=== PATIENT | female | born 1945 | race Caucasian/White ===

== ENCOUNTER → 2017-08-04 | Outpatient (CLI) | payer MEDICARE, OTHER ==
[2017-08-04 15:05] LABS: Basophils % (A) 0 %; Eosinophils % (A) 0 %; HCT 44.8 % (34.0-46.0); HGB 14.4 gm/dL (11.4-16.0); Lymphocytes # (A) 2.3 k/uL (1.0-4.8); Lymphocytes % (A) 21 %; MCHC 32.1 g/dL (31.0-37.0); MCV 93.5 fL (80.0-100.0); Mean Platelet Volume 6.9; Monocytes # (A) 0.5 k/uL (0-1.0); Monocytes % (A) 5 %; Neutrophils # (A) 7.5 k/uL (1.3-7.7); Neutrophils % (A) 71 %; Platelet Count 385 k/uL (150-450); RBC 4.79 m/uL (3.80-5.40); RDW 13.1 % (11.5-15.5); WBC 10.5 k/uL (3.8-10.6)
[2017-08-04 15:12] LABS: Potassium 5.6 mmol/L (3.5-5.1)
== END | disposition home or self-care (01) ==
LOC: LABPAT 13:54
PROVIDERS: ATTEND Surgery
DX: Z01.818 Encounter for other preprocedural examination (principal); R94.31 Abnormal electrocardiogram [ECG] [EKG]; D64.9 Anemia, unspecified; F17.200 Nicotine dependence, unspecified, uncomplicated; T81.89XA Other complications of procedures, not elsewhere classified, initial encounter; Z01.812 Encounter for preprocedural laboratory examination
CPT/HCPCS: 36415; 80051; 85025; 93005

== ENCOUNTER 2017-08-07 07:59 | Day surgery (SDC) | payer MEDICARE, OTHER ==
[2017-08-03 11:29] VITALS: BMI 45.0
[~2017-08-07 07:59] MED LIST: DEXAMETHASONE SOD PHOSPHATE 10 MG/ML 1 ML VIAL IV ONE; HEPARIN SODIUM,PORCINE 5,000 UNIT/ML 1 ML VIAL SQ ONE; LACTATED RINGERS 1,000 ML IV SCH; MIDAZOLAM 2 MG/2 ML VIAL IV PRN; MORPHINE SULFATE 4 MG/ML SYRINGE IV PRN; ONDANSETRON 4 MG/2 ML VIAL IVP ONE; Pre Op ABX Message 1 EACH MISC MISCELLANE ONE
[2017-08-07 08:32] VITALS: RESP 16
[2017-08-07 08:34] LABS: Glucose,Whole Blood 200 mg/dL (75-99)
--- NOTE | 2017-08-07 09:26 | P.GSHP ---
History of Present Illness H&P Date: 08/07/17 Chief Complaint: Chronic abdominal wound This a 72-year-old female who has a chronic abdominal wound. Patient had a ventral hernia repair approximately 10 years ago. She states she had mesh removed from the hernia. She has a chronic nonhealing abdominal wall sinus. She presents today for debridement of abdominal wall Past Medical History Past Medical History: Diabetes Mellitus, Eye Disorder, Hyperlipidemia, Hypertension, Osteoarthritis (OA), Thyroid Disorder Additional Past Medical History / Comment(s): arrthymia ; glaucoma History of Any Multi-Drug Resistant Organisms: None Reported Past Surgical History: Cholecystectomy, Hernia Repair, Tonsillectomy Additional Past Surgical History / Comment(s): hernia repair X 3 (mesh rejection ) Past Anesthesia/Blood Transfusion Reactions: No Reported Reaction Smoking Status: Never smoker - Past Family History Mother Family Medical History: Diabetes Mellitus Medications and Allergies Home Medications Medication Instructions Recorded Confirmed Type Acetaminophen Tab [Tylenol Tab] 650 mg PO Q6H PRN 05/09/15 08/07/17 History Aspirin 325 mg PO DAILY 05/09/15 08/07/17 History Exenatide [Byetta] 10 mcg SQ BID 05/09/15 08/07/17 History Fish Oil/Dha/Epa [Fish Oil 1,200 1 each PO DAILY 05/09/15 08/07/17 History mg Fish Oil] Ibuprofen [Motrin] 800 mg PO Q8HR PRN 05/09/15 08/07/17 History Lisinopril/Hydrochlorothiazide 1 each PO HS 05/09/15 08/07/17 History [Zestoretic 20-25 mg Tablet] Meclizine [Antivert] 25 mg PO DAILY PRN 05/09/15 08/07/17 History OLANZapine/FLUOXETINE HCL [Symbyax 1 each PO HS 05/09/15 08/07/17 History 12-25 mg Capsule] Simvastatin [Zocor] 40 mg PO HS 05/09/15 08/07/17 History lamoTRIgine 150 mg PO BID 05/09/15 08/07/17 History metFORMIN HCL [Glucophage] 1,000 mg PO BID 05/09/15 08/07/17 History Multivitamins, Thera [Multivitamin 1 tab PO DAILY 08/03/17 08/07/17 History (formulary)] Travoprost [Travatan Z 0.004%] 1 drop BOTH EYES DAILY 08/03/17 08/07/17 History Allergies Allergy/AdvReac Type Severity Reaction Status Date / Time No Known Allergies Allergy Verified 08/07/17 08:36 Surgical - Exam Vital Signs Temp Pulse Resp BP Pulse Ox 98.0 F 68 16 143/75 97 08/07/17 08:30 08/07/17 08:30 08/07/17 08:30 08/07/17 08:30 08/07/17 08:30 - General Review obesity with BMI 45 well developed, no distress - Eyes PERRL - ENT normal pinna - Neck no masses - Respiratory normal expansion - Cardiovascular Rhythm: regular - Abdomen Nonhealing abdominal wall sinus located 4 cm to the left of the umbilicus. There is evidence of laparotomy scars Abdomen: soft, non tender Results - Labs 08/07/17 08:25 Abnormal Lab Results - Last 24 Hours (Table) 08/07/17 Range/Units 08:23 POC Glucose (mg/dL) 200 H (75-99) mg/dL Diabetes panel 08/07/17 Range/Units 08:25 Potassium 4.2 (3.5-5.1) mmol/L Pituitary panel 08/07/17 Range/Units 08:25 Potassium 4.2 (3.5-5.1) mmol/L Adrenal panel 08/07/17 Range/Units 08:25 Potassium 4.2 (3.5-5.1) mmol/L Assessment and Plan Assessment: Chronic abdominal wound. We'll perform debridement.
[2017-08-07] MEDS ORDERED: ceFAZolin 1,000 MG/50 ML BAG (PMX) IVPB ONE (09:52)
[2017-08-07] MEDS ORDERED: BUPIVACAINE (PF) 0.25% 30 ML VIAL SQ ONE (09:54)
[2017-08-07 10:22] VITALS: TEMP 99.1
--- NOTE | 2017-08-07 10:26 | P.OP ---
Date of Procedure: 08/07/17 Preoperative Diagnosis: Chronic abdominal wound Postoperative Diagnosis: Chronic abdominal wound secondary to infected stitch Procedure(s) Performed: Debridement of abdominal wall and removal of infected stitch Anesthesia: BRAD Surgeon: Elian Matos Estimated Blood Loss (ml): 5 Pathology: other (Abdominal wall debridement, stitch foreign body) Condition: stable Disposition: PACU Description of Procedure: The patient was placed on the operative table in supine position. She received general anesthesia. Her abdomen was prepped and draped in usual sterile fashion. The patient had a chronic wound sinus to the left of the umbilicus. This was probed with a hemostat. Skin was then opened over top of the wound. The tract was followed down. There appeared to be a chronically infected stitch. This was removed. The area of the fistula's tract was then debrided. The wound was packed with wet-to-dry Kerlix dressing. Patient top procedure well and was sent to recovery in stable condition.
[2017-08-07 10:29] LABS: Glucose,Whole Blood 198 mg/dL (75-99)
[2017-08-07 12:02] VITALS: BP 153/75
[2017-08-07 12:20] VITALS: PULSE 71
--- NOTE | 2017-08-11 17:46 | CDI ---
Outpatient Documentation Clarification Form Date: 08/11/17 CDS/Adz Worker Name: SAMM De La Vega Phone: If you have question, contact Isabelle Coleman Rotor Assembler at M-F 8:30 am to 6pm. Patient Name: Zulema Felix Admit Date: 08/07/17 Discharge Date: 08/07/17 ATTENTION: The Clinical Documentation Specialists (CDI) and [facility] Coding Staff appreciate your assistance in clarifying documentation. Please respond to the clarification below the line at the bottom and electronically sign. The CDI & [facility] Coding staff will review the response and follow-up if needed. Please note: Queries are made part of the Legal Health Record. If you have any questions, please contact the author of this message via ITS or call the Rotor Assembler. Dr. Elian Matos Complete documentation for excisional debridement requires five elements: A description of the procedure as excisional A description of the instrument used to cut or excise the tissue (e.g., scissors , scalpel, curette) A description of the tissue removed (e.g., necrotic, devitalized or non-viable) The appearance and size of the wound (e.g., down to fresh bleeding tissue, 7 cm x 10 cm, etc.) The depth of the debridement (e.g., to skin, fascia, subcutaneous tissue, muscle , or bone) Excisional Debridement Template Type of debridement (ewiiaapaayp one)~~ excisional ~ nonexcisional Size and appearance of wound debrided Removal of devitalized tissue description (necrotic, nonviable, etc.) ____ Cutting instrument used (scalpel, forceps, scissors, etc.) Depth of debridement (How deep did it go to get to pink, healthy tissue? [place] to deepest depth.) skin~~~~~~~ subcutaneous~~~~~ muscle~~~~~ fascia~~~~ bone MTDD
--- NOTE | 2017-08-21 12:21 | CDI ---
Outpatient Documentation Clarification Form Date: 08/21/17 CDS/Superintendent [employer] Operations Name: Phone: If any questions, call Isabelle Coleman Automobile Bumper Straightener at [phone] Patient Name: Zulema Felix Admit Date: 08/07/17 Discharge Date: 08/07/17 ATTENTION: The [facility] Coding Staff appreciate your assistance in clarifying documentation. Please respond to the clarification below the line at the bottom and electronically sign. The [facility] Coding staff will review the response and follow-up if needed. Please note: Queries are made part of the Legal Health Record. If you have any questions, please contact the Automobile Bumper Straightener. Dear Dr. Matos, Was the debridement excisional? If so, what type of tool? The Op report does not state the type of debridement or how it was performed. What type of tissue was removed? (e.g., necrotic, devitalized or non-viable) What is the size of the debridement, in cm? What is the depth of debridement? (skin, fascia, subcutaneous tissue, muscle, bone) Thank you for your kind consideration. The debridement was excisional, a scalpel was used for debridement. Subcutaneous tissue, fat was debrided. The fat was infected.. The debridement was 3 x 4 cm. The depth the debridement was 3 cm. MTDD
== END 2017-08-07 12:39 | disposition home or self-care (01) ==
LOC: OR 07:59
PROVIDERS: ATTEND Surgery
DX: T81.89XA Other complications of procedures, not elsewhere classified, initial encounter (principal); T85.79XA Infection and inflammatory reaction due to other internal prosthetic devices, implants and grafts, initial encounter; E11.9 Type 2 diabetes mellitus without complications; E78.5 Hyperlipidemia, unspecified; I10 Essential (primary) hypertension; M19.90 Unspecified osteoarthritis, unspecified site; E07.9 Disorder of thyroid, unspecified; H40.9 Unspecified glaucoma; F31.9 Bipolar disorder, unspecified; E66.9 Obesity, unspecified; Z68.42 Body mass index [BMI] 45.0-49.9, adult; Z79.84 Long term (current) use of oral hypoglycemic drugs; Z79.82 Long term (current) use of aspirin; Z79.899 Other long term (current) drug therapy; Z91.048 Other nonmedicinal substance allergy status
CPT/HCPCS: 11042; 88304; 84132; J1644; J1100; J2405; J0690

== ENCOUNTER → 2017-12-08 | Outpatient (CLI) | payer MEDICARE, OTHER ==
[2017-12-08 13:41] LABS: Basophils % (A) 0 %; Eosinophils % (A) 0 %; HCT 41.5 % (34.0-46.0); HGB 13.3 gm/dL (11.4-16.0); Lymphocytes # (A) 1.8 k/uL (1.0-4.8); Lymphocytes % (A) 21 %; MCH 29.8 pg (25.0-35.0); MCHC 32.1 g/dL (31.0-37.0); MCV 92.6 fL (80.0-100.0); Mean Platelet Volume 6.5; Monocytes # (A) 0.3 k/uL (0-1.0); Monocytes % (A) 4 %; Neutrophils # (A) 6.4 k/uL (1.3-7.7); Neutrophils % (A) 73 %; Platelet Count 362 k/uL (150-450); RBC 4.48 m/uL (3.80-5.40); RDW 13.6 % (11.5-15.5); WBC 8.8 k/uL (3.8-10.6)
[2017-12-08 13:57] LABS: Albumin 4.1 g/dL (3.5-5.0); Calcium 9.6 mg/dL (8.4-10.2); Potassium 4.6 mmol/L (3.5-5.1); Total Bilirubin 0.5 mg/dL (0.2-1.3); Total Protein 6.3 g/dL (6.3-8.2)
== END | disposition home or self-care (01) ==
LOC: LABWHC1 12:50
PROVIDERS: ATTEND Nurse Practitioner Primary Care
DX: E11.40 Type 2 diabetes mellitus with diabetic neuropathy, unspecified (principal); E78.2 Mixed hyperlipidemia; F31.30 Bipolar disorder, current episode depressed, mild or moderate severity, unspecified
CPT/HCPCS: 36415; 80053; 80061; 80175; 85025

== ENCOUNTER → 2019-06-17 | Outpatient (CLI) | payer MEDICARE, OTHER ==
[2019-06-17 16:56] LABS: African American GFR (CKD) 57.3 (60.0-200.0); Albumin 4.4 g/dL (3.80-4.90); Albumin/Globulin Ratio 2.32 (1.60-3.17); Anion Gap 11.9 mmol/L (4.00-12.00); BUN/Creat Ratio 17.27 Ratio (12.00-20.00); Calcium 10.4 mg/dL (8.7-10.3); Carbon Dioxide 28.1 mmol/L (21.6-31.8); Chol/HDL Ratio 4.15; Globulin 1.9 g/dL (1.6-3.3); LDL Cholesterol,Calculated 72.2 mg/dL (0.0-131.0); Non-African American GFR(CKD) 49.4 (60.0-200.0); Potassium 4.5 mmol/L (3.5-5.5); Total Bilirubin 0.5 mg/dL (0.3-1.2); Total Protein 6.3 g/dL (6.2-8.2); VLDL Calculation 56.8 mg/dL (5.00-40.00)
[2019-06-17 20:10] LABS: Hemoglobin A1C 6.3 % (4.0-6.0)
== END | disposition home or self-care (01) ==
LOC: LABWHC1 08:57
DX: E78.2 Mixed hyperlipidemia (principal); E11.40 Type 2 diabetes mellitus with diabetic neuropathy, unspecified
CPT/HCPCS: 36415; 80053; 80061; 83036; 84443

== ENCOUNTER → 2019-11-25 | Outpatient (CLI) | payer MEDICARE, OTHER ==
[2019-11-25 09:37] LABS: Basophils % (A) 0 %; Eosinophils % (A) 0 %; HCT 44.4 % (34.0-46.0); HGB 13.9 gm/dL (11.4-16.0); Lymphocytes # (A) 1.6 k/uL (1.0-4.8); Lymphocytes % (A) 18 %; MCH 29.7 pg (25.0-35.0); MCHC 31.4 g/dL (31.0-37.0); MCV 94.7 fL (80.0-100.0); Mean Platelet Volume 7.1; Monocytes # (A) 0.3 k/uL (0-1.0); Monocytes % (A) 4 %; Neutrophils # (A) 6.5 k/uL (1.3-7.7); Neutrophils % (A) 76 %; Platelet Count 303 k/uL (150-450); RBC 4.68 m/uL (3.80-5.40); WBC 8.5 k/uL (3.8-10.6)
[2019-11-25 15:34] LABS: Albumin 4.1 g/dL (3.80-4.90); Albumin/Globulin Ratio 2.16 (1.60-3.17); Anion Gap 10.3 mmol/L (4.00-12.00); BUN/Creat Ratio 22.22 Ratio (12.00-20.00); Calcium 9.4 mg/dL (8.7-10.3); Carbon Dioxide 26.7 mmol/L (21.6-31.8); Chol/HDL Ratio 3.31; Globulin 1.9 g/dL (1.6-3.3); LDL Cholesterol,Calculated 54.6 mg/dL (0.0-131.0); Total Bilirubin 0.5 mg/dL (0.2-1.2); VLDL Calculation 42.4 mg/dL (5.00-40.00)
== END | disposition home or self-care (01) ==
LOC: LABWHC1 08:17
PROVIDERS: ATTEND Nurse Practitioner Women's Health
DX: Z00.00 Encounter for general adult medical examination without abnormal findings (principal); I10 Essential (primary) hypertension; E11.9 Type 2 diabetes mellitus without complications; Z79.899 Other long term (current) drug therapy
CPT/HCPCS: 36415; 80053; 80061; 84439; 84443; 85025

== ENCOUNTER → 2020-01-05 | Outpatient (CLI) | payer MEDICARE, OTHER ==
[2020-01-05 16:47] LABS: T4, Free (Free Thyroxine) 1.2 ng/dL (0.80-1.80)
== END | disposition home or self-care (01) ==
LOC: LABWHC1 10:47
PROVIDERS: ATTEND Family Medicine
DX: E03.9 Hypothyroidism, unspecified (principal); E55.9 Vitamin D deficiency, unspecified
CPT/HCPCS: 36415; 82306; 84439; 84443

== ENCOUNTER → 2020-04-16 | Outpatient (CLI) | payer MEDICARE, OTHER ==
[2020-04-16 21:13] LABS: African American GFR (CKD) 64.3 (60.0-200.0); Non-African American GFR(CKD) 55.5 (60.0-200.0)
== END | disposition home or self-care (01) ==
LOC: LABWHC1 09:21
PROVIDERS: ATTEND Nurse Practitioner Women's Health
DX: E11.9 Type 2 diabetes mellitus without complications (principal); E55.9 Vitamin D deficiency, unspecified; R77.0 Abnormality of albumin; Z79.899 Other long term (current) drug therapy
CPT/HCPCS: 36415; 82306; 82565; 84520

== ENCOUNTER → 2021-04-25 | Outpatient (CLI) | payer MEDICARE, OTHER ==
[2021-04-25 22:21] LABS: T4, Free (Free Thyroxine) 1.16 ng/dL (0.800-1.800)
== END | disposition home or self-care (01) ==
LOC: LABWHC1 13:40
PROVIDERS: ATTEND Nurse Practitioner Family
DX: H57.89 Other specified disorders of eye and adnexa (principal)
CPT/HCPCS: 36415; 84439; 84443

== ENCOUNTER → 2021-11-25 | Outpatient (CLI) | payer MEDICARE, OTHER ==
[2021-11-25 14:46] LABS: Basophils # (A) 0.01 X 10*3/uL (0.00-0.10); Basophils % (A) 0.1 %; Eosinophils # (A) 0 X 10*3/uL (0.04-0.35); Eosinophils % (A) 0 %; HCT 43.2 % (37.2-46.3); HGB 13.7 g/dL (12.0-15.0); Immature Grans, Automated 0.6 %; Lymphocytes # (A) 2.39 X 10*3/uL (0.90-5.00); Lymphocytes % (A) 20.9 %; MCH 31.1 pg (27.0-32.0); MCHC 31.7 g/dL (32.0-37.0); MCV 98.2 fL (80.0-97.0); Mean Platelet Volume 9.7 fL (9.5-12.2); Monocytes # (A) 0.68 X 10*3/uL (0.20-1.00); Monocytes % (A) 5.9 %; NRBC Per 100 WBC 0 /100 WBCS (0.0-0.0); Neutrophils # (A) 8.31 X 10*3/uL (1.80-7.70); Neutrophils % (A) 72.5 %; Platelet Count 347 X 10*3/uL (140-440); RDW 13.4 % (11.5-14.5); WBC 11.46 X 10*3/uL (4.50-10.00)
[2021-11-25 16:14] LABS: ALT 21 U/L (8-44); AST 17 U/L (13-35); African American GFR (CKD) 56.5 (60.0-200.0); Albumin 4.3 g/dL (3.8-4.9); Albumin/Globulin Ratio 1.79 (1.60-3.17); Alkaline Phosphatase 79 U/L (41-126); Blood Urea Nitrogen 17.6 mg/dL (9.0-27.0); Carbon Dioxide 23.6 mmol/L (20.0-27.5); Chloride 102 mmol/L (96-109); Globulin 2.4 g/dL (1.6-3.3); Glucose 206 mg/dL (70-110); Non-African American GFR(CKD) 48.7 (60.0-200.0); Potassium 4.9 mmol/L (3.5-5.5); Sodium 144 mmol/L (135-145); Total Protein 6.7 g/dL (6.2-8.2)
== END | disposition home or self-care (01) ==
LOC: LABWHC1 08:35
PROVIDERS: ATTEND Nurse Practitioner Family
DX: Z00.00 Encounter for general adult medical examination without abnormal findings (principal); E11.22 Type 2 diabetes mellitus with diabetic chronic kidney disease; Z68.42 Body mass index [BMI] 45.0-49.9, adult; E55.9 Vitamin D deficiency, unspecified; E66.01 Morbid (severe) obesity due to excess calories; N18.1 Chronic kidney disease, stage 1; I12.9 Hypertensive chronic kidney disease with stage 1 through stage 4 chronic kidney disease, or unspecified chronic kidney disease
CPT/HCPCS: 36415; 80053; 80061; 82306; 84439; 84443; 85025

== ENCOUNTER → 2021-12-30 | Outpatient (CLI) | payer MEDICARE, OTHER ==
--- NOTE | 2022-01-01 07:25 | MM ---
Reason for Exam: Screening (asymptomatic). Last mammogram was performed 18 year(s) and 8 month(s) ago. Patient History: Menarche at age 16. First Full-Term at age 26. Left ovary removed at age 47. Right ovary removed at age 47. Postmenopausal. Risk Values: [place] 5 year model risk: 1.8%. NCI Lifetime model risk: 3.6%. Prior Study Comparison: 02/28/1993 Screening Mammogram, Unknown. 01/16/1998 Bilateral Special View Mammogram, [facility]. 05/03/2003 Bilateral Screening Mammogram, [facility]. Tissue Density: The breast tissue is heterogeneously dense. This may lower the sensitivity of mammography. Findings: Analyzed By CAD. There is no suspicious group of microcalcifications or new suspicious mass in either breast. Stable benign calcifications noted. Overall Assessment: Benign, BI-RAD 2 Management: Screening Mammogram of both breasts in 1 year. A clinical breast exam by your physician is recommended on an annual basis and results should be correlated with mammographic findings. Electronically signed and approved by: Mt Ortiz M.D. Radiologis
== END | disposition home or self-care (01) ==
LOC: RADMAMWWP 07:02
PROVIDERS: ATTEND Family Medicine
DX: Z12.31 Encounter for screening mammogram for malignant neoplasm of breast (principal); R92.1 Mammographic calcification found on diagnostic imaging of breast; Z78.0 Asymptomatic menopausal state
CPT/HCPCS: 77063; 77067

== ENCOUNTER → 2022-01-02 | Outpatient (CLI) | payer MEDICARE, OTHER ==
--- NOTE | 2022-01-02 12:22 | US ---
EXAMINATION TYPE: US kidneys/renal and bladder DATE OF EXAM: 01/02/2022 COMPARISON: NONE CLINICAL HISTORY: N18.31 CHRONIC KIDNEY DISEASE, STAGE 3A. CKD STAGE 3A EXAM MEASUREMENTS: Right Kidney: 11.5 x 5.5 x 4.1 cm Left Kidney: 11.8 x 6.3 x 4.9 cm Right Kidney: No hydronephrosis or masses seen, CYST, not clearly simple, SEEN IN SUP POLE [place]. 2.3 x 2.4 x 2.2cm, CORTICAL THINNING NOTED Left Kidney: No hydronephrosis or masses seen , CORTICAL THINNINBG NOTED Bladder: NOT FULLY DISTENDED Bilateral Jets seen: No IMPRESSION: Right renal cyst. Follow-up can be performed.
== END | disposition home or self-care (01) ==
LOC: RADUSWWP 08:20
PROVIDERS: ATTEND Family Medicine
DX: N18.31 Chronic kidney disease, stage 3a (principal); N28.1 Cyst of kidney, acquired
CPT/HCPCS: 76770

== ENCOUNTER → 2022-02-25 | Outpatient (CLI) | payer MEDICARE, OTHER ==
[2022-02-26 01:12] LABS: Creatinine 24 Hour,Urine 997.2 mg/24hr (800.0-1800.0)
[2022-02-26 05:02] LABS: Total Protein 24 Hour,Urine 87.2 mg/24Hr (0.0-165.0); Total Volume 24 Hour,Urine 900 mL
== END | disposition home or self-care (01) ==
LOC: LABWHC1 11:03
PROVIDERS: ATTEND Family Medicine
DX: N18.31 Chronic kidney disease, stage 3a (principal)
CPT/HCPCS: 36415; 81050; 82575; 84156

== ENCOUNTER → 2022-03-25 | Outpatient (CLI) | payer MEDICARE, OTHER ==
[2022-03-25 11:23] LABS: Appearance,Urine Cloudy (Clear); Bacteria,Urine Rare /hpf; Bilirubin,Urine 1+ (Negative); Blood,Urine Negative (Negative); Color,Urine Dark Yellow; Glucose,Urine (UA) Negative (Negative); Hyaline Casts,Urine 21 /lpf (0-2); Ketones,Urine Trace (Negative); Leukocyte Esterase,Urine Large (Negative); Mucus,Urine Many /hpf; Nitrite,Urine Negative (Negative); PH, Urine 5.5 (5.0-8.0); Protein,Urine 1+ (Negative); RBC,Urine 6 /hpf (0-5); Squamous Epithelial Cell,Urine 17 /hpf (0-4); WBC,Urine 10 /hpf (0-5)
[2022-03-25 14:52] LABS: Basophils # (A) 0.01 X 10*3/uL (0.00-0.10); Basophils % (A) 0.1 %; Eosinophils # (A) 0 X 10*3/uL (0.04-0.35); Eosinophils % (A) 0 %; HGB 13.1 g/dL (12.0-15.0); Immature Grans, Automated 0.4 %; Lymphocytes % (A) 13.8 %; MCH 29.4 pg (27.0-32.0); MCHC 30.5 g/dL (32.0-37.0); MCV 96.6 fL (80.0-97.0); Mean Platelet Volume 9.4 fL (9.5-12.2); Monocytes # (A) 0.45 X 10*3/uL (0.20-1.00); Monocytes % (A) 4.4 %; NRBC Per 100 WBC 0 /100 WBCS (0.0-0.0); Neutrophils # (A) 8.22 X 10*3/uL (1.80-7.70); Neutrophils % (A) 81.3 %; Platelet Count 426 X 10*3/uL (140-440); RBC 4.45 X 10*6/uL (4.10-5.20); RDW 12.9 % (11.5-14.5); WBC 10.12 X 10*3/uL (4.50-10.00)
[2022-03-25 15:06] LABS: ALT 15 U/L (8-44); AST 22 U/L (13-35); African American GFR (CKD) 57.7 (60.0-200.0); Albumin 4.2 g/dL (3.8-4.9); Albumin/Globulin Ratio 1.48 (1.60-3.17); Alkaline Phosphatase 77 U/L (41-126); BUN/Creat Ratio 14.35 Ratio (12.00-20.00); Blood Urea Nitrogen 15.5 mg/dL (9.0-27.0); Calcium 10.4 mg/dL (8.7-10.3); Carbon Dioxide 25.6 mmol/L (20.0-27.5); Chloride 103 mmol/L (96-109); Globulin 2.8 g/dL (1.6-3.3); Glucose 205 mg/dL (70-110); Iron 63 ug/dL (50-170); Magnesium 1.6 mg/dL (1.5-2.4); Non-African American GFR(CKD) 49.8 (60.0-200.0); Phosphorus 3.6 mg/dL (2.4-5.1); Potassium 4.6 mmol/L (3.5-5.5); Sodium 146 mmol/L (135-145); Total Iron Binding Capacity 386 ug/dL (228-460); Uric Acid 5.1 mg/dL (2.9-7.7)
[2022-03-25 15:22] LABS: Ferritin 64.8 ng/mL (10.0-291.0)
[2022-03-25 17:05] LABS: Chol/HDL Ratio 3.27 Ratio; LDL Cholesterol,Calculated 66.2 mg/dL (0.0-131.0)
== END | disposition home or self-care (01) ==
LOC: LABWHC1 09:51
PROVIDERS: ATTEND Internal Medicine Nephrology
DX: E55.9 Vitamin D deficiency, unspecified (principal); E78.2 Mixed hyperlipidemia; N18.31 Chronic kidney disease, stage 3a; N25.81 Secondary hyperparathyroidism of renal origin; M10.9 Gout, unspecified; N39.0 Urinary tract infection, site not specified; D64.9 Anemia, unspecified; R80.9 Proteinuria, unspecified; R79.89 Other specified abnormal findings of blood chemistry
CPT/HCPCS: 36415; 80053; 80061; 81001; 82043; 82306; 82570; 82728; 83540; 83550; 83735; 83970; 84100; 84550; 85025

== ENCOUNTER → 2022-03-31 | Outpatient (CLI) | payer MEDICARE, OTHER ==
--- NOTE | 2022-04-01 07:43 | XR ---
EXAMINATION TYPE: XR shoulder complete LT DATE OF EXAM: 03/31/2022 5:27 PM INDICATION: Patient age:Female; 76 years old; Reason for study: [id number]; COMPARISON: None TECHNIQUE: The left shoulder was examined in AP, internally rotated and scapular Y projections. . FINDINGS: No evidence of acute osseous pathology, joint dislocation, or soft tissue swelling. The remaining por tions of the visualized chest are unremarkable. Mild degeneration of the acromioclavicular joint with osteophytes and hypertrophy.. IMPRESSION: 1. No acute osseous pathology. 2. Mild osteoarthrosis of the left shoulder.
== END | disposition home or self-care (01) ==
LOC: RADXRMAIN 12:27
PROVIDERS: ATTEND Family Medicine
DX: M19.012 Primary osteoarthritis, left shoulder (principal); M25.512 Pain in left shoulder

== ENCOUNTER → 2022-04-10 | Outpatient (CLI) | payer MEDICARE, OTHER ==
--- NOTE | 2022-04-11 09:19 | CA ---
Transthoracic Echo Report Name: Zulema Felix Age: 76 Gender: F : 1945 Exam Date: 04/10/2022 14:09 Exam Location: [facility] Ht (in): 67 Wt (lb): 288 Ordering Physician: Christine Fox MD Attending/Referring Phys: Christine Fox MD Trial Manager Lucina Valdovinos, GABRIEL Procedure CPT: Indications: R60.9 EDEMA Cardiac Hx: Body Habitus Technical Quality: Fair Contrast 1: Total Dose (mL): Contrast 2: Total Dose (mL): MEASUREMENTS (Male / Female) Normal Values 2D ECHO LV Diastolic Diameter PLAX 5.4 cm 4.2 - 5.9 / 3.9 - 5.3 cm LV Systolic Diameter PLAX 4.0 cm IVS Diastolic Thickness 1.0 cm 0.6 - 1.0 / 0.6 - 0.9 cm LVPW Diastolic Thickness 1.0 cm 0.6 - 1.0 / 0.6 - 0.9 cm LV Relative Wall Thickness 0.4 RV Internal Dim ED PLAX 3.4 cm M-MODE Aortic Root Diameter MM 3.2 cm LA Systolic Diameter MM 3.4 cm LA Ao Ratio MM 1.0 MV E Point Septal Separation 0.5 cm AV Cusp Separation MM 1.4 cm DOPPLER AV Peak Velocity 172.8 cm/s AV Peak Gradient 11.9 mmHg MV Area PHT 2.2 cm??? Mitral E Point Velocity 47.9 cm/s Mitral A Point Velocity 73.5 cm/s Mitral E to A Ratio 0.7 MV Deceleration Time 338.4 ms FINDINGS Left Ventricle Left ventricular ejection fraction is estimated at 50-55%. Mildly increased left ventricular wall thickness. Right Ventricle Normal right ventricular size and function. Right Atrium Normal right atrial size. Left Atrium Normal left atrial size. Mitral Valve Structurally normal mitral valve. Aortic Valve Aortic valve not well visualized. Tricuspid Valve Tricuspid valve not well visualized. Pulmonic Valve Pulmonic valve not well visualized. Pericardium Echo free space anterior to the right ventricle likely represents a fat pad. Aorta CONCLUSIONS Normal left ventricular dimension and systolic function Small pericardial effusion versus fat pad by the right ventricle Previewed by: Dr. Harley Khalil MD (Electronically Signed) Final Date: 11 April 2022 09:18
== END | disposition home or self-care (01) ==
LOC: RADECHMAIN 13:33
PROVIDERS: ATTEND Internal Medicine Nephrology
DX: R60.9 Edema, unspecified (principal)
CPT/HCPCS: 93306

== ENCOUNTER → 2022-07-14 | Outpatient (CLI) | payer MEDICARE, OTHER ==
--- NOTE | 2022-07-15 05:44 | MR ---
EXAMINATION TYPE: MR shoulder LT wo con DATE OF EXAM: 07/14/2022 COMPARISON: Left shoulder x-rays March 31, 2022 HISTORY: SYNOVITIS AND TENOSYNOVITIS, LEFT SHOULDER PAIN. Bursitis and osteoarthritis. Difficulty urena sing arm overhead. TECHNIQUE: Multiplanar, multisequence imaging of the left shoulder is performed without contrast. FINDINGS: Rotator Cuff: Increased signal in the distal supraspinatus tendon which remains intact. Infraspinatus tendon intact. Rotator cuff muscle bulk preserved. Subscapularis tendon is thickened with increased signal and surrounding fluid. Acromioclavicular Joint: Moderate narrowing and mild to moderate superior capsular hypertrophy. No si gnificant spurring. Loss some underlying fat plane and level of inferior distal clavicle sagittal kevin ge 15 for reference. Glenohumeral Joint: Narrowing with some spurring inferior medial humeral head. Small to moderate size joint effusion. Possible 4 mm intra-articular loose body coronal image 23 inferiorly. Corresponding round osseous lesion not clearly seen on plain film. Labrum: Increased signal superior labrum consistent with degenerative tearing. Biceps Tendon: The long head of biceps is in normal location within bicipital groove. Bone marrow signal: Subchondral cystic change involving the posterior osseous glenoid coronal image 2 1 for reference. Other: No additional significant abnormality is appreciated. IMPRESSION: Predominantly degenerative changes in the left shoulder as detailed above.
== END | disposition home or self-care (01) ==
LOC: RADMRIMAIN 06:59
PROVIDERS: ATTEND Nurse Practitioner
DX: M65.812 Other synovitis and tenosynovitis, left shoulder (principal); M19.012 Primary osteoarthritis, left shoulder

== ENCOUNTER → 2022-07-19 | Outpatient (CLI) | payer MEDICARE, OTHER ==
[2022-07-19 16:41] LABS: Appearance,Urine Cloudy (Clear); Basophils # (A) 0.02 X 10*3/uL (0.00-0.10); Basophils % (A) 0.2 %; Bilirubin,Urine Negative (Negative); Blood,Urine Negative (Negative); Color,Urine Yellow (Yellow); Eosinophils # (A) 0 X 10*3/uL (0.04-0.35); Eosinophils % (A) 0 %; HCT 45.2 % (37.2-46.3); HGB 14.1 g/dL (12.0-15.0); Immature Grans, Automated 0.5 %; Ketones,Urine 15 mg/dL (Negative); Lymphocytes # (A) 1.61 X 10*3/uL (0.90-5.00); Lymphocytes % (A) 16.6 %; MCHC 31.2 g/dL (32.0-37.0); MCV 96.2 fL (80.0-97.0); Mean Platelet Volume 9.3 fL (9.5-12.2); Monocytes % (A) 5.2 %; NRBC Per 100 WBC 0 /100 WBCS (0.0-0.0); Neutrophils # (A) 7.49 X 10*3/uL (1.80-7.70); Neutrophils % (A) 77.5 %; Nitrite,Urine Negative (Negative); Platelet Count 385 X 10*3/uL (140-440); RDW 13.8 % (11.5-14.5); Specific Gravity,Urine 1.029 (1.001-1.030); Urobilinogen,Urine 0.2 (0.2,1.0); WBC 9.67 X 10*3/uL (4.50-10.00)
[2022-07-19 16:43] LABS: Albumin 4.3 g/dL (3.8-4.9)
[2022-07-19 18:54] LABS: % Iron Saturation 16.09 (12.00-45.00); African American GFR (CKD) 68.4 (60.0-200.0); Anion Gap 18.4 mmol/L (10.00-18.00); BUN/Creat Ratio 13.28 Ratio (12.00-20.00); Blood Urea Nitrogen 12.4 mg/dL (9.0-27.0); Calcium 10.3 mg/dL (8.7-10.3); Carbon Dioxide 20.6 mmol/L (20.0-27.5); Magnesium 1.5 mg/dL (1.5-2.4); Potassium 4.6 mmol/L (3.5-5.5); Uric Acid 3.5 mg/dL (2.9-7.7)
[2022-07-19 20:00] LABS: Bacteria,Urine 2+ /HPF (None Seen)
== END | disposition home or self-care (01) ==
LOC: LABWHC1 09:11
PROVIDERS: ATTEND Nurse Practitioner Family
DX: N18.31 Chronic kidney disease, stage 3a (principal)
CPT/HCPCS: 36415; 80048; 81001; 82040; 82043; 82306; 82570; 83540; 83550; 83735; 83970; 84100; 84550; 85025

== ENCOUNTER → 2023-01-20 | Outpatient (CLI) | payer MEDICARE, OTHER ==
[2023-01-20 11:36] LABS: Basophils # (A) 0.02 X 10*3/uL (0.00-0.10); Basophils % (A) 0.2 %; Eosinophils # (A) 0 X 10*3/uL (0.04-0.35); Eosinophils % (A) 0 %; HCT 46.6 % (37.2-46.3); HGB 14.3 d/dL (12.0-15.0); Lymphocytes # (A) 1.54 X 10*3/uL (0.90-5.00); MCHC 30.7 d/dL (32.0-37.0); MCV 97.7 FL (80.0-97.0); Mean Platelet Volume 8.8 FL (9.5-12.2); Monocytes % (A) 5.5 %; NRBC Per 100 WBC 0 X 10*3/uL (0.00-0.01); Neutrophils # (A) 6.96 X 10*3/uL (1.80-7.70); Neutrophils % (A) 77.1 %; Platelet Count 417 X 10*3/uL (140-440); RBC 4.77 X 10*6/uL (4.10-5.20); RDW 15.3 % (11.5-14.5); WBC 9.04 X 10*3/uL (4.50-10.00)
[2023-01-20 11:54] LABS: Microalbumin Creatinine Ratio <9 mg/g Cr (0-30)
[2023-01-20 12:07] LABS: Appearance,Urine Clear (Clear); Bacteria,Urine 1+; Bilirubin,Urine Negative (Negative); Blood,Urine Negative (Negative); Color,Urine Yellow (Yellow); Ketones,Urine Trace (Negative); Nitrite,Urine Negative (Negative); PH, Urine 5.5; Specific Gravity,Urine 1.035 (1.001-1.030)
[2023-01-20 17:56] LABS: % Iron Saturation 17.21 (12.00-45.00); Albumin 4.1 d/dL (3.8-4.9); BUN/Creat Ratio 12.44 Ratio (12.00-20.00); Blood Urea Nitrogen 11.2 mg/dL (9.0-27.0); Calcium 10.1 mg/dL (8.7-10.3); Carbon Dioxide 24.8 mmol/L (21.6-31.8); Chloride 102 mmol/L (96-109); Ferritin 56.6 ng/mL (10.0-291.0); Glucose 174 mg/dL (70-110); Iron 58 UG/DL (50-170); Magnesium 1.7 mg/dL (1.5-2.4); Phosphorus 3.9 mg/dL (2.4-5.1); Potassium 5.3 mmol/L (3.5-5.5); Sodium 142 mmol/L (135-145); Total Iron Binding Capacity 337 UG/DL (228-460); Uric Acid 4.1 mg/dL (2.9-7.7)
== END | disposition home or self-care (01) ==
LOC: LABWHC1 07:48
PROVIDERS: ATTEND Internal Medicine Nephrology
DX: N18.31 Chronic kidney disease, stage 3a (principal); D63.1 Anemia in chronic kidney disease; E55.9 Vitamin D deficiency, unspecified; E21.3 Hyperparathyroidism, unspecified; M10.9 Gout, unspecified; N39.0 Urinary tract infection, site not specified; R80.9 Proteinuria, unspecified
CPT/HCPCS: 36415; 80048; 81001; 82040; 82043; 82306; 82570; 82728; 83540; 83550; 83735; 83970; 84100; 84550; 85025

== ENCOUNTER 2023-02-22 17:59 | Inpatient (IN) | payer MEDICARE, OTHER ==
[2023-02-22] MEDS ORDERED: FAMOTIDINE 20 MG/2 ML VIAL IV STA (18:24)
[2023-02-22] MEDS ORDERED: SODIUM CHLORIDE 0.9% 500 ML 500 ML IV STA ×2 (18:26→19:17)
[2023-02-22 19:11] LABS: Basophils % (A) 0 %; Eosinophils # (A) 0.1 k/uL (0-0.7); Eosinophils % (A) 0 %; HCT 36.6 % (34.0-46.0); HGB 11.5 gm/dL (11.4-16.0); Hypochromasia Marked; Lymphocytes # (A) 1.2 k/uL (1.0-4.8); Lymphocytes % (A) 7 %; MCH 31.8 pg (25.0-35.0); MCHC 31.4 g/dL (31.0-37.0); MCV 101.5 fL (80.0-100.0); Macrocytosis Slight; Mean Platelet Volume 8.5; Monocytes # (A) 0.3 k/uL (0-1.0); Monocytes % (A) 2 %; Neutrophils # (A) 16.2 k/uL (1.3-7.7); Neutrophils % (A) 91 %; Platelet Count 418 k/uL (150-450); RBC 3.61 m/uL (3.80-5.40); RDW 14.7 % (11.5-15.5); WBC 17.8 k/uL (3.8-10.6)
[2023-02-22 19:23] LABS: African American GFR (CKD) 70 (>60 ml/min/1.73 sqM); Anion Gap 20 mmol/L; Blood Urea Nitrogen 44 mg/dL (7-17); Calcium 8.9 mg/dL (8.4-10.2); Carbon Dioxide 12 mmol/L (22-30); Chloride 104 mmol/L (98-107); Glucose 337 mg/dL (74-99); Lipase 191 U/L (23-300); Non-African American GFR(CKD) 61 (>60 ml/min/1.73 sqM); Sodium 136 mmol/L (137-145); Total Bilirubin 0.8 mg/dL (0.2-1.3)
[2023-02-22 19:30] LABS: ALT 28 U/L (4-34)
[2023-02-22 19:36] LABS: Magnesium 1.6 mg/dL (1.6-2.3); Potassium 6.4 mmol/L (3.5-5.1); Total Protein 5.9 g/dL (6.3-8.2)
[2023-02-22 19:37] LABS: AST 33 U/L (14-36); Albumin 3.5 g/dL (3.5-5.0); Alkaline Phosphatase 44 U/L (38-126)
[2023-02-22 19:44] LABS: Prothrombin Time 10.7 sec (9.0-12.0)
[2023-02-22 19:55] LABS: Partial Thromboplastin Time 18.3 sec (22.0-30.0)
[2023-02-22] MEDS ORDERED: PANTOPRAZOLE 40 MG/10 ML VIAL IVP STA (20:04)
[2023-02-22] MEDS ORDERED: NALOXONE 0.4 MG/ML 1 ML VIAL IV PRN (20:44)
--- NOTE | 2023-02-22 20:44 | ED ---
GI Bleed HPI - General Chief complaint: GI Bleed Stated complaint: GI Bleed Time Seen by Provider: 02/22/23 18:00 Source: patient, EMS, RN notes reviewed Mode of arrival: EMS Limitations: no limitations - History of Present Illness Initial comments: 77-year-old female no prior history of GI bleed who at weak at home apparently fell she is found have some coffee-ground emesis and some blood clots. Also she was noted have some melena. Is brought in for further evaluation initially she was found have a blood pressure 84/73. She's had no prior history of GI bleeding no history of ulcers. She is not on any blood thinners at this time. She is on Ozempic which apparently she's been taking more than she was prescribed. She has no pain at this time denies any loss of function to her upper or lower extremities. She does appear somewhat pale on my exam however family member states this is her normal color. She denies any overt abdominal pain at this time is not nauseated this time. MD complaint: coffee ground emesis, melena - Related Data Home Medications Medication Instructions Recorded Confirmed lamoTRIgine 150 mg PO BID 05/09/15 02/22/23 metFORMIN HCL [Glucophage] 1,000 mg PO BID 05/09/15 02/22/23 Travoprost [Travatan Z 0.004%] 1 drop BOTH EYES HS 08/03/17 02/22/23 Aspirin EC [Ecotrin] 325 mg PO DAILY 02/22/23 02/22/23 Atorvastatin [Lipitor] 40 mg PO HS 02/22/23 02/22/23 Empagliflozin [Jardiance] 10 mg PO DAILY 02/22/23 02/22/23 FLUoxetine HCL [PROzac] 20 mg PO DAILY@1600 02/22/23 02/22/23 OLANZapine [ZyPREXA] 5 mg PO HS 02/22/23 02/22/23 Semaglutide [Ozempic] 1 mg SQ Q7D 02/22/23 02/22/23 amLODIPine [Norvasc] 5 mg PO DAILY 02/22/23 02/22/23 Allergies Allergy/AdvReac Type Severity Reaction Status Date / Time No Known Allergies Allergy Verified 02/22/23 18:33 Review of Systems ROS Statement: Those systems with pertinent positive or pertinent negative responses have been documented in the HPI. ROS Other: All systems not noted in ROS Statement are negative. Past Medical History Past Medical History: Diabetes Mellitus, Eye Disorder, Hyperlipidemia, Hypertension, Osteoarthritis (OA), Thyroid Disorder Additional Past Medical History / Comment(s): arrthymia ; glaucoma History of Any Multi-Drug Resistant Organisms: None Reported Past Surgical History: Cholecystectomy, Hernia Repair, Tonsillectomy Additional Past Surgical History / Comment(s): hernia repair X 3 (mesh rejection) Past Anesthesia/Blood Transfusion Reactions: No Reported Reaction Past Psychological History: Bipolar, Depression Past Alcohol Use History: None Reported Past Drug Use History: None Reported - Past Family History Mother Family Medical History: Diabetes Mellitus General Exam - General Exam Comments Initial Comments: This is a well-developed well-nourished awake alert oriented 4 female Limitations: no limitations General appearance: alert, anxious Head exam: Present: atraumatic, normocephalic, normal inspection Eye exam: Present: normal appearance, PERRL, EOMI. Absent: scleral icterus, c onjunctival injection, periorbital swelling ENT exam: Present: mucous membranes dry Neck exam: Present: normal inspection, full ROM, other (Urine or bruits). Absent: tenderness, meningismus, lymphadenopathy Respiratory exam: Present: normal lung sounds bilaterally. Absent: respiratory distress, wheezes, rales, rhonchi, stridor Cardiovascular Exam: Present: regular rate, normal rhythm, normal heart sounds. Absent: systolic murmur, diastolic murmur, rubs, gallop, clicks GI/Abdominal exam: Present: soft, normal bowel sounds. Absent: distended, tenderness, guarding, rebound, rigid, bruit, pulsatile mass Rectal exam: Present: heme (+) stool, black stool Extremities exam: Present: normal inspection, full ROM, normal capillary refill. Absent: tenderness, pedal edema, joint swelling, calf tenderness Back exam: Present: normal inspection Neurological exam: Present: alert, oriented X3, CN II-XII intact Psychiatric exam: Present: normal affect, normal mood Skin exam: Present: warm, dry, intact, pallor. Absent: rash Course Vital Signs 02/22/23 02/22/23 18:04 18:20 Pulse Rate 89 Respiratory 16 Rate Blood Pressure 84/73 70/48 O2 Sat by Pulse 93 L Oximetry Medical Decision Making - Medical Decision Making I did discuss the findings with the patient and multiple family members as well as with Dr. Mora and Dr. Schreiber patient will be admitted to the ICU tonight consultation by Dr. Horan in the morning. Patient's blood pressure is improved she'll be admitted the lactic acid is elevated this is secondary to initial poor perfusion no evidence of infectious process at this time. Patient potassium was hemolyzed and pending a redraw.Was pt. sent in by a medical profe ssional or institution (ROMAINE Barreto, [employer], urgent care, hospital, or group home...) When possible be specific @ -No Did you speak to anyone other than the patient for history (EMS, parent, family, police, friend...)? What history was obtained from this source @ -Medication upon arrival also family members Did you review nursing and triage notes (agree or disagree)? Why? @ -I reviewed and agree with nursing and triage notes Were old charts reviewed (outside hosp., previous admission, EMS record, old EKG, old radiological studies, urgent care reports/EKG's, group home records)? Report findings @ - old charts were reviewed Differential Diagnosis (chest pain, altered mental status, abdominal pain women, abdominal pain men, vaginal bleeding, weakness, fever, dyspnea, syncope, headache, dizziness, GI bleed, back pain, seizure, CVA, palpatations, mental health, musculoskeletal)? @ -EI bleed EKG interpreted by me (3pts min.). @ -As above EKG interpreted by me sinus rhythm a 65. Interval 1 7070 QRS duration 83 QT since QTC 445/457 X-rays interpreted by me (1pt min.). @ -Chest x-ray KUB interpreted by me no acute processes CT interpreted by me (1pt min.). @ -None done U/S interpreted by me (1pt. min.). @ -None done What testing was considered but not performed or refused? (CT, X-rays, U/S, labs)? Why? @ -None What meds were considered but not given or refused? Why? @ -None Did you discuss the management of the patient with other professionals (professionals i.e. ROMAINE Barreto, [employer], lab, RT, psych nurse, social services aide, criminal lawyer, teacher, driver's license reviewing officer, director of casework department)? Give summary @ -Abby and Dr. Schreiber Was smoking cessation discussed for >3mins.? @ -No] Was critical care preformed (if so, how long)? @ -[39 minutes] Were there social determinants of health that impacted care today? How? (Homelessness, low income, unemployed, alcoholism, drug addiction, transportation, low edu. Level, literacy, decrease access to med. care, fci, rehab)? @ -[No] Was there de-escalation of care discussed even if they declined (Discuss DNR or withdrawal of care, Hospice)? DNR status @ -[No] What co-morbidities impacted this encounter? (DM, HTN, Smoking, COPD, CAD, Cancer, CVA, ARF, Chemo, Hep., AIDS, mental health diagnosis, sleep apnea, morbid obesity)? @ -[Diabetes hypertension thyroid disease] Was patient admitted / discharged? Hospital course, mention meds given and route, prescriptions, significant lab abnormalities, going to OR and other pertinent info. @ -[hospital course he was admitted to intensive care unit for inpatient evaluation treatment and monitoring GI consultation pending.] Undiagnosed new problem with uncertain prognosis? @ -[GI bleed] Drug Therapy requiring intensive monitoring for toxicity (Heparin, Nitro, Insulin, Cardizem)? @ -[No] Were any procedures done? @ -[No] Diagnosis/symptom? @ -[Acute GI bleed, hypotensive episode, fall, weakness, lactic acidosis] Acute, or Chronic, or Acute on Chronic? @ -[Acute] Uncomplicated (without systemic symptoms) or Complicated (systemic symptoms)? @ -[Complicated] Side effects of treatment? @ -[No] Exacerbation, Progression, or Severe Exacerbation? @ -[No] Poses a threat to life or bodily function? How? (Chest pain, USA, PR, pneumonia, PE, COPD, DKA, ARF, appy, cholecystitis, CVA, Diverticulitis, Homicidal, Suicidal, threat to staff... and all critical care pts) @ -[GI bleed] - Lab Data Result diagrams: 02/22/23 18:48 02/22/23 18:48 Lab Results 02/22/23 02/22/23 02/22/23 Range/Units 18:48 18:48 18:48 WBC 17.8 H (3.8-10.6) k/uL RBC 3.61 L (3.80-5.40) m/uL Hgb 11.5 (11.4-16.0) gm/dL Hct 36.6 (34.0-46.0) % MCV 101.5 H (80.0-100.0) fL MCH 31.8 (25.0-35.0) pg MCHC 31.4 (31.0-37.0) g/dL RDW 14.7 (11.5-15.5) % Plt Count 418 (150-450) k/uL MPV 8.5 Neutrophils % 91 % Lymphocytes % 7 % Monocytes % 2 % Eosinophils % 0 % Basophils % 0 % Neutrophils # 16.2 H (1.3-7.7) k/uL Lymphocytes # 1.2 (1.0-4.8) k/uL Monocytes # 0.3 (0-1.0) k/uL Eosinophils # 0.1 (0-0.7) k/uL Basophils # 0.0 (0-0.2) k/uL Hypochromasia Marked Macrocytosis Slight PT 10.7 (9.0-12.0) sec INR 1.0 (<1.2) APTT 18.3 L (22.0-30.0) sec Sodium 136 L (137-145) mmol/L Potassium 6.4 H* (3.5-5.1) mmol/L Chloride 104 (98-107) mmol/L Carbon Dioxide 12 L (22-30) mmol/L Anion Gap 20 mmol/L BUN 44 H (7-17) mg/dL Creatinine 0.91 (0.52-1.04) mg/dL Est GFR (CKD-EPI)AfAm 70 (>60 ml/min/1.73 sqM) Est GFR (CKD-EPI)NonAf 61 (>60 ml/min/1.73 sqM) Glucose 337 H (74-99) mg/dL Plasma Lactic Acid Shaggy (0.7-2.0) mmol/L Calcium 8.9 (8.4-10.2) mg/dL Magnesium 1.6 (1.6-2.3) mg/dL Total Bilirubin 0.8 (0.2-1.3) mg/dL AST 33 (14-36) U/L ALT 28 (4-34) U/L Alkaline Phosphatase 44 (38-126) U/L Troponin I (0.000-0.034) ng/mL Total Protein 5.9 L (6.3-8.2) g/dL Albumin 3.5 (3.5-5.0) g/dL Lipase 191 (23-300) U/L Blood Type Confirm 02/22/23 02/22/23 02/22/23 Range/Units 18:48 18:48 18:50 WBC (3.8-10.6) k/uL RBC (3.80-5.40) m/uL Hgb (11.4-16.0) gm/dL Hct (34.0-46.0) % MCV (80.0-100.0) fL MCH (25.0-35.0) pg MCHC (31.0-37.0) g/dL RDW (11.5-15.5) % Plt Count (150-450) k/uL MPV Neutrophils % % Lymphocytes % % Monocytes % % Eosinophils % % Basophils % % Neutrophils # (1.3-7.7) k/uL Lymphocytes # (1.0-4.8) k/uL Monocytes # (0-1.0) k/uL Eosinophils # (0-0.7) k/uL Basophils # (0-0.2) k/uL Hypochromasia Macrocytosis PT (9.0-12.0) sec INR (<1.2) APTT (22.0-30.0) sec Sodium (137-145) mmol/L Potassium (3.5-5.1) mmol/L Chloride (98-107) mmol/L Carbon Dioxide (22-30) mmol/L Anion Gap mmol/L BUN (7-17) mg/dL Creatinine (0.52-1.04) mg/dL Est GFR (CKD-EPI)AfAm (>60 ml/min/1.73 sqM) Est GFR (CKD-EPI)NonAf (>60 ml/min/1.73 sqM) Glucose (74-99) mg/dL Plasma Lactic Acid Shaggy 9.7 H* (0.7-2.0) mmol/L Calcium (8.4-10.2) mg/dL Magnesium (1.6-2.3) mg/dL Total Bilirubin (0.2-1.3) mg/dL AST (14-36) U/L ALT (4-34) U/L Alkaline Phosphatase (38-126) U/L Troponin I <0.012 (0.000-0.034) ng/mL Total Protein (6.3-8.2) g/dL Albumin (3.5-5.0) g/dL Lipase (23-300) U/L Blood Type Confirm O Negative - EKG Data -: EKG Interpreted by Me EKG Comments: EKG interpreted by me sinus rhythm of 65 IA interval 177 QRS duration 83 QT since QTC 445/[address]-T wave changes effect present - Radiology Data Interpreted by me: Chest x-ray KUB interpreted by me no acute process. Critical Care Time Critical Care Time: Yes Total Critical Care Time: 39 Disposition Clinical Impression: Acute GI bleeding, Melena, Hypotensive episode, Lactic acidosis, Diabetes, Weakness Disposition: ADMITTED IP TO THIS [facility] Condition: Serious Referrals: Cheikh Mora MD [Primary Care Provider] - 1-2 days Decision Date: 02/22/23 Decision Time: 20:59
[2023-02-22] MEDS: PANTOPRAZOLE 40 MG/10 ML VIAL IV SCH (20:56)
--- NOTE | 2023-02-22 21:03 | XR ---
EXAMINATION TYPE: XR KUB portable DATE OF EXAM: 02/22/2023 8:46 PM INDICATION: Patient age:Female; 77 years old; Reason for study: GI bleed; PHH. COMPARISON: None. TECHNIQUE: One radiographic view of the abdomen was obtained. FINDINGS: The bowel gas pattern is nonspecific without dilated loops of small or large bowel. There i s no evidence for organomegaly or pneumoperitoneum. The osseous structures are intact. No abnormal calcifications are present. Fecal material and gas are demonstrated throughout the colon and rectum. Surgical clips project over the upper abdomen and right upper quadrant and over the pelvis. IMPRESSION: Nonspecific bowel gas pattern without radiographic evidence for acute process.
--- NOTE | 2023-02-22 21:04 | XR ---
EXAMINATION TYPE: XR chest 1V portable DATE OF EXAM: 02/22/2023 8:46 PM COMPARISON: None TECHNIQUE: XR chest 1V portable Frontal view of the chest. CLINICAL INDICATION:Female, 77 years old with history of pain; FINDINGS: Lungs/Pleura: There is no evidence of pleural effusion, focal consolidation, or pneumothorax. Pulmonary vascularity: Unremarkable. Heart/mediastinum: Cardiomediastinal silhouette is unremarkable. Musculoskeletal: No acute osseous pathology. IMPRESSION: No acute cardiopulmonary disease/process.
[2023-02-22 21:06] LABS: Glucose,Whole Blood 233 mg/dL (70-110)
[2023-02-22 21:37] LABS: HCT 32.1 % (34.0-46.0); HGB 10.2 gm/dL (11.4-16.0); Hypochromasia Slight; MCH 31.9 pg (25.0-35.0); MCHC 31.8 g/dL (31.0-37.0); MCV 100.4 fL (80.0-100.0); Macrocytosis Slight; Mean Platelet Volume 8.8; Platelet Count 323 k/uL (150-450); RDW 14.9 % (11.5-15.5); WBC 19.8 k/uL (3.8-10.6)
[2023-02-22] MEDS: LATANOPROST 0.005% OPHTH DROPS 2.5 ML BTL BOTH EYES SCH (21:48)
[2023-02-23 04:46] LABS: Glucose,Whole Blood 181 mg/dL (70-110)
[2023-02-23 06:39] LABS: Basophils % (A) 0 %; Eosinophils % (A) 0 %; HCT 29.7 % (34.0-46.0); Lymphocytes # (A) 1.3 k/uL (1.0-4.8); Lymphocytes % (A) 10 %; MCH 32.3 pg (25.0-35.0); MCHC 33.7 g/dL (31.0-37.0); MCV 96.1 fL (80.0-100.0); Mean Platelet Volume 7.7; Monocytes # (A) 0.6 k/uL (0-1.0); Monocytes % (A) 4 %; Neutrophils # (A) 11.3 k/uL (1.3-7.7); Neutrophils % (A) 83 %; Platelet Count 320 k/uL (150-450); RBC 3.09 m/uL (3.80-5.40); RDW 15.4 % (11.5-15.5); WBC 13.5 k/uL (3.8-10.6)
[2023-02-23 06:54] LABS: ALT 16 U/L (4-34); AST 19 U/L (14-36); African American GFR (CKD) 77 (>60 ml/min/1.73 sqM); Albumin 2.9 g/dL (3.5-5.0); Alkaline Phosphatase 44 U/L (38-126); Anion Gap 5 mmol/L; Blood Urea Nitrogen 74 mg/dL (7-17); Calcium 8.6 mg/dL (8.4-10.2); Carbon Dioxide 23 mmol/L (22-30); Chloride 110 mmol/L (98-107); Glucose 147 mg/dL (74-99); Non-African American GFR(CKD) 67 (>60 ml/min/1.73 sqM); Potassium 4.5 mmol/L (3.5-5.1); Sodium 138 mmol/L (137-145); Total Bilirubin 0.5 mg/dL (0.2-1.3); Total Protein 4.8 g/dL (6.3-8.2)
[2023-02-23] MEDS: PANTOPRAZOLE 40 MG/10 ML VIAL IV SCH ×2 (09:00→21:23)
--- NOTE | 2023-02-23 10:17 | P.CNPUL ---
History of Present Illness Consult date: 02/23/23 Requesting physician: Cheikh Mora Chief complaint: GI bleed, dizziness, hypotension. History of present illness: Pulmonary consult dated 02/23/2023. 77-year-old female who was seen in the emergency department, for possible gastrointestinal bleed. The patient apparently came in with coffee ground emesis, melena, and some blood clots, possible hematemesis, or hematochezia, and a low blood pressure of 84/73. The patient was seen in the emergency department. She was not a particularly good historian. Most of the history was obtained from the daughter. The patient initially was found to be hypotensive, but more recently has had normal blood pressures. She did receive 1 unit packed red blood cells. Currently, she is on room air. She's not receiving any IV fluids. Currently labs include a white count 13.5, hemoglobin 10, hematocrit 29.7, and normal platelet count. Sodium 138, potassium 4.5, chlorides 110, CO2 23, BUN 74, creatinine 0.85. Her initial lactic acid level was 3, and repeat was 2. A chest x-ray was normal and a flat plate of the abdomen, showed a nonspecific bowel gas pattern. Review of Systems REVIEW OF SYSTEMS: CONSTITUTIONAL: [Negative.] NEUROLOGIC: Dizziness. HEENT: [ Negative.] CARDIAC: Hypotension. PULMONARY: [Negative.] GI: Possible upper GI bleed. : [Negative.] RHEUMATOLOGIC: [ Negative.] IMMUNOLOGIC: [ Negative.] ENDOCRINE: [Negative. ] DERMATOLOGIC: [Negative.] Past Medical History Past Medical History: Diabetes Mellitus, Eye Disorder, Hyperlipidemia, Hypertension, Osteoarthritis (OA), Thyroid Disorder Additional Past Medical History / Comment(s): arrthymia ; glaucoma History of Any Multi-Drug Resistant Organisms: None Reported Past Surgical History: Cholecystectomy, Hernia Repair, Tonsillectomy Additional Past Surgical History / Comment(s): hernia repair X 3 (mesh rejection) Past Anesthesia/Blood Transfusion Reactions: No Reported Reaction Past Psychological History: Bipolar, Depression Past Alcohol Use History: None Reported Past Drug Use History: None Reported - Past Family History Mother Family Medical History: Diabetes Mellitus Medications and Allergies Home Medications Medication Instructions Recorded Confirmed Type lamoTRIgine 150 mg PO BID 05/09/15 02/22/23 History metFORMIN HCL [Glucophage] 1,000 mg PO BID 05/09/15 02/22/23 History Travoprost [Travatan Z 0.004%] 1 drop BOTH EYES HS 08/03/17 02/22/23 History Aspirin EC [Ecotrin] 325 mg PO DAILY 02/22/23 02/22/23 History Atorvastatin [Lipitor] 40 mg PO HS 02/22/23 02/22/23 History Empagliflozin [Jardiance] 10 mg PO DAILY 02/22/23 02/22/23 History FLUoxetine HCL [PROzac] 20 mg PO DAILY@1600 02/22/23 02/22/23 History OLANZapine [ZyPREXA] 5 mg PO HS 02/22/23 02/22/23 History Semaglutide [Ozempic] 1 mg SQ Q7D 02/22/23 02/22/23 History amLODIPine [Norvasc] 5 mg PO DAILY 02/22/23 02/22/23 History Allergies Allergy/AdvReac Type Severity Reaction Status Date / Time No Known Allergies Allergy Verified 02/22/23 18:33 Physical Exam Osteopathic Statement: *. No significant issues noted on an osteopathic s tructural exam other than those noted in the History and Physical/Consult. Vitals: Vital Signs Temp Pulse Resp BP Pulse Ox 02/23/23 08:00 98.3 F 84 18 127/75 96 02/23/23 06:00 78 18 115/61 94 L 02/23/23 05:00 76 24 110/96 96 02/23/23 04:00 81 12 133/68 97 02/23/23 03:07 98.7 F 78 16 133/68 95 02/23/23 03:00 81 16 111/68 97 02/23/23 02:19 98.7 F 80 16 124/71 98 02/23/23 01:59 98.6 F 80 18 94/65 98 02/23/23 01:00 74 23 117/61 95 02/23/23 00:12 98.1 F 75 18 117/99 96 02/23/23 00:00 73 18 118/101 96 02/22/23 23:52 98 F 75 16 118/98 95 02/22/23 23:40 97.3 F L 76 16 114/63 02/22/23 23:00 77 12 85/64 96 02/22/23 22:10 74 12 93/70 94 L 02/22/23 22:00 76 18 92/56 97 02/22/23 21:50 81 18 86/56 97 02/22/23 21:40 71 16 81/71 99 02/22/23 21:30 73 12 99/58 98 02/22/23 21:20 73 12 109/85 97 02/22/23 21:10 73 12 90/63 95 02/22/23 18:20 70/48 02/22/23 18:04 89 16 84/73 93 L Intake and Output 02/22/23 02/23/23 02/23/23 22:59 06:59 14:59 Intake Total 310 Balance 310 Intake: Blood Product 310 Rc As-1 Unit 310 [id number] Other: Weight 111.584 kg No acute distress, a bit confused, and a very poor historian. HEENT examination is grossly unremarkable. Mucous membranes are moist. No oral lesions. Neck supple. Full range of motion. No adenopathy thyromegaly or neck vein distention. Cardiovascular examination reveals regular rhythm rate. S1-S2 normal. No S3 or S4. No discernible murmur noted. Heart rate 84 bpm. Lungs reveal clear breath sounds. Breath sounds are equal bilaterally. No adventitious lung sounds including wheezes rhonchi or crackles. Room air saturation 96%. Abdomen soft bowel sounds are heard. No masses or tenderness. Extremities are intact. No cyanosis clubbing or edema. Skin is without rash or lesion. Neurologic examination is brief but nonfocal. Results - Laboratory Findings CBC and BMP: 02/23/23 06:13 02/23/23 06:13 PT/INR, D-dimer PT 10.7 sec (9.0-12.0) 02/22/23 18:48 INR 1.0 (<1.2) 02/22/23 18:48 Abnormal lab findings: Abnormal Labs 02/22/23 02/22/23 02/22/23 18:48 18:48 18:48 WBC 17.8 H RBC 3.61 L Hgb Hct MCV 101.5 H Neutrophils # 16.2 H APTT 18.3 L Sodium 136 L Potassium 6.4 H* Chloride Carbon Dioxide 12 L BUN 44 H Glucose 337 H POC Glucose (mg/dL) Plasma Lactic Acid Shaggy Total Protein 5.9 L Albumin Crossmatch 02/22/23 02/22/23 02/22/23 18:48 20:35 21:05 WBC RBC Hgb Hct MCV Neutrophils # APTT Sodium Potassium Chloride Carbon Dioxide BUN Glucose POC Glucose (mg/dL) 233 H Plasma Lactic Acid Shaggy 9.7 H* Total Protein Albumin Crossmatch See Detail 02/22/23 02/22/23 02/23/23 21:07 22:15 01:26 WBC 19.8 H RBC 3.20 L Hgb 10.2 L Hct 32.1 L MCV 100.4 H Neutrophils # APTT Sodium Potassium Chloride Carbon Dioxide BUN Glucose POC Glucose (mg/dL) Plasma Lactic Acid Shaggy 3.8 H* 3.0 H* Total Protein Albumin Crossmatch 02/23/23 02/23/23 02/23/23 03:14 04:43 06:13 WBC 13.5 H RBC 3.09 L Hgb 10.0 L Hct 29.7 L MCV Neutrophils # 11.3 H APTT Sodium Potassium 5.4 H Chloride Carbon Dioxide BUN Glucose POC Glucose (mg/dL) 181 H Plasma Lactic Acid Shaggy Total Protein Albumin Crossmatch 02/23/23 06:13 WBC RBC Hgb Hct MCV Neutrophils # APTT Sodium Potassium Chloride 110 H Carbon Dioxide BUN 74 H Glucose 147 H POC Glucose (mg/dL) Plasma Lactic Acid Shaggy Total Protein 4.8 L Albumin 2.9 L Crossmatch - Diagnostic Findings Chest x-ray: image reviewed Assessment and Plan Assessment: Possible upper GI bleed, with associated hypotension, S/P 1 unit of PRBCs. History of diabetes mellitus. History of hyperlipidemia. History of hypertension. History of osteoarthritis. History of glaucoma. History of bipolar disorder. Plan: Plan dated 02/23/2023. The patient is seen in the emergency department. She is in room #7. The patient was admitted with a diagnosis of possible upper GI bleed, with hematemesis, hematochezia, melena, and coffee-ground emesis. The patient was apparently found to be hypotensive initially. The patient received fluids and a unit of PRBCs. Currently, the patient is normotensive. She denies any abdominal pain. She is nontender on palpation. She's not having any additional GI bleeding at this time. The patient initially was going to go to the intensive care unit, but I believe she stable enough to go to the floor. Additional recommendations and suggestions are forthcoming. Time with Patient: Greater than 30
--- NOTE | 2023-02-23 11:29 | P.CONS ---
History of Present Illness - Reason for Consult Consult date: 02/23/23 GI bleed Requesting physician: He Cee - Chief Complaint Weakness, GI bleed - History of Present Illness This is a pleasant 77-year-old female who has a past medical history of diabetes mellitus, hyperlipidemia, hypertension, and hypothyroidism who presented to the emergency department by EMS for complaints of weakness, falling, and bloody diarrhea. Patient states yesterday she started feeling very weak and dizzy she fell and had then had a bowel movement which she states was dark in color with clots. Following that she started having coffee-ground emesis. She denies any history of a GI bleed. Denies any NSAID use or anticoagulation. Denies any history of peptic ulcer disease or acid reflux. No previous EGD, last colonoscopy likely greater than 10 years ago. However she did have a recent cold guard which she states was normal. On admission patient had a hemoglobin of 10.2 with an elevated P1 of 74. She was given 1 unit of blood. Repeat labs today hemoglobin stable at 10.0. She denied any abdominal pain or cramping at the time of the bowel movements. She currently does not have any abdominal pain, nausea or vomiting. She's had no further emesis or bloody bowel movement since yesterday. Today's labs WBC 13.5 hemoglobin 10.0 hematocrit 29 platelet count 320,000 sodium 138 potassium 4.5 B1 74 creatinine 0.8 total bilirubin 0.5 AST 19 ALTs 16 alkaline phosphatase 44 Past Medical History Past Medical History: Diabetes Mellitus, Eye Disorder, Hyperlipidemia, Hypertension, Osteoarthritis (OA), Thyroid Disorder Additional Past Medical History / Comment(s): arrthymia ; glaucoma History of Any Multi-Drug Resistant Organisms: None Reported Past Surgical History: Cholecystectomy, Hernia Repair, Tonsillectomy Additional Past Surgical History / Comment(s): hernia repair X 3 (mesh rejection) Past Anesthesia/Blood Transfusion Reactions: No Reported Reaction Past Psychological History: Bipolar, Depression Past Alcohol Use History: None Reported Past Drug Use History: None Reported - Past Family History Mother Family Medical History: Diabetes Mellitus Medications and Allergies Home Medications Medication Instructions Recorded Confirmed Type lamoTRIgine 150 mg PO BID 05/09/15 02/22/23 History metFORMIN HCL [Glucophage] 1,000 mg PO BID 05/09/15 02/22/23 History Travoprost [Travatan Z 0.004%] 1 drop BOTH EYES HS 08/03/17 02/22/23 History Aspirin EC [Ecotrin] 325 mg PO DAILY 02/22/23 02/22/23 History Atorvastatin [Lipitor] 40 mg PO HS 02/22/23 02/22/23 History Empagliflozin [Jardiance] 10 mg PO DAILY 02/22/23 02/22/23 History FLUoxetine HCL [PROzac] 20 mg PO DAILY@1600 02/22/23 02/22/23 History OLANZapine [ZyPREXA] 5 mg PO HS 02/22/23 02/22/23 History Semaglutide [Ozempic] 1 mg SQ Q7D 02/22/23 02/22/23 History amLODIPine [Norvasc] 5 mg PO DAILY 02/22/23 02/22/23 History Allergies Allergy/AdvReac Type Severity Reaction Status Date / Time No Known Allergies Allergy Verified 02/22/23 18:33 Physical Exam Vitals: Vital Signs Temp Pulse Resp BP Pulse Ox 02/23/23 08:00 98.3 F 84 18 127/75 96 02/23/23 06:00 78 18 115/61 94 L 02/23/23 05:00 76 24 110/96 96 02/23/23 04:00 81 12 133/68 97 02/23/23 03:07 98.7 F 78 16 133/68 95 02/23/23 03:00 81 16 111/68 97 02/23/23 02:19 98.7 F 80 16 124/71 98 02/23/23 01:59 98.6 F 80 18 94/65 98 02/23/23 01:00 74 23 117/61 95 02/23/23 00:12 98.1 F 75 18 117/99 96 02/23/23 00:00 73 18 118/101 96 02/22/23 23:52 98 F 75 16 118/98 95 02/22/23 23:40 97.3 F L 76 16 114/63 02/22/23 23:00 77 12 85/64 96 02/22/23 22:10 74 12 93/70 94 L 02/22/23 22:00 76 18 92/56 97 02/22/23 21:50 81 18 86/56 97 02/22/23 21:40 71 16 81/71 99 02/22/23 21:30 73 12 99/58 98 02/22/23 21:20 73 12 109/85 97 02/22/23 21:10 73 12 90/63 95 02/22/23 18:20 70/48 02/22/23 18:04 89 16 84/73 93 L Intake and Output 02/22/23 02/23/23 02/23/23 22:59 06:59 14:59 Intake Total 310 Balance 310 Intake: Blood Product 310 Rc As-1 Unit 310 [id number] Other: Weight 111.584 kg General appearance: The patient is alert, oriented, appears in no acute distress. HET: Head is normocephalic and atraumatic. Conjunctiva pink. Sclera anicteric. Neck: Supple without lymphadenopathy. Trachea midline. Heart: S1 S2. Regular rate and rhythm. Lungs: Clear to auscultation. Abdomen: Soft, nontender, nondistended with bowel sounds. No guarding or rigidity. Skin: No rashes. No jaundice. Extremities: Normal skin color and turgor. No pedal edema. Neurological: No focal deficits. Alert and oriented x3. Results CBC & Chem 7: 02/23/23 06:13 02/23/23 06:13 Labs: Abnormal Lab Results - Last 24 Hours (Table) 02/22/23 02/22/23 02/22/23 Range/Units 18:48 18:48 18:48 WBC 17.8 H (3.8-10.6) k/uL RBC 3.61 L (3.80-5.40) m/uL Hgb (11.4-16.0) gm/dL Hct (34.0-46.0) % MCV 101.5 H (80.0-100.0) fL Neutrophils # 16.2 H (1.3-7.7) k/uL APTT 18.3 L (22.0-30.0) sec Sodium 136 L (137-145) mmol/L Potassium 6.4 H* (3.5-5.1) mmol/L Chloride (98-107) mmol/L Carbon Dioxide 12 L (22-30) mmol/L BUN 44 H (7-17) mg/dL Glucose 337 H (74-99) mg/dL POC Glucose (mg/dL) (70-110) mg/dL Plasma Lactic Acid Shaggy (0.7-2.0) mmol/L Total Protein 5.9 L (6.3-8.2) g/dL Albumin (3.5-5.0) g/dL Crossmatch 02/22/23 02/22/23 02/22/23 Range/Units 18:48 20:35 21:05 WBC (3.8-10.6) k/uL RBC (3.80-5.40) m/uL Hgb (11.4-16.0) gm/dL Hct (34.0-46.0) % MCV (80.0-100.0) fL Neutrophils # (1.3-7.7) k/uL APTT (22.0-30.0) sec Sodium (137-145) mmol/L Potassium (3.5-5.1) mmol/L Chloride (98-107) mmol/L Carbon Dioxide (22-30) mmol/L BUN (7-17) mg/dL Glucose (74-99) mg/dL POC Glucose (mg/dL) 233 H (70-110) mg/dL Plasma Lactic Acid Shaggy 9.7 H* (0.7-2.0) mmol/L Total Protein (6.3-8.2) g/dL Albumin (3.5-5.0) g/dL Crossmatch See Detail 02/22/23 02/22/23 02/23/23 Range/Units 21:07 22:15 01:26 WBC 19.8 H (3.8-10.6) k/uL RBC 3.20 L (3.80-5.40) m/uL Hgb 10.2 L (11.4-16.0) gm/dL Hct 32.1 L (34.0-46.0) % MCV 100.4 H (80.0-100.0) fL Neutrophils # (1.3-7.7) k/uL APTT (22.0-30.0) sec Sodium (137-145) mmol/L Potassium (3.5-5.1) mmol/L Chloride (98-107) mmol/L Carbon Dioxide (22-30) mmol/L BUN (7-17) mg/dL Glucose (74-99) mg/dL POC Glucose (mg/dL) (70-110) mg/dL Plasma Lactic Acid Shaggy 3.8 H* 3.0 H* (0.7-2.0) mmol/L Total Protein (6.3-8.2) g/dL Albumin (3.5-5.0) g/dL Crossmatch 02/23/23 02/23/23 02/23/23 Range/Units 03:14 04:43 06:13 WBC 13.5 H (3.8-10.6) k/uL RBC 3.09 L (3.80-5.40) m/uL Hgb 10.0 L (11.4-16.0) gm/dL Hct 29.7 L (34.0-46.0) % MCV (80.0-100.0) fL Neutrophils # 11.3 H (1.3-7.7) k/uL APTT (22.0-30.0) sec Sodium (137-145) mmol/L Potassium 5.4 H (3.5-5.1) mmol/L Chloride (98-107) mmol/L Carbon Dioxide (22-30) mmol/L BUN (7-17) mg/dL Glucose (74-99) mg/dL POC Glucose (mg/dL) 181 H (70-110) mg/dL Plasma Lactic Acid Shaggy (0.7-2.0) mmol/L Total Protein (6.3-8.2) g/dL Albumin (3.5-5.0) g/dL Crossmatch 02/23/23 Range/Units 06:13 WBC (3.8-10.6) k/uL RBC (3.80-5.40) m/uL Hgb (11.4-16.0) gm/dL Hct (34.0-46.0) % MCV (80.0-100.0) fL Neutrophils # (1.3-7.7) k/uL APTT (22.0-30.0) sec Sodium (137-145) mmol/L Potassium (3.5-5.1) mmol/L Chloride 110 H (98-107) mmol/L Carbon Dioxide (22-30) mmol/L BUN 74 H (7-17) mg/dL Glucose 147 H (74-99) mg/dL POC Glucose (mg/dL) (70-110) mg/dL Plasma Lactic Acid Shaggy (0.7-2.0) mmol/L Total Protein 4.8 L (6.3-8.2) g/dL Albumin 2.9 L (3.5-5.0) g/dL Crossmatch Comments: KUB x-ray: Nonspecific bowel gas pattern without radiographic evidence for acute process Chest x-ray no acute cardiopulmonary disease/process Assessment and Plan (1) GI bleed Narrative/Plan: 77-year-old female who presented to the emergency department following dark maroon colored stool with clots and coffee ground emesis. She was found to be hypotensive. No previous history of GI bleed, no NSAID use her anticoagulation. No abdominal pain associated with bleed. Unclear etiology at this time however does appear to be upper GI bleed with elevated BUN, recommend proceeding with upper endoscopy tomorrow. Possible etiologies include peptic ulcer d isease, gastritis, esophagitis, AVM, or other possible etiologies. Patient currently stable with hemoglobin 10.0. Current Visit: Yes Status: Acute Code(s): K92.2 - GASTROINTESTINAL HEMORRHAGE, UNSPECIFIED SNOMED Code(s): 30702574 (2) Melena Current Visit: Yes Status: Acute Code(s): K92.1 - MELENA SNOMED Code(s): 8755046 (3) Diabetes Current Visit: Yes Status: Acute Code(s): E11.9 - TYPE 2 DIABETES MELLITUS WITHOUT COMPLICATIONS SNOMED Code(s): 72946510 (4) Hypotensive episode Current Visit: Yes Status: Acute Code(s): I95.9 - HYPOTENSION, UNSPECIFIED SNOMED Code(s): 18375940 (5) Weakness Current Visit: Yes Status: Acute Code(s): R53.1 - WEAKNESS SNOMED Code(s): 53640751 Plan: 1. Continue symptomatic and supportive care 2. Protonix 40 mg twice a day 3. Patient may have clear liquid diet 4. Daily CBC, transfuse for hemoglobin less than 7 5. Nothing by mouth after midnight 6. EGD will be scheduled for tomorrow Thank you for this consultation, we will continue to follow Dr. Ruel Horan I agree with the dictator's note, documented as a scribe by Charlotte Raygoza.
[2023-02-23 11:43] LABS: Glucose,Whole Blood 115 mg/dL (70-110)
--- NOTE | 2023-02-23 13:07 | P.HPIM ---
History of Present Illness H&P Date: 02/23/23 Chief Complaint: Status post fall, GI bleed This is a pleasant 77-year-old female past medical history significant for hypertension, diabetes mellitus, hypothyroidism, bipolar, depression and multiple other medical issues presented to the ER via EMS with complaints of generalized weakness, falling-denies head trauma, coffee-ground emesis, melena with some blood clots accompanied by a hypotension with systolic blood pressures in the 80s. Denies history of anticoagulation, NSAID use or prior GI bleed. ER reports patient was taking Ozempic more than prescribed. Afebrile, WBC 13.5, hemoglobin 10, platelets 320, electrolytes within normal limits, bicarb 23, BUN 74, creatinine 0.85, blood sugars controlled, lactic acid 9.7 on admission and currently down to 2 . Chest x-ray reported no acute cardiopulmonary disease/process. KUB reported nonspecific bowel gas pattern. Currently denies nausea, vomiting or bloody diarrhea/bowel movements. Denies abdominal pain .Matt es chest pain, palpitations or shortness of breath. Maintaining O2 sats in the high 90s on room air. Status post IV fluids and 1 unit of packed RBCs. Hypotension resolved. Review of Systems ROS Statement: Those systems with pertinent positive or pertinent negative responses have been documented in the HPI. ROS Other: All systems not noted in ROS Statement are negative. Past Medical History Past Medical History: Diabetes Mellitus, Eye Disorder, Hyperlipidemia, Hypertension, Osteoarthritis (OA), Thyroid Disorder Additional Past Medical History / Comment(s): arrthymia ; glaucoma History of Any Multi-Drug Resistant Organisms: None Reported Past Surgical History: Cholecystectomy, Hernia Repair, Tonsillectomy Additional Past Surgical History / Comment(s): hernia repair X 3 (mesh re jection) Past Anesthesia/Blood Transfusion Reactions: No Reported Reaction Past Psychological History: Bipolar, Depression Past Alcohol Use History: None Reported Past Drug Use History: None Reported - Past Family History Mother Family Medical History: Diabetes Mellitus Medications and Allergies Home Medications Medication Instructions Recorded Confirmed Type lamoTRIgine 150 mg PO BID 05/09/15 02/22/23 History metFORMIN HCL [Glucophage] 1,000 mg PO BID 05/09/15 02/22/23 History Travoprost [Travatan Z 0.004%] 1 drop BOTH EYES HS 08/03/17 02/22/23 History Aspirin EC [Ecotrin] 325 mg PO DAILY 02/22/23 02/22/23 History Atorvastatin [Lipitor] 40 mg PO HS 02/22/23 02/22/23 History Empagliflozin [Jardiance] 10 mg PO DAILY 02/22/23 02/22/23 History FLUoxetine HCL [PROzac] 20 mg PO DAILY@1600 02/22/23 02/22/23 History OLANZapine [ZyPREXA] 5 mg PO HS 02/22/23 02/22/23 History Semaglutide [Ozempic] 1 mg SQ Q7D 02/22/23 02/22/23 History amLODIPine [Norvasc] 5 mg PO DAILY 02/22/23 02/22/23 History Allergies Allergy/AdvReac Type Severity Reaction Status Date / Time No Known Allergies Allergy Verified 02/22/23 18:33 Physical Exam Vitals: Vital Signs Temp Pulse Pulse Resp BP BP Pulse Ox 02/23/23 10:15 97.8 F 76 18 132/63 98 02/23/23 08:00 98.3 F 84 18 127/75 96 02/23/23 06:00 78 18 115/61 94 L 02/23/23 05:00 76 24 110/96 96 02/23/23 04:00 81 12 133/68 97 02/23/23 03:07 98.7 F 78 16 133/68 95 02/23/23 03:00 81 16 111/68 97 02/23/23 02:19 98.7 F 80 16 124/71 98 02/23/23 01:59 98.6 F 80 18 94/65 98 02/23/23 01:00 74 23 117/61 95 02/23/23 00:12 98.1 F 75 18 117/99 96 02/23/23 00:00 73 18 118/101 96 02/22/23 23:52 98 F 75 16 118/98 95 02/22/23 23:40 97.3 F L 76 16 114/63 02/22/23 23:00 77 12 85/64 96 02/22/23 22:10 74 12 93/70 94 L 02/22/23 22:00 76 18 92/56 97 02/22/23 21:50 81 18 86/56 97 02/22/23 21:40 71 16 81/71 99 02/22/23 21:30 73 12 99/58 98 02/22/23 21:20 73 12 109/85 97 02/22/23 21:10 73 12 90/63 95 02/22/23 18:20 70/48 02/22/23 18:04 89 16 84/73 93 L Intake and Output 02/22/23 02/23/23 02/23/23 22:59 06:59 14:59 Intake Total 310 Balance 310 Intake: Blood Product 310 Rc As-1 Unit 310 [id number] Other: Weight 111.584 kg PHYSICAL EXAM: VITAL SIGNS: [As above] GENERAL: Alert and oriented 3, Sitting up in bed, no acute distress HEENT: Conjunctivae normal. eyes normal. NECK: Supple, No JVD. No thyroid enlargement. No LNs CARDIOVASCULAR: S1, S2 regular.. No murmur RESPIRATION: Breath sounds diminished in the bases. No rhonchi or crackles. No bronchial breathing. ABDOMEN: Soft, nontender, nondistended . No guarding. no masses palpable. No ascites, No hepatosplenomegaly.Bowel sounds heard. LEGS: No edema. no swelling ,no clubbing, no cyanosis positive DP pulses, NERVOUS SYSTEM: Cranial N 2-12 grossly normal. No focal deficits. Strength and sensation grossly intact. Skin: Warm and dry, no rash Results CBC & Chem 7: 02/23/23 06:13 02/23/23 06:13 Labs: Abnormal Lab Results - Last 24 Hours (Table) 02/22/23 02/22/23 02/22/23 Range/Units 18:48 18:48 18:48 WBC 17.8 H (3.8-10.6) k/uL RBC 3.61 L (3.80-5.40) m/uL Hgb (11.4-16.0) gm/dL Hct (34.0-46.0) % MCV 101.5 H (80.0-100.0) fL Neutrophils # 16.2 H (1.3-7.7) k/uL APTT 18.3 L (22.0-30.0) sec Sodium 136 L (137-145) mmol/L Potassium 6.4 H* (3.5-5.1) mmol/L Chloride (98-107) mmol/L Carbon Dioxide 12 L (22-30) mmol/L BUN 44 H (7-17) mg/dL Glucose 337 H (74-99) mg/dL POC Glucose (mg/dL) (70-110) mg/dL Plasma Lactic Acid Shaggy (0.7-2.0) mmol/L Total Protein 5.9 L (6.3-8.2) g/dL Albumin (3.5-5.0) g/dL Crossmatch 02/22/23 02/22/23 02/22/23 Range/Units 18:48 20:35 21:05 WBC (3.8-10.6) k/uL RBC (3.80-5.40) m/uL Hgb (11.4-16.0) gm/dL Hct (34.0-46.0) % MCV (80.0-100.0) fL Neutrophils # (1.3-7.7) k/uL APTT (22.0-30.0) sec Sodium (137-145) mmol/L Potassium (3.5-5.1) mmol/L Chloride (98-107) mmol/L Carbon Dioxide (22-30) mmol/L BUN (7-17) mg/dL Glucose (74-99) mg/dL POC Glucose (mg/dL) 233 H (70-110) mg/dL Plasma Lactic Acid Shaggy 9.7 H* (0.7-2.0) mmol/L Total Protein (6.3-8.2) g/dL Albumin (3.5-5.0) g/dL Crossmatch See Detail 02/22/23 02/22/23 02/23/23 Range/Units 21:07 22:15 01:26 WBC 19.8 H (3.8-10.6) k/uL RBC 3.20 L (3.80-5.40) m/uL Hgb 10.2 L (11.4-16.0) gm/dL Hct 32.1 L (34.0-46.0) % MCV 100.4 H (80.0-100.0) fL Neutrophils # (1.3-7.7) k/uL APTT (22.0-30.0) sec Sodium (137-145) mmol/L Potassium (3.5-5.1) mmol/L Chloride (98-107) mmol/L Carbon Dioxide (22-30) mmol/L BUN (7-17) mg/dL Glucose (74-99) mg/dL POC Glucose (mg/dL) (70-110) mg/dL Plasma Lactic Acid Shaggy 3.8 H* 3.0 H* (0.7-2.0) mmol/L Total Protein (6.3-8.2) g/dL Albumin (3.5-5.0) g/dL Crossmatch 02/23/23 02/23/23 02/23/23 Range/Units 03:14 04:43 06:13 WBC 13.5 H (3.8-10.6) k/uL RBC 3.09 L (3.80-5.40) m/uL Hgb 10.0 L (11.4-16.0) gm/dL Hct 29.7 L (34.0-46.0) % MCV (80.0-100.0) fL Neutrophils # 11.3 H (1.3-7.7) k/uL APTT (22.0-30.0) sec Sodium (137-145) mmol/L Potassium 5.4 H (3.5-5.1) mmol/L Chloride (98-107) mmol/L Carbon Dioxide (22-30) mmol/L BUN (7-17) mg/dL Glucose (74-99) mg/dL POC Glucose (mg/dL) 181 H (70-110) mg/dL Plasma Lactic Acid Shaggy (0.7-2.0) mmol/L Total Protein (6.3-8.2) g/dL Albumin (3.5-5.0) g/dL Crossmatch 02/23/23 02/23/23 Range/Units 06:13 11:39 WBC (3.8-10.6) k/uL RBC (3.80-5.40) m/uL Hgb (11.4-16.0) gm/dL Hct (34.0-46.0) % MCV (80.0-100.0) fL Neutrophils # (1.3-7.7) k/uL APTT (22.0-30.0) sec Sodium (137-145) mmol/L Potassium (3.5-5.1) mmol/L Chloride 110 H (98-107) mmol/L Carbon Dioxide (22-30) mmol/L BUN 74 H (7-17) mg/dL Glucose 147 H (74-99) mg/dL POC Glucose (mg/dL) 115 H (70-110) mg/dL Plasma Lactic Acid Shaggy (0.7-2.0) mmol/L Total Protein 4.8 L (6.3-8.2) g/dL Albumin 2.9 L (3.5-5.0) g/dL Crossmatch Assessment and Plan Assessment: Acute GI bleed accompanied by hypotension initially, status post 1 unit of packed RBCs, EGD pending. ER reports patient taking Ozempic more than she was prescribed. Recent falling Lactic acidosis, 9.7, currently down to 2 Diabetes mellitus Acute renal insufficiency, secondary to the above, possibly induced from over useage of her Ozempic. Hypothyroidism Glaucoma Hypertension Hyperlipidemia Bipolar, depression Osteoarthritis Plan: Continue on current medication regime ,monitoring and symptomatic treatment. PPI. Close monitoring of CBC. Evaluated by GI, scheduled for EGD tomorrow. Nothing by mouth. PT/OT. The impression and plan of care has been dictated as directed. : I performed a history and examination of this patient, discussed the same with the dictator. I agree with the dictator's note ,documented as a scribe. Any additional findings or plans will be noted.
[2023-02-23] MEDS ORDERED: DEXTROSE 50% SYRINGE 50 ML IVP PRN ×2 (13:08)
[2023-02-23] MEDS: INSULIN ASPART (NovoLOG) 100 UNIT/ML VIAL SQ SCH ×2 (13:45→16:59)
[2023-02-23 16:50] LABS: Glucose,Whole Blood 102 mg/dL (70-110)
[2023-02-23 20:48] LABS: Glucose,Whole Blood 119 mg/dL (70-110)
[2023-02-23] MEDS: LATANOPROST 0.005% OPHTH DROPS 2.5 ML BTL BOTH EYES SCH (21:23)
[2023-02-23 23:39] LABS: Glucose,Whole Blood 105 mg/dL (70-110)
[2023-02-24 02:00] LABS: Glucose,Whole Blood 94 mg/dL (70-110)
[2023-02-24] MEDS: INSULIN ASPART (NovoLOG) 100 UNIT/ML VIAL SQ SCH ×5 (03:03→20:43)
[2023-02-24 06:18] LABS: Glucose,Whole Blood 100 mg/dL (70-110)
[2023-02-24] MEDS ORDERED: PROPOFOL 10 MG/ML 20 ML VIAL IV ONE (08:17)
[2023-02-24] MEDS ORDERED: LIDOCAINE 2% INJ 20 MG/ML (2 ML VIAL) ONE (08:17)
[2023-02-24] MEDS ORDERED: ONDANSETRON 4 MG/2 ML VIAL ONE (08:17)
[2023-02-24] MEDS ORDERED: IV FLUID CONTINUATION 1,000 ML IV ONE (08:34)
[2023-02-24] MEDS: PANTOPRAZOLE 40 MG/10 ML VIAL IV SCH ×2 (09:00→20:40)
--- NOTE | 2023-02-24 09:04 | P.PCN ---
Date of Procedure: 02/24/23 Procedure(s) Performed: BRIEF HISTORY: Patient is a 77-year-old, pleasant, white female admitted hospital with black tarry stools and hemoglobin of 10 g/dL. She is scheduled for an upper endoscopy to evaluate for upper GI source of bleeding. PROCEDURE PERFORMED: Esophagogastroduodenoscopy With biopsy PREOPERATIVE DIAGNOSIS: Melena and anemia. 2 days' duration. IV sedation per anesthesia. PROCEDURE: After informed consent was obtained, the patient was brought into the endoscopy unit. IV sedation was administered by Anesthesia under continuous monitoring. Initially the Olympus GIF-140 video endoscope was inserted into the mouth. Esophagus intubated without any difficulty. It was gradually advanced into the stomach and duodenum and carefully examined. The bulb and the second part of the duodenum appeared normal. The scope at this time was withdrawn to the stomach, adequately insufflated with air, and upon careful examination, mucosa of the antrum, erosions in the prepyloric area with no active bleeding. Biopsies were done from this area. Mucosa of the body, cardia and the fundus appeared normal. As a moderate-sized I'll hernia noted. The scope was then withdrawn into the esophagus. The GE junction was located at 35 cm from the incisors. There were 2 tongues of Thrasher's appearing mucosa extending 3-4 mm proximal to the GE junction which were biopsied. The rest of the esophagus appeared normal. There were no erosions or ulcerations seen and the patient tolerated the procedure well. IMPRESSION: 1. Antral erosive gastritis. 2. Moderate size hiatal hernia 3. Short segment Thrasher's esophagus. RECOMMENDATIONS: The findings of this examination were discussed with the patient as well as a family. Continue with Protonix 40 mg daily and follow antireflux measures. Await biopsy results. Monitor CBC. If she is stable she can be discharged home tomorrow with an outpatient follow-up in 2 weeks.
[2023-02-24] MEDS: lamoTRIgine 100 MG TAB PO SCH ×2 (11:18→20:40)
[2023-02-24] MEDS: amLODIPine 5 MG TAB PO SCH (11:18)
[2023-02-24] MEDS: FLUoxetine HCL 20 MG CAP PO SCH (11:18)
[2023-02-24] MEDS: metFORMIN 500 MG TAB PO SCH ×2 (11:19→20:40)
[2023-02-24 11:59] LABS: Glucose,Whole Blood 171 mg/dL (70-110)
--- NOTE | 2023-02-24 12:12 | P.PN ---
Subjective Progress Note Date: 02/24/23 Principal diagnosis: GI bleed. Pulmonary consult dated 02/23/2023. 77-year-old female who was seen in the emergency department, for possible gastrointestinal bleed. The patient apparently came in with coffee ground emesis, melena, and some blood clots, possible hematemesis, or hematochezia, and a low blood pressure of 84/73. The patient was seen in the emergency department. She was not a particularly good historian. Most of the history was obtained from the daughter. The patient initially was found to be hypotensive, but more recently has had normal blood pressures. She did receive 1 unit packed red blood cells. Currently, she is on room air. She's not receiving any IV fluids. Currently labs include a white count 13.5, hemoglobin 10, hematocrit 29.7, and normal platelet count. Sodium 138, potassium 4.5, chlorides 110, CO2 23, BUN 74, creatinine 0.85. Her initial lactic acid level was 3, and repeat was 2. A chest x-ray was normal and a flat plate of the abdomen, showed a nonspecific bowel gas pattern. Progress note dated 02/24/2023. The patient was initially seen in the emergency department for a possible GI bleed. She underwent an EGD, and was found to have gastritis, and Thrasher's esophagus. The patient is seen today in room 361. She's on room air. She's not receiving any IV fluids. No new laboratory data today other than a glucose of 171. Objective - Vital Signs Vital signs: Vital Signs Temp 98.0 F 02/24/23 08:00 Pulse 68 02/24/23 08:00 Resp 16 02/24/23 08:00 BP 138/74 02/24/23 08:00 Pulse Ox 97 02/24/23 11:02 FiO2 Intake & Output 02/23/23 02/24/23 02/24/23 18:59 06:59 18:59 Intake Total 1260 10 100 Balance 1260 10 100 Weight 111.584 kg Intake: IV 10 100 0.9 10 Oral 1260 Other: Voiding Method Toilet Toilet # Voids 0 - Exam No acute distress, awake and alert. HEENT examination is grossly unremarkable. Mucous membranes are moist. No oral lesions. Neck supple. Full range of motion. No adenopathy thyromegaly or neck vein distention. Cardiovascular examination reveals regular rhythm rate. S1-S2 normal. No S3 or S4. No discernible murmur noted. Heart rate 68 bpm. Lungs reveal clear breath sounds. Breath sounds are equal bilaterally. No adventitious lung sounds including wheezes rhonchi or crackles. Room air saturation 97 %. Abdomen soft bowel sounds are heard. No masses or tenderness. Extremities are intact. No cyanosis clubbing or edema. Skin is without rash or lesion. Neurologic examination is brief but nonfocal. - Labs CBC & Chem 7: 02/23/23 06:13 02/23/23 06:13 Labs: Abnormal Lab Results - Last 24 Hours (Table) 02/23/23 02/24/23 Range/Units 20:47 11:57 POC Glucose (mg/dL) 119 H 171 H (70-110) mg/dL Assessment and Plan Assessment: Possible upper GI bleed, with associated hypotension, S/P 1 unit of PRBCs. S/P EGD, 02/24/2023, with evidence of erosive gastritis, and Thrasher's esophagus. History of diabetes mellitus. History of hyperlipidemia. History of hypertension. History of osteoarthritis. History of glaucoma. History of bipolar disorder. Plan: Plan dated 02/23/2023. The patient is seen in the emergency department. She is in room #7. The patient was admitted with a diagnosis of possible upper GI bleed, with hematemesis, hematochezia, melena, and coffee-ground emesis. The patient was apparently found to be hypotensive initially. The patient received fluids and a unit of PRBCs. Currently, the patient is normotensive. She denies any abdominal pain. She is nontender on palpation. She's not having any additional GI bleeding at this time. The patient initially was going to go to the intensive care unit, but I believe she stable enough to go to the floor. Additional recommendations and suggestions are forthcoming. Plan dated 02/24/2023. The patient was seen yesterday in consultation, and the emergency department. She was in room #7. She was admitted with a diagnosis of possible upper GI bleed, with hematemesis, possible hematochezia, melena, and coffee-ground emesis. She underwent an EGD today, by Dr. Horan, and was found to have erosive gastritis, and a short segment of Thrasher's esophagus. The patient's resting comfortably in room 361. From the pulmonary standpoint, she stable, and is currently on room air. Labs, x-rays, and medications are reviewed. Prognosis is guarded. Time with Patient: Less than 30
[2023-02-24 12:26] LABS: Basophils % (A) 0 %; Eosinophils % (A) 0 %; HCT 28.6 % (34.0-46.0); HGB 9.4 gm/dL (11.4-16.0); Hypochromasia Slight; Lymphocytes # (A) 1.4 k/uL (1.0-4.8); Lymphocytes % (A) 13 %; MCV 97.1 fL (80.0-100.0); Mean Platelet Volume 7.9; Monocytes # (A) 0.3 k/uL (0-1.0); Monocytes % (A) 3 %; Neutrophils # (A) 9.5 k/uL (1.3-7.7); Neutrophils % (A) 84 %; Platelet Count 314 k/uL (150-450); RBC 2.95 m/uL (3.80-5.40); RDW 15.3 % (11.5-15.5); WBC 11.4 k/uL (3.8-10.6)
[2023-02-24 12:48] LABS: African American GFR (CKD) >90 (>60 ml/min/1.73 sqM); Anion Gap 8 mmol/L; Blood Urea Nitrogen 52 mg/dL (7-17); Calcium 8.8 mg/dL (8.4-10.2); Carbon Dioxide 21 mmol/L (22-30); Chloride 109 mmol/L (98-107); Glucose 151 mg/dL (74-99); Non-African American GFR(CKD) 85 (>60 ml/min/1.73 sqM); Potassium 4.2 mmol/L (3.5-5.1); Sodium 138 mmol/L (137-145)
[2023-02-24 18:05] LABS: Glucose,Whole Blood 166 mg/dL (70-110)
[2023-02-24 20:33] LABS: Glucose,Whole Blood 141 mg/dL (70-110)
[2023-02-24] MEDS: OLANZapine 5 MG TAB PO SCH (20:40)
[2023-02-24] MEDS: LATANOPROST 0.005% OPHTH DROPS 2.5 ML BTL BOTH EYES SCH (20:40)
[2023-02-24] MEDS: ATORVASTATIN 40 MG TAB PO SCH (20:40)
[2023-02-25 05:59] LABS: Glucose,Whole Blood 118 mg/dL (70-110)
[2023-02-25] MEDS: INSULIN ASPART (NovoLOG) 100 UNIT/ML VIAL SQ SCH ×4 (06:33→20:45)
[2023-02-25 08:40] LABS: Basophils % (A) 0 %; Eosinophils % (A) 0 %; HCT 27.2 % (34.0-46.0); HGB 8.9 gm/dL (11.4-16.0); Hypochromasia Slight; Lymphocytes # (A) 1.7 k/uL (1.0-4.8); Lymphocytes % (A) 18 %; MCH 32.2 pg (25.0-35.0); MCHC 32.7 g/dL (31.0-37.0); MCV 98.4 fL (80.0-100.0); Macrocytosis Slight; Mean Platelet Volume 7.5; Monocytes # (A) 0.4 k/uL (0-1.0); Monocytes % (A) 4 %; Neutrophils # (A) 7.4 k/uL (1.3-7.7); Neutrophils % (A) 77 %; Platelet Count 288 k/uL (150-450); RBC 2.77 m/uL (3.80-5.40); RDW 15.3 % (11.5-15.5); WBC 9.6 k/uL (3.8-10.6)
[2023-02-25] MEDS: DAPAGLIFLOZIN PROPANEDIOL 5 MG TABLET PO SCH (08:43)
[2023-02-25] MEDS: amLODIPine 5 MG TAB PO SCH (08:43)
[2023-02-25] MEDS: lamoTRIgine 100 MG TAB PO SCH ×2 (08:43→20:45)
[2023-02-25] MEDS: metFORMIN 500 MG TAB PO SCH ×2 (08:44→20:45)
[2023-02-25] MEDS: PANTOPRAZOLE 40 MG/10 ML VIAL IV SCH ×2 (08:44→20:45)
--- NOTE | 2023-02-25 11:20 | P.PN ---
Subjective Progress Note Date: 02/25/23 Principal diagnosis: GI bleed. Pulmonary consult dated 02/23/2023. 77-year-old female who was seen in the emergency department, for possible gastrointestinal bleed. The patient apparently came in with coffee ground emesis, melena, and some blood clots, possible hematemesis, or hematochezia, and a low blood pressure of 84/73. The patient was seen in the emergency department. She was not a particularly good historian. Most of the history was obtained from the daughter. The patient initially was found to be hypotensive, but more recently has had normal blood pressures. She did receive 1 unit packed red blood cells. Currently, she is on room air. She's not receiving any IV fluids. Currently labs include a white count 13.5, hemoglobin 10, hematocrit 29.7, and normal platelet count. Sodium 138, potassium 4.5, chlorides 110, CO2 23, BUN 74, creatinine 0.85. Her initial lactic acid level was 3, and repeat was 2. A chest x-ray was normal and a flat plate of the abdomen, showed a nonspecific bowel gas pattern. Progress note dated 02/24/2023. The patient was initially seen in the emergency department for a possible GI bleed. She underwent an EGD, and was found to have gastritis, and Thrasher's esophagus. The patient is seen today in room 361. She's on room air. She's not receiving any IV fluids. No new laboratory data today other than a glucose of 171. Progress note dated 02/25/2023. The patient is seen today in room 361. She is on room air. She's not receiving any IV fluids. The results of her EGD, were discussed with her. Apparently, because of a trending downward hemoglobin, the patient is scheduled to have a colonoscopy. Not sure when that will be done. White count is 9.6, hemoglobin 8.9, down from 9.4, hematocrit 27.2, within normal platelet count. Objective - Vital Signs Vital signs: Vital Signs Temp 98.2 F 02/25/23 08:40 Pulse 75 02/25/23 08:40 Resp 18 02/25/23 08:40 BP 113/61 02/25/23 08:40 Pulse Ox 96 02/25/23 08:40 FiO2 Intake & Output 0802/25/23 02/25/23 18:59 06:59 18:59 Intake Total 578 10 Output Total 400 Balance 578 -390 Intake: IV 100 10 0.9 10 Oral 478 Output: Urine 400 Other: Voiding Method Toilet Toilet Toilet # Voids 1 1 - Exam No acute distress, awake and alert. HEENT examination is grossly unremarkable. Mucous membranes are moist. No oral lesions. Neck supple. Full range of motion. No adenopathy thyromegaly or neck vein distention. Cardiovascular examination reveals regular rhythm rate. S1-S2 normal. No S3 or S4. No discernible murmur noted. Heart rate 75 bpm. Lungs reveal clear breath sounds. Breath sounds are equal bilaterally. No adventitious lung sounds including wheezes rhonchi or crackles. Room air saturation 96 %. Abdomen soft bowel sounds are heard. No masses or tenderness. Extremities are intact. No cyanosis clubbing or edema. Skin is without rash or lesion. Neurologic examination is brief but nonfocal. - Labs CBC & Chem 7: 02/25/23 08:12 02/24/23 11:43 Labs: Abnormal Lab Results - Last 24 Hours (Table) 02/24/23 02/24/23 02/24/23 Range/Units 11:43 11:49 11:57 WBC 11.4 H (3.8-10.6) k/uL RBC 2.95 L (3.80-5.40) m/uL Hgb 9.4 L (11.4-16.0) gm/dL Hct 28.6 L (34.0-46.0) % Neutrophils # 9.5 H (1.3-7.7) k/uL Chloride 109 H (98-107) mmol/L Carbon Dioxide 21 L (22-30) mmol/L BUN 52 H (7-17) mg/dL Glucose 151 H (74-99) mg/dL POC Glucose (mg/dL) 171 H (70-110) mg/dL 02/24/23 02/24/23 02/25/23 Range/Units 18:02 20:31 05:58 WBC (3.8-10.6) k/uL RBC (3.80-5.40) m/uL Hgb (11.4-16.0) gm/dL Hct (34.0-46.0) % Neutrophils # (1.3-7.7) k/uL Chloride (98-107) mmol/L Carbon Dioxide (22-30) mmol/L BUN (7-17) mg/dL Glucose (74-99) mg/dL POC Glucose (mg/dL) 166 H 141 H 118 H (70-110) mg/dL 02/25/23 Range/Units 08:12 WBC (3.8-10.6) k/uL RBC 2.77 L (3.80-5.40) m/uL Hgb 8.9 L (11.4-16.0) gm/dL Hct 27.2 L (34.0-46.0) % Neutrophils # (1.3-7.7) k/uL Chloride (98-107) mmol/L Carbon Dioxide (22-30) mmol/L BUN (7-17) mg/dL Glucose (74-99) mg/dL POC Glucose (mg/dL) (70-110) mg/dL Assessment and Plan Assessment: Possible upper GI bleed, with associated hypotension, S/P 1 unit of PRBCs. S/P EGD, 02/24/2023, with evidence of erosive gastritis, and Thrasher's esophagus. History of diabetes mellitus. History of hyperlipidemia. History of hypertension. History of osteoarthritis. History of glaucoma. History of bipolar disorder. Plan: Plan dated 02/23/2023. The patient is seen in the emergency department. She is in room #7. The patient was admitted with a diagnosis of possible upper GI bleed, with hematemesis, hematochezia, melena, and coffee-ground emesis. The patient was apparently found to be hypotensive initially. The patient received fluids and a unit of PRBCs. Currently, the patient is normotensive. She denies any abdominal pain. She is nontender on palpation. She's not having any additional GI bleeding at this time. The patient initially was going to go to the intensive care unit, but I believe she stable enough to go to the floor. Additional recommendations and suggestions are forthcoming. Plan dated 02/24/2023. The patient was seen yesterday in consultation, and the emergency department. She was in room #7. She was admitted with a diagnosis of possible upper GI bleed, with hematemesis, possible hematochezia, melena, and coffee-ground emesis. She underwent an EGD today, by Dr. Horan, and was found to have erosive gastritis, and a short segment of Thrasher's esophagus. The patient's resting comfortably in room 361. From the pulmonary standpoint, she stable, and is currently on room air. Labs, x-rays, and medications are reviewed. Prognosis is guarded. Plan dated 02/25/2023. The patient is stable from the hemodynamic and respiratory standpoint. Because of a slight drop in her hemoglobin, the patient is to have a colonoscopy before discharge. She denies any further bleeding. Labs, x-rays, medications are reviewed. Her blood pressure is 113/61. She was sitting up at the bedside with family members. No additional recommendations are made. Time with Patient: Less than 30
[2023-02-25 11:36] LABS: Glucose,Whole Blood 120 mg/dL (70-110)
--- NOTE | 2023-02-25 12:07 | P.PN ---
Subjective Progress Note Date: 02/25/23 Principal diagnosis: GI bleed This is a pleasant 77-year-old female who has a past medical history of diabetes mellitus, hyperlipidemia, hypertension, and hypothyroidism who presented to the emergency department by EMS for complaints of weakness, falling, and bloody diarrhea. Patient states yesterday she started feeling very weak and dizzy she fell and had then had a bowel movement which she states was dark in color with clots. Following that she started having coffee-ground emesis. She denies any history of a GI bleed. Denies any NSAID use or anticoagulation. Denies any history of peptic ulcer disease or acid reflux. No previous EGD, last colonoscopy likely greater than 10 years ago. However she did have a recent cold guard which she states was normal. On admission patient had a hemoglobin of 10.2 with an elevated P1 of 74. She was given 1 unit of blood. Repeat labs today hemoglobin stable at 10.0. She denied any abdominal pain or cramping at the time of the bowel movements. She currently does not have any abdominal pain, nausea or vomiting. She's had no further emesis or bloody bowel movement since yesterday. 02/25/2023 Patient seen and examined today as a follow-up. She's had no further bowel movements. No abdominal pain nausea or vomiting. Yesterday she underwent upper endoscopy which revealed antral erosive gastritis, moderate size hiatal hernia and short segment of Thrasher's esophagus. Recommend continue with Protonix 40 mg daily and following antireflux measures. Objective - Vital Signs Vital signs: Vital Signs Temp 98.2 F 02/25/23 08:40 Pulse 75 02/25/23 08:40 Resp 18 02/25/23 08:40 BP 113/61 02/25/23 08:40 Pulse Ox 96 02/25/23 08:40 FiO2 Intake & Output 02/24/23 02/25/23 02/25/23 18:59 06:59 18:59 Intake Total 578 10 Output Total 400 Balance 578 -390 Intake: IV 100 10 0.9 10 Oral 478 Output: Urine 400 Other: Voiding Method Toilet Toilet Toilet # Voids 1 1 - Exam General appearance: The patient is alert, oriented, appears in no acute distress. HET: Head is normocephalic and atraumatic. Conjunctiva pink. Sclera anicteric. Neck: Supple without lymphadenopathy. Abdomen: Soft, nontender, nondistended with bowel sounds. No guarding or rigidity. Extremities: Normal skin color and turgor. No pedal edema Skin: No rashes, no jaundice Neurological: No focal deficits. Alert and oriented. - Labs CBC & Chem 7: 02/25/23 08:12 02/24/23 11:43 Labs: Abnormal Lab Results - Last 24 Hours (Table) 02/24/23 02/24/23 02/24/23 Range/Units 11:43 11:49 18:02 WBC 11.4 H (3.8-10.6) k/uL RBC 2.95 L (3.80-5.40) m/uL Hgb 9.4 L (11.4-16.0) gm/dL Hct 28.6 L (34.0-46.0) % Neutrophils # 9.5 H (1.3-7.7) k/uL Chloride 109 H (98-107) mmol/L Carbon Dioxide 21 L (22-30) mmol/L BUN 52 H (7-17) mg/dL Glucose 151 H (74-99) mg/dL POC Glucose (mg/dL) 166 H (70-110) mg/dL 02/24/23 02/25/23 02/25/23 Range/Units 20:31 05:58 08:12 WBC (3.8-10.6) k/uL RBC 2.77 L (3.80-5.40) m/uL Hgb 8.9 L (11.4-16.0) gm/dL Hct 27.2 L (34.0-46.0) % Neutrophils # (1.3-7.7) k/uL Chloride (98-107) mmol/L Carbon Dioxide (22-30) mmol/L BUN (7-17) mg/dL Glucose (74-99) mg/dL POC Glucose (mg/dL) 141 H 118 H (70-110) mg/dL 02/25/23 Range/Units 11:35 WBC (3.8-10.6) k/uL RBC (3.80-5.40) m/uL Hgb (11.4-16.0) gm/dL Hct (34.0-46.0) % Neutrophils # (1.3-7.7) k/uL Chloride (98-107) mmol/L Carbon Dioxide (22-30) mmol/L BUN (7-17) mg/dL Glucose (74-99) mg/dL POC Glucose (mg/dL) 120 H (70-110) mg/dL Assessment and Plan (1) GI bleed Narrative/Plan: 77-year-old female who presented to the emergency department following dark maroon colored stool with clots and coffee ground emesis. She was found to be hypotensive. No previous history of GI bleed, no NSAID use her anticoagulation. No abdominal pain associated with bleed. Unclear etiology at this time however does appear to be upper GI bleed with elevated BUN, recommend proceeding with upper endoscopy tomorrow. Possible etiologies include peptic ulcer disease, gastritis, esophagitis, AVM, or other possible etiologies. Patient currently stable with hemoglobin 10.0. This 02/25/2023: Patient underwent upper endoscopy with findings of antral erosive gastritis, moderate size hiatal hernia and short segment Thrasher's esophagus with recommendations to continue Protonix 40 mg daily and follow anti- reflex measures. Biopsy taken, recommend follow-up in office in 2-3 weeks. Hemoglobin stable at 8.9. No further bleeding. Current Visit: Yes Status: Acute Code(s): K92.2 - GASTROINTESTINAL HEMORRHAGE, UNSPECIFIED SNOMED Code(s): 12905056 (2) Melena Current Visit: Yes Status: Acute Code(s): K92.1 - MELENA SNOMED Code(s): 1770893 (3) Diabetes Current Visit: Yes Status: Acute Code(s): E11.9 - TYPE 2 DIABETES MELLITUS WITHOUT COMPLICATIONS SNOMED Code(s): 98294395 (4) Hypotensive episode Current Visit: Yes Status: Acute Code(s): I95.9 - HYPOTENSION, UNSPECIFIED SNOMED Code(s): 31822483 (5) Weakness Current Visit: Yes Status: Acute Code(s): R53.1 - WEAKNESS SNOMED Code(s): 13042796 Plan: 1. Continue symptomatic and supportive care 2. Continue with Protonix 40 mg daily 3. Patient may have regular diet 4. Follow antireflux measures 5. Patient is status post upper endoscopy no active bleeding noted however patient did have erosive gastritis likely cause of GI bleed/anemia. No plans for further endoscopic evaluation. 6. Follow-up in 2-3 weeks for biopsy results Thank you for this consultation, patient is cleared from gastroenterology for discharge. Dr. Ruel Horan I agree with the dictator's note, documented as a scribe by Charlotte Raygoza.
[2023-02-25] MEDS: FLUoxetine HCL 20 MG CAP PO SCH (15:45)
[2023-02-25 16:28] LABS: Glucose,Whole Blood 131 mg/dL (70-110)
--- NOTE | 2023-02-25 17:05 | P.PN ---
Subjective Progress Note Date: 02/25/23 Principal diagnosis: fall, GI bleed patient is awake alert oriented 3 , vital signs are stable patient is afebrile currently sitting up in chair Objective - Vital Signs Vital signs: Vital Signs Temp 98.2 F 02/25/23 08:40 Pulse 66 02/25/23 11:30 Resp 17 02/25/23 11:30 BP 123/72 02/25/23 11:30 Pulse Ox 98 02/25/23 11:30 FiO2 Intake & Output 02/24/23 02/25/23 02/25/23 18:59 06:59 18:59 Intake Total 578 10 118 Output Total 400 Balance 578 -390 118 Intake: IV 100 10 0.9 10 Oral 478 118 Output: Urine 400 Other: Voiding Method Toilet Toilet Toilet # Voids 1 1 - Exam General: [Patient awake, alert and oriented times 3. Patient in no acute distress. morbidly obese HEENT: [PERRL. EOMI. No pharyngeal erythema or exudate.] Neck: [No adenopathy.] Cardiac: [Heart regular in rate and rhythm. No S3. No S4. No clicks, rubs. No murmur.] Lungs: [Clear to auscultation bilaterally.] Abdomen: [No mass. No organomegaly. Bowel sounds presnt and normoactive in all 4 quadrants.] Extremes: [No edema no cyanosis no claudication normal pulses] : normal female genitalia Musculoskeletal: [No joint erythema, edema or tenderness.] Skin: [No rash.] Neurologic: [No lateralizing deficits. CN II - XII grossly intact.] Lymphatic: [No adenopathy.] - Labs CBC & Chem 7: 02/25/23 08:12 02/24/23 11:43 Labs: Abnormal Lab Results - Last 24 Hours (Table) 02/24/23 02/24/23 02/25/23 Range/Units 18:02 20:31 05:58 RBC (3.80-5.40) m/uL Hgb (11.4-16.0) gm/dL Hct (34.0-46.0) % POC Glucose (mg/dL) 166 H 141 H 118 H (70-110) mg/dL 08/16/23 08/16/23 08/16/23 Range/Units 08:12 11:35 16:26 RBC 2.77 L (3.80-5.40) m/uL Hgb 8.9 L (11.4-16.0) gm/dL Hct 27.2 L (34.0-46.0) % POC Glucose (mg/dL) 120 H 131 H (70-110) mg/dL Assessment and Plan (1) Acute GI bleeding Current Visit: Yes Status: Acute Code(s): K92.2 - GASTROINTESTINAL HEMORRHAGE, UNSPECIFIED SNOMED Code(s): 72004026 (2) Diabetes Current Visit: Yes Status: Acute Code(s): E11.9 - TYPE 2 DIABETES MELLITUS WITHOUT COMPLICATIONS SNOMED Code(s): 05405943 (3) GI bleed Current Visit: Yes Status: Acute Code(s): K92.2 - GASTROINTESTINAL HEMORRHAGE, UNSPECIFIED SNOMED Code(s): 69197207 (4) Hyperkalemia Current Visit: Yes Status: Acute Code(s): E87.5 - HYPERKALEMIA SNOMED Code(s): 26237411 (5) Hypotensive episode Current Visit: Yes Status: Acute Code(s): I95.9 - HYPOTENSION, UNSPECIFIED SNOMED Code(s): 74123961 (6) Lactic acidosis Current Visit: Yes Status: Acute Code(s): E87.20 - ACIDOSIS, UNSPECIFIED SNOMED Code(s): 65842969 (7) Melena Current Visit: Yes Status: Acute Code(s): K92.1 - MELENA SNOMED Code(s): 7190532 (8) Weakness Current Visit: Yes Status: Acute Code(s): R53.1 - WEAKNESS SNOMED Code(s): 33043122 Plan: is currently hemodynamically stable We'll continue to follow closely anticipate discharge home tomorrow Time with Patient: Greater than 30
[2023-02-25 20:15] LABS: Glucose,Whole Blood 152 mg/dL (70-110)
[2023-02-25] MEDS: ATORVASTATIN 40 MG TAB PO SCH (20:45)
[2023-02-25] MEDS: OLANZapine 5 MG TAB PO SCH (20:45)
[2023-02-25] MEDS: LATANOPROST 0.005% OPHTH DROPS 2.5 ML BTL BOTH EYES SCH (20:45)
[2023-02-26 05:53] LABS: Glucose,Whole Blood 115 mg/dL (70-110)
[2023-02-26] MEDS: INSULIN ASPART (NovoLOG) 100 UNIT/ML VIAL SQ SCH ×4 (06:31→20:38)
[2023-02-26 08:27] LABS: Basophils % (A) 0 %; Eosinophils % (A) 0 %; HCT 25.5 % (34.0-46.0); HGB 8.3 gm/dL (11.4-16.0); Hypochromasia Slight; Lymphocytes # (A) 1.6 k/uL (1.0-4.8); Lymphocytes % (A) 22 %; MCHC 32.6 g/dL (31.0-37.0); MCV 98.3 fL (80.0-100.0); Macrocytosis Slight; Mean Platelet Volume 7.4; Monocytes # (A) 0.3 k/uL (0-1.0); Monocytes % (A) 5 %; Neutrophils % (A) 71 %; Platelet Count 282 k/uL (150-450); RBC 2.59 m/uL (3.80-5.40); RDW 15.4 % (11.5-15.5); WBC 7.1 k/uL (3.8-10.6)
[2023-02-26] MEDS: PANTOPRAZOLE 40 MG/10 ML VIAL IV SCH ×2 (08:34→20:14)
[2023-02-26] MEDS: amLODIPine 5 MG TAB PO SCH (08:34)
[2023-02-26] MEDS: lamoTRIgine 100 MG TAB PO SCH ×2 (08:34→20:14)
[2023-02-26] MEDS: metFORMIN 500 MG TAB PO SCH ×2 (08:34→20:14)
[2023-02-26] MEDS: DAPAGLIFLOZIN PROPANEDIOL 5 MG TABLET PO SCH (08:35)
[2023-02-26 11:45] LABS: Glucose,Whole Blood 149 mg/dL (70-110)
--- NOTE | 2023-02-26 12:48 | P.PN ---
Subjective Progress Note Date: 02/26/23 Principal diagnosis: GI bleed. Pulmonary consult dated 02/23/2023. 77-year-old female who was seen in the emergency department, for possible gastrointestinal bleed. The patient apparently came in with coffee ground emesis, melena, and some blood clots, possible hematemesis, or hematochezia, and a low blood pressure of 84/73. The patient was seen in the emergency department. She was not a particularly good historian. Most of the history was obtained from the daughter. The patient initially was found to be hypotensive, but more recently has had normal blood pressures. She did receive 1 unit packed red blood cells. Currently, she is on room air. She's not receiving any IV fluids. Currently labs include a white count 13.5, hemoglobin 10, hematocrit 29.7, and normal platelet count. Sodium 138, potassium 4.5, chlorides 110, CO2 23, BUN 74, creatinine 0.85. Her initial lactic acid level was 3, and repeat was 2. A chest x-ray was normal and a flat plate of the abdomen, showed a nonspecific bowel gas pattern. Progress note dated 02/24/2023. The patient was initially seen in the emergency department for a possible GI bleed. She underwent an EGD, and was found to have gastritis, and Thrasher's esophagus. The patient is seen today in room 361. She's on room air. She's not receiving any IV fluids. No new laboratory data today other than a glucose of 171. Progress note dated 02/25/2023. The patient is seen today in room 361. She is on room air. She's not receiving any IV fluids. The results of her EGD, were discussed with her. Apparently, because of a trending downward hemoglobin, the patient is scheduled to have a colonoscopy. Not sure when that will be done. White count is 9.6, hemoglobin 8.9, down from 9.4, hematocrit 27.2, within normal platelet count. Progress note dated 02/26/2023. The patient is seen today in room 361. She's on room air. No IV fluids. The patient was to have a colonoscopy today, but apparently, the procedure has been canceled. The patient's hemoglobin today is 8.3. There has been a steady decline in her hemoglobin since her admission her EGD revealed evidence of erosive gastritis, and a segment of Thrasher's esophagus. White count 7.1, hemoglobin 8.3, hematocrit 25.5, within normal platelet count. Glucose is 149. Objective - Vital Signs Vital signs: Vital Signs Temp 98 F 02/26/23 08:30 Pulse 95 02/26/23 11:30 Resp 18 02/26/23 11:30 BP 121/88 02/26/23 11:30 Pulse Ox 95 02/26/23 11:30 FiO2 Intake & Output 02/25/23 02/26/23 02/26/23 18:59 06:59 18:59 Intake Total 118 10 120 Balance 118 10 120 Intake: IV 10 0.9 10 Oral 118 120 Other: Voiding Method Toilet Toilet Toilet # Voids 1 - Exam No acute distress, awake and alert. Room air saturation is 95%. HEENT examination is grossly unremarkable. Mucous membranes are moist. No oral lesions. Neck supple. Full range of motion. No adenopathy thyromegaly or neck vein distention. Cardiovascular examination reveals regular rhythm rate. S1-S2 normal. No S3 or S4. No discernible murmur noted. Heart rate 95 bpm. Lungs reveal clear breath sounds. Breath sounds are equal bilaterally. No adventitious lung sounds including wheezes rhonchi or crackles. Room air saturation 95 %. Abdomen soft bowel sounds are heard. No masses or tenderness. Extremities are intact. No cyanosis clubbing or edema. Skin is without rash or lesion. Neurologic examination is brief but nonfocal. - Labs CBC & Chem 7: 02/26/23 08:05 02/24/23 11:43 Labs: Abnormal Lab Results - Last 24 Hours (Table) 02/25/23 02/25/23 02/26/23 Range/Units 16:26 20:13 05:52 RBC (3.80-5.40) m/uL Hgb (11.4-16.0) gm/dL Hct (34.0-46.0) % POC Glucose (mg/dL) 131 H 152 H 115 H (70-110) mg/dL 02/26/23 02/26/23 Range/Units 08:05 11:43 RBC 2.59 L (3.80-5.40) m/uL Hgb 8.3 L (11.4-16.0) gm/dL Hct 25.5 L (34.0-46.0) % POC Glucose (mg/dL) 149 H (70-110) mg/dL Assessment and Plan Assessment: Possible upper GI bleed, with associated hypotension, S/P 1 unit of PRBCs. S/P EGD, 02/24/2023, with evidence of erosive gastritis, and Thrasher's esophagus. History of diabetes mellitus. History of hyperlipidemia. History of hypertension. History of osteoarthritis. History of glaucoma. History of bipolar disorder. Plan: Plan dated 02/23/2023. The patient is seen in the emergency department. She is in room #7. The patient was admitted with a diagnosis of possible upper GI bleed, with hematemesis, hematochezia, melena, and coffee-ground emesis. The patient was apparently found to be hypotensive initially. The patient received fluids and a unit of PRBCs. Currently, the patient is normotensive. She denies any abdominal pain. She is nontender on palpation. She's not having any additional GI bleeding at this time. The patient initially was going to go to the intensive care unit, but I believe she stable enough to go to the floor. A dditional recommendations and suggestions are forthcoming. Plan dated 02/24/2023. The patient was seen yesterday in consultation, and the emergency department. She was in room #7. She was admitted with a diagnosis of possible upper GI bleed, with hematemesis, possible hematochezia, melena, and coffee-ground emesis. She underwent an EGD today, by Dr. Horan, and was found to have erosive gastritis, and a short segment of Thrasher's esophagus. The patient's resting comfortably in room 361. From the pulmonary standpoint, she stable, and is currently on room air. Labs, x-rays, and medications are reviewed. Prognosis is guarded. Plan dated 02/25/2023. The patient is stable from the hemodynamic and respiratory standpoint. Because of a slight drop in her hemoglobin, the patient is to have a colonoscopy before discharge. She denies any further bleeding. Labs, x-rays, medications are reviewed. Her blood pressure is 113/61. She was sitting up at the bedside with family members. No additional recommendations are made. Plan dated 02/26/2023. The patient has stable hemodynamic status, and respiratory status. The patient's on room air. The patient's not receiving any IV fluids. The hemoglobin today is 8.3. Initially, there was some thought that she might have a colonoscopy prior to discharge. According to the daughter, that is not the case. The patient is being evaluated for possible discharge today. Her vital signs are stable. Labs, x-rays, and medications are all reviewed. Time with Patient: Less than 30
--- NOTE | 2023-02-26 12:59 | P.PN ---
Subjective Progress Note Date: 02/26/23 Principal diagnosis: GI bleed This is a pleasant 77-year-old female who has a past medical history of diabetes mellitus, hyperlipidemia, hypertension, and hypothyroidism who presented to the emergency department by EMS for complaints of weakness, falling, and bloody diarrhea. Patient states yesterday she started feeling very weak and dizzy she fell and had then had a bowel movement which she states was dark in color with clots. Following that she started having coffee-ground emesis. She denies any history of a GI bleed. Denies any NSAID use or anticoagulation. Denies any history of peptic ulcer disease or acid reflux. No previous EGD, last colonoscopy likely greater than 10 years ago. However she did have a recent cold guard which she states was normal. On admission patient had a hemoglobin of 10.2 with an elevated P1 of 74. She was given 1 unit of blood. Repeat labs today hemoglobin stable at 10.0. She denied any abdominal pain or cramping at the time of the bowel movements. She currently does not have any abdominal pain, nausea or vomiting. She's had no further emesis or bloody bowel movement since yesterday. 02/25/2023 Patient seen and examined today as a follow-up. She's had no further bowel movements. No abdominal pain nausea or vomiting. Yesterday she underwent upper endoscopy which revealed antral erosive gastritis, moderate size hiatal hernia and short segment of Thrasher's esophagus. Recommend continue with Protonix 40 mg daily and following antireflux measures. 02/26/2023 Patient seen and examined today as a follow-up. She's had no further bowel movements or blood per rectum. Denies any abdominal pain, nausea or vomiting. She's been tolerating a regular diet. Repeat hemoglobin today 8.3. Patient's daughter at bedside and they would like to move forward with colonoscopy. Objective - Vital Signs Vital signs: Vital Signs Temp 97.9 F 02/26/23 04:00 Pulse 64 02/26/23 04:00 Resp 18 02/26/23 04:00 BP 110/59 02/26/23 04:00 Pulse Ox 95 02/26/23 04:00 FiO2 Intake & Output 02/25/23 02/26/23 02/26/23 18:59 06:59 18:59 Intake Total 118 10 120 Balance 118 10 120 Intake: IV 10 0.9 10 Oral 118 120 Other: Voiding Method Toilet Toilet # Voids 1 - Exam General appearance: The patient is alert, oriented, appears in no acute distress. HET: Head is normocephalic and atraumatic. Conjunctiva pink. Sclera anicteric. Neck: Supple without lymphadenopathy. Abdomen: Soft, nontender, nondistended with bowel sounds. No guarding or rigidity. Extremities: Normal skin color and turgor. No pedal edema Skin: No rashes, no jaundice Neurological: No focal deficits. Alert and oriented. - Labs CBC & Chem 7: 02/26/23 08:05 02/24/23 11:43 Labs: Abnormal Lab Results - Last 24 Hours (Table) 02/25/23 02/25/23 02/25/23 Range/Units 11:35 16:26 20:13 RBC (3.80-5.40) m/uL Hgb (11.4-16.0) gm/dL Hct (34.0-46.0) % POC Glucose (mg/dL) 120 H 131 H 152 H (70-110) mg/dL 02/26/23 02/26/23 Range/Units 05:52 08:05 RBC 2.59 L (3.80-5.40) m/uL Hgb 8.3 L (11.4-16.0) gm/dL Hct 25.5 L (34.0-46.0) % POC Glucose (mg/dL) 115 H (70-110) mg/dL Assessment and Plan (1) GI bleed Narrative/Plan: 77-year-old female who presented to the emergency department following dark maroon colored stool with clots and coffee ground emesis. She was found to be hypotensive. No previous history of GI bleed, no NSAID use her anticoagulation. No abdominal pain associated with bleed. Unclear etiology at this time however does appear to be upper GI bleed with elevated BUN, recommend proceeding with upper endoscopy tomorrow. Possible etiologies include peptic ulcer disease, g astritis, esophagitis, AVM, or other possible etiologies. Patient currently stable with hemoglobin 10.0. This 02/25/2023: Patient underwent upper endoscopy with findings of antral erosive gastritis, moderate size hiatal hernia and short segment Thrasher's esophagus with recommendations to continue Protonix 40 mg daily and follow anti- reflex measures. Biopsy taken, recommend follow-up in office in 2-3 weeks. Hemoglobin stable at 8.9. No further bleeding. 02/26/2023. Slight drop in hemoglobin 8.3 but no signs of GI bleed. Patient and daughter would like to proceed with colonoscopy which is reasonable. Will start prep this afternoon. Iron studies also ordered. Current Visit: Yes Status: Acute Code(s): K92.2 - GASTROINTESTINAL HEMORRHAGE, UNSPECIFIED SNOMED Code(s): 59733953 (2) Melena Current Visit: Yes Status: Acute Code(s): K92.1 - MELENA SNOMED Code(s): 4651336 (3) Diabetes Current Visit: Yes Status: Acute Code(s): E11.9 - TYPE 2 DIABETES MELLITUS WITHOUT COMPLICATIONS SNOMED Code(s): 82168060 (4) Hypotensive episode Current Visit: Yes Status: Acute Code(s): I95.9 - HYPOTENSION, UNSPECIFIED SNOMED Code(s): 53587745 (5) Weakness Current Visit: Yes Status: Acute Code(s): R53.1 - WEAKNESS SNOMED Code(s): 51288735 (6) Anemia Current Visit: Yes Status: Acute Code(s): D64.9 - ANEMIA, UNSPECIFIED SNOMED Code(s): 154386262 Plan: 1. Continue symptomatic and supportive care 2. Continue with Protonix 40 mg daily 3. Clear liquid diet, nothing by mouth after midnight 4. Follow antireflux measures 5. Patient is status post upper endoscopy no active bleeding noted however patient did have erosive gastritis likely cause of GI bleed/anemia. 6. The daily CBC, transfuse for hemoglobin less than 7 7. Plan for colonoscopy tomorrow morning 8. Iron studies ordered 9. Follow-up in 2-3 weeks for biopsy results Thank you for this consultation, further recommendations status post colonoscopy. Dr. Ruel Horan I agree with the dictator's note, documented as a scribe by Charlotte Raygoza.
[2023-02-26] MEDS ORDERED: PEG 3350 (236 GM/BTL) + LYTES 4,000 ML BOTTLE PO ONE (15:00)
[2023-02-26] MEDS: FLUoxetine HCL 20 MG CAP PO SCH (15:01)
[2023-02-26 16:23] LABS: % Iron Saturation 17.3 (12.00-45.00)
[2023-02-26 16:32] LABS: Glucose,Whole Blood 110 mg/dL (70-110)
--- NOTE | 2023-02-26 17:41 | P.PN ---
Subjective Progress Note Date: 02/26/23 Principal diagnosis: fall, GI bleed patient is awake alert oriented 3 , vital signs are stable patient is afebrile currently sitting up in chair 02/26/2023 Patient is up in the chair awake alert oriented 3 vital signs are stable patient is afebrile, decision was made by a GI to possibly take patient to colonoscopy tomorrow. Patient is being prepped and will be nothing by mouth after midnight and go to colonoscopy tomorrow Objective - Vital Signs Vital signs: Vital Signs Temp 98 F 02/26/23 08:30 Pulse 68 02/26/23 15:00 Resp 18 02/26/23 15:00 BP 130/63 02/26/23 15:00 Pulse Ox 98 02/26/23 15:00 FiO2 Intake & Output 02/25/23 02/26/23 02/26/23 18:59 06:59 18:59 Intake Total 118 10 240 Balance 118 10 240 Intake: IV 10 0.9 10 Oral 118 240 Other: Voiding Method Toilet Toilet Toilet # Voids 1 1 - Exam General: [Patient awake, alert and oriented times 3. Patient in no acute distress. morbidly obese HEENT: [PERRL. EOMI. No pharyngeal erythema or exudate.] Neck: [No adenopathy.] Cardiac: [Heart regular in rate and rhythm. No S3. No S4. No clicks, rubs. No murmur.] Lungs: [Clear to auscultation bilaterally.] Abdomen: [No mass. No organomegaly. Bowel sounds presnt and normoactive in all 4 quadrants.] Extremes: [No edema no cyanosis no claudication normal pulses] : normal female genitalia Musculoskeletal: [No joint erythema, edema or tenderness.] Skin: [No rash.] Neurologic: [No lateralizing deficits. CN II - XII grossly intact.] Lymphatic: [No adenopathy.] - Labs CBC & Chem 7: 02/26/23 08:05 02/24/23 11:43 Labs: Abnormal Lab Results - Last 24 Hours (Table) 02/25/23 02/26/23 02/26/23 Range/Units 20:13 05:52 08:05 RBC 2.59 L (3.80-5.40) m/uL Hgb 8.3 L (11.4-16.0) gm/dL Hct 25.5 L (34.0-46.0) % POC Glucose (mg/dL) 152 H 115 H (70-110) mg/dL 02/26/23 Range/Units 11:43 RBC (3.80-5.40) m/uL Hgb (11.4-16.0) gm/dL Hct (34.0-46.0) % POC Glucose (mg/dL) 149 H (70-110) mg/dL Assessment and Plan (1) Acute GI bleeding Current Visit: Yes Status: Acute Code(s): K92.2 - GASTROINTESTINAL HEMORRHAGE, UNSPECIFIED SNOMED Code(s): 75069942 (2) Diabetes Current Visit: Yes Status: Acute Code(s): E11.9 - TYPE 2 DIABETES MELLITUS WITHOUT COMPLICATIONS SNOMED Code(s): 61043143 (3) GI bleed Current Visit: Yes Status: Acute Code(s): K92.2 - GASTROINTESTINAL HEMORRHAGE, UNSPECIFIED SNOMED Code(s): 65229114 (4) Hyperkalemia Current Visit: Yes Status: Acute Code(s): E87.5 - HYPERKALEMIA SNOMED Code(s): 55253544 (5) Hypotensive episode Current Visit: Yes Status: Acute Code(s): I95.9 - HYPOTENSION, UNSPECIFIED SNOMED Code(s): 45254966 (6) Lactic acidosis Current Visit: Yes Status: Acute Code(s): E87.20 - ACIDOSIS, UNSPECIFIED SNOMED Code(s): 66724688 (7) Melena Current Visit: Yes Status: Acute Code(s): K92.1 - MELENA SNOMED Code(s): 6384455 (8) Weakness Current Visit: Yes Status: Acute Code(s): R53.1 - WEAKNESS SNOMED Code(s): 53186981 Plan: is currently hemodynamically stable Decision was made to proceed forward with colonoscopy tomorrow Time with Patient: Greater than 30
[2023-02-26] MEDS: LATANOPROST 0.005% OPHTH DROPS 2.5 ML BTL BOTH EYES SCH (20:14)
[2023-02-26] MEDS: OLANZapine 5 MG TAB PO SCH (20:14)
[2023-02-26] MEDS: ATORVASTATIN 40 MG TAB PO SCH (20:14)
[2023-02-26 20:33] LABS: Glucose,Whole Blood 123 mg/dL (70-110)
[2023-02-27 06:15] LABS: Glucose,Whole Blood 117 mg/dL (70-110)
[2023-02-27] MEDS: INSULIN ASPART (NovoLOG) 100 UNIT/ML VIAL SQ SCH ×2 (06:22→11:55)
[2023-02-27] MEDS ORDERED: SODIUM CHLORIDE 0.9% 250 ML IV ONE (07:31)
--- NOTE | 2023-02-27 07:46 | P.PCN ---
Date of Procedure: 02/27/23 Procedure(s) Performed: BRIEF HISTORY: Patient is a 77-year-old pleasant white female admitted hospital with acute GI bleed. Hemoglobin was 11 g/dL and gradually dropped to 12.3 g/dL. She underwent an upper endoscopy 3 days ago and was noted to have some antral erosive gastritis. Scheduled for colonoscopy today. PROCEDURE PERFORMED: Colonoscopy with snare polypectomy. PREOPERATIVE DIAGNOSIS: Anemia/acute GI bleed. IV sedation per Anesthesia. PROCEDURE: After informed consent was obtained, the patient, was brought into the endoscopy unit. IV sedation was administered by Anesthesia under continuous monitoring. Digital rectal examination was normal. Initially the Olympus CF-160 flexible video colonoscope was then inserted in the rectum, gradually advanced into the cecum with moderate to severe difficulty. Careful examination was performed as the scope was gradually being withdrawn. Ileocecal valve and the appendiceal orifice were visualized and appeared normal. Prep was poor and several areas of the colon.. Mucosa of the cecum, appeared normal. In the ascending colon there was a 3 cm broad-based polyp status post piecemeal snare polypectomy and 75% the polyp was removed. Because of technical difficulties I was not able to remove the rest of the polyp. Rest of the ascending colon, transverse colon, descending colon, sigmoid colon, and rectum appeared normal. Scattered similar diverticulosis seen. In the rectum and colon there was a 5 limited polyp removed by snare polypectomy. Retroflexion was performed in the rectum and no lesions were seen. The patient tolerated the procedure well. IMPRESSION: 3 cm broad-based polyp just proximal to the ileocecal valve status post piecemeal snare polypectomy and approximately 75% the polyp removed 5 mm sigmoid: Polyp status post polypectomy Scattered sigmoid diverticula RECOMMENDATIONS: Findings of this examination were discussed with the patient . At this time will await the biopsy results. Diet will be advanced as tolerated. Follow up in office in 2 weeks to discuss the biopsy results and will plan a repeat colonoscopy in 3 months..
[2023-02-27] MEDS: DAPAGLIFLOZIN PROPANEDIOL 5 MG TABLET PO SCH (09:21)
[2023-02-27] MEDS: metFORMIN 500 MG TAB PO SCH (09:21)
[2023-02-27] MEDS: lamoTRIgine 100 MG TAB PO SCH (09:21)
[2023-02-27] MEDS: amLODIPine 5 MG TAB PO SCH (09:21)
[2023-02-27] MEDS: PANTOPRAZOLE 40 MG/10 ML VIAL IV SCH (09:22)
[2023-02-27 10:55] VITALS: TEMP 97.8
--- NOTE | 2023-02-27 11:30 | P.PN ---
Subjective Progress Note Date: 02/27/23 Principal diagnosis: GI bleed. Pulmonary consult dated 02/23/2023. 77-year-old female who was seen in the emergency department, for possible gastrointestinal bleed. The patient apparently came in with coffee ground emesis, melena, and some blood clots, possible hematemesis, or hematochezia, and a low blood pressure of 84/73. The patient was seen in the emergency department. She was not a particularly good historian. Most of the history was obtained from the daughter. The patient initially was found to be hypotensive, but more recently has had normal blood pressures. She did receive 1 unit packed red blood cells. Currently, she is on room air. She's not receiving any IV fluids. Currently labs include a white count 13.5, hemoglobin 10, hematocrit 29.7, and normal platelet count. Sodium 138, potassium 4.5, chlorides 110, CO2 23, BUN 74, creatinine 0.85. Her initial lactic acid level was 3, and repeat was 2. A chest x-ray was normal and a flat plate of the abdomen, showed a nonspecific bowel gas pattern. Progress note dated 02/24/2023. The patient was initially seen in the emergency department for a possible GI bleed. She underwent an EGD, and was found to have gastritis, and Thrasher's esophagus. The patient is seen today in room 361. She's on room air. She's not receiving any IV fluids. No new laboratory data today other than a glucose of 171. Progress note dated 02/25/2023. The patient is seen today in room 361. She is on room air. She's not receiving any IV fluids. The results of her EGD, were discussed with her. Apparently, because of a trending downward hemoglobin, the patient is scheduled to have a colonoscopy. Not sure when that will be done. White count is 9.6, hemoglobin 8.9, down from 9.4, hematocrit 27.2, within normal platelet count. Progress note dated 02/26/2023. The patient is seen today in room 361. She's on room air. No IV fluids. The patient was to have a colonoscopy today, but apparently, the procedure has been canceled. The patient's hemoglobin today is 8.3. There has been a steady decline in her hemoglobin since her admission her EGD revealed evidence of erosive gastritis, and a segment of Thrasher's esophagus. White count 7.1, hemoglobin 8.3, hematocrit 25.5, within normal platelet count. Glucose is 149. Progress note dated 02/27/2023. The patient is seen in room 361. She's on room air. No IV fluids. She did have a colonoscopy today which revealed some polyps, that were sampled. She had some diverticuli, but no active bleeding. From our perspective, the patient is stable for discharge. Clinically, she has been doing well, and both respiratory status, and hemodynamics, have been stable. No new labs today other than a glucose of 117. Objective - Vital Signs Vital signs: Vital Signs Temp 97.8 F 02/27/23 08:00 Pulse 64 02/27/23 08:00 Resp 14 02/27/23 08:00 BP 115/69 02/27/23 08:00 Pulse Ox 97 02/27/23 08:00 FiO2 Intake & Output 02/26/23 02/27/23 02/27/23 18:59 06:59 18:59 Intake Total 240 2160 0 Balance 240 2160 0 Intake: IV 0 Oral 240 2160 Other: Voiding Method Toilet Toilet Toilet # Voids 1 1 # Bowel Movements 3 - Exam No acute distress, awake and alert. Room air saturation is 97 %. HEENT examination is grossly unremarkable. Mucous membranes are moist. No oral lesions. Neck supple. Full range of motion. No adenopathy thyromegaly or neck vein distention. Cardiovascular examination reveals regular rhythm rate. S1-S2 normal. No S3 or S4. No discernible murmur noted. Heart rate 64 bpm. Lungs reveal clear breath sounds. Breath sounds are equal bilaterally. No adventitious lung sounds including wheezes rhonchi or crackles. Room air saturation 97 %. Abdomen soft bowel sounds are heard. No masses or tenderness. Extremities are intact. No cyanosis clubbing or edema. Skin is without rash or lesion. Neurologic examination is brief but nonfocal. - Labs CBC & Chem 7: 02/26/23 08:05 02/24/23 11:43 Labs: Abnormal Lab Results - Last 24 Hours (Table) 02/26/23 02/26/23 02/27/23 Range/Units 11:43 20:30 06:12 POC Glucose (mg/dL) 149 H 123 H 117 H (70-110) mg/dL Assessment and Plan Assessment: Possible upper GI bleed, with associated hypotension, S/P 1 unit of PRBCs. S/P EGD, 02/24/2023, with evidence of erosive gastritis, and Thrasher's esophagus. History of diabetes mellitus. History of hyperlipidemia. History of hypertension. History of osteoarthritis. History of glaucoma. History of bipolar disorder. Plan: Plan dated 02/23/2023. The patient is seen in the emergency department. She is in room #7. The patient was admitted with a diagnosis of possible upper GI bleed, with hematemesis, hematochezia, melena, and coffee-ground emesis. The patient was a pparently found to be hypotensive initially. The patient received fluids and a unit of PRBCs. Currently, the patient is normotensive. She denies any abdominal pain. She is nontender on palpation. She's not having any additional GI bleeding at this time. The patient initially was going to go to the intensive care unit, but I believe she stable enough to go to the floor. Additional recommendations and suggestions are forthcoming. Plan dated 02/24/2023. The patient was seen yesterday in consultation, and the emergency department. She was in room #7. She was admitted with a diagnosis of possible upper GI bleed, with hematemesis, possible hematochezia, melena, and coffee-ground emesis. She underwent an EGD today, by Dr. Horan, and was found to have erosive gastritis, and a short segment of Thrasher's esophagus. The patient's resting comfortably in room 361. From the pulmonary standpoint, she stable, and is currently on room air. Labs, x-rays, and medications are reviewed. Prognosis is guarded. Plan dated 02/25/2023. The patient is stable from the hemodynamic and respiratory standpoint. Because of a slight drop in her hemoglobin, the patient is to have a colonoscopy before discharge. She denies any further bleeding. Labs, x-rays, medications are reviewed. Her blood pressure is 113/61. She was sitting up at the bedside with family members. No additional recommendations are made. Plan dated 02/26/2023. The patient has stable hemodynamic status, and respiratory status. The patient's on room air. The patient's not receiving any IV fluids. The hemoglobin today is 8.3. Initially, there was some thought that she might have a colonoscopy prior to discharge. According to the daughter, that is not the case. The patient is being evaluated for possible discharge today. Her vital signs are stable. Labs, x-rays, and medications are all reviewed. Plan dated 02/27/2023. The patient underwent colonoscopy this morning. Apparently reveals some diverticuli, and some polyps, which were sampled. There was no active bleeding. The patient's respiratory status stable. She is on room air. From our perspective, she could be discharged. Moving forward, we'll see the patient only as needed. Time with Patient: Less than 30
[2023-02-27 11:52] LABS: Glucose,Whole Blood 143 mg/dL (70-110)
[2023-02-27 12:26] LABS: Anisocytosis Slight; Basophils % (A) 0 %; Eosinophils % (A) 0 %; HCT 25.3 % (34.0-46.0); HGB 8.3 gm/dL (11.4-16.0); Lymphocytes # (A) 1.4 k/uL (1.0-4.8); Lymphocytes % (A) 18 %; MCH 32.1 pg (25.0-35.0); MCHC 32.8 g/dL (31.0-37.0); MCV 97.8 fL (80.0-100.0); Macrocytosis Slight; Mean Platelet Volume 7.9; Monocytes # (A) 0.3 k/uL (0-1.0); Monocytes % (A) 4 %; Neutrophils # (A) 5.9 k/uL (1.3-7.7); Neutrophils % (A) 77 %; Platelet Count 316 k/uL (150-450); RBC 2.58 m/uL (3.80-5.40); RDW 16.2 % (11.5-15.5); WBC 7.8 k/uL (3.8-10.6)
[2023-02-27 12:56] VITALS: BP 129/72; PULSE 70; RESP 16
--- NOTE | 2023-02-27 13:36 | P.DS ---
Providers Date of admission: 02/22/23 20:44 Expected date of discharge: 02/27/23 Attending physician: Cheikh Mora Consults: 02/22/23 20:44 Consult Physician Routine Consulting Provider: Basilia Horan Consult Reason/Comments: GI bleed Do you want consulting provider notified?: Yes, Notify in am Consult Physician Stat Consulting Provider: Kristina Schreiber Consult Reason/Comments: ICU care Do you want consulting provider notified?: Already Contacted Primary care physician: Cheikh Mora - Discharge Diagnosis(es) (1) Acute GI bleeding Current Visit: Yes Status: Acute (2) Diabetes Current Visit: Yes Status: Acute (3) GI bleed Current Visit: Yes Status: Acute (4) Hyperkalemia Current Visit: Yes Status: Acute (5) Hypotensive episode Current Visit: Yes Status: Acute (6) Lactic acidosis Current Visit: Yes Status: Acute (7) Melena Current Visit: Yes Status: Acute (8) Weakness Current Visit: Yes Status: Acute (9) Anemia Current Visit: Yes Status: Acute Assessment: patient was admitted secondary to fall Was recognized to be a GI bleed Consultation with gastroenterology Patient underwent EGD and colonoscopy Is hemodynamically stable We'll discharge home Patient Condition at Discharge: Serious Plan - Discharge Summary Discharge Rx Participant: Yes New Discharge Prescriptions: No Action metFORMIN HCL [Glucophage] 1,000 mg PO BID lamoTRIgine 150 mg PO BID Travoprost [Travatan Z 0.004%] 1 drop BOTH EYES HS FLUoxetine HCL [PROzac] 20 mg PO DAILY@1600 Atorvastatin [Lipitor] 40 mg PO HS Aspirin EC [Ecotrin] 325 mg PO DAILY Semaglutide [Ozempic] 1 mg SQ Q7D amLODIPine [Norvasc] 5 mg PO DAILY OLANZapine [ZyPREXA] 5 mg PO HS Empagliflozin [Jardiance] 10 mg PO DAILY Discharge Medication List lamoTRIgine 150 mg PO BID 05/09/15 [History] metFORMIN HCL [Glucophage] 1,000 mg PO BID 05/09/15 [History] Travoprost [Travatan Z 0.004%] 1 drop BOTH EYES HS 08/03/17 [History] Aspirin EC [Ecotrin] 325 mg PO DAILY 02/22/23 [History] Atorvastatin [Lipitor] 40 mg PO HS 02/22/23 [History] Empagliflozin [Jardiance] 10 mg PO DAILY 02/22/23 [History] FLUoxetine HCL [PROzac] 20 mg PO DAILY@1600 02/22/23 [History] OLANZapine [ZyPREXA] 5 mg PO HS 02/22/23 [History] Semaglutide [Ozempic] 1 mg SQ Q7D 02/22/23 [History] amLODIPine [Norvasc] 5 mg PO DAILY 02/22/23 [History] Follow up Appointment(s)/Referral(s): Basilia Horan MD [STAFF PHYSICIAN] - 2 Weeks Cheikh Mora MD [Primary Care Provider] - 1-2 days [facility] Visiting Nurse, [NON-STAFF] -
--- NOTE | 2023-03-03 08:43 | CDI ---
Documentation Clarification Form Date: 03/03/2023 08:16:08 AM From: Britt Cerda RN, CCDS Email: [email or web address] Admit Date: 02/22/2023 08:44:00 PM Patient Name: Zulema Felix Visit Number: [id number] Discharge Date: 02/27/2023 04:25:00 PM ATTENTION: The Clinical Documentation Specialists (CDI) and [facility] Coding Staff appreciate your assistance in clarifying documentation. Please respond to the clarification below the line at the bottom and electronically sign. The CDI & [facility] Coding staff will review the response and follow-up if needed. Please note: Queries are made part of the Legal Health Record. If you have any questions, please contact the author of this message via ITS. Dr. Gavin Watkins The patient had a GI bleed and lactic acidosis. Additional clarification is requested. Patient history/risk factors: HTN, DM, hypothyroidism, bipolar and depression. Came in with generalized weakness, fall at home, coffee ground emesis and melena. Admitted with GI bleed, hypotension and lactic acidosis. Clinical Indicators: 02/22-02/27 Labs: WBC 19.8-7.1, lactic acid 9.7-3.8-3.0-2.0, Hgb 11.5-10.-8.9-8.3 02/22-02/27 Vital signs: Temp 97.3, HR 62-101, RR 12-16 02/22 BP's: 84/73-70/48-90/63-109/85-81/71-85/64-118/98 ED: "Acute GI bleeding, melena, hypotensive episode, lactic acidosis, diabetes, weakness." H&P: "Acute GI bleed accompanied by hypotension initially. Lactic acidosis, 9.7, currently down to 2." 02/23 Pulmonary: "Possible upper GI bleed, with associated hypotension, S/P 1 unit of PRBCs." EGD: antral erosive gastritis, moderate hiatal hernia and short segment Thrasher's esophagus Treatment: 1L total 0.9 NS IV bolus; one-unit PRBC's; EGD as above; Protonix 40mg IV BID 02/22-02/27 Please clarify if there is an additional diagnosis: [ ] Hemorrhagic Shock [ ] No additional diagnosis [ ] Other, please specify [ ] Unable to determine MTDD
== END 2023-02-27 16:25 | disposition home health service (06) | DRG 378 ==
LOC: EC 17:59 → 2SICU 20:44 → 3SCARD 02-23 08:16
PROVIDERS: ADMIT Family Medicine; ATTEND Family Medicine
PROC: 30233N1 Transfusion of Nonautologous Red Blood Cells into Peripheral Vein, Percutaneous Approach (ICD-10-PCS; 2023-02-22)
PROC: 0DB48ZX Excision of Esophagogastric Junction, Via Natural or Artificial Opening Endoscopic, Diagnostic (ICD-10-PCS; 2023-02-24)
PROC: 0DB78ZX Excision of Stomach, Pylorus, Via Natural or Artificial Opening Endoscopic, Diagnostic (ICD-10-PCS; 2023-02-24)
PROC: 0DBP8ZX Excision of Rectum, Via Natural or Artificial Opening Endoscopic, Diagnostic (ICD-10-PCS; 2023-02-27)
PROC: 0DBK8ZX Excision of Ascending Colon, Via Natural or Artificial Opening Endoscopic, Diagnostic (ICD-10-PCS; principal; 2023-02-27 07:00)
DX: K29.61 Other gastritis with bleeding (principal); E87.20 Acidosis, unspecified; K57.32 Diverticulitis of large intestine without perforation or abscess without bleeding; Z68.41 Body mass index [BMI] 40.0-44.9, adult; K22.70 Barrett's esophagus without dysplasia; K44.9 Diaphragmatic hernia without obstruction or gangrene; M19.90 Unspecified osteoarthritis, unspecified site; W19.XXXA Unspecified fall, initial encounter; I10 Essential (primary) hypertension; E66.01 Morbid (severe) obesity due to excess calories; I95.9 Hypotension, unspecified; H40.9 Unspecified glaucoma; N28.9 Disorder of kidney and ureter, unspecified; F31.9 Bipolar disorder, unspecified; E87.5 Hyperkalemia; E78.5 Hyperlipidemia, unspecified; E03.9 Hypothyroidism, unspecified; Z79.899 Other long term (current) drug therapy; Z79.82 Long term (current) use of aspirin; Z79.84 Long term (current) use of oral hypoglycemic drugs; Z83.3 Family history of diabetes mellitus; Z87.19 Personal history of other diseases of the digestive system
CPT/HCPCS: 36415; 36430; 43239; 45385; 71045; 74018; 80048; 80053; 82728; 83036; 83540; 83550; 83605; 83690; 83735; 84132; 84484; 85025; 85027; 85610; 85730; 86850; 86900; 86901; 86920; 88305; 93005; 94760; 96374; 96375; 99291

== ENCOUNTER 2023-03-01 14:21 | Inpatient (IN) | payer MEDICARE, OTHER ==
[2023-03-01] MEDS ORDERED: PANTOPRAZOLE 40 MG/10 ML VIAL IVP STA (14:50)
[2023-03-01] MEDS ORDERED: SODIUM CHLORIDE 0.9% 1,000 ML IV STA (14:50)
--- NOTE | 2023-03-01 14:53 | ED ---
General Adult HPI - General Chief complaint: Fall Stated complaint: General Weakness Time Seen by Provider: 03/01/23 14:30 Source: patient, family, EMS, RN notes reviewed Mode of arrival: EMS Limitations: no limitations - History of Present Illness Initial comments: Patient is a pleasant 77-year-old female presenting to the emergency department with concern for weakness. Patient was in the hospital last week with suspected GI bleed. Patient did have scope and diagnosed with Thrasher's esophagitis. Patient had an upper and lower scope. Patient has had some increased general weakness. Decreased appetite. Blood pressure has been running somewhat low. Blood sugars have been high. - Related Data Home Medications Medication Instructions Recorded Confirmed lamoTRIgine 150 mg PO BID 05/09/15 02/22/23 metFORMIN HCL [Glucophage] 1,000 mg PO BID 05/09/15 02/22/23 Travoprost [Travatan Z 0.004%] 1 drop BOTH EYES HS 08/03/17 02/22/23 Aspirin EC [Ecotrin] 325 mg PO DAILY 02/22/23 02/22/23 Atorvastatin [Lipitor] 40 mg PO HS 02/22/23 02/22/23 Empagliflozin [Jardiance] 10 mg PO DAILY 02/22/23 02/22/23 FLUoxetine HCL [PROzac] 20 mg PO DAILY@1600 02/22/23 02/22/23 OLANZapine [ZyPREXA] 5 mg PO HS 02/22/23 02/22/23 Semaglutide [Ozempic] 1 mg SQ Q7D 02/22/23 02/22/23 amLODIPine [Norvasc] 5 mg PO DAILY 02/22/23 02/22/23 Allergies Allergy/AdvReac Type Severity Reaction Status Date / Time No Known Allergies Allergy Verified 03/01/23 14:28 Review of Systems ROS Statement: Those systems with pertinent positive or pertinent negative responses have been documented in the HPI. ROS Other: All systems not noted in ROS Statement are negative. Constitutional: Denies: fever Eyes: Denies: eye pain ENT: Denies: ear pain Respiratory: Denies: cough, dyspnea Cardiovascular: Denies: chest pain Endocrine: Reports: fatigue Gastrointestinal: Reports: melena. Denies: abdominal pain Genitourinary: Denies: dysuria Musculoskeletal: Denies: back pain Neurological: Reports: weakness Past Medical History Past Medical History: Diabetes Mellitus, Eye Disorder, Hyperlipidemia, Hypertension, Osteoarthritis (OA), Thyroid Disorder Additional Past Medical History / Comment(s): arrthymia ; glaucoma History of Any Multi-Drug Resistant Organisms: None Reported Past Surgical History: Cholecystectomy, Hernia Repair, Tonsillectomy Additional Past Surgical History / Comment(s): hernia repair X 3 (mesh rejection) Past Anesthesia/Blood Transfusion Reactions: No Reported Reaction Past Psychological History: Bipolar, Depression Smoking Status: Never smoker Past Alcohol Use History: None Reported Past Drug Use History: None Reported - Past Family History Mother Family Medical History: Diabetes Mellitus General Exam Limitations: no limitations General appearance: alert, in no apparent distress Head exam: Present: normocephalic Eye exam: Present: other (Pale conjunctiva) Neck exam: Present: normal inspection Respiratory exam: Present: normal lung sounds bilaterally Cardiovascular Exam: Present: regular rate, normal rhythm GI/Abdominal exam: Present: soft. Absent: tenderness Extremities exam: Present: normal inspection Neurological exam: Present: alert. Absent: motor sensory deficit Psychiatric exam: Present: normal affect, normal mood Skin exam: Present: pallor Course Vital Signs 03/01/23 03/01/23 03/01/23 14:24 14:28 15:13 Temperature 97.0 F L Pulse Rate 87 89 Respiratory 18 18 18 Rate Blood Pressure 95/54 82/28 O2 Sat by Pulse 99 98 Oximetry 03/01/23 03/01/23 15:38 16:16 Temperature Pulse Rate 83 80 Respiratory 18 18 Rate Blood Pressure 103/44 89/32 O2 Sat by Pulse 100 Oximetry EKG Findings - EKG Results: EKG: interpreted by ERMD (Lateral T wave inversion), sinus rhythm, normal axis, normal QRS Medical Decision Making - Medical Decision Making Was pt. sent in by a medical professional or institution (, PA, PLASTICS SCIENTIST, urgent care, hospital, or halfway...) When possible be specific @ -Patient was sent in by Dr. Lamas Did you speak to anyone other than the patient for history (EMS, parent, family, police, friend...)? What history was obtained from this source @ -Family is present and helps provide history including history of previous admission Did you review nursing and triage notes (agree or disagree)? Why? @ -I reviewed and agree with nursing and triage notes Were old charts reviewed (outside hosp., previous admission, EMS record, old EKG, old radiological studies, urgent care reports/EKG's, halfway records)? Report findings @ -Previous admission reviewed Differential Diagnosis (chest pain, altered mental status, abdominal pain women, abdominal pain men, vaginal bleeding, weakness, fever, dyspnea, syncope, headache, dizziness, GI bleed, back pain, seizure, CVA, palpatations, mental health, musculoskeletal)? @ -Differential Weakness: Hypoglycemia, shock, sepsis, hyponatremia, anemia, infection, NJ, ETOH, adverse medicine reaction, overdose, stroke, this is not meant to be an all-inclusive list. EKG interpreted by me (3pts min.). @ -As above X-rays interpreted by me (1pt min.). @ -None done CT interpreted by me (1pt min.). @ -None done U/S interpreted by me (1pt. min.). @ -None done What testing was considered but not performed or refused? (CT, X-rays, U/S, labs)? Why? @ -None What meds were considered but not given or refused? Why? @ -None Did you discuss the management of the patient with other professionals (professionals i.e. , PA, PLASTICS SCIENTIST, lab, RT, psych nurse, social service technician, ornamental brick installer, teacher, district resource officer, case aide)? Give summary @ -Case was discussed with Dr. Lamas who is familiar with this patient and did send her in. He would like patient to be admitted. He is aware that gastroenterology is not available. He does request surgical consult. Patient did have scope done just a few days ago diagnosed with Thrasher's esophagitis. Was smoking cessation discussed for >3mins.? @ -No Was critical care preformed (if so, how long)? @ -32 minutes critical Care time Were there social determinants of health that impacted care today? How? (Homelessness, low income, unemployed, alcoholism, drug addiction, transportation, low edu. Level, literacy, decrease access to med. care, senior care, rehab)? @ -No Was there de-escalation of care discussed even if they declined (Discuss DNR or withdrawal of care, Hospice)? DNR status @ -No What co-morbidities impacted this encounter? (DM, HTN, Smoking, COPD, CAD, Cancer, CVA, ARF, Chemo, Hep., AIDS, mental health diagnosis, sleep apnea, morbid obesity)? @ -None Was patient admitted / discharged? Hospital course, mention meds given and route, prescriptions, significant lab abnormalities, going to OR and other pertinent info. @ -Patient reevaluated. Patient does have anemia with hemoglobin of 6.8 and will be admitted with blood transfusion. Admission orders written. Undiagnosed new problem with uncertain prognosis? @ -No Drug Therapy requiring intensive monitoring for toxicity (Heparin, Nitro, Insulin, Cardizem)? @ -No Were any procedures done? @ -No Diagnosis/symptom? @ Anemia Acute, or Chronic, or Acute on Chronic? @ -Acute Uncomplicated (without systemic symptoms) or Complicated (systemic symptoms)? @ -default Side effects of treatment? @ -No Exacerbation, Progression, or Severe Exacerbation? @ -No Poses a threat to life or bodily function? How? (Chest pain, USA, NJ, pneumonia, PE, COPD, DKA, ARF, appy, cholecystitis, CVA, Diverticulitis, Homicidal, Suicidal, threat to staff... and all critical care pts) @ -No - Lab Data Result diagrams: 03/01/23 15:06 03/01/23 15:06 Lab Results 03/01/23 03/01/23 03/01/23 Range/Units 15:00 15:06 15:06 WBC 16.5 H (3.8-10.6) k/uL RBC 2.15 L (3.80-5.40) m/uL Hgb 6.8 L* D (11.4-16.0) gm/dL Hct 21.4 L (34.0-46.0) % MCV 99.6 (80.0-100.0) fL MCH 31.5 (25.0-35.0) pg MCHC 31.7 (31.0-37.0) g/dL RDW 16.5 H (11.5-15.5) % Plt Count 353 (150-450) k/uL MPV 7.8 Neutrophils % 88 % Lymphocytes % 8 % Monocytes % 3 % Eosinophils % 0 % Basophils % 0 % Neutrophils # 14.5 H (1.3-7.7) k/uL Lymphocytes # 1.4 (1.0-4.8) k/uL Monocytes # 0.5 (0-1.0) k/uL Eosinophils # 0.0 (0-0.7) k/uL Basophils # 0.0 (0-0.2) k/uL Hypochromasia Slight Anisocytosis Slight Macrocytosis Slight PT 10.5 (9.0-12.0) sec INR 1.0 (<1.2) APTT 19.2 L (22.0-30.0) sec Sodium (137-145) mmol/L Potassium (3.5-5.1) mmol/L Chloride (98-107) mmol/L Carbon Dioxide (22-30) mmol/L Anion Gap mmol/L BUN (7-17) mg/dL Creatinine (0.52-1.04) mg/dL Est GFR (CKD-EPI)AfAm (>60 ml/min/1.73 sqM) Est GFR (CKD-EPI)NonAf (>60 ml/min/1.73 sqM) Glucose (74-99) mg/dL Calcium (8.4-10.2) mg/dL Magnesium (1.6-2.3) mg/dL Total Bilirubin (0.2-1.3) mg/dL AST (14-36) U/L ALT (4-34) U/L Alkaline Phosphatase (38-126) U/L Total Protein (6.3-8.2) g/dL Albumin (3.5-5.0) g/dL Blood Type O Positive Blood Type Recheck O Pos Bld Type Recheck Status No Antibody Screen NEGATIVE Crossmatch See Detail Spec Expiration Date 03/04/2023 - 229903/01/23 Range/Units 15:06 WBC (3.8-10.6) k/uL RBC (3.80-5.40) m/uL Hgb (11.4-16.0) gm/dL Hct (34.0-46.0) % MCV (80.0-100.0) fL MCH (25.0-35.0) pg MCHC (31.0-37.0) g/dL RDW (11.5-15.5) % Plt Count (150-450) k/uL MPV Neutrophils % % Lymphocytes % % Monocytes % % Eosinophils % % Basophils % % Neutrophils # (1.3-7.7) k/uL Lymphocytes # (1.0-4.8) k/uL Monocytes # (0-1.0) k/uL Eosinophils # (0-0.7) k/uL Basophils # (0-0.2) k/uL Hypochromasia Anisocytosis Macrocytosis PT (9.0-12.0) sec INR (<1.2) APTT (22.0-30.0) sec Sodium 137 (137-145) mmol/L Potassium 4.4 (3.5-5.1) mmol/L Chloride 103 (98-107) mmol/L Carbon Dioxide 15 L (22-30) mmol/L Anion Gap 19 mmol/L BUN 43 H (7-17) mg/dL Creatinine 0.85 (0.52-1.04) mg/dL Est GFR (CKD-EPI)AfAm 77 (>60 ml/min/1.73 sqM) Est GFR (CKD-EPI)NonAf 67 (>60 ml/min/1.73 sqM) Glucose 130 H (74-99) mg/dL Calcium 8.6 (8.4-10.2) mg/dL Magnesium 1.5 L (1.6-2.3) mg/dL Total Bilirubin 0.4 (0.2-1.3) mg/dL AST 24 (14-36) U/L ALT 31 (4-34) U/L Alkaline Phosphatase 55 (38-126) U/L Total Protein 5.0 L (6.3-8.2) g/dL Albumin 2.9 L (3.5-5.0) g/dL Blood Type Blood Type Recheck Bld Type Recheck Status Antibody Screen Crossmatch Spec Expiration Date Critical Care Time Critical Care Time: Yes Total Critical Care Time: 32 Disposition Clinical Impression: Anemia Disposition: ADMITTED IP TO THIS HOSP Is patient prescribed a controlled substance at d/c from ED?: No Referrals: Cheikh Mora MD [Primary Care Provider] - 1-2 days Time of Disposition: 16:49
[2023-03-01 16:03] LABS: AST 24 U/L (14-36); African American GFR (CKD) 77 (>60 ml/min/1.73 sqM); Albumin 2.9 g/dL (3.5-5.0); Alkaline Phosphatase 55 U/L (38-126); Anion Gap 19 mmol/L; Blood Urea Nitrogen 43 mg/dL (7-17); Calcium 8.6 mg/dL (8.4-10.2); Carbon Dioxide 15 mmol/L (22-30); Chloride 103 mmol/L (98-107); Glucose 130 mg/dL (74-99); Magnesium 1.5 mg/dL (1.6-2.3); Non-African American GFR(CKD) 67 (>60 ml/min/1.73 sqM); Potassium 4.4 mmol/L (3.5-5.1); Sodium 137 mmol/L (137-145); Total Bilirubin 0.4 mg/dL (0.2-1.3)
[2023-03-01 16:08] LABS: Anisocytosis Slight; Basophils % (A) 0 %; Eosinophils % (A) 0 %; HCT 21.4 % (34.0-46.0); Hypochromasia Slight; Lymphocytes # (A) 1.4 k/uL (1.0-4.8); Lymphocytes % (A) 8 %; MCH 31.5 pg (25.0-35.0); MCHC 31.7 g/dL (31.0-37.0); MCV 99.6 fL (80.0-100.0); Macrocytosis Slight; Mean Platelet Volume 7.8; Monocytes # (A) 0.5 k/uL (0-1.0); Monocytes % (A) 3 %; Neutrophils # (A) 14.5 k/uL (1.3-7.7); Neutrophils % (A) 88 %; Platelet Count 353 k/uL (150-450); RBC 2.15 m/uL (3.80-5.40); RDW 16.5 % (11.5-15.5); WBC 16.5 k/uL (3.8-10.6)
[2023-03-01 16:12] LABS: HGB 6.8 gm/dL (11.4-16.0)
[2023-03-01 16:18] LABS: ALT 31 U/L (4-34)
[2023-03-01 16:22] LABS: Prothrombin Time 10.5 sec (9.0-12.0)
[2023-03-01 16:31] LABS: Partial Thromboplastin Time 19.2 sec (22.0-30.0)
[2023-03-01] MEDS ORDERED: NALOXONE 0.4 MG/ML 1 ML VIAL IV PRN (16:50)
[2023-03-01] MEDS: SODIUM CHLORIDE 0.9% 1,000 ML IV SCH (18:20)
[2023-03-01] MEDS: PANTOPRAZOLE 40 MG/10 ML VIAL IV SCH (20:12)
[2023-03-01] MEDS ORDERED: FAMOTIDINE 20 MG TAB PO SCH (21:00)
[2023-03-01 22:53] LABS: Glucose,Whole Blood 244 mg/dL (70-110)
[2023-03-01 22:57] LABS: Anisocytosis Slight; Hypochromasia Moderate; MCH 31.5 pg (25.0-35.0); MCHC 31.8 g/dL (31.0-37.0); MCV 98.8 fL (80.0-100.0); Macrocytosis Slight; Mean Platelet Volume 7.9; Platelet Count 287 k/uL (150-450); RBC 1.81 m/uL (3.80-5.40); RDW 16.6 % (11.5-15.5); WBC 18.8 k/uL (3.8-10.6)
[2023-03-01 23:05] LABS: HCT 17.9 % (34.0-46.0); HGB 5.7 gm/dL (11.4-16.0)
[2023-03-01 23:57] LABS: African American GFR (CKD) 72 (>60 ml/min/1.73 sqM); Blood Urea Nitrogen 54 mg/dL (7-17); Calcium 8.1 mg/dL (8.4-10.2); Carbon Dioxide 11 mmol/L (22-30); Glucose 208 mg/dL (74-99); Non-African American GFR(CKD) 63 (>60 ml/min/1.73 sqM)
[2023-03-02] MEDS: NOREPINEPHRINE 4 MG in SODIUM CHLORIDE 0.9% 250 ML IV SCH (00:25)
[2023-03-02 01:32] LABS: Sodium 133 mmol/L (137-145)
[2023-03-02 01:33] LABS: Anion Gap 18 mmol/L; Chloride 104 mmol/L (98-107); Potassium 4.1 mmol/L (3.5-5.1)
[2023-03-02 02:57] LABS: Glucose,Whole Blood 165 mg/dL (70-110)
[2023-03-02 04:23] LABS: HCT 20.8 % (34.0-46.0); Hypochromasia Slight; MCH 35.2 pg (25.0-35.0); MCHC 36.8 g/dL (31.0-37.0); MCV 95.8 fL (80.0-100.0); Mean Platelet Volume 12.9; RBC 2.18 m/uL (3.80-5.40); RDW 15.8 % (11.5-15.5)
[2023-03-02 04:32] LABS: HGB 7.7 gm/dL (11.4-16.0)
[2023-03-02 04:43] LABS: African American GFR (CKD) 77 (>60 ml/min/1.73 sqM); Blood Urea Nitrogen 60 mg/dL (7-17); Calcium 7.8 mg/dL (8.4-10.2); Carbon Dioxide 18 mmol/L (22-30); Glucose 139 mg/dL (74-99); Non-African American GFR(CKD) 67 (>60 ml/min/1.73 sqM)
[2023-03-02] MEDS ORDERED: DEXTROSE 50% SYRINGE 50 ML IVP PRN ×2 (05:09)
--- NOTE | 2023-03-02 05:17 | P.CNPUL ---
History of Present Illness Consult date: 03/02/23 Requesting physician: Gavin Watkins Jr Reason for consult: other (ICU management; GI bleed) Chief complaint: Syncopal History of present illness: I am seeing this patient in new consultation today 03/02/2023 in the emergency room for acute GI bleed. Patient is a 77-year-old white female with past medical history significant for diabetes mellitus, hyperlipidemia, hypertension, hypothyroidism, and obesity. Patient had a recent hospital admission for GI bleed; during her stay she did undergo a colonoscopy with snare polypectomy 2 and esophagogastroduodenoscopy which revealed antral gastritis, moderate size hiatal hernia, and short segment Thrasher's esophagus. Patient was ultimately discharged home on January 27. Patient returned to the emergency room yesterday afternoon expressing severe weakness and a syncopal event while at home. She believes her daughter called 911. Patient states that she's had dark tarry stools since her discharge 3 days ago. Denies any hematemesis or abdominal pain. Denies NSAIDs or anticoagulant use. Hemoglobin on arrival was 6.8 g/dL, and she was transfused 1 unit of PRBCs, however, her hemoglobin dropped down to 5.7 g/dL. She was symptomatic, severely hypotensive, lightheaded, and having frequent melenic stools. Denies any shortness breath, chest pain. Patient was given an additional 2 units PRBCs and a total of 2 L normal saline bolus. She did transiently require norepinephrine infusion for hypotension, which is currently paused. After the subsequent transfusions, the patient's hemoglobin did increase to 7 g/dL. She is more alert. General surgery was consulted for the patient's GI bleed, and was made aware of her condition. Most recent CBC shows a WBC count of 11, and 11 7.7, hematocrit 20.8, platelets are pending. BMP from admission shows a sodium 133, potassium 4.1, chloride 104, serum bicarb 11, BUN 54, creatinine 0.89, and blood glucose of 208. Troponin less than 0.012. Stool occult blood was of course positive. Patient has been started on normal saline at 130 ML's per hour. Protonix was also started 40 mg twice a day. Currently, the patient is more hemodynamically stable, and will be monitored in the intensive care unit. Review of Systems REVIEW OF SYSTEMS: CONSTITUTIONAL: Denies any recent significant weight loss or weight gain. EYES: Denies change in vision. EARS, NOSE, MOUTH, THROAT: Denies headaches, denies sore throat. CARDIOVASCULAR: Denies chest pain, palpitations. Admits syncopal event at home. RESPIRATORY: Denies shortness of breath, cough, congestion or hemoptysis. GASTROINTESTINAL: Denies change in appetite, abdominal pain, nausea and vomi ting. Admits frequent black and tarry diarrhea GENITOURINARY: Denies hematuria, denies infections. MUSKULOSKELETAL: Denies pain, denies swelling. INTEGUMENTARY: Denies rash, denies eczema. NEUROLOGICAL: Denies recent memory loss, no recent seizure activity. PSYCHIATRIC: Denies anxiety, denies depression. HEMATOLOGIC/LYMPHATIC: Denies anemia, denies enlarged lymph node Past Medical History Past Medical History: Diabetes Mellitus, Eye Disorder, Hyperlipidemia, Hypertension, Osteoarthritis (OA), Thyroid Disorder Additional Past Medical History / Comment(s): arrthymia ; glaucoma History of Any Multi-Drug Resistant Organisms: None Reported Past Surgical History: Cholecystectomy, Hernia Repair, Tonsillectomy Additional Past Surgical History / Comment(s): hernia repair X 3 (mesh rejection) Past Anesthesia/Blood Transfusion Reactions: No Reported Reaction Past Psychological History: Bipolar, Depression Smoking Status: Never smoker Past Alcohol Use History: None Reported Past Drug Use History: None Reported - Past Family History Mother Family Medical History: Diabetes Mellitus Medications and Allergies Home Medications Medication Instructions Recorded Confirmed Type lamoTRIgine 150 mg PO BID@0800,1600 05/09/15 03/01/23 History metFORMIN HCL [Glucophage] 1,000 mg PO BID@0800,1600 05/09/15 03/01/23 History Atorvastatin [Lipitor] 40 mg PO HS 02/22/23 03/01/23 History Empagliflozin [Jardiance] 10 mg PO DAILY 02/22/23 03/01/23 History FLUoxetine HCL [PROzac] 20 mg PO DAILY@1600 02/22/23 03/01/23 History OLANZapine [ZyPREXA] 5 mg PO DAILY 02/22/23 03/01/23 History Semaglutide [Ozempic] 1 mg SQ KRISHNA 02/22/23 03/01/23 History amLODIPine [Norvasc] 5 mg PO DAILY 02/22/23 03/01/23 History Latanoprost [Latanoprost 0.005%] 1 drop BOTH EYES HS 03/01/23 03/01/23 History Pantoprazole [Protonix] 40 mg PO DIRECTED 03/01/23 03/01/23 History Allergies Allergy/AdvReac Type Severity Reaction Status Date / Time No Known Allergies Allergy Verified 03/01/23 17:13 Physical Exam Vitals: Vital Signs Temp Pulse Resp BP Pulse Ox 03/02/23 02:10 97.7 F 85 121/73 100 03/02/23 02:00 89 19 116/62 100 03/02/23 01:45 83 17 96/45 100 03/02/23 01:30 85 19 99/55 100 03/02/23 01:15 85 18 91/40 100 03/02/23 01:00 87 18 86/35 100 03/02/23 00:45 87 13 95/37 100 03/02/23 00:42 97.6 F 85 95/37 100 03/02/23 00:30 86 18 86/27 100 03/02/23 00:22 97.7 F 88 18 86/27 100 03/02/23 00:15 89 18 90/27 100 03/02/23 00:07 97.6 F 87 75/34 03/02/23 00:00 91 18 92/39 100 03/01/23 23:55 97.6 F 95 19 90/27 100 03/01/23 23:45 90 25 H 88/41 100 03/01/23 23:39 93 16 85/47 99 03/01/23 23:30 98 20 85/47 99 03/01/23 23:15 100 27 H 65/37 97 03/01/23 23:00 101 H 20 85/43 97 03/01/23 22:45 90 18 99/51 03/01/23 22:30 96 18 92/55 03/01/23 22:15 107 H 29 H 78/57 03/01/23 22:00 107 H 18 107/58 99 03/01/23 21:45 88 18 107/58 99 03/01/23 21:30 93 18 115/59 98 03/01/23 21:15 88 15 115/59 98 03/01/23 21:00 90 24 102/46 97 03/01/23 20:45 86 23 102/46 98 03/01/23 20:30 96 20 113/47 98 03/01/23 20:15 99.0 F 89 22 105/48 97 03/01/23 20:00 86 24 91/63 97 03/01/23 19:45 89 17 91/63 96 03/01/23 19:30 86 23 132/58 99 03/01/23 19:15 87 13 132/58 96 03/01/23 19:00 83 16 120/60 98 03/01/23 18:30 86 19 99/45 98 03/01/23 18:00 84 18 102/50 97 03/01/23 17:50 98.0 F 86 18 102/50 99 03/01/23 17:30 98.8 F 85 18 133/83 98 03/01/23 17:14 98.1 F 91 18 133/83 98 03/01/23 17:00 90 18 113/65 98 03/01/23 16:30 80 18 89/32 97 03/01/23 16:16 80 18 89/32 03/01/23 16:00 86 18 97/33 98 03/01/23 15:38 83 18 103/44 100 03/01/23 15:36 87 10 L 82/28 100 03/01/23 15:13 89 18 82/28 98 03/01/23 14:28 18 95/54 03/01/23 14:24 97.0 F L 87 18 99 Intake and Output 03/01/23 03/01/23 03/02/23 14:59 22:59 06:59 Intake Total 280 691.877 Balance 280 691.877 Intake: Intake, IV Titration 97.877 Amount Norepinephrine 4 mg In 97.877 Sodium Chloride 0.9% 250 ml @ 0.03 MCG/KG/MIN 12. 702 mls/hr IV .Q20H [facility] Rx#:[id number] Blood Product 280 594 Rc As-1 Unit 310 [id number] Rc Pheresis As-3 Unit 280 [id number] Rc Pheresis As-3 Unit 284 [id number] Other: Weight 111.13 kg GENERAL EXAM: Alert, 77-year-old obese white female, pale complexion, fairly comfortable in no apparent distress. HEAD: Normocephalic and atraumatic EYES: Normal reaction of pupils, equal size. NOSE: Clear with pink turbinates. THROAT: No erythema or exudates. NECK: No masses, no JVD. CHEST: No chest wall deformity. LUNGS: Equal air entry with no crackles, wheeze, rhonchi or dullness. On room air. No conversational dyspnea or accessory muscle use.. CVS: S1 and S2 normal with no audible murmur, regular rhythm. No extra heart sounds ABDOMEN: Obese abdomen, no hepatosplenomegaly, active bowel sounds, no guarding or rigidity. SPINE: No scoliosis or deformity SKIN: No rashes. Generalized ecchymosis CENTRAL NERVOUS SYSTEM: No focal deficits, tone is normal in all 4 extremities. EXTREMITIES: There is no peripheral edema, clubbing, or cyanosis. Peripheral pulses are intact. Results - Laboratory Findings CBC and BMP: 03/02/23 04:04 03/02/23 04:04 PT/INR, D-dimer PT 10.5 sec (9.0-12.0) 03/01/23 15:06 INR 1.0 (<1.2) 03/01/23 15:06 Abnormal lab findings: Abnormal Labs 03/01/23 03/01/23 03/01/23 15:00 15:06 15:06 WBC 16.5 H RBC 2.15 L Hgb 6.8 L* D Hct 21.4 L MCH RDW 16.5 H Neutrophils # 14.5 H APTT 19.2 L Sodium Carbon Dioxide BUN Glucose POC Glucose (mg/dL) Calcium Magnesium Total Protein Albumin Stool Occult Blood Crossmatch See Detail 03/01/23 03/01/23 03/01/23 15:06 22:20 22:41 WBC 18.8 H RBC 1.81 L Hgb 5.7 L* Hct 17.9 L* MCH RDW 16.6 H Neutrophils # APTT Sodium Carbon Dioxide 15 L BUN 43 H Glucose 130 H POC Glucose (mg/dL) Calcium Magnesium 1.5 L Total Protein 5.0 L Albumin 2.9 L Stool Occult Blood Positive H Crossmatch 03/01/23 03/01/23 03/02/23 22:41 22:50 02:55 WBC RBC Hgb Hct MCH RDW Neutrophils # APTT Sodium 133 L Carbon Dioxide 11 L BUN 54 H Glucose 208 H POC Glucose (mg/dL) 244 H 165 H Calcium 8.1 L Magnesium Total Protein Albumin Stool Occult Blood Crossmatch 03/02/23 04:04 WBC 11.0 H RBC 2.18 L Hgb 7.7 L D Hct 20.8 L MCH 35.2 H RDW 15.8 H Neutrophils # APTT Sodium Carbon Dioxide BUN Glucose POC Glucose (mg/dL) Calcium Magnesium Total Protein Albumin Stool Occult Blood Crossmatch Assessment and Plan Assessment: Suspected recurrent upper GI bleeding, status post transfusion of 3 units PRBCs. Patient recently underwent colonoscopy with snare polypectomy 2 and an esophagogastroduodenoscopy which revealed antral gastritis, moderate size hiatal hernia, and short segment Thrasher's esophagus. Biopsies were taken. Hypotension, related to hypovolemia and acute blood loss, status post 3 unit PRBC transfusion and fluid resuscitation, improved, still requiring low-dose of norepinephrine at this point in time in addition to IV fluids. Most recent hemoglobin is at 7.7. Anion gap metabolic acidosis, secondary to above , improving Diabetes mellitus type 2 Hyperlipidemia Osteoarthritis Morbid obesity, with a BMI of 41 kg/m Plan: Patient's medications, labs were reviewed Transfer patient to the intensive care unit Patient is status post transfusion 3 units PRBCs Continue to trend hemoglobin Protonix twice a day General surgery was updated, no plans for surgical intervention at this time Obtain abdominal and pelvis CT Continue IV maintenance fluids Nothing by mouth May use norepinephrine infusion to maintain map greater than 65 mmHg NovoLog insulin ACHS to scale Patient's prognosis is guarded. We will continue to follow make recommendations I have personally seen and examined the patient, performed the documentation and the assessment and plan as written. Number of minutes spent on the visit:20 This is a joint evaluation that was done along with a nurse practitioner. The patient presented to us today GI bleed and melanotic stool. Most likely an upper GI bleed. Nevertheless, the patient has undergone a recent EGD and colonoscopy. She was found to have antral gastritis, short segment of Thrasher's esophagus along with moderate hiatal hernia. She also underwent a polypectomy 2. No abdominal pain. No nausea or vomiting. The CAT scan of the abdomen and pelvis was done and it showed focal peristalsis versus narrowing of the fungal body junction in addition to moderate degree of extrahepatic periductal dilatation postcholecystectomy and there was no acute intra-abdominal process. The patient was transfused a total of 83 units of packed RBC. Her current hemoglobin is up to 7.7. Cognition profile is within normal limits. She had encountered a component of melena negative metabolic acidosis and the serum bicarb was as low as 11 and currently is up to 18. Normal creatinine. LFTs are normal. She is hemodynamically requiring still low dose of norepinephrine which is running at 0.03 mcg/kg/m. IV fluids are in the form of normal saline at the rate of 130 mL an hour. Plan Suspect an upper GI bleed based on the presence of melanotic stools . It is likely the patient may need another EGD. In RBC tech scan will be done if there is recurrent bleeds. Monitor hemoglobin. Continue IV fluids. Wean off norepinephrine discontinued. No anticoagulants for now. If the patient nothing by mouth. Keep the patient on IV Protonix. General surgical consultation has been obtained. We'll continue to follow. Time with Patient: Greater than 30
--- NOTE | 2023-03-02 05:19 | CT ---
ADDENDUM - Added by Kendall Martinez M.D. on 03/02/2023 5:34 AM (-07:00) Addendum to impression: Indeterminate 30 mm right renal or adrenal nodule, further evaluation recommended. EXAM: CT Abdomen and Pelvis With Intravenous Contrast CLINICAL HISTORY: ITS.REASON CT Reason: GIB TECHNIQUE: Axial computed tomography images of the abdomen and pelvis with intravenous contrast. CTDI is 36.6 mGy and DLP is 4383.4 mGy-cm. This CT exam was performed using one or more of the following dose reduction techniques: automated exposure control, adjustment of the mA and/or kV according to patient size, and/or use of iterative reconstruction technique. COMPARISON: No relevant prior studies available. FINDINGS: Lung bases: Unremarkable. No mass. No consolidation. ABDOMEN: Liver: Unremarkable. No mass. Gallbladder and bile ducts: Prior cholecystectomy, with 19 mm dilated CBD. Pancreas: Minimally prominent pancreatic duct at the head. Pancreatic tail obscured by beam hardening artifacts. Spleen: Unremarkable. No splenomegaly. Adrenals: See below. Kidneys and ureters: 30 mm indeterminate exophytic lesion arising from the upper pole of the right kidney or adrenal gland. Focal 2 mm calcification in the left kidney, probably nonobstructing calculus, possibly vascular calcification. Stomach and bowel: Prior anterior abdominal wall surgery changes, with probable anterior adhesion of large and small bowel loops. Debris-filled slightly prominent body of the stomach, without actual distention, with possible narrowing at the body/fundus, evaluation obscured by beam hardening artifacts. No mucosal thickening. PELVIS: Appendix: Appendix not seen, however no changes of acute appendicitis seen. Bladder: Unremarkable. No mass. Reproductive: Unremarkable as visualized. ABDOMEN and PELVIS: Intraperitoneal space: Unremarkable. No free air. No significant fluid collection. Bones/joints: No acute fracture. No dislocation. Soft tissues: Left upper quadrant subdiaphragmatic multiple metallic surgical foreign bodies/clips, secondary beam hardening artifact. 20 mm antropyloric submucosal lipoma. Vasculature: Vascular calcifications, no aneurysm seen. Lymph nodes: Unremarkable. No enlarged lymph nodes. IMPRESSION: 1. Upper abdomen partially obscured by beam hardening artifacts. 2. Focal peristalsis versus focal narrowing at the fundal-body junction of the stomach. 3. Moderate extrahepatic periductal dilation post cholecystectomy, possibly constitutional. 4. Overall, no acute intra-abdominal or intrapelvic posttraumatic lesion seen. <MYCVCSECTION> Communications: 03/02/23 05:49 Verify Receipt Verified receipt with Nurse Coley to be read by VINICIO Cardozo on 03/02 05:49 (-04:00)
[2023-03-02 05:23] LABS: Anion Gap 10 mmol/L; Chloride 104 mmol/L (98-107); Sodium 132 mmol/L (137-145)
[2023-03-02 05:32] LABS: Potassium 4.7 mmol/L (3.5-5.1)
[2023-03-02 08:37] LABS: Glucose,Whole Blood 161 mg/dL (70-110)
[2023-03-02] MEDS: PANTOPRAZOLE 40 MG/10 ML VIAL IV SCH ×2 (08:39→20:30)
[2023-03-02] MEDS: INSULIN ASPART (NovoLOG) 100 UNIT/ML VIAL SQ SCH ×4 (08:40→20:30)
--- NOTE | 2023-03-02 11:31 | P.GSCN ---
History of Present Illness Consult date: 03/02/23 History of present illness: CHIEF COMPLAINT: GI bleed HISTORY OF PRESENT ILLNESS: This is a 77-year-old female who presented to the hospital with complaint of weakness. And found to have a hemoglobin of 6.8 on admission down to 5.7 required 3 units of blood and currently hemoglobin is 7.7. She is in the ICU. She had a large black bowel movement in the ER. She still requires small dose of Levophed she has been hypotensive. Patient had recent hospitalization last week for GI bleed and had EGD on 02/24/2023 and colonoscopy on 02/27/[address] Horan. Results had shown gastritis, mild hiatal hernia and Thrasher's esophagitis, colon polyps with polypectomy and diverticular disease. Patient denies any abdominal pain. Denies any nausea or vomiting. She denies being on any blood thinners. PAST MEDICAL HISTORY: See below PAST SURGICAL HISTORY: See below MEDICATIONS: See below ALLERGIES: See below SOCIAL HISTORY: No illicit drug use. REVIEW OF SYSTEMS: CONSTITUTIONAL: Denies fever or chills. HEENT: Denies blurred vision, vision changes, or eye pain. Denies hemoptysis CARDIOVASCULAR: Denies chest pain or pressure. RESPIRATORY: No shortness of breath. GASTROINTESTINAL: See HPI for pertinent findings HEMATOLOGIC: Denies bleeding disorders. GENITOURINARY: Denies any blood in urine or increased urinary frequency. SKIN: Denies pruitis. Denies rash. PHYSICAL EXAM: VITAL SIGNS: Reviewed GENERAL: Well-developed in no acute distress. ABDOMEN: Soft. Nondistended. Nontender NEUROLOGIC: Alert and oriented. Cranial nerves II through XII grossly intact. LABORATORY DATA: WBC 11.0 Hgb 7.7 platelets 287 Sodium 132 potassium 4.7 creatinine 0.85 Fecal occult blood positive IMAGING: Computed tomography scan abdomen and pelvis showing focal peristalsis vocal narrowing at the fundal body junction of the stomach. Moderate extrahepatic. Ductal dilation post cholecystectomy overall no acute intra-abdominal or intrapelvic posttraumatic lesions. Indeterminate 30 mm right renal or adrenal nodule further evaluation recommended. ASSESSMENT: 1. Acute GI bleed with melanotic stools 2. Acute blood loss anemia 3. Recent EGD and colonoscopy with results showing gastritis, moderate hiatal hernia, Thrasher's esophagitis, colon polyps and diverticular disease 4. Hypotension PLAN: -Tagged RBC scan ordered today -Continue to monitor for any signs or symptoms of bleeding -Continue to monitor hemoglobin -Continue ICU management and supportive care -Continue IV fluids -Continue IV Protonix -Keep patient nothing by mouth Physician Shuttleless Loom Weaver note has been reviewed by physician. Signing provider agrees with the documented findings, assessment, and plan of care. Past Medical History Past Medical History: Diabetes Mellitus, Eye Disorder, Hyperlipidemia, Hypertension, Osteoarthritis (OA), Thyroid Disorder Additional Past Medical History / Comment(s): arrthymia ; glaucoma History of Any Multi-Drug Resistant Organisms: None Reported Past Surgical History: Cholecystectomy, Hernia Repair, Tonsillectomy Additional Past Surgical History / Comment(s): hernia repair X 3 (mesh rejection) Past Anesthesia/Blood Transfusion Reactions: No Reported Reaction Past Psychological History: Bipolar, Depression Smoking Status: Never smoker Past Alcohol Use History: None Reported Past Drug Use History: None Reported - Past Family History Mother Family Medical History: Diabetes Mellitus Medications and Allergies Home Medications Medication Instructions Recorded Confirmed Type lamoTRIgine 150 mg PO BID@0800,1600 05/09/15 03/01/23 History metFORMIN HCL [Glucophage] 1,000 mg PO BID@0800,1600 05/09/15 03/01/23 History Atorvastatin [Lipitor] 40 mg PO HS 02/22/23 03/01/23 History Empagliflozin [Jardiance] 10 mg PO DAILY 02/22/23 03/01/23 History FLUoxetine HCL [PROzac] 20 mg PO DAILY@1600 02/22/23 03/01/23 History OLANZapine [ZyPREXA] 5 mg PO DAILY 02/22/23 03/01/23 History Semaglutide [Ozempic] 1 mg SQ KRISHNA 02/22/23 03/01/23 History amLODIPine [Norvasc] 5 mg PO DAILY 02/22/23 03/01/23 History Latanoprost [Latanoprost 0.005%] 1 drop BOTH EYES HS 03/01/23 03/01/23 History Pantoprazole [Protonix] 40 mg PO DIRECTED 03/01/23 03/01/23 History Allergies Allergy/AdvReac Type Severity Reaction Status Date / Time No Known Allergies Allergy Verified 03/01/23 17:13 Surgical - Exam Vital Signs Temp Pulse Resp Pulse Ox 97.0 F L 87 18 99 03/01/23 14:24 03/01/23 14:24 03/01/23 14:24 03/01/23 14:24 Results - Labs 03/02/23 04:04 03/02/23 04:04 Abnormal Lab Results - Last 24 Hours (Table) 03/01/23 03/01/23 03/01/23 Range/Units 15:00 15:06 15:06 WBC 16.5 H (3.8-10.6) k/uL RBC 2.15 L (3.80-5.40) m/uL Hgb 6.8 L* D (11.4-16.0) gm/dL Hct 21.4 L (34.0-46.0) % MCH (25.0-35.0) pg RDW 16.5 H (11.5-15.5) % Neutrophils # 14.5 H (1.3-7.7) k/uL APTT 19.2 L (22.0-30.0) sec Sodium (137-145) mmol/L Carbon Dioxide (22-30) mmol/L BUN (7-17) mg/dL Glucose (74-99) mg/dL POC Glucose (mg/dL) (70-110) mg/dL Calcium (8.4-10.2) mg/dL Magnesium (1.6-2.3) mg/dL Total Protein (6.3-8.2) g/dL Albumin (3.5-5.0) g/dL Stool Occult Blood (Negative) Crossmatch See Detail 03/01/23 03/01/23 03/01/23 Range/Units 15:06 22:20 22:41 WBC 18.8 H (3.8-10.6) k/uL RBC 1.81 L (3.80-5.40) m/uL Hgb 5.7 L* (11.4-16.0) gm/dL Hct 17.9 L* (34.0-46.0) % MCH (25.0-35.0) pg RDW 16.6 H (11.5-15.5) % Neutrophils # (1.3-7.7) k/uL APTT (22.0-30.0) sec Sodium (137-145) mmol/L Carbon Dioxide 15 L (22-30) mmol/L BUN 43 H (7-17) mg/dL Glucose 130 H (74-99) mg/dL POC Glucose (mg/dL) (70-110) mg/dL Calcium (8.4-10.2) mg/dL Magnesium 1.5 L (1.6-2.3) mg/dL Total Protein 5.0 L (6.3-8.2) g/dL Albumin 2.9 L (3.5-5.0) g/dL Stool Occult Blood Positive H (Negative) Crossmatch 03/01/23 03/01/23 03/02/23 Range/Units 22:41 22:50 02:55 WBC (3.8-10.6) k/uL RBC (3.80-5.40) m/uL Hgb (11.4-16.0) gm/dL Hct (34.0-46.0) % MCH (25.0-35.0) pg RDW (11.5-15.5) % Neutrophils # (1.3-7.7) k/uL APTT (22.0-30.0) sec Sodium 133 L (137-145) mmol/L Carbon Dioxide 11 L (22-30) mmol/L BUN 54 H (7-17) mg/dL Glucose 208 H (74-99) mg/dL POC Glucose (mg/dL) 244 H 165 H (70-110) mg/dL Calcium 8.1 L (8.4-10.2) mg/dL Magnesium (1.6-2.3) mg/dL Total Protein (6.3-8.2) g/dL Albumin (3.5-5.0) g/dL Stool Occult Blood (Negative) Crossmatch 03/02/23 03/02/23 03/02/23 Range/Units 04:04 04:04 08:36 WBC 11.0 H (3.8-10.6) k/uL RBC 2.18 L (3.80-5.40) m/uL Hgb 7.7 L D (11.4-16.0) gm/dL Hct 20.8 L (34.0-46.0) % MCH 35.2 H (25.0-35.0) pg RDW 15.8 H (11.5-15.5) % Neutrophils # (1.3-7.7) k/uL APTT (22.0-30.0) sec Sodium 132 L (137-145) mmol/L Carbon Dioxide 18 L (22-30) mmol/L BUN 60 H (7-17) mg/dL Glucose 139 H (74-99) mg/dL POC Glucose (mg/dL) 161 H (70-110) mg/dL Calcium 7.8 L (8.4-10.2) mg/dL Magnesium (1.6-2.3) mg/dL Total Protein (6.3-8.2) g/dL Albumin (3.5-5.0) g/dL Stool Occult Blood (Negative) Crossmatch Diabetes panel 03/01/23 03/01/23 03/02/23 Range/Units 15:06 22:41 04:04 Sodium 137 133 L 132 L (137-145) mmol/L Potassium 4.4 4.1 4.7 (3.5-5.1) mmol/L Chloride 103 104 104 (98-107) mmol/L Carbon Dioxide 15 L 11 L 18 L (22-30) mmol/L BUN 43 H 54 H 60 H (7-17) mg/dL Creatinine 0.85 0.89 0.85 (0.52-1.04) mg/dL Glucose 130 H 208 H 139 H (74-99) mg/dL Calcium 8.6 8.1 L 7.8 L (8.4-10.2) mg/dL AST 24 (14-36) U/L ALT 31 (4-34) U/L Alkaline Phosphatase 55 (38-126) U/L Total Protein 5.0 L (6.3-8.2) g/dL Albumin 2.9 L (3.5-5.0) g/dL Calcium panel 03/01/23 03/01/23 03/02/23 Range/Units 15:06 22:41 04:04 Calcium 8.6 8.1 L 7.8 L (8.4-10.2) mg/dL Albumin 2.9 L (3.5-5.0) g/dL Pituitary panel 03/01/23 03/01/23 03/02/23 Range/Units 15:06 22:41 04:04 Sodium 137 133 L 132 L (137-145) mmol/L Potassium 4.4 4.1 4.7 (3.5-5.1) mmol/L Chloride 103 104 104 (98-107) mmol/L Carbon Dioxide 15 L 11 L 18 L (22-30) mmol/L BUN 43 H 54 H 60 H (7-17) mg/dL Creatinine 0.85 0.89 0.85 (0.52-1.04) mg/dL Glucose 130 H 208 H 139 H (74-99) mg/dL Calcium 8.6 8.1 L 7.8 L (8.4-10.2) mg/dL Adrenal panel 03/01/23 03/01/23 03/02/23 Range/Units 15:06 22:41 04:04 Sodium 137 133 L 132 L (137-145) mmol/L Potassium 4.4 4.1 4.7 (3.5-5.1) mmol/L Chloride 103 104 104 (98-107) mmol/L Carbon Dioxide 15 L 11 L 18 L (22-30) mmol/L BUN 43 H 54 H 60 H (7-17) mg/dL Creatinine 0.85 0.89 0.85 (0.52-1.04) mg/dL Glucose 130 H 208 H 139 H (74-99) mg/dL Calcium 8.6 8.1 L 7.8 L (8.4-10.2) mg/dL Total Bilirubin 0.4 (0.2-1.3) mg/dL AST 24 (14-36) U/L ALT 31 (4-34) U/L Alkaline Phosphatase 55 (38-126) U/L Total Protein 5.0 L (6.3-8.2) g/dL Albumin 2.9 L (3.5-5.0) g/dL
[2023-03-02 11:53] LABS: Anisocytosis Slight; HCT 21.6 % (34.0-46.0); HGB 7.1 gm/dL (11.4-16.0); Hypochromasia Slight; MCH 31.2 pg (25.0-35.0); MCHC 33.1 g/dL (31.0-37.0); MCV 94.4 fL (80.0-100.0); Platelet Count 256 k/uL (150-450); Poikilocytosis Slight; RBC 2.29 m/uL (3.80-5.40); RDW 16.8 % (11.5-15.5); WBC 12.5 k/uL (3.8-10.6)
[2023-03-02 12:10] LABS: Glucose,Whole Blood 153 mg/dL (70-110)
[2023-03-02 16:36] LABS: Glucose,Whole Blood 138 mg/dL (70-110)
--- NOTE | 2023-03-02 16:42 | NM ---
EXAMINATION TYPE: NM GI bleeding DATE OF EXAM: 03/02/2023 CLINICAL INDICATION: Female, 77 years old with history of GIB, low hgb; COMPARISON: None Technique: Following administration of 3 ml PYP 26.9 mCi Tc 99m Sodium Pertechnete. Immediate images post injection. Imaging carried out to 60 minutes. Patient declined second hour of imaging. FINDINGS: Normal tracer activity is seen in the blood pool of the abdominal aorta, common iliac arteries, femor al arteries, liver, and spleen on all of the interval images. Later images show accumulation of trace r in the urinary bladder, which is consistent with excreted tracer. No abnormal tracer uptake is pres ent outside the blood pool that would be consistent with an active GI bleed. IMPRESSION: The patient declined the second hour of imaging. No evidence of active gastrointestinal bleeding duri ng the initial 1 hr observation period.
[2023-03-02 18:18] LABS: Anisocytosis Slight; HCT 20.4 % (34.0-46.0); Hypochromasia Slight; MCH 31.4 pg (25.0-35.0); MCHC 33.2 g/dL (31.0-37.0); MCV 94.6 fL (80.0-100.0); Mean Platelet Volume 7.8; Platelet Count 244 k/uL (150-450); Poikilocytosis Slight; RBC 2.16 m/uL (3.80-5.40); RDW 16.7 % (11.5-15.5); WBC 10.5 k/uL (3.8-10.6)
[2023-03-02 18:20] LABS: HGB 6.8 gm/dL (11.4-16.0)
--- NOTE | 2023-03-02 19:11 | P.PCN ---
Date of Procedure: 03/02/23 Preoperative Diagnosis: Acute GI bleed Postoperative Diagnosis: Acute GI bleed Procedure(s) Performed: Central line Anesthesia: regional Surgeon: Aman Mckeon Estimated Blood Loss (ml): 0 Pathology: other Condition: critical Disposition: ICU Operative Findings: Indication: Hemodynamic monitoring/Intravenous access. A time-out was completed verifying correct patient, procedure, site, positioning, and implant(s) or special equipment if applicable. The patient was placed in a dependent position appropriate for central line placement based on the vein to be cannulated. The patients [neck was prepped and draped in sterile fashion. 1% Lidocaine was used to anesthetize the surrounding skin area. A triple lumen 9F Cordis catheter was introduced into the left internal jugular vein using Seldinger technique. The catheter was threaded smoothly over the guide wire and appropriate blood return was obtained. Each lumen of the catheter was evacuated of air and flushed with sterile saline. The catheter was then sutured in place to the skin and a sterile dressing applied. Perfusion to the extremity distal to the point of catheter insertion was checked and found to be adequate. The patient tolerated the procedure well and there were no complications.
--- NOTE | 2023-03-02 19:25 | XR ---
EXAMINATION TYPE: XR chest 1V portable DATE OF EXAM: 03/02/2023 7:17 PM COMPARISON: Chest radiographs from 02/22/2023 TECHNIQUE: XR chest 1V portable Frontal view of the chest. CLINICAL INDICATION:Female, 77 years old with history of Line placement; FINDINGS: Lungs/Pleura: There is no evidence of pleural effusion, focal consolidation, or pneumothorax. Pulmonary vascularity: Unremarkable. Heart/mediastinum: Cardiomediastinal silhouette is unremarkable. Musculoskeletal: No acute osseous pathology. Other findings: None Lines/Tubes: Left internal jugular central venous catheter with distal tip at the cavoatrial junction. IMPRESSION: Chronic changes without acute pulmonary process. No significant change from prior.
[2023-03-02] MEDS: SODIUM CHLORIDE 0.9% 1,000 ML IV SCH (20:03)
[2023-03-02 20:25] LABS: Glucose,Whole Blood 137 mg/dL (70-110)
[2023-03-03 01:06] LABS: Anisocytosis Slight; HCT 21.1 % (34.0-46.0); Hypochromasia Slight; MCH 31.1 pg (25.0-35.0); MCV 94.3 fL (80.0-100.0); Mean Platelet Volume 7.6; Platelet Count 216 k/uL (150-450); Poikilocytosis Slight; RBC 2.24 m/uL (3.80-5.40); RDW 16.8 % (11.5-15.5); WBC 8.9 k/uL (3.8-10.6)
[2023-03-03] MEDS: NOREPINEPHRINE 4 MG in SODIUM CHLORIDE 0.9% 250 ML IV SCH (02:36)
[2023-03-03] MEDS: SODIUM CHLORIDE 0.9% 1,000 ML IV SCH ×5 (03:39→13:03)
[2023-03-03 06:04] LABS: Glucose,Whole Blood 100 mg/dL (70-110)
[2023-03-03 06:28] LABS: Ionized Calcium 4.8 mg/dL (4.5-5.3)
[2023-03-03 06:34] LABS: African American GFR (CKD) >90 (>60 ml/min/1.73 sqM); Anion Gap 4 mmol/L; Blood Urea Nitrogen 47 mg/dL (7-17); Calcium 7.4 mg/dL (8.4-10.2); Carbon Dioxide 22 mmol/L (22-30); Chloride 112 mmol/L (98-107); Glucose 91 mg/dL (74-99); Non-African American GFR(CKD) 86 (>60 ml/min/1.73 sqM); Potassium 3.4 mmol/L (3.5-5.1); Sodium 138 mmol/L (137-145)
[2023-03-03 06:40] LABS: Anisocytosis Slight; HCT 21.3 % (34.0-46.0); Hypochromasia Slight; MCH 30.3 pg (25.0-35.0); MCHC 32.2 g/dL (31.0-37.0); MCV 94.1 fL (80.0-100.0); Mean Platelet Volume 7.5; Platelet Count 214 k/uL (150-450); Poikilocytosis Slight; RBC 2.26 m/uL (3.80-5.40); RDW 17.2 % (11.5-15.5); WBC 7.5 k/uL (3.8-10.6)
[2023-03-03] MEDS ORDERED: Potassium Replacement Protocol 1 EACH MISC MISCELLANE PRN (06:41)
[2023-03-03 06:45] LABS: HGB 6.9 gm/dL (11.4-16.0)
[2023-03-03] MEDS: INSULIN ASPART (NovoLOG) 100 UNIT/ML VIAL SQ SCH ×4 (07:04→20:49)
[2023-03-03] MEDS ORDERED: Magnesium Replacement Protocol 1 EACH MISC MISCELLANE PRN (07:51)
[2023-03-03] MEDS: POTASSIUM CHLORIDE 20 MEQ in WATER FOR INJECTION 1 100ML.BAG IVPB SCH ×2 (08:21→10:34)
[2023-03-03] MEDS: PANTOPRAZOLE 40 MG/10 ML VIAL IV SCH ×2 (08:21→20:48)
[2023-03-03] MEDS: MAGNESIUM SULFATE-D5W PMX 1 GM in DEXTROSE/WATER 1 100ML.BAG IVPB SCH ×2 (08:21→09:21)
--- NOTE | 2023-03-03 09:16 | P.PN ---
Subjective Progress Note Date: 03/03/23 I am seeing this patient in new consultation today 03/02/2023 in the emergency room for acute GI bleed. Patient is a 77-year-old white female with past medical history significant for diabetes mellitus, hyperlipidemia, hypertension, hypothyroidism, and obesity. Patient had a recent hospital admission for GI bleed; during her stay she did undergo a colonoscopy with snare polypectomy 2 and esophagogastroduodenoscopy which revealed antral gastritis, moderate size hiatal hernia, and short segment Thrasher's esophagus. Patient was ultimately discharged home on January 27. Patient returned to the emergency room yesterday afternoon expressing severe weakness and a syncopal event while at home. She b lynneeves her daughter called 911. Patient states that she's had dark tarry stools since her discharge 3 days ago. Denies any hematemesis or abdominal pain. Denies NSAIDs or anticoagulant use. Hemoglobin on arrival was 6.8 g/dL, and she was transfused 1 unit of PRBCs, however, her hemoglobin dropped down to 5.7 g/dL. She was symptomatic, severely hypotensive, lightheaded, and having frequent melenic stools. Denies any shortness breath, chest pain. Patient was given an additional 2 units PRBCs and a total of 2 L normal saline bolus. She did transiently require norepinephrine infusion for hypotension, which is currently paused. After the subsequent transfusions, the patient's hemoglobin d id increase to 7 g/dL. She is more alert. General surgery was consulted for the patient's GI bleed, and was made aware of her condition. Most recent CBC shows a WBC count of 11, and 11 7.7, hematocrit 20.8, platelets are pending. BMP from admission shows a sodium 133, potassium 4.1, chloride 104, serum bicarb 11, BUN 54, creatinine 0.89, and blood glucose of 208. Troponin less than 0.012. Stool occult blood was of course positive. Patient has been started on normal saline at 130 ML's per hour. Protonix was also started 40 mg twice a day. Currently, the patient is more hemodynamically stable, and will be monitored in the intensive care unit. On 03/03/2023, the patient remains in the intensive care unit and she is hemodynamically stable on no pressors. Hemoglobin dropped onto 6.9 and she had 2 smears of melanotic stools. No hematemesis. RBC tech scan was done and the patient was unable to finish the study, the patient was unable to lay down due to pain. Nevertheless, there was no identification of the source of bleeding as there was no extravasation. The patient is going to receive another unit of packed RBC. She is currently on IV fluids at 130 mL an hour. She is on normal saline.Rest of the blood work shows an obese, 7.5, hemoglobin is at 6.9 and a platelet count is at 214. BUN is at 47 with a creatinine of 0.6 and sodium levels of 138. She remains nothing by mouth. She remains on IV Protonix. Objective - Vital Signs Vital signs: Vital Signs Temp 97.4 F L 03/03/23 08:00 Pulse 69 03/03/23 08:00 Resp 16 03/03/23 08:00 BP 118/64 03/03/23 08:00 Pulse Ox 96 03/03/23 08:00 FiO2 Intake & Output 03/02/23 03/03/23 03/03/23 18:59 06:59 18:59 Intake Total 9412.577 1954.055 500 Output Total 1425 700 550 Balance -633.482 9018.055 -50 Weight 115.6 kg Intake: IV 1300 1560 500 Invasive Line 3 40 Magnesium Sulfate-D5w Pmx 100 1 gm In Dextrose/Water 1 100ml.bag @ 100 mls/hr IVPB Q1H EMMIE Rx#: [id number] Potassium Chloride 20 meq 100 In Water For Injection 1 100ml.bag @ 50 mls/hr IVPB Q2H EMMIE Rx#: [id number] Sodium Chloride 0.9% 1, 1300 1560 260 000 ml @ 130 mls/hr IV . Q7H42M EMMIE Rx#:[id number] Intake, IV Titration 20.535 150.055 Amount Norepinephrine 4 mg In 20.535 150.055 Sodium Chloride 0.9% 250 ml @ 0.03 MCG/KG/MIN 12. 702 mls/hr IV .Q20H EMMIE Rx#:[id number] Blood Product 310 Rc As-1 Unit 310 [id number] Output: Urine 1425 700 550 Stool 0 Other: Voiding Method Bedpan # Voids 1 1 1 # Bowel Movements 0 - Exam GENERAL EXAM: Drowsy, 36-year-old white male , comfortable in no apparent distress. HEAD: Normocephalic and atraumatic EYES: Normal reaction of pupils, equal size. NOSE: Clear with pink turbinates. THROAT: No erythema or exudates. NECK: No masses, no JVD. CHEST: No chest wall deformity. LUNGS: Equal air entry with no crackles, wheeze, rhonchi or dullness. On room a ir. No conversational dyspnea or accessory muscle use.. CVS: S1 and S2 normal with no audible murmur, regular rhythm. No extra heart sounds ABDOMEN: No hepatosplenomegaly, active bowel sounds, no guarding or rigidity. SPINE: No scoliosis or deformity SKIN: No rashes CENTRAL NERVOUS SYSTEM: No focal deficits, tone is normal in all 4 extremities. EXTREMITIES: There is no peripheral edema, clubbing, or cyanosis. Peripheral pulses are intact. - Labs CBC & Chem 7: 03/03/23 05:55 03/03/23 05:55 Labs: Abnormal Lab Results - Last 24 Hours (Table) 03/01/23 03/02/23 03/02/23 Range/Units 15:00 11:27 12:09 WBC 12.5 H (3.8-10.6) k/uL RBC 2.29 L (3.80-5.40) m/uL Hgb 7.1 L (11.4-16.0) gm/dL Hct 21.6 L (34.0-46.0) % RDW 16.8 H (11.5-15.5) % Potassium (3.5-5.1) mmol/L Chloride (98-107) mmol/L BUN (7-17) mg/dL POC Glucose (mg/dL) 153 H (70-110) mg/dL Calcium (8.4-10.2) mg/dL Crossmatch See Detail 03/02/23 03/02/23 03/02/23 Range/Units 16:35 17:27 20:23 WBC (3.8-10.6) k/uL RBC 2.16 L (3.80-5.40) m/uL Hgb 6.8 L* (11.4-16.0) gm/dL Hct 20.4 L (34.0-46.0) % RDW 16.7 H (11.5-15.5) % Potassium (3.5-5.1) mmol/L Chloride (98-107) mmol/L BUN (7-17) mg/dL POC Glucose (mg/dL) 138 H 137 H (70-110) mg/dL Calcium (8.4-10.2) mg/dL Crossmatch 03/03/23 03/03/23 03/03/23 Range/Units 00:25 05:55 05:55 WBC (3.8-10.6) k/uL RBC 2.24 L 2.26 L (3.80-5.40) m/uL Hgb 7.0 L 6.9 L* (11.4-16.0) gm/dL Hct 21.1 L 21.3 L (34.0-46.0) % RDW 16.8 H 17.2 H (11.5-15.5) % Potassium 3.4 L (3.5-5.1) mmol/L Chloride 112 H (98-107) mmol/L BUN 47 H (7-17) mg/dL POC Glucose (mg/dL) (70-110) mg/dL Calcium 7.4 L (8.4-10.2) mg/dL Crossmatch Assessment and Plan Assessment: Suspected recurrent upper GI bleeding, status post transfusion of 4 units PRBCs. Patient recently underwent colonoscopy with snare polypectomy 2 and an esophagogastroduodenoscopy which revealed antral gastritis, moderate size hiatal hernia, and short segment Thrasher's esophagus. Biopsies were taken. The hemoglobin is at 6.9 and the patient is going to receive her fifth units of p acked RBC today. Hypotension, related to hypovolemia and acute blood loss, status post 4 unit PRBC transfusion and fluid resuscitation, improved, and the patient is currently off pressors. Most recent hemoglobin is at 6.9. No active hypotension this point in time and the patient is hemodynamically stable. Anion gap metabolic acidosis, secondary to above , improving Diabetes mellitus type 2 Hyperlipidemia Osteoarthritis Morbid obesity, with a BMI of 41 kg/m Plan: Suspect an upper GI source of bleeding Given another unit of packed RBC Keep the patient nothing by mouth for now Continue IV Protonix the patient has undergone a recent EGD and colonoscopy. She was found to have antral gastritis, short segment of Thrasher's esophagus along with moderate hiatal hernia. She also underwent a polypectomy 2. No abdominal pain. No nausea or vomiting. The CAT scan of the abdomen and pelvis was done and it showed focal peristalsis versus narrowing of the fungal body junction in add ition to moderate degree of extrahepatic periductal dilatation postcholecystectomy and there was no acute intra-abdominal process. General surgery is on the case RBC tech scan was nondiagnostic Keep the patient intensive care unit. Monitor hemoglobin. Overall, she has been transfused 4 units and she is about to receive her fifth units of packed RBC.
[2023-03-03 12:06] LABS: Glucose,Whole Blood 96 mg/dL (70-110)
[2023-03-03] MEDS ORDERED: FUROSEMIDE 10 MG/ML 4 ML VIAL IV STA (12:53)
--- NOTE | 2023-03-03 14:10 | P.PN ---
Subjective Progress Note Date: 03/03/23 CHIEF COMPLAINT: GI bleed HISTORY OF PRESENT ILLNESS: Patient remains in the ICU. She's had a total of 5 units of blood. Hemoglobin 6.9 this morning and had received blood transfusion. Tight RBC scan was negative for the first hour and patient declined the second testing. Patient had a black tarry stool last night and this morning. BP stable. She is off pressors. Patient denies any abdominal pain. PHYSICAL EXAM: VITAL SIGNS: Reviewed. GENERAL: Well-developed in no acute distress. ABDOMEN: Soft. Nondistended. Nontender. NEUROLOGIC: Alert and oriented. Cranial nerves II through XII grossly intact. ASSESSMENT: 1. Acute GI bleed with melanotic stools 2. Acute blood loss anemia 3. Recent EGD and colonoscopy with results showing gastritis, moderate hiatal hernia, Thrasher's esophagitis, colon polyps and diverticular disease 4. Hypotension PLAN: -Small bowel video capsule endoscopy has been ordered for tomorrow to further evaluate patient's GI bleed. Results to be read by GI service. -Patient may need to have a repeat EGD -If patient has any bright red blood per rectum will repeat tagged RBC scan -Continue to monitor hemoglobin and transfuse as needed -Start clear liquid diet -Continue ICU management and supportive care Physician Astronomy Professor note has been reviewed by physician. Signing provider agrees with the documented findings, assessment, and plan of care. Objective - Vital Signs Vital signs: Vital Signs Temp 98.1 F 03/03/23 12:00 Pulse 64 03/03/23 13:00 Resp 12 03/03/23 13:00 BP 110/61 03/03/23 13:00 Pulse Ox 96 03/03/23 13:00 FiO2 Intake & Output 03/02/23 03/03/23 03/03/23 18:59 06:59 18:59 Intake Total 1840.867 5587.055 1820 Output Total 1425 700 750 Balance -740.178 1996.055 1070 Weight 115.6 kg Intake: IV 1300 1560 1250 Invasive Line 3 50 Magnesium Sulfate-D5w Pmx 200 1 gm In Dextrose/Water 1 100ml.bag @ 100 mls/hr IVPB Q1H [facility] Rx#: [id number] Potassium Chloride 20 meq 200 In Water For Injection 1 100ml.bag @ 50 mls/hr IVPB Q2H [facility] Rx#: [id number] Sodium Chloride 0.9% 1, 1300 1560 780 000 ml @ 130 mls/hr IV . Q7H42M [facility] Rx#:[id number] Sodium Chloride 0.9% 1, 20 000 ml @ 20 mls/hr IV . Q24H [facility] Rx#:[id number] Intake, IV Titration 20.535 150.055 Amount Norepinephrine 4 mg In 20.535 150.055 Sodium Chloride 0.9% 250 ml @ 0.03 MCG/KG/MIN 12. 702 mls/hr IV .Q20H [facility] Rx#:[id number] Oral 260 Blood Product 310 310 Rc As-1 Unit 310 [id number] Rc As-1 Unit 310 [id number] Output: Urine 1425 700 750 Stool 0 Other: Voiding Method Bedpan # Voids 1 1 0 # Bowel Movements 0 - Labs CBC & Chem 7: 03/03/23 05:55 03/03/23 05:55 Labs: Abnormal Lab Results - Last 24 Hours (Table) 03/01/23 03/02/23 03/02/23 Range/Units 15:00 16:35 17:27 RBC 2.16 L (3.80-5.40) m/uL Hgb 6.8 L* (11.4-16.0) gm/dL Hct 20.4 L (34.0-46.0) % RDW 16.7 H (11.5-15.5) % Potassium (3.5-5.1) mmol/L Chloride (98-107) mmol/L BUN (7-17) mg/dL POC Glucose (mg/dL) 138 H (70-110) mg/dL Calcium (8.4-10.2) mg/dL Crossmatch See Detail 03/02/23 03/03/23 03/03/23 Range/Units 20:23 00:25 05:55 RBC 2.24 L 2.26 L (3.80-5.40) m/uL Hgb 7.0 L 6.9 L* (11.4-16.0) gm/dL Hct 21.1 L 21.3 L (34.0-46.0) % RDW 16.8 H 17.2 H (11.5-15.5) % Potassium (3.5-5.1) mmol/L Chloride (98-107) mmol/L BUN (7-17) mg/dL POC Glucose (mg/dL) 137 H (70-110) mg/dL Calcium (8.4-10.2) mg/dL Crossmatch 03/03/23 Range/Units 05:55 RBC (3.80-5.40) m/uL Hgb (11.4-16.0) gm/dL Hct (34.0-46.0) % RDW (11.5-15.5) % Potassium 3.4 L (3.5-5.1) mmol/L Chloride 112 H (98-107) mmol/L BUN 47 H (7-17) mg/dL POC Glucose (mg/dL) (70-110) mg/dL Calcium 7.4 L (8.4-10.2) mg/dL Crossmatch
[2023-03-03 14:47] LABS: Anisocytosis Slight; HCT 26.4 % (34.0-46.0); Hypochromasia Slight; MCH 31.6 pg (25.0-35.0); MCHC 34.2 g/dL (31.0-37.0); MCV 92.4 fL (80.0-100.0); Mean Platelet Volume 7.4; Platelet Count 217 k/uL (150-450); Poikilocytosis Slight; RBC 2.86 m/uL (3.80-5.40); RDW 16.5 % (11.5-15.5); WBC 8.4 k/uL (3.8-10.6)
--- NOTE | 2023-03-03 15:41 | P.PN ---
Subjective Progress Note Date: 03/03/23 This is a 77-year-old female admitted with recurrent GI bleed. Ascending colon biopsy of 02/27/2023 reporting progress of adenoma with foci of high-grade dysplasia. Sigmoid colon biopsy reported tubular adenoma and intraluminal contents. 2 small melanotic smears today. Denies abdominal pain. Hemoglobin dropped to 6.9, received another unit of packed RBCs today. Continues on IV fluid hydration with renal function stable. Tagged RBC scan nondiagnostic; unfortunately patient unable to complete tests secondary to chronic back pain. Vital signs stable, off pressors. Objective - Vital Signs Vital signs: Vital Signs Temp 98.1 F 03/03/23 12:00 Pulse 70 03/03/23 15:00 Resp 17 03/03/23 15:00 BP 116/62 03/03/23 15:00 Pulse Ox 98 03/03/23 15:00 FiO2 Intake & Output 03/02/23 03/03/23 03/03/23 18:59 06:59 18:59 Intake Total 9686.091 1419.055 1910 Output Total 2466 041 4920 Balance -535.948 0623.055 360 Weight 115.6 kg Intake: IV 1300 1560 1340 Invasive Line 3 100 Magnesium Sulfate-D5w Pmx 200 1 gm In Dextrose/Water 1 100ml.bag @ 100 mls/hr IVPB Q1H [facility] Rx#: [id number] Potassium Chloride 20 meq 200 In Water For Injection 1 100ml.bag @ 50 mls/hr IVPB Q2H [facility] Rx#: [id number] Sodium Chloride 0.9% 1, 1300 1560 780 000 ml @ 130 mls/hr IV . Q7H42M [facility] Rx#:[id number] Sodium Chloride 0.9% 1, 60 000 ml @ 20 mls/hr IV . Q24H [facility] Rx#:[id number] Intake, IV Titration 20.535 150.055 Amount Norepinephrine 4 mg In 20.535 150.055 Sodium Chloride 0.9% 250 ml @ 0.03 MCG/KG/MIN 12. 702 mls/hr IV .Q20H [facility] Rx#:[id number] Oral 260 Blood Product 310 310 Rc As-1 Unit 310 [id number] Rc As-1 Unit 310 [id number] Output: Urine 1039 587 6963 Stool 0 Other: Voiding Method Bedpan # Voids 1 1 0 # Bowel Movements 0 - Exam PHYSICAL EXAM: VITAL SIGNS: [As above] GENERAL: Alert and oriented 3, Sitting up in bed, weak appearing, no acute distress HEENT: Conjunctivae normal. eyes normal. NECK: Supple, No JVD. No thyroid enlargement. No LNs CARDIOVASCULAR: S1, S2 regular. No murmur RESPIRATION: Equal air entry. Breath sounds diminished in the bases. No rhonchi or crackles. No bronchial breathing. ABDOMEN: Soft, nontender, nondistended . No guarding. no masses palpable. No ascites, No hepatosplenomegaly.Bowel sounds heard. LEGS: No edema. no swelling ,no clubbing, no cyanosis positive DP pulses, NERVOUS SYSTEM: Cranial N 2-12 grossly normal. No focal deficits. Strength and sensation grossly intact. Skin: Warm and dry, no rash - Labs CBC & Chem 7: 03/04/23 06:00 03/04/23 06:00 Labs: Abnormal Lab Results - Last 24 Hours (Table) 03/01/23 03/02/23 03/02/23 Range/Units 15:00 16:35 17:27 RBC 2.16 L (3.80-5.40) m/uL Hgb 6.8 L* (11.4-16.0) gm/dL Hct 20.4 L (34.0-46.0) % RDW 16.7 H (11.5-15.5) % Potassium (3.5-5.1) mmol/L Chloride (98-107) mmol/L BUN (7-17) mg/dL POC Glucose (mg/dL) 138 H (70-110) mg/dL Calcium (8.4-10.2) mg/dL Crossmatch See Detail 03/02/23 03/03/23 03/03/23 Range/Units 20:23 00:25 05:55 RBC 2.24 L 2.26 L (3.80-5.40) m/uL Hgb 7.0 L 6.9 L* (11.4-16.0) gm/dL Hct 21.1 L 21.3 L (34.0-46.0) % RDW 16.8 H 17.2 H (11.5-15.5) % Potassium (3.5-5.1) mmol/L Chloride (98-107) mmol/L BUN (7-17) mg/dL POC Glucose (mg/dL) 137 H (70-110) mg/dL Calcium (8.4-10.2) mg/dL Crossmatch 03/03/23 03/03/23 Range/Units 05:55 14:28 RBC 2.86 L (3.80-5.40) m/uL Hgb 9.0 L D (11.4-16.0) gm/dL Hct 26.4 L (34.0-46.0) % RDW 16.5 H (11.5-15.5) % Potassium 3.4 L (3.5-5.1) mmol/L Chloride 112 H (98-107) mmol/L BUN 47 H (7-17) mg/dL POC Glucose (mg/dL) (70-110) mg/dL Calcium 7.4 L (8.4-10.2) mg/dL Crossmatch Assessment and Plan Assessment: Recurrent Acute GI bleed, suspect upper GI source, status post 5 units of packed RBCs transfused. Recent colonoscopy reported 3 cm broad-based polyp just proximal to the ileocecal valve status post piecemeal snare polypectomy and approximately 75% the polyp removed,5 mm sigmoid: Polyp status post polypectomy,Scattered sigmoid diverticula. Ascending colon biopsy of 02/27/2023 reporting progress of adenoma with foci of high-grade dysplasia. Sigmoid colon biopsy reported tubular adenoma and intraluminal contents. Recent EGD 02/24/2023 reported antral erosive gastritis, moderate size hiatal hernia, short segment appeared to esophagus. Hypotension, hypovolemia secondary to the above, status post pressors Metabolic acidosis secondary to the above Diabetes mellitus 2 Acute renal insufficiency, secondary to the above, possibly induced from over useage of her Ozempic. Hypothyroidism Glaucoma Hypertension Hyperlipidemia Bipolar, depression Osteoarthritis Morbid obesity, BMI 42.4 Plan: Continue on current medication regime, monitoring and symptomatic treatment. Currently NPO, maintain PPI.close monitoring of s/sx of bleeding, hemoglobin with repeat labs ordered for am. Capsule study ordered for tomorrow. Further F/U rec. regarding results of previous BXs. Prognosis guarded given multiple medical issues. The impression and plan of care has been dictated as directed. : I performed a history and examination of this patient, discussed the same with the dictator. I agree with the dictator's note ,documented as a scribe. Any additional findings or plans will be noted.
[2023-03-03] MEDS: POTASSIUM CHLORIDE 10 MEQ in WATER FOR INJECTION 1 100ML.BAG IVPB SCH ×2 (16:29→17:29)
[2023-03-03 16:35] LABS: Glucose,Whole Blood 169 mg/dL (70-110)
[2023-03-03 20:07] LABS: Glucose,Whole Blood 139 mg/dL (70-110)
[2023-03-03] MEDS ORDERED: ACETAMINOPHEN TAB 325 MG TAB PO PRN (20:32)
[2023-03-03] MEDS: LATANOPROST 0.005% OPHTH DROPS 2.5 ML BTL BOTH EYES SCH (20:49)
[2023-03-03] MEDS ORDERED: POTASSIUM CHLORIDE 20 MEQ in WATER FOR INJECTION 1 100ML.BAG IVPB STA (21:25)
[2023-03-04 06:33] LABS: Anisocytosis Slight; Basophils % (A) 0 %; Eosinophils % (A) 0 %; HCT 23.7 % (34.0-46.0); Hypochromasia Slight; Lymphocytes # (A) 1.2 k/uL (1.0-4.8); Lymphocytes % (A) 18 %; MCH 31.5 pg (25.0-35.0); MCHC 33.8 g/dL (31.0-37.0); MCV 93.3 fL (80.0-100.0); Mean Platelet Volume 7.7; Monocytes # (A) 0.3 k/uL (0-1.0); Monocytes % (A) 5 %; Neutrophils # (A) 5.3 k/uL (1.3-7.7); Neutrophils % (A) 76 %; Platelet Count 206 k/uL (150-450); Poikilocytosis Slight; RBC 2.54 m/uL (3.80-5.40); RDW 16.8 % (11.5-15.5); WBC 6.9 k/uL (3.8-10.6)
[2023-03-04 06:45] LABS: Glucose,Whole Blood 111 mg/dL (70-110)
[2023-03-04] MEDS: INSULIN ASPART (NovoLOG) 100 UNIT/ML VIAL SQ SCH ×4 (06:48→20:43)
[2023-03-04 06:50] LABS: African American GFR (CKD) >90 (>60 ml/min/1.73 sqM); Anion Gap 1 mmol/L; Blood Urea Nitrogen 21 mg/dL (7-17); Calcium 7.9 mg/dL (8.4-10.2); Carbon Dioxide 26 mmol/L (22-30); Chloride 108 mmol/L (98-107); Glucose 99 mg/dL (74-99); Magnesium 1.7 mg/dL (1.6-2.3); Non-African American GFR(CKD) 86 (>60 ml/min/1.73 sqM); Potassium 3.6 mmol/L (3.5-5.1); Sodium 135 mmol/L (137-145)
[2023-03-04] MEDS ORDERED: MAGNESIUM CITRATE 296 ML BOTTLE PO ONE (07:00)
[2023-03-04] MEDS ORDERED: POTASSIUM CHLORIDE 20 MEQ in WATER FOR INJECTION 1 100ML.BAG IVPB STA (07:00)
[2023-03-04] MEDS: MAGNESIUM SULFATE-D5W PMX 1 GM in DEXTROSE/WATER 1 100ML.BAG IVPB SCH ×2 (07:07→09:38)
[2023-03-04] MEDS ORDERED: SIMETHICONE 40 MG/0.6 ML DROPS 2,000 MG/30 ML BOTTLE PO ONE (08:00)
--- NOTE | 2023-03-04 09:07 | P.PN ---
Subjective Progress Note Date: 03/04/23 I am seeing this patient in new consultation today 03/02/2023 in the emergency room for acute GI bleed. Patient is a 77-year-old white female with past medical history significant for diabetes mellitus, hyperlipidemia, hypertension, hypothyroidism, and obesity. Patient had a recent hospital admission for GI bleed; during her stay she did undergo a colonoscopy with snare polypectomy 2 and esophagogastroduodenoscopy which revealed antral gastritis, moderate size hiatal hernia, and short segment Thrasher's esophagus. Patient was ultimately discharged home on January 27. Patient returned to the emergency room yesterday afternoon expressing severe weakness and a syncopal event while at home. She b lynneeves her daughter called 911. Patient states that she's had dark tarry stools since her discharge 3 days ago. Denies any hematemesis or abdominal pain. Denies NSAIDs or anticoagulant use. Hemoglobin on arrival was 6.8 g/dL, and she was transfused 1 unit of PRBCs, however, her hemoglobin dropped down to 5.7 g/dL. She was symptomatic, severely hypotensive, lightheaded, and having frequent melenic stools. Denies any shortness breath, chest pain. Patient was given an additional 2 units PRBCs and a total of 2 L normal saline bolus. She did transiently require norepinephrine infusion for hypotension, which is currently paused. After the subsequent transfusions, the patient's hemoglobin d id increase to 7 g/dL. She is more alert. General surgery was consulted for the patient's GI bleed, and was made aware of her condition. Most recent CBC shows a WBC count of 11, and 11 7.7, hematocrit 20.8, platelets are pending. BMP from admission shows a sodium 133, potassium 4.1, chloride 104, serum bicarb 11, BUN 54, creatinine 0.89, and blood glucose of 208. Troponin less than 0.012. Stool occult blood was of course positive. Patient has been started on normal saline at 130 ML's per hour. Protonix was also started 40 mg twice a day. Currently, the patient is more hemodynamically stable, and will be monitored in the intensive care unit. On 03/03/2023, the patient remains in the intensive care unit and she is hemodynamically stable on no pressors. Hemoglobin dropped onto 6.9 and she had 2 smears of melanotic stools. No hematemesis. RBC tech scan was done and the patient was unable to finish the study, the patient was unable to lay down due to pain. Nevertheless, there was no identification of the source of bleeding as there was no extravasation. The patient is going to receive another unit of packed RBC. She is currently on IV fluids at 130 mL an hour. She is on normal saline.Rest of the blood work shows an obese, 7.5, hemoglobin is at 6.9 and a platelet count is at 214. BUN is at 47 with a creatinine of 0.6 and sodium levels of 138. She remains nothing by mouth. She remains on IV Protonix. On 03/04/2023, the patient is clinically and hemodynamically stable. Hemoglobin is currently at 8. After receiving her fifth units of packed RBC, hemoglobin came up to 9 and a drop down to 8 this morning. Morning stool was dark this morning , large amounts, ongoing GI bleeding cannot be completely ruled out accordingly.. No bright red blood per rectum. The patient is currently undergoing a capsule endoscopy. No nausea. No emesis. She remains nothing by mouth. She is on room and oxygen with a pulse ox of 98%. She is on IV fluids which is currently running at KVO. She did receive a dose of Lasix yesterday as the patient was getting more congested and she diuresed a total of 3 L. Noted during this current hospitalization, the patient is has received a total of 5 units of packed RBC. No abdominal pain. No hematemesis. BUN is 20 oh with a creatinine of 0.6. Sodium is at 135. Platelet count this 206. Objective - Vital Signs Vital signs: Vital Signs Temp 98.2 F 03/04/23 08:00 Pulse 64 03/04/23 08:00 Resp 18 03/04/23 08:00 BP 134/71 03/04/23 08:00 Pulse Ox 95 03/04/23 08:10 FiO2 Intake & Output 03/03/23 03/04/23 03/04/23 18:59 06:59 18:59 Intake Total 3170 280 220 Output Total 3500 1700 Balance -330 -1420 220 Weight 114.7 kg Intake: IV 1400 280 220 Invasive Line 3 100 Magnesium Sulfate-D5w Pmx 200 100 1 gm In Dextrose/Water 1 100ml.bag @ 100 mls/hr IVPB Q1H [facility] Rx#: [id number] Potassium Chloride 20 meq 100 100 In Water For Injection 1 100ml.bag @ 50 mls/hr IVPB ONCE [facility] Rx#: [id number] Potassium Chloride 20 meq 200 In Water For Injection 1 100ml.bag @ 50 mls/hr IVPB Q2H [facility] Rx#: [id number] Sodium Chloride 0.9% 1, 780 000 ml @ 130 mls/hr IV . Q7H42M [facility] Rx#:[id number] Sodium Chloride 0.9% 1, 120 180 20 000 ml @ 20 mls/hr IV . Q24H [facility] Rx#:[id number] Oral 1460 Blood Product 310 Rc As-1 Unit 310 [id number] Output: Urine 3500 1700 Stool 0 Other: Voiding Method External Catheter External Catheter # Voids 0 # Bowel Movements 0 1 - Exam GENERAL EXAM: Drowsy, 36-year-old white male , comfortable in no apparent distress. HEAD: Normocephalic and atraumatic EYES: Normal reaction of pupils, equal size. NOSE: Clear with pink turbinates. THROAT: No erythema or exudates. NECK: No masses, no JVD. CHEST: No chest wall deformity. LUNGS: Equal air entry with no crackles, wheeze, rhonchi or dullness. On room air. No conversational dyspnea or accessory muscle use.. CVS: S1 and S2 normal with no audible murmur, regular rhythm. No extra heart sounds ABDOMEN: No hepatosplenomegaly, active bowel sounds, no guarding or rigidity. SPINE: No scoliosis or deformity SKIN: No rashes CENTRAL NERVOUS SYSTEM: No focal deficits, tone is normal in all 4 extremities. EXTREMITIES: There is no peripheral edema, clubbing, or cyanosis. Peripheral pulses are intact. - Labs CBC & Chem 7: 03/04/23 06:00 03/04/23 06:00 Labs: Abnormal Lab Results - Last 24 Hours (Table) 03/01/23 03/03/23 03/03/23 Range/Units 15:00 14:28 16:33 RBC 2.86 L (3.80-5.40) m/uL Hgb 9.0 L D (11.4-16.0) gm/dL Hct 26.4 L (34.0-46.0) % RDW 16.5 H (11.5-15.5) % Sodium (137-145) mmol/L Chloride (98-107) mmol/L BUN (7-17) mg/dL POC Glucose (mg/dL) 169 H (70-110) mg/dL Calcium (8.4-10.2) mg/dL Crossmatch See Detail 03/03/23 03/04/23 03/04/23 Range/Units 20:06 06:00 06:00 RBC 2.54 L (3.80-5.40) m/uL Hgb 8.0 L (11.4-16.0) gm/dL Hct 23.7 L (34.0-46.0) % RDW 16.8 H (11.5-15.5) % Sodium 135 L (137-145) mmol/L Chloride 108 H (98-107) mmol/L BUN 21 H (7-17) mg/dL POC Glucose (mg/dL) 139 H (70-110) mg/dL Calcium 7.9 L (8.4-10.2) mg/dL Crossmatch 03/04/23 Range/Units 06:44 RBC (3.80-5.40) m/uL Hgb (11.4-16.0) gm/dL Hct (34.0-46.0) % RDW (11.5-15.5) % Sodium (137-145) mmol/L Chloride (98-107) mmol/L BUN (7-17) mg/dL POC Glucose (mg/dL) 111 H (70-110) mg/dL Calcium (8.4-10.2) mg/dL Crossmatch Assessment and Plan Assessment: recurrent upper GI bleeding, status post transfusion of 4 units PRBCs. Patient recently underwent colonoscopy with snare polypectomy 2 and an esophagogastroduodenoscopy which revealed antral gastritis, moderate size hiatal hernia, and short segment Thrasher's esophagus. Biopsies were taken. The hemoglobin is at 8 and the patient has received a total of 5 units of packed RBC folic by dose of Lasix . The patient is currently being worked up and the patient is undergoing a capsule endoscopy. Hypotension, related to hypovolemia and acute blood loss, status post 5 units of packed cells transfusion Anion gap metabolic acidosis, secondary to above , improving, recovered Diabetes mellitus type 2 Hyperlipidemia Osteoarthritis Morbid obesity, with a BMI of 41 kg/m Plan: Suspect an upper GI source of bleeding, undergoing capsule endoscopy Given a total of 5 units of packed RBC Keep the patient nothing by mouth for now, and the patient will be started on clear liquid diet and following her Endoscopy Continue IV Protonix the patient has undergone a recent EGD and colonoscopy. She was found to have antral gastritis, short segment of Thrasher's esophagus along with moderate hiatal hernia. She also underwent a polypectomy 2. No abdominal pain. No nausea or vomiting. The CAT scan of the abdomen and pelvis was done and it showed focal peristalsis versus narrowing of the fungal body junction in addition to moderate degree of extrahepatic periductal dilatation postcholecystectomy and there was no acute intra-abdominal process. General surgery is on the case RBC tech scan was nondiagnostic Keep the patient intensive care unit. Monitor hemoglobin. Watch for any signs of GI bleeding.
[2023-03-04] MEDS: PANTOPRAZOLE 40 MG/10 ML VIAL IV SCH ×2 (09:38→20:47)
[2023-03-04] MEDS: LACTATED RINGERS 1,000 ML IV SCH (09:39)
[2023-03-04 11:17] LABS: Glucose,Whole Blood 133 mg/dL (70-110)
[2023-03-04 11:41] LABS: Anisocytosis Slight; HCT 24.9 % (34.0-46.0); HGB 8.4 gm/dL (11.4-16.0); Hypochromasia Slight; MCH 31.3 pg (25.0-35.0); MCHC 33.6 g/dL (31.0-37.0); MCV 93.2 fL (80.0-100.0); Mean Platelet Volume 7.9; Platelet Count 242 k/uL (150-450); Poikilocytosis Slight; RBC 2.68 m/uL (3.80-5.40); RDW 17.4 % (11.5-15.5); WBC 7.6 k/uL (3.8-10.6)
[2023-03-04] MEDS: POTASSIUM CHLORIDE 10 MEQ in WATER FOR INJECTION 1 100ML.BAG IVPB SCH ×2 (12:17→13:16)
[2023-03-04] MEDS: SODIUM CHLORIDE 0.9% 1,000 ML IV SCH (12:18)
--- NOTE | 2023-03-04 12:43 | P.PN ---
Subjective Progress Note Date: 03/04/23 CHIEF COMPLAINT: GI bleed HISTORY OF PRESENT ILLNESS: Patient remains in the ICU. She's had a total of 5 units of blood. Patient had a large black tarry bowel movement this morning. She is undergoing capsule endoscopy. Her hemoglobin has stayed stable and went up from 8to 8.4. Blood pressures remained stable. PHYSICAL EXAM: VITAL SIGNS: Reviewed. GENERAL: Well-developed in no acute distress. ABDOMEN: Soft. Nondistended. Nontender. NEUROLOGIC: Alert and oriented. Cranial nerves II through XII grossly intact. ASSESSMENT: 1. Acute GI bleed with melanotic stools 2. Acute blood loss anemia 3. Recent EGD and colonoscopy with results showing gastritis, moderate hiatal hernia, Thrasher's esophagitis, colon polyps and diverticular disease 4. Hypotension PLAN: -Patient completing small bowel capsule endoscopy today -Patient scheduled for EGD tomorrow, 03/05/[address] moran -Continue a clear liquid diet today -Nothing by mouth after midnight -Continue to monitor hemoglobin -Continue IV Protonix Physician Cage Maker note has been reviewed by physician. Signing provider agrees with the documented findings, assessment, and plan of care. Objective - Vital Signs Vital signs: Vital Signs Temp 98.2 F 03/04/23 08:00 Pulse 65 03/04/23 10:00 Resp 15 03/04/23 10:00 BP 125/63 03/04/23 10:00 Pulse Ox 92 L 03/04/23 10:00 FiO2 Intake & Output 03/03/23 03/04/23 03/04/23 18:59 06:59 18:59 Intake Total 3170 280 360 Output Total 3500 1700 100 Balance -330 -1420 260 Weight 114.7 kg Intake: IV 1400 280 360 Invasive Line 3 100 Magnesium Sulfate-D5w Pmx 200 200 1 gm In Dextrose/Water 1 100ml.bag @ 100 mls/hr IVPB Q1H [facility] Rx#: [id number] Potassium Chloride 20 meq 100 100 In Water For Injection 1 100ml.bag @ 50 mls/hr IVPB ONCE [facility] Rx#: [id number] Potassium Chloride 20 meq 200 In Water For Injection 1 100ml.bag @ 50 mls/hr IVPB Q2H [facility] Rx#: [id number] Sodium Chloride 0.9% 1, 780 000 ml @ 130 mls/hr IV . Q7H42M [facility] Rx#:[id number] Sodium Chloride 0.9% 1, 120 180 60 000 ml @ 20 mls/hr IV . Q24H [facility] Rx#:[id number] Oral 1460 Blood Product 310 Rc As-1 Unit 310 [id number] Output: Urine 3500 1700 100 Stool 0 Other: Voiding Method External Catheter External Catheter External Catheter # Voids 0 # Bowel Movements 0 1 - Labs CBC & Chem 7: 03/04/23 11:30 03/04/23 11:30 Labs: Abnormal Lab Results - Last 24 Hours (Table) 03/03/23 03/03/23 03/03/23 Range/Units 14:28 16:33 20:06 RBC 2.86 L (3.80-5.40) m/uL Hgb 9.0 L D (11.4-16.0) gm/dL Hct 26.4 L (34.0-46.0) % RDW 16.5 H (11.5-15.5) % Sodium (137-145) mmol/L Chloride (98-107) mmol/L BUN (7-17) mg/dL POC Glucose (mg/dL) 169 H 139 H (70-110) mg/dL Calcium (8.4-10.2) mg/dL 03/04/23 03/04/23 03/04/23 Range/Units 06:00 06:00 06:44 RBC 2.54 L (3.80-5.40) m/uL Hgb 8.0 L (11.4-16.0) gm/dL Hct 23.7 L (34.0-46.0) % RDW 16.8 H (11.5-15.5) % Sodium 135 L (137-145) mmol/L Chloride 108 H (98-107) mmol/L BUN 21 H (7-17) mg/dL POC Glucose (mg/dL) 111 H (70-110) mg/dL Calcium 7.9 L (8.4-10.2) mg/dL 03/04/23 03/04/23 Range/Units 11:16 11:30 RBC 2.68 L (3.80-5.40) m/uL Hgb 8.4 L (11.4-16.0) gm/dL Hct 24.9 L (34.0-46.0) % RDW 17.4 H (11.5-15.5) % Sodium (137-145) mmol/L Chloride (98-107) mmol/L BUN (7-17) mg/dL POC Glucose (mg/dL) 133 H (70-110) mg/dL Calcium (8.4-10.2) mg/dL
[2023-03-04 16:06] LABS: Glucose,Whole Blood 224 mg/dL (70-110)
--- NOTE | 2023-03-04 18:32 | P.PN ---
Subjective Progress Note Date: 03/04/23 This is a 77-year-old female admitted with recurrent GI bleed. Ascending colon biopsy of 02/27/2023 reporting progress of adenoma with foci of high-grade dysplasia. Sigmoid colon biopsy reported tubular adenoma and intraluminal contents. 2 small melanotic smears today. Denies abdominal pain. Hemoglobin dropped to 6.9, received another unit of packed RBCs today. Continues on IV fluid hydration with renal function stable. Tagged RBC scan nondiagnostic; unfortunately patient unable to complete tests secondary to chronic back pain. Vital signs stable, off pressors. 03/04/2023 received 1 unit of packed RBCs yesterday, hemoglobin increase this morning up to 8. Platelets 206 Patient had a large tarry bowel movement this morning. Repeat CBC pending. BUN 21, creatinine 0.66. Lopressor stable. Small bowel capsule endoscopy in progress today. Scheduled for EGD tomorrow. Objective - Vital Signs Vital signs: Vital Signs Temp 98.2 F 03/04/23 08:00 Pulse 65 03/04/23 10:00 Resp 15 03/04/23 10:00 BP 125/63 03/04/23 10:00 Pulse Ox 92 L 03/04/23 10:00 FiO2 Intake & Output 03/03/23 03/04/23 03/04/23 18:59 06:59 18:59 Intake Total 3170 280 360 Output Total 3500 1700 100 Balance -330 -1420 260 Weight 114.7 kg Intake: IV 1400 280 360 Invasive Line 3 100 Magnesium Sulfate-D5w Pmx 200 200 1 gm In Dextrose/Water 1 100ml.bag @ 100 mls/hr IVPB Q1H [facility] Rx#: [id number] Potassium Chloride 20 meq 100 100 In Water For Injection 1 100ml.bag @ 50 mls/hr IVPB ONCE [facility] Rx#: [id number] Potassium Chloride 20 meq 200 In Water For Injection 1 100ml.bag @ 50 mls/hr IVPB Q2H [facility] Rx#: [id number] Sodium Chloride 0.9% 1, 780 000 ml @ 130 mls/hr IV . Q7H42M [facility] Rx#:[id number] Sodium Chloride 0.9% 1, 120 180 60 000 ml @ 20 mls/hr IV . Q24H [facility] Rx#:[id number] Oral 1460 Blood Product 310 Rc As-1 Unit 310 [id number] Output: Urine 3500 1700 100 Stool 0 Other: Voiding Method External Catheter External Catheter External Catheter # Voids 0 # Bowel Movements 0 1 - Exam PHYSICAL EXAM: VITAL SIGNS: [As above] GENERAL: Alert and oriented 3, Sitting up in bed, no acute distress HEENT: Conjunctivae normal. eyes normal. NECK: Supple, No JVD. CARDIOVASCULAR: S1, S2 regular. No murmur RESPIRATION: Equal air entry. Breath sounds diminished in the bases. ABDOMEN: Soft, nontender, nondistended . No guarding. no masses palpable. Bowel sounds heard. LEGS: No edema. no swelling ,no clubbing, no cyanosis positive DP pulses, NERVOUS SYSTEM: Cranial N 2-12 grossly normal. No focal deficits. Strength and sensation grossly intact. Skin: Warm and dry, no rash - Labs CBC & Chem 7: 03/04/23 11:30 03/04/23 11:30 Labs: Abnormal Lab Results - Last 24 Hours (Table) 03/03/23 03/03/23 03/03/23 Range/Units 14:28 16:33 20:06 RBC 2.86 L (3.80-5.40) m/uL Hgb 9.0 L D (11.4-16.0) gm/dL Hct 26.4 L (34.0-46.0) % RDW 16.5 H (11.5-15.5) % Sodium (137-145) mmol/L Chloride (98-107) mmol/L BUN (7-17) mg/dL POC Glucose (mg/dL) 169 H 139 H (70-110) mg/dL Calcium (8.4-10.2) mg/dL 03/04/23 03/04/23 03/04/23 Range/Units 06:00 06:00 06:44 RBC 2.54 L (3.80-5.40) m/uL Hgb 8.0 L (11.4-16.0) gm/dL Hct 23.7 L (34.0-46.0) % RDW 16.8 H (11.5-15.5) % Sodium 135 L (137-145) mmol/L Chloride 108 H (98-107) mmol/L BUN 21 H (7-17) mg/dL POC Glucose (mg/dL) 111 H (70-110) mg/dL Calcium 7.9 L (8.4-10.2) mg/dL 03/04/23 Range/Units 11:16 RBC (3.80-5.40) m/uL Hgb (11.4-16.0) gm/dL Hct (34.0-46.0) % RDW (11.5-15.5) % Sodium (137-145) mmol/L Chloride (98-107) mmol/L BUN (7-17) mg/dL POC Glucose (mg/dL) 133 H (70-110) mg/dL Calcium (8.4-10.2) mg/dL Assessment and Plan Assessment: Recurrent Acute GI bleed, suspect upper GI source, status post 5 units of packed RBCs transfused. Recent colonoscopy reported 3 cm broad-based polyp just proximal to the ileocecal valve status post piecemeal snare polypectomy and approximately 75% the polyp removed,5 mm sigmoid: Polyp status post polypectomy,Scattered sigmoid diverticula. Ascending colon biopsy of 02/27/2023 reporting progress of adenoma with foci of high-grade dysplasia. Sigmoid colon biopsy reported tubular adenoma and intraluminal contents. Recent EGD 02/24/2023 reported antral erosive gastritis, moderate size hiatal hernia, short segment appeared to esophagus. Hypotension, hypovolemia secondary to the above, status post pressors Metabolic acidosis secondary to the above Diabetes mellitus 2 Acute renal insufficiency, secondary to the above, possibly induced from over useage of her Ozempic. Hypothyroidism Glaucoma Hypertension Hyperlipidemia Bipolar, depression Osteoarthritis Morbid obesity, BMI 42.4 Plan: Continue on current medication regime, monitoring and symptomatic treatment. PPI.close monitoring of s/sx of bleeding, hemoglobin with repeat labs ordered for am. Capsule study in progress. EGD tomorrow for general surgery. Prognosis guarded given multiple medical issues. The impression and plan of care has been dictated as directed. : I performed a history and examination of this patient, discussed the same with the dictator. I agree with the dictator's note ,documented as a scribe. Any additional findings or plans will be noted.
[2023-03-04 20:30] LABS: Glucose,Whole Blood 90 mg/dL (70-110)
[2023-03-04] MEDS: LATANOPROST 0.005% OPHTH DROPS 2.5 ML BTL BOTH EYES SCH (20:48)
[2023-03-05 05:08] LABS: Anisocytosis Slight; HCT 25.6 % (34.0-46.0); HGB 8.4 gm/dL (11.4-16.0); Hypochromasia Slight; MCH 31.4 pg (25.0-35.0); MCV 94.9 fL (80.0-100.0); Macrocytosis Slight; Mean Platelet Volume 7.9; Platelet Count 259 k/uL (150-450); RBC 2.69 m/uL (3.80-5.40); RDW 17.3 % (11.5-15.5); WBC 6.6 k/uL (3.8-10.6)
[2023-03-05 05:39] LABS: African American GFR (CKD) >90 (>60 ml/min/1.73 sqM); Anion Gap 3 mmol/L; Blood Urea Nitrogen 11 mg/dL (7-17); Carbon Dioxide 25 mmol/L (22-30); Chloride 107 mmol/L (98-107); Glucose 100 mg/dL (74-99); Magnesium 1.9 mg/dL (1.6-2.3); Non-African American GFR(CKD) 88 (>60 ml/min/1.73 sqM); Potassium 3.8 mmol/L (3.5-5.1); Sodium 135 mmol/L (137-145)
[2023-03-05] MEDS ORDERED: MAGNESIUM SULFATE-D5W PMX 1 GM in DEXTROSE/WATER 1 100ML.BAG IVPB ONE (05:47)
[2023-03-05] MEDS ORDERED: POTASSIUM CHLORIDE ER 20 MEQ TAB.ER PO SCH (06:00)
[2023-03-05 06:22] LABS: Glucose,Whole Blood 120 mg/dL (70-110)
[2023-03-05] MEDS: INSULIN ASPART (NovoLOG) 100 UNIT/ML VIAL SQ SCH ×4 (06:33→21:52)
[2023-03-05] MEDS: PANTOPRAZOLE 40 MG/10 ML VIAL IV SCH (08:01)
[2023-03-05] MEDS: LACTATED RINGERS 1,000 ML IV SCH (08:10)
--- NOTE | 2023-03-05 09:10 | P.PN ---
Subjective Progress Note Date: 03/05/23 I am seeing this patient in new consultation today 03/02/2023 in the emergency room for acute GI bleed. Patient is a 77-year-old white female with past medical history significant for diabetes mellitus, hyperlipidemia, hypertension, hypothyroidism, and obesity. Patient had a recent hospital admission for GI bleed; during her stay she did undergo a colonoscopy with snare polypectomy 2 and esophagogastroduodenoscopy which revealed antral gastritis, moderate size hiatal hernia, and short segment Thrasher's esophagus. Patient was ultimately discharged home on January 27. Patient returned to the emergency room yesterday afternoon expressing severe weakness and a syncopal event while at home. She b lynneeves her daughter called 911. Patient states that she's had dark tarry stools since her discharge 3 days ago. Denies any hematemesis or abdominal pain. Denies NSAIDs or anticoagulant use. Hemoglobin on arrival was 6.8 g/dL, and she was transfused 1 unit of PRBCs, however, her hemoglobin dropped down to 5.7 g/dL. She was symptomatic, severely hypotensive, lightheaded, and having frequent melenic stools. Denies any shortness breath, chest pain. Patient was given an additional 2 units PRBCs and a total of 2 L normal saline bolus. She did transiently require norepinephrine infusion for hypotension, which is currently paused. After the subsequent transfusions, the patient's hemoglobin d id increase to 7 g/dL. She is more alert. General surgery was consulted for the patient's GI bleed, and was made aware of her condition. Most recent CBC shows a WBC count of 11, and 11 7.7, hematocrit 20.8, platelets are pending. BMP from admission shows a sodium 133, potassium 4.1, chloride 104, serum bicarb 11, BUN 54, creatinine 0.89, and blood glucose of 208. Troponin less than 0.012. Stool occult blood was of course positive. Patient has been started on normal saline at 130 ML's per hour. Protonix was also started 40 mg twice a day. Currently, the patient is more hemodynamically stable, and will be monitored in the intensive care unit. On 03/03/2023, the patient remains in the intensive care unit and she is hemodynamically stable on no pressors. Hemoglobin dropped onto 6.9 and she had 2 smears of melanotic stools. No hematemesis. RBC tech scan was done and the patient was unable to finish the study, the patient was unable to lay down due to pain. Nevertheless, there was no identification of the source of bleeding as there was no extravasation. The patient is going to receive another unit of packed RBC. She is currently on IV fluids at 130 mL an hour. She is on normal saline.Rest of the blood work shows an obese, 7.5, hemoglobin is at 6.9 and a platelet count is at 214. BUN is at 47 with a creatinine of 0.6 and sodium levels of 138. She remains nothing by mouth. She remains on IV Protonix. On 03/04/2023, the patient is clinically and hemodynamically stable. Hemoglobin is currently at 8. After receiving her fifth units of packed RBC, hemoglobin came up to 9 and a drop down to 8 this morning. Morning stool was dark this morning , large amounts, ongoing GI bleeding cannot be completely ruled out accordingly.. No bright red blood per rectum. The patient is currently undergoing a capsule endoscopy. No nausea. No emesis. She remains nothing by mouth. She is on room and oxygen with a pulse ox of 98%. She is on IV fluids which is currently running at KVO. She did receive a dose of Lasix yesterday as the patient was getting more congested and she diuresed a total of 3 L. Noted during this current hospitalization, the patient is has received a total of 5 units of packed RBC. No abdominal pain. No hematemesis. BUN is 20 oh with a creatinine of 0.6. Sodium is at 135. Platelet count this 206. On today's evaluation of a 2022, I'm seeing the patient for a follow-up. She is on room air oxygen. No further episodes of bleeding since yesterday. The Endoscopy Failed Due To a Signal Issues with Find a Capsule. The patient otherwise is stable hemoglobin of 8.4. She is going to undergo an EGD. This will be done this morning. She is currently nothing by mouth. Rest of the blood work is all stable. Hemodynamically she is stable. She remains on IV Protonix. She has no respiratory difficulties. Normal saline is running at the rate of 20 mL an hour. She is on a sliding scale insulin coverage for blood sugar control. She has not taken any of her other medications. Objective - Vital Signs Vital signs: Vital Signs Temp 98.2 F 03/05/23 04:00 Pulse 64 03/05/23 07:00 Resp 15 03/05/23 07:00 BP 125/63 03/05/23 07:00 Pulse Ox 96 03/05/23 07:00 FiO2 Intake & Output 03/04/23 03/05/23 03/05/23 18:59 06:59 18:59 Intake Total 720 500 Output Total 1000 850 Balance -280 -350 Weight 116.5 kg Intake: IV 720 200 Magnesium Sulfate-D5w Pmx 200 1 gm In Dextrose/Water 1 100ml.bag @ 100 mls/hr IVPB Q1H [facility] Rx#: [id number] Potassium Chloride 20 meq 100 In Water For Injection 1 100ml.bag @ 50 mls/hr IVPB ONCE [facility] Rx#: [id number] Potassium Chloride 20 meq 200 In Water For Injection 1 100ml.bag @ 50 mls/hr IVPB Q2H [facility] Rx#: [id number] Sodium Chloride 0.9% 1, 220 200 000 ml @ 20 mls/hr IV . Q24H [facility] Rx#:[id number] Oral 300 Output: Urine 1000 850 Other: Voiding Method External Catheter External Catheter # Voids 1 1 # Bowel Movements 1 1 - Exam GENERAL EXAM: Drowsy, 36-year-old white male , comfortable in no apparent distress. HEAD: Normocephalic and atraumatic EYES: Normal reaction of pupils, equal size. NOSE: Clear with pink turbinates. THROAT: No erythema or exudates. NECK: No masses, no JVD. CHEST: No chest wall deformity. LUNGS: Equal air entry with no crackles, wheeze, rhonchi or dullness. On room air. No conversational dyspnea or accessory muscle use.. CVS: S1 and S2 normal with no audible murmur, regular rhythm. No extra heart sounds ABDOMEN: No hepatosplenomegaly, active bowel sounds, no guarding or rigidity. SPINE: No scoliosis or deformity SKIN: No rashes CENTRAL NERVOUS SYSTEM: No focal deficits, tone is normal in all 4 extremities. EXTREMITIES: There is no peripheral edema, clubbing, or cyanosis. Peripheral pulses are intact. - Labs CBC & Chem 7: 03/05/23 04:20 03/05/23 04:20 Labs: Abnormal Lab Results - Last 24 Hours (Table) 0803/04/23 03/04/23 Range/Units 11:16 11:30 16:04 RBC 2.68 L (3.80-5.40) m/uL Hgb 8.4 L (11.4-16.0) gm/dL Hct 24.9 L (34.0-46.0) % RDW 17.4 H (11.5-15.5) % Sodium (137-145) mmol/L Glucose (74-99) mg/dL POC Glucose (mg/dL) 133 H 224 H (70-110) mg/dL Calcium (8.4-10.2) mg/dL 03/05/23 03/05/23 03/05/23 Range/Units 04:20 04:20 06:20 RBC 2.69 L (3.80-5.40) m/uL Hgb 8.4 L (11.4-16.0) gm/dL Hct 25.6 L (34.0-46.0) % RDW 17.3 H (11.5-15.5) % Sodium 135 L (137-145) mmol/L Glucose 100 H (74-99) mg/dL POC Glucose (mg/dL) 120 H (70-110) mg/dL Calcium 8.0 L (8.4-10.2) mg/dL Assessment and Plan Assessment: recurrent upper GI bleeding, status post transfusion of 4 units PRBCs. Patient recently underwent colonoscopy with snare polypectomy 2 and an esophagogastroduodenoscopy which revealed antral gastritis, moderate size hiatal hernia, and short segment Thrasher's esophagus. Biopsies were taken. There is also suboptimal because of a failed signal from the capsule. Hemoglobin is stable at 8.4. The patient is going to have another EGD done today. The patient received a total of 5 units of packed RBC during this current admission. Hypotension, related to hypovolemia and acute blood loss, status post 5 units of packed cells transfusion Anion gap metabolic acidosis, secondary to above , improving, recovered Diabetes mellitus type 2 Hyperlipidemia Osteoarthritis Morbid obesity, with a BMI of 41 kg/m Plan: Suspect an upper GI source of bleeding, undergoing capsule endoscopy, no results are available due to failed signal from the capsule Given a total of 5 units of packed RBC Keep the patient nothing by mouth for now, EGD to be done today Continue IV Protonix the patient has undergone a recent EGD and colonoscopy. She was found to have antral gastritis, short segment of Thrasher's esophagus along with moderate hiatal hernia. She also underwent a polypectomy 2. No abdominal pain. No nausea or vomiting. The CAT scan of the abdomen and pelvis was done and it showed focal peristalsis versus narrowing of the fungal body junction in addition to moderate degree of extrahepatic periductal dilatation postcholecystectomy and there was no acute intra-abdominal process. General surgery is on the case RBC tech scan was nondiagnostic Keep the patient intensive care unit. Monitor hemoglobin. Hemoglobin stable at 8.4 Watch for any signs of GI bleeding. transfer out of the medical floor following the EGD Will restart her Prozac, Zyprexa, Lipitor and subsequently was restarted her diabetic medications once the patient is able to have a regular diet. Meanwhile, keep her on sliding scale insulin coverage.
--- NOTE | 2023-03-05 10:37 | P.PN ---
Subjective Progress Note Date: 03/05/23 This is a 77-year-old female admitted with recurrent GI bleed. Ascending colon biopsy of 02/27/2023 reporting progress of adenoma with foci of high-grade dysplasia. Sigmoid colon biopsy reported tubular adenoma and intraluminal contents. 2 small melanotic smears today. Denies abdominal pain. Hemoglobin dropped to 6.9, received another unit of packed RBCs today. Continues on IV fluid hydration with renal function stable. Tagged RBC scan nondiagnostic; unfortunately patient unable to complete tests secondary to chronic back pain. Vital signs stable, off pressors. 03/04/2023 received 1 unit of packed RBCs yesterday, hemoglobin increase this morning up to 8. Platelets 206 Patient had a large tarry bowel movement this morning. Repeat CBC pending. BUN 21, creatinine 0.66. Lopressor stable. Small bowel capsule endoscopy in progress today. Scheduled for EGD tomorrow. 03/05/2023 capsule study reported as failure, possibly repeat. NPO, scheduled for EGD. Hemoglobin remained stable at 8.4 with no further bleeding reported today. Patient did have a large dark green bowel movement last night. Denies abdominal pain.Maintaining O2 sats in the 90s on room air. Objective - Vital Signs Vital signs: Vital Signs Temp 98.2 F 03/05/23 04:00 Pulse 64 03/05/23 07:00 Resp 15 03/05/23 07:00 BP 125/63 03/05/23 07:00 Pulse Ox 96 03/05/23 07:00 FiO2 Intake & Output 03/04/23 03/05/23 03/05/23 18:59 06:59 18:59 Intake Total 720 500 Output Total 1000 850 Balance -280 -350 Weight 116.5 kg Intake: IV 720 200 Magnesium Sulfate-D5w Pmx 200 1 gm In Dextrose/Water 1 100ml.bag @ 100 mls/hr IVPB Q1H [facility] Rx#: [id number] Potassium Chloride 20 meq 100 In Water For Injection 1 100ml.bag @ 50 mls/hr IVPB ONCE [facility] Rx#: [id number] Potassium Chloride 20 meq 200 In Water For Injection 1 100ml.bag @ 50 mls/hr IVPB Q2H [facility] Rx#: [id number] Sodium Chloride 0.9% 1, 220 200 000 ml @ 20 mls/hr IV . Q24H [facility] Rx#:[id number] Oral 300 Output: Urine 1000 850 Other: Voiding Method External Catheter External Catheter # Voids 1 1 # Bowel Movements 1 1 - Exam PHYSICAL EXAM: VITAL SIGNS: [As above] GENERAL: Alert and oriented 3, Laying in bed, no acute distress HEENT: Conjunctivae normal. eyes normal. NECK: Supple, No JVD. CARDIOVASCULAR: S1, S2 regular. No murmur RESPIRATION: Equal air entry. Essentially clear bilateral bases diminished. ABDOMEN: Soft, nontender, nondistended . No guarding. no masses palpable. Bowel sounds heard. LEGS: No edema. no swelling ,no clubbing, no cyanosis positive DP pulses, NERVOUS SYSTEM: Cranial N 2-12 grossly normal. No focal deficits. Strength and sensation grossly intact. Skin: Warm and dry, no rash - Labs CBC & Chem 7: 03/05/23 04:20 03/05/23 04:20 Labs: Abnormal Lab Results - Last 24 Hours (Table) 03/04/23 03/04/23 03/04/23 Range/Units 11:16 11:30 16:04 RBC 2.68 L (3.80-5.40) m/uL Hgb 8.4 L (11.4-16.0) gm/dL Hct 24.9 L (34.0-46.0) % RDW 17.4 H (11.5-15.5) % Sodium (137-145) mmol/L Glucose (74-99) mg/dL POC Glucose (mg/dL) 133 H 224 H (70-110) mg/dL Calcium (8.4-10.2) mg/dL 03/05/23 03/05/23 03/05/23 Range/Units 04:20 04:20 06:20 RBC 2.69 L (3.80-5.40) m/uL Hgb 8.4 L (11.4-16.0) gm/dL Hct 25.6 L (34.0-46.0) % RDW 17.3 H (11.5-15.5) % Sodium 135 L (137-145) mmol/L Glucose 100 H (74-99) mg/dL POC Glucose (mg/dL) 120 H (70-110) mg/dL Calcium 8.0 L (8.4-10.2) mg/dL Assessment and Plan Assessment: Recurrent Acute GI bleed, suspect upper GI source, status post 5 units of packed RBCs transfused. Recent colonoscopy reported 3 cm broad-based polyp just proximal to the ileocecal valve status post piecemeal snare polypectomy and approximately 75% the polyp removed,5 mm sigmoid: Polyp status post polypectomy,Scattered sigmoid diverticula. Ascending colon biopsy of 02/27/2023 reporting progress of adenoma with foci of high-grade dysplasia. Sigmoid colon biopsy reported tubular adenoma and intraluminal contents. Recent EGD 02/24/2023 reported antral erosive gastritis, moderate size hiatal hernia, short segment appeared to esophagus. Hypotension, hypovolemia secondary to the above, status post pressors, improved Metabolic acidosis secondary to the above, recovered Diabetes mellitus type 2 Hypothyroidism Glaucoma Hypertension Hyperlipidemia Bipolar, depression Osteoarthritis Morbid obesity, BMI 42.4 Plan: Continue on current medication regime, monitoring and symptomatic treatment. Maintain PPI.Continue close monitoring of s/sx of bleeding, hemoglobin with repeat labs ordered for am. EGDpending, possible repeat of Capsule study. Pending EGD results, potential transfer to [facility] and resume home medications.Prognosis guarded given multiple medical issues. The impression and plan of care has been dictated as directed. : I performed a history and examination of this patient, discussed the same with the dictator. I agree with the dictator's note ,documented as a scribe. Any additional findings or plans will be noted.
[2023-03-05] MEDS ORDERED: LIDOCAINE 2% INJ 20 MG/ML (2 ML VIAL) ONE (11:22)
[2023-03-05] MEDS ORDERED: IV FLUID CONTINUATION 200 ML IV ONE (11:22)
[2023-03-05] MEDS ORDERED: PROPOFOL 10 MG/ML 20 ML VIAL IV ONE (11:22)
--- NOTE | 2023-03-05 11:35 | P.OP ---
Date of Procedure: 03/05/23 Preoperative Diagnosis: GI bleed Postoperative Diagnosis: Small hiatal hernia No evidence of upper GI bleed Procedure(s) Performed: EGD Anesthesia: MAC Surgeon: Elian Matos Pathology: none sent Condition: stable Disposition: PACU Description of Procedure: The patient's placed on the endoscopy table in the lateral position. She received IV sedation. The gastro-/oropharynx passed in the esophagus and stomach. Scope was placed through the pylorus. The first and second portion of the duodenum appeared normal. There was no blood seen in the duodenum. Scope summer back the antrum this was appeared normal. There is no blood seen the antrum. Scope was retroflexed the patient had a small hiatal hernia. There is no blood seen stomach. The GE junction was at 38 cm. There is no blood seen in the esophagus. There is no significant lesions seen the entire upper GI tract. The scope was withdrawn for patient.
[2023-03-05 12:04] LABS: Glucose,Whole Blood 122 mg/dL (70-110)
[2023-03-05] MEDS: OLANZapine 5 MG TAB PO SCH (13:12)
[2023-03-05] MEDS: amLODIPine 5 MG TAB PO SCH (13:12)
[2023-03-05] MEDS: SODIUM CHLORIDE 0.9% 1,000 ML IV SCH (13:13)
[2023-03-05] MEDS: FLUoxetine HCL 20 MG CAP PO SCH (15:54)
[2023-03-05] MEDS: lamoTRIgine 100 MG TAB PO SCH (15:54)
--- NOTE | 2023-03-05 16:28 | P.PN ---
Subjective Progress Note Date: 03/05/23 CHIEF COMPLAINT: GI bleed HISTORY OF PRESENT ILLNESS: Patient remains in the ICU. She's had a total of 5 units of blood. Patient has had no further black stools. Bowel movement was dark green. She had EGD completed today that showed a small hiatal hernia and no evidence of upper GI bleed. Hemoglobin remained stable at 8.4. She denies any abdominal pain. Vitals stable. Her capsule endoscopy malfunctioned. And will need to be repeated. PHYSICAL EXAM: VITAL SIGNS: Reviewed. GENERAL: Well-developed in no acute distress. ABDOMEN: Soft. Nondistended. Nontender. NEUROLOGIC: Alert and oriented. Cranial nerves II through XII grossly intact. ASSESSMENT: 1. Acute GI bleed with melanotic stools 2. Acute blood loss anemia 3. Recent EGD and colonoscopy with results showing gastritis, moderate hiatal hernia, Thrasher's esophagitis, colon polyps and diverticular disease 4. Hypotension 5. Large Right colon polyp PLAN: -Repeat small bowel capsule endoscopy tomorrow morning -Continue a clear liquid diet today -Nothing by mouth after midnight -Continue to monitor hemoglobin -Continue IV Protonix Physician Print Cutter note has been reviewed by physician. Signing provider agrees with the documented findings, assessment, and plan of care. Objective - Vital Signs Vital signs: Vital Signs Temp 98.2 F 03/05/23 08:00 Pulse 68 03/05/23 10:00 Resp 15 03/05/23 10:00 BP 153/72 03/05/23 10:00 Pulse Ox 96 03/05/23 07:00 FiO2 Intake & Output 03/04/23 03/05/23 03/05/23 18:59 06:59 18:59 Intake Total 720 500 60 Output Total 1000 850 700 Balance -280 -350 -640 Weight 116.5 kg Intake: IV 720 200 60 Magnesium Sulfate-D5w Pmx 200 1 gm In Dextrose/Water 1 100ml.bag @ 100 mls/hr IVPB Q1H [facility] Rx#: [id number] Potassium Chloride 20 meq 100 In Water For Injection 1 100ml.bag @ 50 mls/hr IVPB ONCE [facility] Rx#: [id number] Potassium Chloride 20 meq 200 In Water For Injection 1 100ml.bag @ 50 mls/hr IVPB Q2H [facility] Rx#: [id number] Sodium Chloride 0.9% 1, 220 200 60 000 ml @ 20 mls/hr IV . Q24H [facility] Rx#:[id number] Oral 300 Output: Urine 1000 850 700 Other: Voiding Method External Catheter External Catheter # Voids 1 1 # Bowel Movements 1 1 - Labs CBC & Chem 7: 03/05/23 04:20 03/05/23 04:20 Labs: Abnormal Lab Results - Last 24 Hours (Table) 03/04/23 03/04/23 03/04/23 Range/Units 11:16 11:30 16:04 RBC 2.68 L (3.80-5.40) m/uL Hgb 8.4 L (11.4-16.0) gm/dL Hct 24.9 L (34.0-46.0) % RDW 17.4 H (11.5-15.5) % Sodium (137-145) mmol/L Glucose (74-99) mg/dL POC Glucose (mg/dL) 133 H 224 H (70-110) mg/dL Calcium (8.4-10.2) mg/dL 03/05/23 03/05/23 03/05/23 Range/Units 04:20 04:20 06:20 RBC 2.69 L (3.80-5.40) m/uL Hgb 8.4 L (11.4-16.0) gm/dL Hct 25.6 L (34.0-46.0) % RDW 17.3 H (11.5-15.5) % Sodium 135 L (137-145) mmol/L Glucose 100 H (74-99) mg/dL POC Glucose (mg/dL) 120 H (70-110) mg/dL Calcium 8.0 L (8.4-10.2) mg/dL
[2023-03-05] MEDS ORDERED: LACTULOSE 20 GM/30 ML CUP PO ONE (16:30)
[2023-03-05 17:04] LABS: Glucose,Whole Blood 148 mg/dL (70-110)
[2023-03-05 21:30] LABS: Glucose,Whole Blood 138 mg/dL (70-110)
[2023-03-05] MEDS: LATANOPROST 0.005% OPHTH DROPS 2.5 ML BTL BOTH EYES SCH (22:31)
[2023-03-05] MEDS: ATORVASTATIN 40 MG TAB PO SCH (22:31)
[2023-03-06 06:09] LABS: Glucose,Whole Blood 127 mg/dL (70-110)
[2023-03-06] MEDS: INSULIN ASPART (NovoLOG) 100 UNIT/ML VIAL SQ SCH ×4 (06:42→21:22)
[2023-03-06] MEDS: PANTOPRAZOLE 40 MG TABLET PO SCH (06:42)
[2023-03-06] MEDS ORDERED: MAGNESIUM CITRATE 296 ML BOTTLE PO ONE (07:00)
[2023-03-06] MEDS ORDERED: SIMETHICONE 40 MG/0.6 ML DROPS 2,000 MG/30 ML BOTTLE PO ONE (08:00)
[2023-03-06 09:01] LABS: Anisocytosis Slight; HCT 28.3 % (34.0-46.0); HGB 9.1 gm/dL (11.4-16.0); Hypochromasia Slight; MCH 31.1 pg (25.0-35.0); MCHC 32.4 g/dL (31.0-37.0); MCV 95.9 fL (80.0-100.0); Macrocytosis Slight; Mean Platelet Volume 7.7; Platelet Count 317 k/uL (150-450); RBC 2.95 m/uL (3.80-5.40); RDW 16.7 % (11.5-15.5); WBC 7.5 k/uL (3.8-10.6)
[2023-03-06 09:23] LABS: African American GFR (CKD) >90 (>60 ml/min/1.73 sqM); Anion Gap 7 mmol/L; Blood Urea Nitrogen 6 mg/dL (7-17); Carbon Dioxide 23 mmol/L (22-30); Chloride 107 mmol/L (98-107); Glucose 130 mg/dL (74-99); Magnesium 1.6 mg/dL (1.6-2.3); Non-African American GFR(CKD) 86 (>60 ml/min/1.73 sqM); Potassium 3.7 mmol/L (3.5-5.1); Sodium 137 mmol/L (137-145)
[2023-03-06 11:30] LABS: Glucose,Whole Blood 125 mg/dL (70-110)
[2023-03-06] MEDS: lamoTRIgine 100 MG TAB PO SCH ×2 (12:17→17:54)
[2023-03-06] MEDS: OLANZapine 5 MG TAB PO SCH (12:18)
[2023-03-06] MEDS: amLODIPine 5 MG TAB PO SCH (12:18)
[2023-03-06] MEDS: DAPAGLIFLOZIN PROPANEDIOL 5 MG TABLET PO SCH (12:18)
[2023-03-06] MEDS: LACTATED RINGERS 1,000 ML IV SCH (12:18)
[2023-03-06] MEDS: SODIUM CHLORIDE 0.9% 1,000 ML IV SCH (12:50)
--- NOTE | 2023-03-06 13:43 | P.PN ---
Subjective Progress Note Date: 03/06/23 03/03/2023: This is a 77-year-old female admitted with recurrent GI bleed. Ascending colon biopsy of 02/27/2023 reporting progress of adenoma with foci of high-grade dysplasia. Sigmoid colon biopsy reported tubular adenoma and intraluminal contents. 2 small melanotic smears today. Denies abdominal pain. Hemoglobin dropped to 6.9, received another unit of packed RBCs today. Continues on IV fluid hydration with renal function stable. Tagged RBC scan nondiagnostic; unfortunately patient unable to complete tests secondary to chronic back pain. Vital signs stable, off pressors. 03/04/2023 received 1 unit of packed RBCs yesterday, hemoglobin increase this morning up to 8. Platelets 206 Patient had a large tarry bowel movement this morning. Repeat CBC pending. BUN 21, creatinine 0.66. Lopressor stable. Small bowel capsule endoscopy in progress today. Scheduled for EGD tomorrow. 03/05/2023 capsule study reported as failure, possibly repeat. NPO, scheduled for EGD. Hemoglobin remained stable at 8.4 with no further bleeding reported today. Patient did have a large dark green bowel movement last night. Denies abdominal pain.Maintaining O2 sats in the 90s on room air. 03/06/2023: patient undergoing pill endoscopy today as last one had failed to work. She is s/p EGD with no significant findings.Hb stable now at 9.1. no more black tarry stools. patient feeling more herself No chest pain, sob, nausea or vomiting. SHe is getting up unassisited Objective - Vital Signs Vital signs: Vital Signs Temp 98.8 F 03/06/23 08:00 Pulse 66 03/06/23 08:00 Resp 18 03/06/23 08:00 BP 129/76 03/06/23 08:00 Pulse Ox 97 03/06/23 08:00 FiO2 Intake & Output 03/05/23 03/06/23 03/06/23 18:59 06:59 18:59 Intake Total 1400 Output Total 701 Balance 699 Intake: IV 200 Sodium Chloride 0.9% 1, 150 000 ml @ 20 mls/hr IV . Q24H [facility] Rx#:[id number] Oral 1200 Output: Urine 700 Urine/Stool Mix 1 Other: Voiding Method Toilet # Voids 2 - Exam GENERAL: Alert and oriented 3,sitting in chair, no acute distress HEENT: Conjunctivae normal. eyes normal. NECK: Supple, No JVD. CARDIOVASCULAR: S1, S2 regular. No murmur RESPIRATION: Equal air entry. Essentially clear bilateral bases diminished. ABDOMEN: Soft, nontender, nondistended . No guarding. no masses palpable. Frederick wel sounds heard. LEGS: No edema. no swelling ,no clubbing, no cyanosis positive DP pulses, NERVOUS SYSTEM: Cranial N 2-12 grossly normal. No focal deficits. Strength and sensation grossly intact. Skin: Warm and dry, no rash - Labs CBC & Chem 7: 03/06/23 08:32 03/06/23 08:32 Labs: Abnormal Lab Results - Last 24 Hours (Table) 03/05/23 03/05/23 03/06/23 Range/Units 17:03 21:29 06:07 RBC (3.80-5.40) m/uL Hgb (11.4-16.0) gm/dL Hct (34.0-46.0) % RDW (11.5-15.5) % BUN (7-17) mg/dL Glucose (74-99) mg/dL POC Glucose (mg/dL) 148 H 138 H 127 H (70-110) mg/dL 03/06/23 03/06/23 03/06/23 Range/Units 08:32 08:32 11:28 RBC 2.95 L (3.80-5.40) m/uL Hgb 9.1 L (11.4-16.0) gm/dL Hct 28.3 L (34.0-46.0) % RDW 16.7 H (11.5-15.5) % BUN 6 L (7-17) mg/dL Glucose 130 H (74-99) mg/dL POC Glucose (mg/dL) 125 H (70-110) mg/dL Assessment and Plan (1) Acute GI bleeding Current Visit: No Status: Acute Code(s): K92.2 - GASTROINTESTINAL HEMORRHAGE, UNSPECIFIED SNOMED Code(s): 19649831 (2) Melena Current Visit: No Status: Acute Code(s): K92.1 - MELENA SNOMED Code(s): 6138872 (3) Anemia Current Visit: Yes Status: Acute Code(s): D64.9 - ANEMIA, UNSPECIFIED SNOMED Code(s): 060392501 (4) Hypothyroidism, unspecified Current Visit: Yes Status: Acute Code(s): E03.9 - HYPOTHYROIDISM, UNSPECIFIED SNOMED Code(s): 39080653 (5) Bipolar 1 disorder Current Visit: Yes Status: Acute Code(s): F31.9 - BIPOLAR DISORDER, UNSPECIFIED SNOMED Code(s): 167139728 (6) Type 2 diabetes mellitus with other specified complication Current Visit: Yes Status: Acute Code(s): E11.69 - TYPE 2 DIABETES MELLITUS WITH OTHER SPECIFIED COMPLICATION SNOMED Code(s): 30819672 (7) Diabetes Current Visit: No Status: Acute Code(s): E11.9 - TYPE 2 DIABETES MELLITUS WITHOUT COMPLICATIONS SNOMED Code(s): 20473711 Plan: wait on recommendations from surgery, continue current meds, treatments possibly home/ecf soon she will be reevaluated by FM in the next 24 hours
--- NOTE | 2023-03-06 14:34 | P.PN ---
Subjective Progress Note Date: 03/06/23 I am seeing this patient in new consultation today 03/02/2023 in the emergency room for acute GI bleed. Patient is a 77-year-old white female with past medical history significant for diabetes mellitus, hyperlipidemia, hypertension, hypothyroidism, and obesity. Patient had a recent hospital admission for GI bleed; during her stay she did undergo a colonoscopy with snare polypectomy 2 and esophagogastroduodenoscopy which revealed antral gastritis, moderate size hiatal hernia, and short segment Thrasher's esophagus. Patient was ultimately discharged home on January 27. Patient returned to the emergency room yesterday afternoon expressing severe weakness and a syncopal event while at home. She b lynneeves her daughter called 911. Patient states that she's had dark tarry stools since her discharge 3 days ago. Denies any hematemesis or abdominal pain. Denies NSAIDs or anticoagulant use. Hemoglobin on arrival was 6.8 g/dL, and she was transfused 1 unit of PRBCs, however, her hemoglobin dropped down to 5.7 g/dL. She was symptomatic, severely hypotensive, lightheaded, and having frequent melenic stools. Denies any shortness breath, chest pain. Patient was given an additional 2 units PRBCs and a total of 2 L normal saline bolus. She did transiently require norepinephrine infusion for hypotension, which is currently paused. After the subsequent transfusions, the patient's hemoglobin d id increase to 7 g/dL. She is more alert. General surgery was consulted for the patient's GI bleed, and was made aware of her condition. Most recent CBC shows a WBC count of 11, and 11 7.7, hematocrit 20.8, platelets are pending. BMP from admission shows a sodium 133, potassium 4.1, chloride 104, serum bicarb 11, BUN 54, creatinine 0.89, and blood glucose of 208. Troponin less than 0.012. Stool occult blood was of course positive. Patient has been started on normal saline at 130 ML's per hour. Protonix was also started 40 mg twice a day. Currently, the patient is more hemodynamically stable, and will be monitored in the intensive care unit. On 03/03/2023, the patient remains in the intensive care unit and she is hemodynamically stable on no pressors. Hemoglobin dropped onto 6.9 and she had 2 smears of melanotic stools. No hematemesis. RBC tech scan was done and the patient was unable to finish the study, the patient was unable to lay down due to pain. Nevertheless, there was no identification of the source of bleeding as there was no extravasation. The patient is going to receive another unit of packed RBC. She is currently on IV fluids at 130 mL an hour. She is on normal saline.Rest of the blood work shows an obese, 7.5, hemoglobin is at 6.9 and a platelet count is at 214. BUN is at 47 with a creatinine of 0.6 and sodium levels of 138. She remains nothing by mouth. She remains on IV Protonix. On 03/04/2023, the patient is clinically and hemodynamically stable. Hemoglobin is currently at 8. After receiving her fifth units of packed RBC, hemoglobin came up to 9 and a drop down to 8 this morning. Morning stool was dark this morning , large amounts, ongoing GI bleeding cannot be completely ruled out accordingly.. No bright red blood per rectum. The patient is currently undergoing a capsule endoscopy. No nausea. No emesis. She remains nothing by mouth. She is on room and oxygen with a pulse ox of 98%. She is on IV fluids which is currently running at KVO. She did receive a dose of Lasix yesterday as the patient was getting more congested and she diuresed a total of 3 L. Noted during this current hospitalization, the patient is has received a total of 5 units of packed RBC. No abdominal pain. No hematemesis. BUN is 20 oh with a creatinine of 0.6. Sodium is at 135. Platelet count this 206. On today's evaluation of 2022, I'm seeing the patient for a follow-up. She is on room air oxygen. No further episodes of bleeding since yesterday. The Endoscopy Failed Due To a Signal Issues with Find a Capsule. The patient otherwise is stable hemoglobin of 8.4. She is going to undergo an EGD. This will be done this morning. She is currently nothing by mouth. Rest of the blood work is all stable. Hemodynamically she is stable. She remains on IV Protonix. She has no respiratory difficulties. Normal saline is running at the rate of 20 mL an hour. She is on a sliding scale insulin coverage for blood sugar control. She has not taken any of her other medications. On today's evaluation of 03/06/2023, the patient is stable and the patient is on the medical floor. No signs of any GI bleeding and hemoglobin remained stable. Another capsule endoscopies in progress for now. She is on room air oxygen. She is on no anti-coagulation for now. On her blood work, hemoglobin is stable at 9.1 and a white cell count at 7.5. She was transferred out of the intensive care unit yesterday. EGD was done yesterday and showed no evidence of any active GI bleeding, no signs of any abnormalities other than a small hiatal hernia. Objective - Vital Signs Vital signs: Vital Signs Temp 98.8 F 03/06/23 08:00 Pulse 66 03/06/23 08:00 Resp 18 03/06/23 08:00 BP 129/76 03/06/23 08:00 Pulse Ox 97 03/06/23 08:00 FiO2 Intake & Output 03/05/23 03/06/23 03/06/23 18:59 06:59 18:59 Intake Total 1400 Output Total 701 Balance 699 Intake: IV 200 Sodium Chloride 0.9% 1, 150 000 ml @ 20 mls/hr IV . Q24H [facility] Rx#:[id number] Oral 1200 Output: Urine 700 Urine/Stool Mix 1 Other: Voiding Method Toilet # Voids 2 - Exam GENERAL EXAM: Drowsy, 36-year-old white male , comfortable in no apparent distress. HEAD: Normocephalic and atraumatic EYES: Normal reaction of pupils, equal size. NOSE: Clear with pink turbinates. THROAT: No erythema or exudates. NECK: No masses, no JVD. CHEST: No chest wall deformity. LUNGS: Equal air entry with no crackles, wheeze, rhonchi or dullness. On room air. No conversational dyspnea or accessory muscle use.. CVS: S1 and S2 normal with no audible murmur, regular rhythm. No extra heart sounds ABDOMEN: No hepatosplenomegaly, active bowel sounds, no guarding or rigidity. SPINE: No scoliosis or deformity SKIN: No rashes CENTRAL NERVOUS SYSTEM: No focal deficits, tone is normal in all 4 extremities. EXTREMITIES: There is no peripheral edema, clubbing, or cyanosis. Peripheral pulses are intact. - Labs CBC & Chem 7: 03/06/23 08:32 03/06/23 08:32 Labs: Abnormal Lab Results - Last 24 Hours (Table) 03/05/23 03/05/23 03/05/23 Range/Units 12:03 17:03 21:29 RBC (3.80-5.40) m/uL Hgb (11.4-16.0) gm/dL Hct (34.0-46.0) % RDW (11.5-15.5) % BUN (7-17) mg/dL Glucose (74-99) mg/dL POC Glucose (mg/dL) 122 H 148 H 138 H (70-110) mg/dL 03/06/23 03/06/23 03/06/23 Range/Units 06:07 08:32 08:32 RBC 2.95 L (3.80-5.40) m/uL Hgb 9.1 L (11.4-16.0) gm/dL Hct 28.3 L (34.0-46.0) % RDW 16.7 H (11.5-15.5) % BUN 6 L (7-17) mg/dL Glucose 130 H (74-99) mg/dL POC Glucose (mg/dL) 127 H (70-110) mg/dL 03/06/23 Range/Units 11:28 RBC (3.80-5.40) m/uL Hgb (11.4-16.0) gm/dL Hct (34.0-46.0) % RDW (11.5-15.5) % BUN (7-17) mg/dL Glucose (74-99) mg/dL POC Glucose (mg/dL) 125 H (70-110) mg/dL Assessment and Plan Assessment: recurrent upper GI bleeding, status post transfusion of 4 units PRBCs. Patient recently underwent colonoscopy with snare polypectomy 2 and an esophagogastroduodenoscopy which revealed antral gastritis, moderate size hiatal hernia, and short segment Thrasher's esophagus. Biopsies were taken. There is also suboptimal because of a failed signal from the capsule. Hemoglobin is stable at 8.4. The patient is going to have another EGD done today. The patient received a total of 5 units of packed RBC during this current admission. Hypotension, related to hypovolemia and acute blood loss, status post 5 units of packed cells transfusion Anion gap metabolic acidosis, secondary to above , improving, recovered Diabetes mellitus type 2 Hyperlipidemia Osteoarthritis Morbid obesity, with a BMI of 41 kg/m Plan: No evidence of any active bleeding for now and the hemoglobin is stable EGD was noted Repeat Endoscopy Keep the patient off anti-coagulation Given a total of 5 units of packed RBC during this current admission Continue IV Protonix The CAT scan of the abdomen and pelvis was done and it showed focal peristalsis versus narrowing of the fungal body junction in addition to moderate degree of extrahepatic periductal dilatation postcholecystectomy and there was no acute intra-abdominal process. General surgery is on the case RBC tech scan was nondiagnostic Keep the patient intensive care unit. Monitor hemoglobin. Hemoglobin stable at 8.4 We'll continue to follow
--- NOTE | 2023-03-06 14:51 | P.PN ---
Subjective Progress Note Date: 03/06/23 CHIEF COMPLAINT: GI bleed HISTORY OF PRESENT ILLNESS: Patient is coming out of the ICU and on a regular m edical floor. She is undergoing a capsule endoscopy today. Her bowel movements from yesterday were reported as brown. She denies any abdominal pain. EGD showed a small hiatal hernia and no evidence for upper GI bleed. Afebrile. Vital stable. Hgb is up from 8.4-9.1 PHYSICAL EXAM: VITAL SIGNS: Reviewed. GENERAL: Well-developed in no acute distress. ABDOMEN: Soft. Nondistended. Nontender. NEUROLOGIC: Alert and oriented. Cranial nerves II through XII grossly intact. ASSESSMENT: 1. Acute GI bleed with melanotic stools 2. Acute blood loss anemia 3. Recent EGD and colonoscopy with results showing gastritis, moderate hiatal hernia, Thrasher's esophagitis, colon polyps and diverticular disease 4. Hypotension improved PLAN: -Patient undergoing capsule Endoscopy. Dr. Horan to read results on Thursday -ok to advance diet to regular after Endoscopy Completed -Continue to monitor hemoglobin -Continue IV Protonix Physician Profiling Machine Operator note has been reviewed by physician. Signing provider agrees with the documented findings, assessment, and plan of care. Objective - Vital Signs Vital signs: Vital Signs Temp 98.8 F 03/06/23 08:00 Pulse 66 03/06/23 08:00 Resp 18 03/06/23 08:00 BP 129/76 03/06/23 08:00 Pulse Ox 97 03/06/23 08:00 FiO2 Intake & Output 03/05/23 03/06/23 03/06/23 18:59 06:59 18:59 Intake Total 1400 Output Total 701 Balance 699 Intake: IV 200 Sodium Chloride 0.9% 1, 150 000 ml @ 20 mls/hr IV . Q24H [facility] Rx#:[id number] Oral 1200 Output: Urine 700 Urine/Stool Mix 1 Other: Voiding Method Toilet # Voids 2 - Labs CBC & Chem 7: 03/06/23 08:32 03/06/23 08:32 Labs: Abnormal Lab Results - Last 24 Hours (Table) 03/05/23 03/05/23 03/06/23 Range/Units 17:03 21:29 06:07 RBC (3.80-5.40) m/uL Hgb (11.4-16.0) gm/dL Hct (34.0-46.0) % RDW (11.5-15.5) % BUN (7-17) mg/dL Glucose (74-99) mg/dL POC Glucose (mg/dL) 148 H 138 H 127 H (70-110) mg/dL 03/06/23 03/06/23 03/06/23 Range/Units 08:32 08:32 11:28 RBC 2.95 L (3.80-5.40) m/uL Hgb 9.1 L (11.4-16.0) gm/dL Hct 28.3 L (34.0-46.0) % RDW 16.7 H (11.5-15.5) % BUN 6 L (7-17) mg/dL Glucose 130 H (74-99) mg/dL POC Glucose (mg/dL) 125 H (70-110) mg/dL
[2023-03-06 14:55] VITALS: BMI 42.7
[2023-03-06 16:32] LABS: Glucose,Whole Blood 97 mg/dL (70-110)
[2023-03-06] MEDS: FLUoxetine HCL 20 MG CAP PO SCH (17:54)
[2023-03-06 20:47] LABS: Glucose,Whole Blood 133 mg/dL (70-110)
[2023-03-06] MEDS: LATANOPROST 0.005% OPHTH DROPS 2.5 ML BTL BOTH EYES SCH (21:26)
[2023-03-06] MEDS: ATORVASTATIN 40 MG TAB PO SCH (21:26)
[2023-03-06 23:39] VITALS: RESP 18
[2023-03-07 05:58] LABS: Glucose,Whole Blood 120 mg/dL (70-110)
[2023-03-07] MEDS: INSULIN ASPART (NovoLOG) 100 UNIT/ML VIAL SQ SCH (06:11)
[2023-03-07] MEDS: PANTOPRAZOLE 40 MG TABLET PO SCH (06:14)
[2023-03-07 07:43] VITALS: BP 120/77; PULSE 69; TEMP 98.2
[2023-03-07 08:04] LABS: Anisocytosis Slight; Basophils % (A) 0 %; Eosinophils % (A) 0 %; HCT 29.8 % (34.0-46.0); HGB 9.5 gm/dL (11.4-16.0); Hypochromasia Slight; Lymphocytes # (A) 1.3 k/uL (1.0-4.8); Lymphocytes % (A) 17 %; MCH 30.6 pg (25.0-35.0); MCV 95.5 fL (80.0-100.0); Macrocytosis Slight; Mean Platelet Volume 7.5; Monocytes # (A) 0.4 k/uL (0-1.0); Monocytes % (A) 6 %; Neutrophils # (A) 5.7 k/uL (1.3-7.7); Neutrophils % (A) 75 %; Platelet Count 371 k/uL (150-450); RBC 3.12 m/uL (3.80-5.40); RDW 16.3 % (11.5-15.5); WBC 7.6 k/uL (3.8-10.6)
[2023-03-07 08:13] LABS: African American GFR (CKD) >90 (>60 ml/min/1.73 sqM); Anion Gap 5 mmol/L; Blood Urea Nitrogen 7 mg/dL (7-17); Calcium 8.5 mg/dL (8.4-10.2); Carbon Dioxide 27 mmol/L (22-30); Chloride 105 mmol/L (98-107); Glucose 140 mg/dL (74-99); Non-African American GFR(CKD) 83 (>60 ml/min/1.73 sqM); Potassium 3.8 mmol/L (3.5-5.1); Sodium 137 mmol/L (137-145)
--- NOTE | 2023-03-07 10:10 | P.PN ---
Subjective Progress Note Date: 03/07/23 Principal diagnosis: Anemia Patient doing well today. No pain. Tolerating diet. No nausea or vomiting. No rectal bleeding. Have her capsule endoscopy yesterday. Those results are pending. She would like to go home. Objective - Vital Signs Vital signs: Vital Signs Temp 98.2 F 03/07/23 06:50 Pulse 69 03/07/23 06:50 Resp 18 03/07/23 06:50 BP 120/77 03/07/23 06:50 Pulse Ox 98 03/07/23 08:19 FiO2 Intake & Output 03/06/23 03/07/23 03/07/23 18:59 06:59 18:59 Intake Total 1080 Balance 1080 Weight 116.5 kg Intake: Oral 1080 Other: Voiding Method Toilet # Voids 3 1 - Exam Abdomen: Soft, nontender, nondistended - Labs CBC & Chem 7: 03/07/23 07:49 03/07/23 07:49 Labs: Abnormal Lab Results - Last 24 Hours (Table) 03/06/23 03/06/23 03/07/23 Range/Units 11:28 20:45 05:56 RBC (3.80-5.40) m/uL Hgb (11.4-16.0) gm/dL Hct (34.0-46.0) % RDW (11.5-15.5) % Glucose (74-99) mg/dL POC Glucose (mg/dL) 125 H 133 H 120 H (70-110) mg/dL 03/07/23 03/07/23 Range/Units 07:49 07:49 RBC 3.12 L (3.80-5.40) m/uL Hgb 9.5 L (11.4-16.0) gm/dL Hct 29.8 L (34.0-46.0) % RDW 16.3 H (11.5-15.5) % Glucose 140 H (74-99) mg/dL POC Glucose (mg/dL) (70-110) mg/dL Assessment and Plan (1) Anemia Narrative/Plan: Patient doing well at this time. Await capsule endoscopy results. Diet as tolerated. Stable for discharge from our standpoint. Current Visit: Yes Status: Acute Code(s): D64.9 - ANEMIA, UNSPECIFIED SNOMED Code(s): 432430596
[2023-03-07] MEDS: OLANZapine 5 MG TAB PO SCH (10:16)
[2023-03-07] MEDS: lamoTRIgine 100 MG TAB PO SCH (10:16)
[2023-03-07] MEDS: LACTATED RINGERS 1,000 ML IV SCH (10:16)
[2023-03-07] MEDS: amLODIPine 5 MG TAB PO SCH (10:16)
[2023-03-07] MEDS: FLUoxetine HCL 20 MG CAP PO SCH (10:16)
[2023-03-07] MEDS: DAPAGLIFLOZIN PROPANEDIOL 5 MG TABLET PO SCH (10:16)
[2023-03-07 11:09] LABS: Glucose,Whole Blood 125 mg/dL (70-110)
--- NOTE | 2023-03-07 11:36 | P.DS ---
Providers Date of admission: 03/01/23 16:50 Expected date of discharge: 03/07/23 Attending physician: Gavin Watkins Consults: 03/01/23 16:50 Consult Physician Urgent Consulting Provider: Elian Matos Consult Reason/Comments: anemia Do you want consulting provider notified?: Yes 03/01/23 23:08 Consult Physician Routine Consulting Provider: He Gresham Consult Reason/Comments: GI Bleed - ICU management Do you want consulting provider notified?: Already Contacted Primary care physician: Cheikh Mora - Discharge Diagnosis(es) (1) Acute GI bleeding Current Visit: No Status: Acute (2) Melena Current Visit: No Status: Acute (3) Anemia Current Visit: Yes Status: Acute (4) Hypothyroidism, unspecified Current Visit: Yes Status: Acute (5) Bipolar 1 disorder Current Visit: Yes Status: Acute (6) Type 2 diabetes mellitus with other specified complication Current Visit: Yes Status: Acute (7) Diabetes Current Visit: No Status: Acute Hospital Course: 03/03/2023: This is a 77-year-old female admitted with recurrent GI bleed. Ascending colon biopsy of 02/27/2023 reporting progress of adenoma with foci of high-grade dysplasia. Sigmoid colon biopsy reported tubular adenoma and intraluminal contents. 2 small melanotic smears today. Denies abdominal pain. Hemoglobin dropped to 6.9, received another unit of packed RBCs today. Continues on IV fluid hydration with renal function stable. Tagged RBC scan nondiagnostic; unfortunately patient unable to complete tests secondary to chronic back pain. Vital signs stable, off pressors. 03/04/2023 received 1 unit of packed RBCs yesterday, hemoglobin increase this morning up to 8. Platelets 206 Patient had a large tarry bowel movement this morning. Repeat CBC pending. BUN 21, creatinine 0.66. Lopressor stable. Small bowel capsule endoscopy in progress today. Scheduled for EGD tomorrow. 03/05/2023 capsule study reported as failure, possibly repeat. NPO, scheduled for EGD. Hemoglobin remained stable at 8.4 with no further bleeding reported today. Patient did have a large dark green bowel movement last night. Denies abdominal pain.Maintaining O2 sats in the 90s on room air. 03/06/2023: patient undergoing pill endoscopy today as last one had failed to work. She is s/p EGD with no significant findings.Hb stable now at 9.1. no more black tarry stools. patient feeling more herself No chest pain, sob, nausea or vomiting. SHe is getting up unassisited 03/07/2023: Patient's hemoglobin is now 9.5. She feels her normal self. She is able to ambulate with a walker and a cane without much assistance. She's been cleared by general surgery. GI indicated her colonoscopy results will not be back until Thursday, but they indicate cleared her for discharge as well. Patient Condition at Discharge: Fair Plan - Discharge Summary Discharge Rx Participant: Yes New Discharge Prescriptions: New Multivit/Iron Sulf/Folic Acid [Multivitamin with Iron] 1 each PO DAILY #30 tab Continue metFORMIN HCL [Glucophage] 1,000 mg PO BID@0800,1600 lamoTRIgine 150 mg PO BID@0800,1600 FLUoxetine HCL [PROzac] 20 mg PO DAILY@1600 Atorvastatin [Lipitor] 40 mg PO HS Pantoprazole [Protonix] 40 mg PO DIRECTED Semaglutide [Ozempic] 1 mg SQ KRISHNA amLODIPine [Norvasc] 5 mg PO DAILY OLANZapine [ZyPREXA] 5 mg PO DAILY Empagliflozin [Jardiance] 10 mg PO DAILY Latanoprost [Latanoprost 0.005%] 1 drop BOTH EYES HS Discharge Medication List lamoTRIgine 150 mg PO BID@0800,1600 05/09/15 [History] metFORMIN HCL [Glucophage] 1,000 mg PO BID@0800,1600 05/09/15 [History] Atorvastatin [Lipitor] 40 mg PO HS 02/22/23 [History] Empagliflozin [Jardiance] 10 mg PO DAILY 02/22/23 [History] FLUoxetine HCL [PROzac] 20 mg PO DAILY@1600 02/22/23 [History] OLANZapine [ZyPREXA] 5 mg PO DAILY 02/22/23 [History] Semaglutide [Ozempic] 1 mg SQ KRISHNA 02/22/23 [History] amLODIPine [Norvasc] 5 mg PO DAILY 02/22/23 [History] Latanoprost [Latanoprost 0.005%] 1 drop BOTH EYES HS 03/01/23 [History] Pantoprazole [Protonix] 40 mg PO DIRECTED 03/01/23 [History] Multivit/Iron Sulf/Folic Acid [Multivitamin with Iron] 1 each PO DAILY #30 tab 03/07/23 [Rx] Follow up Appointment(s)/Referral(s): Cheikh Mora MD [Primary Care Provider] - 1-2 days Basilia Horan MD [STAFF PHYSICIAN] - 1 Week Patient Instructions/Handouts: Gastrointestinal Bleeding (DC) Discharge Disposition: HOME SELF-CARE
[2023-03-08] MEDS ORDERED: NON FORMULARY DRUG (Semaglutide [Ozempic] 1 MG/0.75 ML Each) SQ SCH (09:00)
--- NOTE | 2023-03-11 17:17 | CDI ---
Documentation Clarification Form Date: 03/11/2023 04:54:02 PM From: Felicity Peraza Admit Date: 03/01/2023 04:50:00 PM Patient Name: Zulema Felix Visit Number: [id number] Discharge Date: 03/07/2023 01:06:00 PM ATTENTION: The Clinical Documentation Specialists (CDI) and [facility] Coding Staff appreciate your assistance in clarifying documentation. Please respond to the clarification below the line at the bottom and electronically sign. The CDI & [facility] Coding staff will review the response and follow-up if needed. Please note: Queries are made part of the Legal Health Record. If you have any questions, please contact the author of this message via ITS. Dr. Aman Mckeon Hypotension related to hypovolemia and acute blood loss is documented in the Consult Note 03/02, and Progress Notes 03/03 - 03/06. Please clarify if there is an additional diagnosis and/or clinical significance related to the findings. Patient history/risk factors: Patient is a 77 year old female with a past medical history of DM, HLD, HTN, Hypothyroidism, and obesity. She was recently hospitalized for GI bleed, and was found to have antral gastritis, moderate size hiatal hernia, and a short segment Barretts esophagus. Patient was discharged 02/27 and returned 03/01 expressing severe weakness and syncope. Clinical Indicators: Patient presented with severe weakness and dark tarry stools. HGB on admit was 6.8L she received 1 unit PRBC but HGB dropped down to 5.7L. Patient experienced hypotension which required central line placement and norepinephrine infusion. Diagnosed with hypotension related to hypovolemia and acute blood loss requiring 5 units of PRBC and fluid resuscitation and low dose of norepinephrine. Vitals: 03/01/23: T 97.0, P 87, RR 10, BP 82/28 Treatment: 5 units PRBC, IV fluid resuscitation, norepinephrine infusion, small bowel endocapsule, and EGD Please clarify if there is an additional diagnosis and/or clinical significance related to the above: [ x] Hypovolemic Shock [ ] Hemorrhagic Shock [ ] Other, please specify [ ] Unable to determine MTDD
--- NOTE | 2023-03-13 10:22 | CDI ---
Documentation Clarification Form Date: 03/13/2023 From: Katelynn Vickers Phone: [phone] Admit Date: 03/01/2023 04:50:00 PM Patient Name: Zulema Felix Visit Number: [id number] Discharge Date: 03/07/2023 01:06:00 PM ATTENTION: The Clinical Documentation Specialists (CDI) and [facility] Coding Staff appreciate your assistance in clarifying documentation. Please respond to the clarification below the line at the bottom and electronically sign. The CDI & [facility] Coding staff will review the response and follow-up if needed. Please note: Queries are made part of the Legal Health Record. If you have any questions, please contact the author of this message via ITS. Dr. Aman Mckeon Your patient had elevated WBC, elevated heart rate and respiratory rate on admission. Based on this information and the findings below, is there an additional diagnosis that is clinically appropriate for this patient? History/Risk Factors: 77yo was recently admitted for a GI bleed and returned to the ER this admission for anemia and recurrent GI bleed Clinical Indicators: Per medical registrar assessment in the ICU, the pt complained of nausea, weakness, dizziness Labs 03/01: WBC 16.5-18.8, Hgb 6.8-5.7, pos stool occult blood Labs 03/02: WBC 11.0-12.5, Hgb 11.0-12.5-6.8 VS 03/01: 2215 - HR 107, RR 29, BP 78/57, 2315 HR 100, RR 27, BP 57/37 VS 03/02: 0440 HR 78, RR 22, BP 118/68 Treatment: IV fluid bolus, 5u PRBC (03/01-03/03), norepinephrine gtt, Protonix IV Is there an additional diagnosis that is clinically appropriate for this patient? [ ] SIRS, due to anemia and recurrent GI bleed without acute organ dysfunction [ x ] SIRS, due to anemia and recurrent GI bleed, with hypovolemic shock and anion gap metabolic acidosis [ ] Other, please specify [ ] Unable to determine SIRS Criteria: 2 or more of the following may indicate SIRS -Temperature < 96.8F(36C) or > 101.0F (38.3C) -Heart Rate > 90 bpm -Respiratory Rate > 20 breaths/min or PaCO2 < 32 mmHg -White Blood Cell Count > 12,000 or < 4,000 cells/mm3 or > 10% bands (Template Last Revised: September 2020) MTD
== END 2023-03-07 13:06 | disposition home health service (06) | DRG 811 ==
LOC: EC 14:21 → 3SCARD 16:50 → 2SICU 03-02 00:40 → 4SSUR 03-05 21:39
PROVIDERS: ADMIT Family Medicine; ATTEND Family Medicine
PROC: 30233N1 Transfusion of Nonautologous Red Blood Cells into Peripheral Vein, Percutaneous Approach (ICD-10-PCS; 2023-03-01)
PROC: 02HV33Z Insertion of Infusion Device into Superior Vena Cava, Percutaneous Approach (ICD-10-PCS; 2023-03-02)
PROC: 3E043XZ Introduction of Vasopressor into Central Vein, Percutaneous Approach (ICD-10-PCS; 2023-03-02)
PROC: 0DJ08ZZ Inspection of Upper Intestinal Tract, Via Natural or Artificial Opening Endoscopic (ICD-10-PCS; principal; 2023-03-05 10:55)
PROC: 0DJ07ZZ Inspection of Upper Intestinal Tract, Via Natural or Artificial Opening (ICD-10-PCS; 2023-03-06)
PROC: 05HD33Z Insertion of Infusion Device into Right Cephalic Vein, Percutaneous Approach (ICD-10-PCS; 2023-03-06)
DX: D62 Acute posthemorrhagic anemia (principal); K29.61 Other gastritis with bleeding; R65.11 Systemic inflammatory response syndrome (SIRS) of non-infectious origin with acute organ dysfunction; R57.1 Hypovolemic shock; Z68.41 Body mass index [BMI] 40.0-44.9, adult; E87.20 Acidosis, unspecified; T38.3X5A Adverse effect of insulin and oral hypoglycemic [antidiabetic] drugs, initial encounter; K22.70 Barrett's esophagus without dysplasia; K57.30 Diverticulosis of large intestine without perforation or abscess without bleeding; E11.9 Type 2 diabetes mellitus without complications; E86.1 Hypovolemia; I95.9 Hypotension, unspecified; E78.5 Hyperlipidemia, unspecified; I10 Essential (primary) hypertension; E03.9 Hypothyroidism, unspecified; M19.90 Unspecified osteoarthritis, unspecified site; K44.9 Diaphragmatic hernia without obstruction or gangrene; D12.2 Benign neoplasm of ascending colon; N28.9 Disorder of kidney and ureter, unspecified; H40.9 Unspecified glaucoma; G89.29 Other chronic pain; M54.9 Dorsalgia, unspecified; F31.9 Bipolar disorder, unspecified; Z53.8 Procedure and treatment not carried out for other reasons; E66.01 Morbid (severe) obesity due to excess calories; Z71.3 Dietary counseling and surveillance; Z79.899 Other long term (current) drug therapy; Z79.84 Long term (current) use of oral hypoglycemic drugs; Z79.82 Long term (current) use of aspirin
CPT/HCPCS: 36410; 36415; 36430; 43235; 71045; 74177; 76937; 78278; 80048; 80053; 82272; 82330; 83735; 84132; 84484; 85025; 85027; 85610; 85730; 86850; 86900; 86901; 86920; 91110; 93005; 94760; 96361; 96374; 96376; 99291

== ENCOUNTER 2023-05-08 05:53 | Day surgery (SDC) | payer MEDICARE, OTHER ==
[2023-05-06 13:09] VITALS: BMI 38.2
[~2023-05-08 05:53] MED LIST changes: -DEXAMETHASONE SOD PHOSPHATE 10 MG/ML 1 ML VIAL IV ONE; -HEPARIN SODIUM,PORCINE 5,000 UNIT/ML 1 ML VIAL SQ ONE; -MIDAZOLAM 2 MG/2 ML VIAL IV PRN; -MORPHINE SULFATE 4 MG/ML SYRINGE IV PRN; -ONDANSETRON 4 MG/2 ML VIAL IVP ONE; -Pre Op ABX Message 1 EACH MISC MISCELLANE ONE
[2023-05-08 06:56] VITALS: TEMP 98.3
[2023-05-08] MEDS ORDERED: PROPOFOL 10 MG/ML 20 ML VIAL IV ONE (07:03)
[2023-05-08 07:05] LABS: Glucose,Whole Blood 110 mg/dL (70-110)
[2023-05-08 08:24] VITALS: RESP 16
--- NOTE | 2023-05-08 08:31 | P.PCN ---
Date of Procedure: 05/08/23 Procedure(s) Performed: BRIEF HISTORY: Patient is a 77-year-old pleasant white female scheduled for an elective colonoscopy as a part of follow-up of large ascending colon polyp that was noted on a colonoscopy in February 2023. She was noted to have a 3 cm large ascending colon polyp that was partially removed and complete polypectomy could not be performed because of technical difficulties. She is scheduled for repeat surveillance colonoscopy today. PROCEDURE PERFORMED: Colonoscopy with snare polypectomy, however plasma coagulation tattooing with Radha ink. PREOPERATIVE DIAGNOSIS: . Follow-up Large ascending colon polyp. IV sedation per Anesthesia. PROCEDURE: After informed consent was obtained, the patient, was brought into the endoscopy unit. IV sedation was administered by Anesthesia under continuous monitoring. Digital rectal examination was normal. Initially the Olympus CF-160 flexible video colonoscope was then inserted in the rectum, gradually advanced into the cecum with extreme difficulty. difficulty. Careful examination was performed as the scope was gradually being withdrawn. Ileocecal valve and the appendiceal orifice were visualized and appeared normal. Prep was excellent. Mucosa of the cecum, appeared normal. In the ascending colon just proximal to the ileocecal valve there was a 2 cm residual polyp identified and initially there was partially removed with the snare polypectomy. Despite multiple attempts and because of technical difficulty and was very difficult to remove this polyp that was performed with Radha ink. After the attempted again to remove the polyp using a snare and finally I was able to completely remove the polyp and following this I will plasma coagulation was performed in the base of the polyp. In the hepatic flexure there was a 1 cm polyp removed by snare polypectomy. In the transverse colon there was another 1 cm polyp by snare polypectomy. In the sigmoid: 5 mm polyp removed by snare polypectomy. There was another 1 cm polyp in the sigmoid colon and despite multiple attempts I was not able to locate this polyp and hence this could not be removed. Rest of the sigmoid colon and rectum appeared normal ascendin. Retroflexion was performed in the rectum and no lesions were seen. The patient tolerated the procedure well. IMPRESSION: 2 cm residual broad-based ascending colon polyp status post piecemeal snare polyp rectum he followed by argon plasma coagulation and tattooing with Radha ink almost complete polypectomy accomplished 1 cm hepatic flexure polyp status post polypectomy 5 mm and 1 cm transverse colon polyp status post polypectomy RECOMMENDATIONS: Findings of this examination were discussed with the patient as well as a family. She was advised to follow with the biopsy results and will plan a repeat colonoscopy in one year..
[2023-05-08 08:44] VITALS: BP 167/74; PULSE 74
== END 2023-05-08 09:06 | disposition home or self-care (01) ==
LOC: ORWHC2ENDO 05:53
PROVIDERS: ATTEND Internal Medicine Gastroenterology
DX: D12.3 Benign neoplasm of transverse colon (principal); D12.2 Benign neoplasm of ascending colon; D12.5 Benign neoplasm of sigmoid colon; E78.5 Hyperlipidemia, unspecified; I12.9 Hypertensive chronic kidney disease with stage 1 through stage 4 chronic kidney disease, or unspecified chronic kidney disease; E11.22 Type 2 diabetes mellitus with diabetic chronic kidney disease; N18.9 Chronic kidney disease, unspecified; E66.9 Obesity, unspecified; F31.9 Bipolar disorder, unspecified; Z79.899 Other long term (current) drug therapy; Z86.73 Personal history of transient ischemic attack (TIA), and cerebral infarction without residual deficits; Z99.2 Dependence on renal dialysis; Z79.84 Long term (current) use of oral hypoglycemic drugs; Z68.38 Body mass index [BMI] 38.0-38.9, adult
CPT/HCPCS: 88305; 45385; 45388; J2704

== ENCOUNTER 2023-08-15 13:48 | Emergency (ER) | payer MEDICARE, OTHER ==
--- NOTE | 2023-08-15 14:01 | ED ---
General Adult HPI - General Source: patient, RN notes reviewed Mode of arrival: ambulatory Limitations: no limitations <Rose Sheppard - Last Filed: 08/15/23 14:01> - General Source: patient, RN notes reviewed, old records reviewed <Donald Barboza - Last Filed: 08/15/23 20:09> - General Stated complaint: back pain Time Seen by Provider: 08/15/23 14:00 - History of Present Illness Initial comments: 78-year-old female present emergency department for evaluation of continuous nausea since this morning. She reports that she had some low back pain but took some Tylenol and this improved. She also admits to increased fatigue. There is also concern for elevated blood pressure and elevated blood sugar. (Rose Sheppard) Patient is a 78-year-old female who presents emergency department complaining of nausea and vomiting. Patient has been having symptoms of left-sided abdominal discomfort for couple of days but began having nausea since this morning. Had 1 episode of nonbilious nonbloody emesis. States the pain is primarily in the left flank. No dysuria or hematuria. No diarrhea or constipation. No chest pain or shortness of breath. Has no other acute complaints at this time. Presents for further evaluation at this time. (Donald Barboza) - Related Data Home Medications Medication Instructions Recorded Confirmed lamoTRIgine 150 mg PO BID@0800,1600 05/09/15 05/06/23 metFORMIN HCL [Glucophage] 1,000 mg PO BID@0800,1600 05/09/15 05/06/23 Atorvastatin [Lipitor] 40 mg PO HS 02/22/23 05/06/23 FLUoxetine HCL [PROzac] 20 mg PO DAILY@1600 02/22/23 05/06/23 OLANZapine [ZyPREXA] 5 mg PO DAILY 02/22/23 05/06/23 Semaglutide [Ozempic] 1 mg SQ KRISHNA 02/22/23 05/06/23 Latanoprost [Latanoprost 0.005%] 1 drop BOTH EYES HS 03/01/23 05/08/23 Pantoprazole [Protonix] 40 mg PO DAILY 03/01/23 05/06/23 Aspirin [Adult Low Dose Aspirin EC] 81 mg PO DAILY 05/06/23 05/06/23 Ferrous Sulfate [Feosol] 325 mg PO DAILY 05/06/23 05/06/23 Previous Rx's Medication Instructions Recorded Multivit/Iron Sulf/Folic Acid 1 each PO DAILY #30 tab 03/07/23 [Multivitamin with Iron] Tamsulosin [Flomax] 0.4 mg PO DAILY 14 Days #14 cap 08/15/23 Allergies Allergy/AdvReac Type Severity Reaction Status Date / Time No Known Allergies Allergy Verified 08/15/23 13:55 Review of Systems ROS Other: All systems not noted in ROS Statement are negative. <Rose Sheppard - Last Filed: 08/15/23 14:01> ROS Other: All systems not noted in ROS Statement are negative. <Donald Barboza - Last Filed: 08/15/23 20:09> ROS Statement: Those systems with pertinent positive or pertinent negative responses have been documented in the HPI. Review of Systems: CONST: Denies fever EYES: Denies blurry vision ENT: Denies nasal congestion C/V: Denies Chest pain RESP: Denies shortness of breath GI: Endorses left-sided abdominal pain. : Denies dysuria SKIN: Denies rash. MSK: Denies joint pain. 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 . History of Any Multi-Drug Resistant Organisms: None Reported Past Surgical History: Cholecystectomy, Hernia Repair, Tonsillectomy Additional Past Surgical History / Comment(s): hernia repair X 3 (mesh rejection) left shoulder cortisone injection Past Anesthesia/Blood Transfusion Reactions: No Reported Reaction Past Psychological History: Bipolar, Depression Smoking Status: Never smoker Past Alcohol Use History: None Reported Past Drug Use History: None Reported - Past Family History Mother Family Medical History: Diabetes Mellitus <Rose Sheppard - Last Filed: 08/15/23 14:01> General Exam Limitations: no limitations <Rose Sheppard - Last Filed: 08/15/23 14:01> <Donald Barboza - Last Filed: 08/15/23 20:09> - General Exam Comments Initial Comments: Visual Physical Exam Vital signs reviewed General: Well-appearing, nontoxic, no acute distress. Head: Normocephalic, atraumatic Eyes: PERRLA, EOMI ENT: Airway patent Chest: Nonlabored breathing Skin: No visual rash, normal skin tone Neuro: Alert and oriented 3 Musculoskeletal: No gross abnormalities (Rose Sheppard) General: Appears in mild discomfort secondary to abdominal discomfort. HEAD: Normal with no signs of head trauma. EYES: PERRLA, EOMI, conjunctiva normal, no discharge. ENT: Hearing grossly intact, normal oropharynx. Mildly dry mucous membranes. RESPIRATORY: Clear breath sounds bilaterally. No wheezes, rales, or rhonchi. C/V: Regular rate and rhythm. S1 and S2 auscultated, no edema, peripheral pulses 2+ and intact throughout ABD: Abd is soft, nondistended. Tender to palpation over the left flank and left lower quadrant. No guarding. No rebound tenderness. No peritoneal signs. EXT: Normal range of motion, no obvious deformity SKIN: No rashes or lesions observed on exposed skin. NEURO: Alert and oriented x 4. (Donald Barboza) Course Vital Signs 08/15/23 08/15/23 13:51 19:30 Temperature 98.2 F 98.3 F Pulse Rate 72 68 Respiratory 20 17 Rate Blood Pressure 186/90 110/50 O2 Sat by Pulse 97 98 Oximetry Medical Decision Making <Rose Sheppard - Last Filed: 08/15/23 14:01> - Lab Data Result diagrams: 08/15/23 14:34 08/15/23 14:34 - EKG Data -: EKG Interpreted by Ma <Donald Barboza - Last Filed: 08/15/23 20:09> - Medical Decision Making Quick note preformed by Rose Sheppard PA-C (Rose Sheppard) Was pt. sent in by a medical professional or institution ([facility], [facility], urgent ca re, hospital, or usp...) When possible be specific @ -No Did you speak to anyone other than the patient for history (EMS, parent, family, police, friend...)? What history was obtained from this source @ -No Did you review nursing and triage notes (agree or disagree)? Why? @ -I reviewed and agree with nursing and triage notes Were old charts reviewed (outside hosp., previous admission, EMS record, old EKG, old radiological studies, urgent care reports/EKG's, usp records)? Report findings @ -Old charts reviewed Differential Diagnosis (chest pain, altered mental status, abdominal pain women, abdominal pain men, vaginal bleeding, weakness, fever, dyspnea, syncope, heada ирина, dizziness, GI bleed, back pain, seizure, CVA, palpatations, mental health, musculoskeletal)? @ -Differential Abdominal Pain Women: Appendicitis, Cholecystitis, diverticulosis, ischemic bowel, pancreatitis, hepatitis, UTI, gastroenteritis, AAA, incarcerated hernia, bowel obstruction, constipation, inflammatory bowel, hepatitis, peptic ulcer disease, splenic infarction, perforated viscus, vulvitis, ovarian torsion, PID, kidney stone, placenta abruption, this is not meant to be an all-inclusive list EKG interpreted by me (3pts min.). @ -As above X-rays interpreted by me (1pt min.). @ -None done CT interpreted by me (1pt min.). @ -CT abdomen pelvis reveals a left-sided ureteral lithiasis with mild left hydronephrosis. Kidney stone is 7 mm in size. U/S interpreted by me (1pt. min.). @ -None done What testing was considered but not performed or refused? (CT, X-rays, U/S, labs)? Why? @ -None What meds were considered but not given or refused? Why? @ -None Did you discuss the management of the patient with other professionals (professionals i.e. , PA, STEWARD[employer]STEW[employer]ESS [employer]K, lab, RT, psych nurse, geriatric social worker, dry cans back tender, teacher, chief security and safety officer, case liner)? Give summary @ -No Was smoking cessation discussed for >3mins.? @ -No Was critical care preformed (if so, how long)? @ -No Were there social determinants of health that impacted care today? How? (Homelessness, low income, unemployed, alcoholism, drug addiction, transportation, low edu. Level, literacy, decrease access to med. care, mcc, rehab)? @ -No Was there de-escalation of care discussed even if they declined (Discuss DNR or withdrawal of care, Hospice)? DNR status @ -No What co-morbidities impacted this encounter? (DM, HTN, Smoking, COPD, CAD, Cancer, CVA, ARF, Chemo, Hep., AIDS, mental health diagnosis, sleep apnea, morbid obesity)? @ -None Was patient admitted / discharged? Hospital course, mention meds given and route, prescriptions, significant lab abnormalities, going to OR and other pertinent info. @ -Based on the patient's presentation and physical exam, presents to the emergency department complaining of abdominal pain. Originally presented as a quick note. Labs have been completed and are remarkable for a mild leukocytosis of 13. Remainder of the labs unremarkable. Patient will be symptomatically treated with IV fluids, analgesia meds, nausea medications. We obtained CT imaging of the abdomen pelvis. She was in agreement this plan. Patient CT imaging reveals a 7 mm ureteral lithiasis on the left side. Mild hydronephrosis. On reevaluation, patient is still having mild pain and nausea. She will be we administered medications. We did discuss her workup. Does not appear to be a septic stone. The stone should pass on its own. She expressed understanding. On reevaluation, nausea and pain has resolved. Patient will be discharged home with a prescription for Flomax as well as ODT Zofran and Tylenol 3. States she does not like to take Motrin. Recommended follow-up with urology if symptoms persist but to start with PCP. She will be given a strainer for home. She was in agreement this plan. Strict return precautions discussed. I will provide the patient with a prescription for Flomax, ODT Zofran, Tylenol 3. I instructed the patient to follow up with their PCP in the next 1-3 days. I provided contact information for follow up with urology. I explained that the patient should return to the emergency department if they experience any worsening symptoms. Strict return precautions were discussed with the patient. The patient expressed understanding of these instructions. I answered all questions that the patient had. The patient was discharged home in good co ndition with their prescriptions and follow up information. Undiagnosed new problem with uncertain prognosis? @ -No Drug Therapy requiring intensive monitoring for toxicity (Heparin, Nitro, Insulin, Cardizem)? @ -No Were any procedures done? @ -No Diagnosis/symptom? @ -Left-sided ureterolithiasis Acute, or Chronic, or Acute on Chronic? @ -Acute Uncomplicated (without systemic symptoms) or Complicated (systemic symptoms)? @ -Complicated Side effects of treatment? @ -No Exacerbation, Progression, or Severe Exacerbation? @ -No Poses a threat to life or bodily function? How? (Chest pain, [place], CA, pneumonia, PE, COPD, DKA, ARF, appy, cholecystitis, CVA, Diverticulitis, Homicidal, Suicidal, threat to staff... and all critical care pts) @ -Unlikely (Donald Barboza) - Lab Data Lab Results 08/15/23 08/15/23 08/15/23 Range/Units 14:34 14:34 14:34 WBC 13.0 H (3.8-10.6) k/uL RBC 4.70 (3.80-5.40) m/uL Hgb 13.0 (11.4-16.0) gm/dL Hct 40.4 (34.0-46.0) % MCV 86.0 (80.0-100.0) fL MCH 27.6 (25.0-35.0) pg MCHC 32.1 (31.0-37.0) g/dL RDW 18.1 H (11.5-15.5) % Plt Count 425 (150-450) k/uL MPV 7.7 Neutrophils % 94 % Lymphocytes % 4 % Monocytes % 2 % Eosinophils % 0 % Basophils % 0 % Neutrophils # 12.1 H (1.3-7.7) k/uL Lymphocytes # 0.6 L (1.0-4.8) k/uL Monocytes # 0.2 (0-1.0) k/uL Eosinophils # 0.0 (0-0.7) k/uL Basophils # 0.0 (0-0.2) k/uL Anisocytosis Slight PT 10.7 (10.0-12.5) sec INR 1.0 (<1.2) APTT 23.8 (22.0-30.0) sec Sodium (137-145) mmol/L Potassium (3.5-5.1) mmol/L Chloride (98-107) mmol/L Carbon Dioxide (22-30) mmol/L Anion Gap mmol/L BUN (7-17) mg/dL Creatinine (0.52-1.04) mg/dL Est GFR (CKD-EPI)AfAm (>60 ml/min/1.73 sqM) Est GFR (CKD-EPI)NonAf (>60 ml/min/1.73 sqM) Glucose (74-99) mg/dL Calcium (8.4-10.2) mg/dL Total Bilirubin (0.2-1.3) mg/dL AST (14-36) U/L ALT (4-34) U/L Alkaline Phosphatase (38-126) U/L Total Protein (6.3-8.2) g/dL Albumin (3.5-5.0) g/dL Amylase (30-110) U/L Lipase (23-300) U/L Urine Color Light Yellow Urine Appearance Slightly Cloudy H (Clear) Urine pH 5.0 (5.0-8.0) Ur Specific [place] 1.001 (1.001-1.035) Urine Protein Negative (Negative) Urine Glucose (UA) Negative (Negative) Urine Ketones 2+ H (Negative) Urine Blood Negative (Negative) Urine Nitrite Negative (Negative) Urine Bilirubin Negative (Negative) Urine Urobilinogen <2.0 (<2.0) mg/dL Ur Leukocyte Esterase Negative (Negative) Urine RBC 1 (0-5) /hpf Urine WBC 3 (0-5) /hpf Ur Squamous Epith Cells 4 (0-4) /hpf Urine Mucus Rare H (None) /hpf Influenza Type A (PCR) (Not Detectd) Influenza Type B (PCR) (Not Detectd) RSV (PCR) (Not Detectd) SARS-CoV-2 (PCR) (Not Detectd) 08/15/23 08/15/23 Range/Units 14:34 14:34 WBC (3.8-10.6) k/uL RBC (3.80-5.40) m/uL Hgb (11.4-16.0) gm/dL Hct (34.0-46.0) % MCV (80.0-100.0) fL MCH (25.0-35.0) pg MCHC (31.0-37.0) g/dL RDW (11.5-15.5) % Plt Count (150-450) k/uL MPV Neutrophils % % Lymphocytes % % Monocytes % % Eosinophils % % Basophils % % Neutrophils # (1.3-7.7) k/uL Lymphocytes # (1.0-4.8) k/uL Monocytes # (0-1.0) k/uL Eosinophils # (0-0.7) k/uL Basophils # (0-0.2) k/uL Anisocytosis PT (10.0-12.5) sec INR (<1.2) APTT (22.0-30.0) sec Sodium 137 (137-145) mmol/L Potassium 4.0 (3.5-5.1) mmol/L Chloride 104 (98-107) mmol/L Carbon Dioxide 21 L (22-30) mmol/L Anion Gap 12 mmol/L BUN 20 H (7-17) mg/dL Creatinine 0.82 (0.52-1.04) mg/dL Est GFR (CKD-EPI)AfAm 79 (>60 ml/min/1.73 sqM) Est GFR (CKD-EPI)NonAf 69 (>60 ml/min/1.73 sqM) Glucose 186 H (74-99) mg/dL Calcium 9.5 (8.4-10.2) mg/dL Total Bilirubin 0.6 (0.2-1.3) mg/dL AST 20 (14-36) U/L ALT 13 (4-34) U/L Alkaline Phosphatase 91 (38-126) U/L Total Protein 6.6 (6.3-8.2) g/dL Albumin 3.9 (3.5-5.0) g/dL Amylase 56 (30-110) U/L Lipase 123 (23-300) U/L Urine Color Urine Appearance (Clear) Urine pH (5.0-8.0) Ur Specific [place] (1.001-1.035) Urine Protein (Negative) Urine Glucose (UA) (Negative) Urine Ketones (Negative) Urine Blood (Negative) Urine Nitrite (Negative) Urine Bilirubin (Negative) Urine Urobilinogen (<2.0) mg/dL Ur Leukocyte Esterase (Negative) Urine RBC (0-5) /hpf Urine WBC (0-5) /hpf Ur Squamous Epith Cells (0-4) /hpf Urine Mucus (None) /hpf Influenza Type A (PCR) Not Detected (Not Detectd) Influenza Type B (PCR) Not Detected (Not Detectd) RSV (PCR) Not Detected (Not Detectd) SARS-CoV-2 (PCR) Not Detected (Not Detectd) - EKG Data EKG Comments: 12-lead Electrocardiogram Interpretation Note EKG was reviewed and interpreted by myself. 12-lead ECG performed at 1631 is interpreted by me as revealing normal sinus rhythm at a rate of 75 beats per minute. [place] is normal. CA interval is 196 ms, QRS duration is 105 ms, QTc is 434 ms.. There were no ST or T wave abnormalities to suggest myocardial ischemia or injury. R wave progression across the precordium was satisfactory. By my interpretation this EKG is non-diagnostic for acute ischemia. (Donald Barboza) Disposition <Rose Sheppard - Last Filed: 08/15/23 14:01> Is patient prescribed a controlled substance at d/c from ED?: No Time of Disposition: 19:02 <Donald Barboza - Last Filed: 08/15/23 20:09> Clinical Impression: Ureterolithiasis Disposition: HOME SELF-CARE Condition: Good Instructions (If sedation given, give patient instructions): Kidney Stones (ED), Acute Nausea and Vomiting (ED) Prescriptions: Tamsulosin [Flomax] 0.4 mg PO DAILY 14 Days #14 cap Referrals: Gavin Watkins Jr, DO [Primary Care Provider] - 1-2 days Farrukh Maria MD [STAFF PHYSICIAN] - 1-2 days
[2023-08-15 15:01] LABS: Anisocytosis Slight; Basophils % (A) 0 %; Eosinophils % (A) 0 %; HCT 40.4 % (34.0-46.0); Lymphocytes # (A) 0.6 k/uL (1.0-4.8); Lymphocytes % (A) 4 %; MCH 27.6 pg (25.0-35.0); MCHC 32.1 g/dL (31.0-37.0); Mean Platelet Volume 7.7; Monocytes # (A) 0.2 k/uL (0-1.0); Monocytes % (A) 2 %; Mucus,Urine Rare /hpf; Neutrophils # (A) 12.1 k/uL (1.3-7.7); Neutrophils % (A) 94 %; Platelet Count 425 k/uL (150-450); RBC,Urine 1 /hpf (0-5); RDW 18.1 % (11.5-15.5); Squamous Epithelial Cell,Urine 4 /hpf (0-4); WBC,Urine 3 /hpf (0-5)
[2023-08-15 15:15] LABS: Appearance,Urine Slightly Cloudy (Clear); Color,Urine Light Yellow; Specific Gravity,Urine 1.001 (1.001-1.035)
[2023-08-15 15:16] LABS: Bilirubin,Urine Negative (Negative); Blood,Urine Negative (Negative); Glucose,Urine (UA) Negative (Negative); Ketones,Urine 2+ (Negative); Protein,Urine Negative (Negative); Urobilinogen,Urine <2.0 mg/dL (<2.0)
[2023-08-15 15:17] LABS: Leukocyte Esterase,Urine Negative (Negative); Nitrite,Urine Negative (Negative)
[2023-08-15 15:22] LABS: Partial Thromboplastin Time 23.8 sec (22.0-30.0); Prothrombin Time 10.7 sec (10.0-12.5)
[2023-08-15] MEDS ORDERED: ONDANSETRON 4 MG/2 ML VIAL IVP STA (15:27)
[2023-08-15] MEDS ORDERED: SODIUM CHLORIDE 0.9% 1,000 ML IV STA ×2 (15:27→18:05)
[2023-08-15] MEDS ORDERED: PANTOPRAZOLE 40 MG/10 ML VIAL IVP STA (15:27)
[2023-08-15] MEDS ORDERED: MORPHINE SULFATE 4 MG/ML SYRINGE IVP STA (15:27)
[2023-08-15 15:46] LABS: ALT 13 U/L (4-34); AST 20 U/L (14-36); African American GFR (CKD) 79 (>60 ml/min/1.73 sqM); Albumin 3.9 g/dL (3.5-5.0); Alkaline Phosphatase 91 U/L (38-126); Amylase 56 U/L (30-110); Anion Gap 12 mmol/L; Blood Urea Nitrogen 20 mg/dL (7-17); Calcium 9.5 mg/dL (8.4-10.2); Carbon Dioxide 21 mmol/L (22-30); Chloride 104 mmol/L (98-107); Glucose 186 mg/dL (74-99); Lipase 123 U/L (23-300); Non-African American GFR(CKD) 69 (>60 ml/min/1.73 sqM); Sodium 137 mmol/L (137-145); Total Bilirubin 0.6 mg/dL (0.2-1.3); Total Protein 6.6 g/dL (6.3-8.2)
--- NOTE | 2023-08-15 17:19 | CT ---
EXAMINATION TYPE: CT abdomen pelvis w con DATE OF EXAM: 08/15/2023 COMPARISON: 03/02/2023 HISTORY: Abdominal pain with nausea and vomiting CT DLP: 1864.5 mGycm Automated exposure control for dose reduction was used. TECHNIQUE: Helical acquisition of images was performed from the lung bases through the pelvis. CONTRAST: Performed without Oral Contrast and with IV Contrast, patient injected with 100 ml mL of Isovue 300. FINDINGS: Lung bases are clear. There is surgical absence of the gallbladder. There is no focal mass or organomegaly involving the liver, pancreas, spleen and adrenal glands. Ther e are postsurgical changes with metallic artifact in the region of the left adrenal gland /pancreatic tail. These surgical changes are seen previously and are stable. There are postsurgical changes in the anterior abdominal wall presumably from hernia repair. There is no recurrent hernia. The bowel loops are normal in caliber and there is no dilatation or obs truction. No inflammatory changes identified in the bowel wall and mesentery and there is no free int raperitoneal air or fluid. There is been interval development of mild to moderate left hydronephrosis and proximal hydroureter. In the mid left ureter at the L4-5 level there is a 7 mm calculus. There is mild prostatic hypertrophy. Visualized osseous structures are intact. IMPRESSION: 1. Mild to moderate left hydronephrosis secondary to a 7 mm calculus in the mid to distal left ureter at approximately the L4-5 level. 2. Postsurgical changes as described above.
[2023-08-15] MEDS ORDERED: KETOROLAC 15 MG/ML 1 ML VIAL IVP STA (18:05)
[2023-08-15] MEDS ORDERED: METOCLOPRAMIDE 5 MG/ML 2 ML VIAL IVP STA (18:05)
[2023-08-15] MEDS ORDERED: ONDANSETRON 4 MG ODT STARTER PACK 2 TAB BTL PO STA (19:07)
[2023-08-15] MEDS ORDERED: ACET/COD 300 MG/30 MG STARTER PACK 6 TAB BTL PO STA (19:07)
[2023-08-15] MEDS ORDERED: TAMSULOSIN 0.4 MG CAP.ER.24H PO STA (19:07)
[2023-08-15 20:21] VITALS: BP 110/50; PULSE 68; RESP 17; TEMP 98.3
== END 2023-08-15 19:30 | disposition home or self-care (01) ==
LOC: EC 13:48
DX: N13.2 Hydronephrosis with renal and ureteral calculous obstruction (principal); E11.22 Type 2 diabetes mellitus with diabetic chronic kidney disease; I12.9 Hypertensive chronic kidney disease with stage 1 through stage 4 chronic kidney disease, or unspecified chronic kidney disease; N18.9 Chronic kidney disease, unspecified; I25.2 Old myocardial infarction; E78.5 Hyperlipidemia, unspecified; F31.9 Bipolar disorder, unspecified; Z79.84 Long term (current) use of oral hypoglycemic drugs; Z79.899 Other long term (current) drug therapy; Z79.82 Long term (current) use of aspirin; Z20.822 Contact with and (suspected) exposure to COVID-19
CPT/HCPCS: 36415; 80053; 82150; 83690; 85025; 85610; 85730; 81001; 87636; 74177; 99285; 96374; 96375 ×4; 96361 ×2; J2270; J2765; J2405; J1885; S0119; C9113; Q9967

== ENCOUNTER 2023-09-08 01:31 | Emergency (ER) | payer MEDICARE, OTHER ==
[2023-09-08 02:04] VITALS: TEMP 97.9
--- NOTE | 2023-09-08 02:14 | ED ---
General Adult HPI - General Chief complaint: Abdominal Pain Stated complaint: Pain in lower left kidney area Time Seen by Provider: 09/08/23 01:50 Source: patient, RN notes reviewed, old records reviewed Mode of arrival: ambulatory Limitations: no limitations - History of Present Illness Initial comments: 78-year-old female presenting with left flank pain. Patient states that several weeks prior she was diagnosed with kidney stone. She states that she had nausea without significant vomiting. No fever. She does report suspected hematuria. Denies anterior abdominal pain. Denies chest pain. Denies fever. - Related Data Home Medications Medication Instructions Recorded Confirmed lamoTRIgine 150 mg PO BID@0800,1600 05/09/15 05/06/23 metFORMIN HCL [Glucophage] 1,000 mg PO BID@0800,1600 05/09/15 05/06/23 Atorvastatin [Lipitor] 40 mg PO HS 02/22/23 05/06/23 FLUoxetine HCL [PROzac] 20 mg PO DAILY@1600 02/22/23 05/06/23 OLANZapine [ZyPREXA] 5 mg PO DAILY 02/22/23 05/06/23 Semaglutide [Ozempic] 1 mg SQ KRISHNA 02/22/23 05/06/23 Latanoprost [Latanoprost 0.005%] 1 drop BOTH EYES HS 03/01/23 05/08/23 Pantoprazole [Protonix] 40 mg PO DAILY 03/01/23 05/06/23 Aspirin [Adult Low Dose Aspirin EC] 81 mg PO DAILY 05/06/23 05/06/23 Ferrous Sulfate [Feosol] 325 mg PO DAILY 05/06/23 05/06/23 Previous Rx's Medication Instructions Recorded Multivit/Iron Sulf/Folic Acid 1 each PO DAILY #30 tab 03/07/23 [Multivitamin with Iron] Tamsulosin [Flomax] 0.4 mg PO DAILY 14 Days #14 cap 08/15/23 Acetaminophen-Codeine 300-30mg 1 tab PO Q6H PRN 3 Days #12 tablet 09/08/23 [Tylenol w/codeine #3] Tamsulosin [Flomax] 0.4 mg PO DAILY #7 cap 09/08/23 Allergies Allergy/AdvReac Type Severity Reaction Status Date / Time No Known Allergies Allergy Verified 09/08/23 01:39 Review of Systems ROS Statement: Those systems with pertinent positive or pertinent negative responses have been documented in the HPI. ROS Other: All systems not noted in ROS Statement are negative. 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 . History of Any Multi-Drug Resistant Organisms: None Reported Past Surgical History: Cholecystectomy, Hernia Repair, Tonsillectomy Additional Past Surgical History / Comment(s): hernia repair X 3 (mesh rejection) left shoulder cortisone injection Past Anesthesia/Blood Transfusion Reactions: No Reported Reaction Past Psychological History: Bipolar, Depression Smoking Status: Never smoker Past Alcohol Use History: None Reported Past Drug Use History: None Reported - Past Family History Mother Family Medical History: Diabetes Mellitus General Exam Limitations: no limitations General appearance: alert, in no apparent distress Head exam: Present: atraumatic, normocephalic Eye exam: Present: normal appearance, PERRL ENT exam: Present: normal exam Neck exam: Present: normal inspection. Absent: tenderness, meningismus Respiratory exam: Present: normal lung sounds bilaterally. Absent: respiratory distress, wheezes Cardiovascular Exam: Present: regular rate, normal rhythm GI/Abdominal exam: Present: soft. Absent: distended, tenderness, rebound Extremities exam: Present: normal inspection Back exam: Present: CVA tenderness (L) Neurological exam: Present: alert, oriented X3, CN II-XII intact. Absent: motor sensory deficit Psychiatric exam: Present: normal affect, normal mood Skin exam: Present: warm, dry, intact. Absent: cyanosis, diaphoretic Course Vital Signs 09/08/23 01:32 Temperature 97.9 F Pulse Rate 77 Respiratory 18 Rate Blood Pressure 139/76 O2 Sat by Pulse 96 Oximetry Medical Decision Making - Medical Decision Making Was pt. sent in by a medical professional or institution (, PA, PRACTICAL NURSING FACULTY, urgent care, hospital, or long term...) When possible be specific @ -No Did you speak to anyone other than the patient for history (EMS, parent, family, police, friend...)? What history was obtained from this source @ -No Did you review nursing and triage notes (agree or disagree)? Why? @ -I reviewed and agree with nursing and triage notes Were old charts reviewed (outside hosp., previous admission, EMS record, old EKG, old radiological studies, urgent care reports/EKG's, long term records)? Report findings @ -No old charts were reviewed Differential Diagnosis (chest pain, altered mental status, abdominal pain women, abdominal pain men, vaginal bleeding, weakness, fever, dyspnea, syncope, headache, dizziness, GI bleed, back pain, seizure, CVA, palpatations, mental health, musculoskeletal)? @ -Differential Abdominal Pain Women: Appendicitis, Cholecystitis, diverticulosis, ischemic bowel, pancreatitis, hepatitis, UTI, gastroenteritis, AAA, incarcerated hernia, bowel obstruction, constipation, inflammatory bowel, hepatitis, peptic ulcer disease, splenic infarction, perforated viscus, vulvitis, ovarian torsion, PID, kidney stone, placenta abruption, this is not meant to be an all-inclusive list EKG interpreted by me (3pts min.). @ -As above X-rays interpreted by me (1pt min.). @ -None done CT interpreted by me (1pt min.). @ -CT abdomen pelvis without contrast showing a distal 7 mm stone in the left UVJ with associated hydronephrosis and hydroureter. U/S interpreted by me (1pt. min.). @ -None done What testing was considered but not performed or refused? (CT, X-rays, U/S, labs)? Why? @ -None What meds were considered but not given or refused? Why? @ -None Did you discuss the management of the patient with other professionals (professionals i.e. , PA, PRACTICAL NURSING FACULTY, lab, RT, psych nurse, social services coordinator, news intern, teacher, major gifts officer, continuous pillowcase cutter)? Give summary @ -No Was smoking cessation discussed for >3mins.? @ -No Was critical care preformed (if so, how long)? @ -No Were there social determinants of health that impacted care today? How? (Homelessness, low income, unemployed, alcoholism, drug addiction, tra nsportation, low edu. Level, literacy, decrease access to med. care, custodial, rehab)? @ -No Was there de-escalation of care discussed even if they declined (Discuss DNR or withdrawal of care, Hospice)? DNR status @ -No What co-morbidities impacted this encounter? (DM, HTN, Smoking, COPD, CAD, Cancer, CVA, ARF, Chemo, Hep., AIDS, mental health diagnosis, sleep apnea, morbid obesity)? @Kidney stone Was patient admitted / discharged? Hospital course, mention meds given and route, prescriptions, significant lab abnormalities, going to OR and other pertinent info. @ -[78-year-old female with left flank pain, known 7 mm stone. Workup is initiated, patient has a mild leukocytosis, normal kidney function, normal electrolytes. Hematuria on urinalysis. CT confirms persistent stone although this is in the UVJ which has progressed. Patient had contacted urology but did not have a appointment. She will be referred again to urology for management of this kidney stone. Undiagnosed new problem with uncertain prognosis? @ -No Drug Therapy requiring intensive monitoring for toxicity (Heparin, Nitro, Insulin, Cardizem)? @ -No Were any procedures done? @ -No Diagnosis/symptom? @ -Renal colic, obstructing renal calculi Acute, or Chronic, or Acute on Chronic? @ -Acute Uncomplicated (without systemic symptoms) or Complicated (systemic symptoms)? @ -Default Side effects of treatment? @ -No Exacerbation, Progression, or Severe Exacerbation? @ -No Poses a threat to life or bodily function? How? (Chest pain, [place], [place], pneumonia, PE, COPD, DKA, ARF, appy, cholecystitis, CVA, Diverticulitis, Homicidal, Suicidal, threat to staff... and all critical care pts) @ -[Low risk at this time - Lab Data Result diagrams: 09/08/23 02:21 09/08/23 02:21 Lab Results 09/08/23 09/08/23 09/08/23 Range/Units 02:21 02:21 04:06 WBC 13.0 H (3.8-10.6) k/uL RBC 4.55 (3.80-5.40) m/uL Hgb 12.9 (11.4-16.0) gm/dL Hct 40.1 (34.0-46.0) % MCV 88.0 (80.0-100.0) fL MCH 28.4 (25.0-35.0) pg MCHC 32.3 (31.0-37.0) g/dL RDW 16.2 H (11.5-15.5) % Plt Count 401 (150-450) k/uL MPV 7.3 Neutrophils % 92 % Lymphocytes % 5 % Monocytes % 3 % Eosinophils % 0 % Basophils % 0 % Neutrophils # 11.9 H (1.3-7.7) k/uL Lymphocytes # 0.6 L (1.0-4.8) k/uL Monocytes # 0.4 (0-1.0) k/uL Eosinophils # 0.0 (0-0.7) k/uL Basophils # 0.0 (0-0.2) k/uL Anisocytosis Slight Sodium 138 (137-145) mmol/L Potassium 3.9 (3.5-5.1) mmol/L Chloride 105 (98-107) mmol/L Carbon Dioxide 25 (22-30) mmol/L Anion Gap 8 mmol/L BUN 19 H (7-17) mg/dL Creatinine 0.85 (0.52-1.04) mg/dL Est GFR (CKD-EPI)AfAm 76 (>60 ml/min/1.73 sqM) Est GFR (CKD-EPI)NonAf 66 (>60 ml/min/1.73 sqM) Glucose 168 H (74-99) mg/dL Calcium 9.5 (8.4-10.2) mg/dL Total Bilirubin 0.7 (0.2-1.3) mg/dL AST 23 (14-36) U/L ALT 14 (4-34) U/L Alkaline Phosphatase 74 (38-126) U/L Total Protein 6.4 (6.3-8.2) g/dL Albumin 3.9 (3.5-5.0) g/dL Amylase 55 (30-110) U/L Lipase 118 (23-300) U/L Urine Color Yellow Urine Appearance Cloudy H (Clear) Urine pH 6.0 (5.0-8.0) Ur Specific [place] 1.023 (1.001-1.035) Urine Protein 2+ H (Negative) Urine Glucose (UA) Negative (Negative) Urine Ketones 1+ H (Negative) Urine Blood Moderate H (Negative) Urine Nitrite Negative (Negative) Urine Bilirubin Negative (Negative) Urine Urobilinogen <2.0 (<2.0) mg/dL Ur Leukocyte Esterase Trace H (Negative) Urine RBC 72 H (0-5) /hpf Urine WBC 8 H (0-5) /hpf Ur Squamous Epith Cells 3 (0-4) /hpf Hyaline Casts 3 H (0-2) /lpf Urine Mucus Few H (None) /hpf Disposition Clinical Impression: Calculus of kidney, Hydronephrosis with renal and ureteral calculous obstruction Disposition: HOME SELF-CARE Condition: Fair Instructions (If sedation given, give patient instructions): Renal Colic (ED), Kidney Stones (ED) Prescriptions: Tamsulosin [Flomax] 0.4 mg PO DAILY #7 cap Acetaminophen-Codeine 300-30mg [Tylenol w/codeine #3] 1 tab PO Q6H PRN 3 Days #12 tablet PRN Reason: Pain Is patient prescribed a controlled substance at d/c from ED?: No Referrals: Gavin Watkins Jr, DO [Primary Care Provider] - 1-2 days Farrukh Maria MD [STAFF PHYSICIAN] - 1-2 days Time of Disposition: 05:02
[2023-09-08 02:25] LABS: Anisocytosis Slight; Basophils % (A) 0 %; Eosinophils % (A) 0 %; HCT 40.1 % (34.0-46.0); HGB 12.9 gm/dL (11.4-16.0); Lymphocytes # (A) 0.6 k/uL (1.0-4.8); Lymphocytes % (A) 5 %; MCH 28.4 pg (25.0-35.0); MCHC 32.3 g/dL (31.0-37.0); Mean Platelet Volume 7.3; Monocytes # (A) 0.4 k/uL (0-1.0); Monocytes % (A) 3 %; Neutrophils # (A) 11.9 k/uL (1.3-7.7); Neutrophils % (A) 92 %; Platelet Count 401 k/uL (150-450); RBC 4.55 m/uL (3.80-5.40); RDW 16.2 % (11.5-15.5)
[2023-09-08 02:40] LABS: ALT 14 U/L (4-34); AST 23 U/L (14-36); African American GFR (CKD) 76 (>60 ml/min/1.73 sqM); Albumin 3.9 g/dL (3.5-5.0); Alkaline Phosphatase 74 U/L (38-126); Amylase 55 U/L (30-110); Anion Gap 8 mmol/L; Blood Urea Nitrogen 19 mg/dL (7-17); Calcium 9.5 mg/dL (8.4-10.2); Carbon Dioxide 25 mmol/L (22-30); Chloride 105 mmol/L (98-107); Glucose 168 mg/dL (74-99); Lipase 118 U/L (23-300); Non-African American GFR(CKD) 66 (>60 ml/min/1.73 sqM); Potassium 3.9 mmol/L (3.5-5.1); Sodium 138 mmol/L (137-145); Total Bilirubin 0.7 mg/dL (0.2-1.3); Total Protein 6.4 g/dL (6.3-8.2)
--- NOTE | 2023-09-08 03:50 | CT ---
EXAMINATION TYPE: CT abdomen pelvis wo con DATE OF EXAM: 09/08/2023 HISTORY: left sided flank pain x1 week took tylenol 3 @ 2230 with no relief. hx of kidney stones, he rnia repair 3x, cholecystectomy CT DLP: 1378.6 mGycm. Automated Exposure Control for Dose Reduction was Utilized. TECHNIQUE: CT scan of the abdomen and pelvis is performed without oral or IV contrast. COMPARISON: CT 4 weeks earlier. FINDINGS: Within the limitations of a non-contrast study, the following observations are made. LUNG BASES: Coronary artery calcification is redemonstrated. LIVER/GB: Cholecystectomy clips are redemonstrated. PANCREAS: No significant abnormality is seen. SPLEEN: No significant abnormality is seen. 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 Lesion also could reflect exophytic simple cyst from upper pole right kidney. No significant change from prior. Numerous surgical clips in region of left adrenal gland causing artifact are redemonstrated. KIDNEYS: No right-sided renal calculi or hydronephrosis. No left-sided renal calculi. There is howeve r 7 mm calculus at left UVJ causing moderate left-sided hydronephrosis on axial image 140. This has p rogressed distally from prior study. BOWEL: No significant abnormality is seen. GENITAL ORGANS: Uterus is surgically absent. LYMPH NODES: No greater than 1cm abdominal or pelvic lymph nodes are appreciated. OSSEOUS STRUCTURES: Multilevel spurring in the lumbar spine is redemonstrated. OTHER: Surgical clips in the right groin region axial image 139 is redemonstrated. Sutures and clips in the anterior wall of the abdomen and pelvis with mesh-type surgical repair of ventral hernia is re demonstrated. IMPRESSION: The 7 mm calculus in the left ureter has progressed to UVJ causing persistent moderate le ft-sided hydronephrosis similar to prior.
[2023-09-08 04:23] LABS: Appearance,Urine Cloudy (Clear); Bilirubin,Urine Negative (Negative); Blood,Urine Moderate (Negative); Color,Urine Yellow; Glucose,Urine (UA) Negative (Negative); Hyaline Casts,Urine 3 /lpf (0-2); Ketones,Urine 1+ (Negative); Leukocyte Esterase,Urine Trace (Negative); Mucus,Urine Few /hpf; Nitrite,Urine Negative (Negative); Protein,Urine 2+ (Negative); RBC,Urine 72 /hpf (0-5); Specific Gravity,Urine 1.023 (1.001-1.035); Squamous Epithelial Cell,Urine 3 /hpf (0-4); Urobilinogen,Urine <2.0 mg/dL (<2.0); WBC,Urine 8 /hpf (0-5)
[2023-09-08] MEDS: SODIUM CHLORIDE 0.9% 500 ML 500 ML IV ONE (04:49)
[2023-09-08] MEDS: ONDANSETRON 4 MG/2 ML VIAL IVP STA (04:49)
[2023-09-08] MEDS: KETOROLAC 15 MG/ML 1 ML VIAL IVP STA (04:49)
[2023-09-08 05:59] VITALS: BP 123/72; PULSE 65; RESP 16
== END 2023-09-08 05:34 | disposition home or self-care (01) ==
LOC: EC 01:31
DX: N13.2 Hydronephrosis with renal and ureteral calculous obstruction (principal); I12.9 Hypertensive chronic kidney disease with stage 1 through stage 4 chronic kidney disease, or unspecified chronic kidney disease; E11.22 Type 2 diabetes mellitus with diabetic chronic kidney disease; E78.5 Hyperlipidemia, unspecified; N18.9 Chronic kidney disease, unspecified; Z79.84 Long term (current) use of oral hypoglycemic drugs; Z79.82 Long term (current) use of aspirin; Z79.899 Other long term (current) drug therapy; Z90.49 Acquired absence of other specified parts of digestive tract
CPT/HCPCS: 36415; 80053; 82150; 83690; 85025; 81001; 74176; 99284; 96374; 96375; 96361; J2405; J1885

== ENCOUNTER 2023-09-22 07:16 | Day surgery (SDC) | payer MEDICARE, OTHER ==
--- NOTE | 2023-09-21 14:40 | P.HPIHPCON ---
History of Present Illness H&P Date: 09/21/23 Chief Complaint: Left ureteral stone This is a 78-year-old female with history of a 7 mm left-sided distal ureteral stone, she is symptomatic from her stone. Option of a ureteroscopy with holmium laser versus ESWL was discussed in details. Risk benefit and rationale of doing each approach was discussed. She agreed to proceed with a left-sided ureteroscopy with holmium laser. Aware of the risk which includes but not limited to bleeding, infection, injury to the ureter Consent for Procedure: I have explained the operation/procedure to the patient, including the risks, benefits, side effects, alternative therapies (including not receiving the proposed treatment or service), the likelihood of the patient achieving his/her goals, and potential recuperation problems for the procedure/sedation/analgesia, as well as any blood products, if indicated. I also explained to the patient the risks, benefits and side effects of the alternatives, as well as the risks related to not receiving the proposed procedure, care, treatment, or services. 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 . History of Any Multi-Drug Resistant Organisms: None Reported Past Surgical History: Cholecystectomy, Hernia Repair, Tonsillectomy Additional Past Surgical History / Comment(s): hernia repair X 3 (mesh rejection) left shoulder cortisone injection, colonoscopy Past Anesthesia/Blood Transfusion Reactions: No Reported Reaction Additional Past Anesthesia/Blood Transfusion Reaction / Comment(s): has had blood transfusions no issues Smoking Status: Never smoker - Past Family History Mother Family Medical History: Diabetes Mellitus Additional Family Medical History / Comment(s): macular degeneration- went blind Medications and Allergies Home Medications Medication Instructions Recorded Confirmed Type lamoTRIgine 150 mg PO BID@0800,1600 05/09/15 09/17/23 History metFORMIN HCL [Glucophage] 1,000 mg PO BID@0800,1600 05/09/15 09/17/23 History Atorvastatin [Lipitor] 40 mg PO HS 02/22/23 09/17/23 History FLUoxetine HCL [PROzac] 20 mg PO DAILY@1600 02/22/23 09/17/23 History OLANZapine [ZyPREXA] 5 mg PO DAILY 02/22/23 09/17/23 History Semaglutide [Ozempic] 2 mg SQ KRISHNA 02/22/23 09/17/23 History Latanoprost [Latanoprost 0.005%] 1 drop BOTH EYES HS 03/01/23 09/17/23 History Multivit/Iron Sulf/Folic Acid 1 each PO DAILY #30 tab 03/07/23 09/17/23 Rx [Multivitamin with Iron] Aspirin [Adult Low Dose Aspirin EC] 81 mg PO DAILY 05/06/23 09/17/23 History Acetaminophen-Codeine 300-30mg 1 tab PO Q6H PRN 3 Days #12 tablet 09/08/23 09/17/23 Rx [Tylenol w/codeine #3] Allergies Allergy/AdvReac Type Severity Reaction Status Date / Time No Known Allergies Allergy Verified 09/17/23 13:44 Surgical - Exam - General no distress, moderate pain - Eyes normal ocular movement, no pale - ENT normal nares, normal mucosa - Respiratory normal expansion, normal respiratory effort - Abdomen Abdomen: soft, non tender - Psychiatric oriented to time, oriented to person, oriented to place Assessment and Plan Assessment: OR for left-sided ureteroscopy, holmium laser lithotripsy, stone basketing and stent insertion
[~2023-09-22 07:16] MED LIST changes: +HYDROmorphone 0.5 MG/0.5 ML SYRINGE IVP PRN
--- NOTE | 2023-09-22 07:49 | XR ---
EXAMINATION TYPE: XR KUB DATE OF EXAM: 09/22/2023 Comparison: 02/22/2023 Clinical History: 78-year-old female preoperative exam for urology procedure, kidney stones Findings: Multiple surgical clips in the upper abdomen. Multiple sutures along the mid pelvis. Bulky bridging e ndplate spondylosis especially towards the left in the lumbar spine. Scattered [id number] stool . Nonobstructive bowel gas pattern. Bowel content partially obscures the renal shadows. Coils from pr ior mesh repair projecting at the pelvis. Impression: Mild to moderate stool. Bowel content largely obscures the renal shadows. Nonobstructive bowel gas pa ttern. Prior surgical material throughout the abdomen and pelvis.
[2023-09-22 08:36] LABS: Glucose,Whole Blood 116 mg/dL (70-110)
[2023-09-22] MEDS: DEXAMETHASONE SOD PHOSPHATE 4 MG/ML 1 ML VIAL IV ONE (08:40)
[2023-09-22] MEDS: ONDANSETRON 4 MG/2 ML VIAL IVP ONE (08:40)
[2023-09-22] MEDS: LACTATED RINGERS 1,000 ML IV ONE (08:44)
[2023-09-22 08:46] VITALS: RESP 16
[2023-09-22] MEDS ORDERED: fentaNYL (PF) 50 MCG/ML 2 ML AMP ONE (09:05)
[2023-09-22] MEDS ORDERED: MIDAZOLAM 2 MG/2 ML VIAL ONE (09:05)
[2023-09-22] MEDS ORDERED: LIDOCAINE 1% INJ 10MG/ML (20 ML MDV) ONE (09:05)
[2023-09-22] MEDS ORDERED: PROPOFOL 10 MG/ML 20 ML VIAL IV ONE (09:05)
--- NOTE | 2023-09-22 10:12 | P.OP ---
Date of Procedure: 09/22/23 Preoperative Diagnosis: Left ureteral stone Postoperative Diagnosis: Same Procedure(s) Performed: Cystoscopy, left ureteroscopy, holmium laser lithotripsy, stone basketing and stent insertion Implants: 6 [place] by 24 cm stent in the left ureter Anesthesia: BRAD Surgeon: Thong Patterson Estimated Blood Loss (ml): 5 Pathology: other (Left ureteral stone) Condition: stable Disposition: PACU Indications for Procedure: This is a 78-year-old female with history of a 7 mm left-sided distal ureteral stone, she is symptomatic from her stone. Option of a ureteroscopy with holmium laser versus ESWL was discussed in details. Risk benefit and rationale of doing each approach was discussed. She agreed to proceed with a left-sided ureteroscopy with holmium laser. Aware of the risk which includes but not limited to bleeding, infection, injury to the ureter Operative Findings: Left distal ureteral stone Description of Procedure: Patient brought to the operating room, general anesthesia was induced. She was prepped and draped in sterile fashion and placed in the dorsolithotomy position. Cystoscopy through the 21 [place] sheath was inserted per urethra, cystoscopy was performed which showed no abnormality within the bladder. Attention was then carried to the left ureteral orifice, a semirigid ureteroscope was inserted per urethra and advanced up the left ureteral orifice, stone was encountered in the distal ureter. Using the holmium laser the stone was fragmented, sizable stone fragments were removed using the stone basket. At this time the ureteroscope was advanced all the way up to the proximal ureter which showed no additional stones, pullback ureteroscopy was performed which showed no additional stones or injury to the ureter or any sizable fragments, as ureteroscope was withdrawn and a sensor wire was advanced through. Next a ureteral stent was passed over the wire, the proximal curl was visualized under fluoroscopy and the distal curl was visualized using the cystoscope. The bladder was emptied at the end of the case. Patient tolerated procedure well was taken to recovery in stable condition
[2023-09-22 10:19] LABS: Glucose,Whole Blood 108 mg/dL (70-110)
[2023-09-22 10:34] VITALS: TEMP 97.3
[2023-09-22 11:10] VITALS: BP 177/90; PULSE 60
--- NOTE | 2023-09-23 10:18 | FL ---
EXAMINATION TYPE: FL guidance operating room DATE OF EXAM: 09/22/2023 Comparison: None Clinical History: CYSTO LITHO JESSIE URETE Findings: cysto litho jessie urete for stones FL: 2.6 min DAP: 0.26301 Gym2 1 image submitted Impression: Fluoroscopy for urology procedure as above.
== END 2023-09-22 11:15 | disposition home or self-care (01) ==
LOC: OR 07:16
PROVIDERS: ATTEND Urology
DX: N20.1 Calculus of ureter (principal); E11.9 Type 2 diabetes mellitus without complications; I10 Essential (primary) hypertension; E78.5 Hyperlipidemia, unspecified; M19.90 Unspecified osteoarthritis, unspecified site; Z86.73 Personal history of transient ischemic attack (TIA), and cerebral infarction without residual deficits; Z79.899 Other long term (current) drug therapy
CPT/HCPCS: 82365; 74018; 52356; C2625; C1769 ×2; J2250; J1100; J2405; J2001; J3010; J2704

== ENCOUNTER → 2023-10-26 | Outpatient (CLI) | payer MEDICARE, OTHER ==
[2023-10-26 15:38] LABS: Basophils # (A) 0.03 X 10*3/uL (0.00-0.10); Basophils % (A) 0.3 %; Eosinophils # (A) 0 X 10*3/uL (0.04-0.35); Eosinophils % (A) 0 %; Lymphocytes # (A) 1.68 X 10*3/uL (0.90-5.00); MCHC 32.5 g/dL (32.0-37.0); MCV 89.3 FL (80.0-97.0); Mean Platelet Volume 9.7 FL (9.5-12.2); Monocytes # (A) 0.49 X 10*3/uL (0.20-1.00); Monocytes % (A) 5.5 %; NRBC Per 100 WBC 0 X 10*3/uL (0.00-0.01); Neutrophils # (A) 6.61 X 10*3/uL (1.80-7.70); Platelet Count 395 X 10*3/uL (140-440); RBC 4.48 X 10*6/uL (4.10-5.20); RDW 15.3 % (11.5-14.5); WBC 8.83 X 10*3/uL (4.50-10.00)
[2023-10-26 16:11] LABS: % Iron Saturation 15.67 (12.00-45.00); Albumin 4.2 g/dL (3.8-4.9); Blood Urea Nitrogen 12.7 mg/dL (9.0-27.0); Carbon Dioxide 22.3 mmol/L (21.6-31.8); Chloride 105 mmol/L (96-109); Ferritin 32.1 ng/mL (10.0-291.0); Glucose 107 mg/dL (70-110); Iron 55 UG/DL (50-170); Sodium 143 mmol/L (135-145); Total Iron Binding Capacity 351 UG/DL (228-460)
[2023-10-26 17:30] LABS: Appearance,Urine Clear (Clear); Bilirubin,Urine Small (Negative); Blood,Urine Negative (Negative); Color,Urine Dark Yellow (Yellow); Ketones,Urine Trace (Negative); Nitrite,Urine Negative (Negative); Specific Gravity,Urine 1.027 (1.001-1.030); Urobilinogen,Urine 0.2 E.U./DL
[2023-10-26 23:24] LABS: Bacteria,Urine 3+ (None Seen); Calcium Oxalate Crystals,Urine Present (None Seen); Uric Acid Crystals,Urine Present (None Seen)
== END | disposition home or self-care (01) ==
LOC: LABWHC1 10:03
PROVIDERS: ATTEND Nurse Practitioner Family
DX: N18.31 Chronic kidney disease, stage 3a (principal)
CPT/HCPCS: 36415; 80048; 81001; 82040; 82043; 82570; 82728; 83540; 83550; 85025

== ENCOUNTER → 2023-11-11 | Outpatient (CLI) | payer MEDICARE, OTHER ==
--- NOTE | 2023-11-16 11:39 | NM ---
EXAMINATION TYPE: NM DatScan Brain SPECT DATE OF EXAM: 11/12/2023 COMPARISON: NONE CLINICAL INDICATION: Female, 78 years old with history of G25.0 TREMOR; TECHNIQUE: 10 drops of Lugol's solution was administered 1 hour prior to injection as a thyroid bloc angela agent. After the administration of 4.3 mCi I-123 Ioflupane DaTscan. Images obtained [address] injection. SPECT images of the brain were acquired with axial and coronal reconstructions. FINDINGS: There is mildly increased background activity. However, normal appearance to the bilateral striatal u ptake. IMPRESSION: The symmetric appearance to the striatal uptake argues against a diagnosis of Parkinson's disease or a Parkinsonian syndrome at this time. However, given the mildly increased background uptake, if there is persistent clinical concern, follow-up can be performed.
== END | disposition home or self-care (01) ==
LOC: RADNMMAIN 11:25
PROVIDERS: ATTEND Psychiatry & Neurology Neurology
DX: G25.0 Essential tremor (principal)
CPT/HCPCS: 78803; A9584

== ENCOUNTER 2024-05-23 18:53 | Emergency (ER) | payer MEDICARE, OTHER ==
[2024-05-23 19:00] VITALS: TEMP 97.7
--- NOTE | 2024-05-23 19:29 | ED ---
Fall HPI - General Chief Complaint: Fall Stated Complaint: Fall, Head Injury Time Seen by Provider: 05/23/24 19:02 Source: patient, EMS, RN notes reviewed Mode of arrival: EMS Limitations: no limitations - History of Present Illness Initial Comments: 79-year-old female presents emergency department chief complaint of a fall. She states that he tripped over the curb at her facility. Patient states that she struck her head her tetanus up-to-date within last 5 years. Patient was placed in c-collar by EMS. Patient has a laceration on left frontal temporal region. Denies any other injuries. - Related Data Home Medications Medication Instructions Recorded Confirmed lamoTRIgine 150 mg PO 0800 05/09/15 05/23/24 metFORMIN HCL [Glucophage] 1,000 mg PO BID@0800,1600 05/09/15 05/23/24 FLUoxetine HCL [PROzac] 20 mg PO DAILY@1600 02/22/23 05/23/24 OLANZapine [ZyPREXA] 5 mg PO QAM 02/22/23 05/23/24 Semaglutide [Ozempic] 2 mg SQ KRISHNA 02/22/23 05/23/24 Latanoprost [Latanoprost 0.005%] 1 drop BOTH EYES HS 03/01/23 05/23/24 Aspirin [Adult Low Dose Aspirin EC] 81 mg PO DAILY 05/06/23 05/23/24 Atorvastatin [Lipitor] 20 mg PO QAM 05/23/24 05/23/24 amLODIPine [Norvasc] 5 mg PO QAM 05/23/24 05/23/24 Previous Rx's Medication Instructions Recorded Multivit/Iron Sulf/Folic Acid 1 each PO DAILY #30 tab 03/07/23 [Multivitamin with Iron] Allergies Allergy/AdvReac Type Severity Reaction Status Date / Time No Known Allergies Allergy Verified 05/23/24 19:00 Review of Systems ROS Statement: Those systems with pertinent positive or pertinent negative responses have been documented in the HPI. ROS Other: All systems not noted in ROS Statement are negative. 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, GIB requiring multiple blood transfusions, rt shoulder pain History of Any Multi-Drug Resistant Organisms: None Reported Past Surgical History: Cholecystectomy, Hernia Repair, Tonsillectomy Additional Past Surgical History / Comment(s): hernia repair X 3 (mesh rejection) left shoulder cortisone injection, colonoscopy Past Anesthesia/Blood Transfusion Reactions: No Reported Reaction Additional Past Anesthesia/Blood Transfusion Reaction / Comment(s): has had blood transfusions no issues Past Psychological History: Bipolar, Depression Smoking Status: Never smoker - Past Family History Mother Family Medical History: Diabetes Mellitus Additional Family Medical History / Comment(s): macular degeneration- went blind General Exam Limitations: no limitations General appearance: alert, in no apparent distress Head exam: Present: atraumatic, normocephalic. Absent: normal inspection (Left- sided scalp laceration) Eye exam: Present: normal appearance, PERRL, EOMI. Absent: scleral icterus, conjunctival injection, periorbital swelling ENT exam: Present: normal exam, normal oropharynx, mucous membranes moist Neck exam: Present: normal inspection. Absent: tenderness, meningismus, full ROM (Patient in c-collar), lymphadenopathy Respiratory exam: Present: normal lung sounds bilaterally. Absent: respiratory distress, wheezes, rales, rhonchi, stridor Cardiovascular Exam: Present: regular rate, normal rhythm, normal heart sounds. Absent: systolic murmur, diastolic murmur, rubs, gallop, clicks GI/Abdominal exam: Present: soft, normal bowel sounds. Absent: distended, tenderness, guarding, rebound, rigid Neurological exam: Present: alert, oriented X3, CN II-XII intact, reflexes normal. Absent: motor sensory deficit Course Vital Signs 05/23/24 18:56 Temperature 97.7 F Pulse Rate 67 Respiratory 20 Rate Blood Pressure 161/76 O2 Sat by Pulse 99 Oximetry Procedures - Laceration Laceration #1 Consent Obtained: verbal consent Indication: laceration Site: scalp Size (cm): 2 Description: flap, irregular Depth: arterial injury (Superficial) Anesthetic Used: lidocaine 1%, without epi Anesthesia Technique: local infiltration Amount (mls): 3 Pre-repair: wound explored, irrigated extensively Type of Sutures: nylon Size of Sutures: 5-0 Number of Sutures: 3 Technique: simple, interrupted, other ([id number] suture) Complications: bleeding Patient Tolerated Procedure: well, no complications Medical Decision Making - Medical Decision Making Was pt. sent in by a medical professional or institution (ROMAINE Barreto, INDEPEND[employer] PRODUCER, urgent care, hospital, or alf...) When possible be specific @ -No Did you speak to anyone other than the patient for history (EMS, parent, family, police, friend...)? What history was obtained from this source @ -No Did you review nursing and triage notes (agree or disagree)? Why? @ -I reviewed and agree with nursing and triage notes Were old charts reviewed (outside hosp., previous admission, EMS record, old EKG, old radiological studies, urgent care reports/EKG's, alf records)? Report findings @ -No old charts were reviewed Differential Diagnosis (chest pain, altered mental status, abdominal pain women, abdominal pain men, vaginal bleeding, weakness, fever, dyspnea, syncope, headache, dizziness, GI bleed, back pain, seizure, CVA, palpatations, mental health, musculoskeletal)? @ -Fall, intracranial hemorrhage, cervical fracture, scalp laceration EKG interpreted by me (3pts min.). @ -None X-rays interpreted by me (1pt min.). @ -None done CT interpreted by me (1pt min.). @ -CT brain, C-spine showing no acute intracranial hemorrhage, mass effect there is soft tissue swelling, hematoma noted U/S interpreted by me (1pt. min.). @ -None done What testing was considered but not performed or refused? (CT, X-rays, U/S, labs)? Why? @ -None What meds were considered but not given or refused? Why? @ -None Did you discuss the management of the patient with other professionals (professionals i.e. ROMAINE Barreto, INDEPENDENT PRODUCER, lab, RT, psych nurse, social media job titles, processor inspector, teacher, army officer, rifle case repairer)? Give summary @ -No Was smoking cessation discussed for >3mins.? @ -No Was critical care preformed (if so, how long)? @ -No Were there social determinants of health that impacted care today? How? (Homelessness, low income, unemployed, alcoholism, drug addiction, transportation, low edu. Level, literacy, decrease access to med. care, skilled nursing, rehab)? @ -No Was there de-escalation of care discussed even if they declined (Discuss DNR or withdrawal of care, Hospice)? DNR status @ -No What co-morbidities impacted this encounter? (DM, HTN, Smoking, COPD, CAD, Cancer, CVA, ARF, Chemo, Hep., AIDS, mental health diagnosis, sleep apnea, morbid obesity)? @ -None Was patient admitted / discharged? Hospital course, mention meds given and route, prescriptions, significant lab abnormalities, going to OR and other pertinent info. @ -Discharge patient had superficial arterial injury patient area was injected with lidocaine with epinephrine, [id number] of sutures were placed hemostasis was achieved patient was observed for greater than 5 hours with no rebleeding will be discharged in stable condition. Undiagnosed new problem with uncertain prognosis? @ -No Drug Therapy requiring intensive monitoring for toxicity (Heparin, Nitro, Insulin, Cardizem)? @ -No Were any procedures done? @ -No Diagnosis/symptom? @ -Fall, head injury, scalp laceration Acute, or Chronic, or Acute on Chronic? @ -Acute Uncomplicated (without systemic symptoms) or Complicated (systemic symptoms)? @ -Uncomplicated Side effects of treatment? @ -No Exacerbation, Progression, or Severe Exacerbation? @ -No Poses a threat to life or bodily function? How? (Chest pain, USA, MA, pneumonia, PE, COPD, DKA, ARF, appy, cholecystitis, CVA, Diverticulitis, Homicidal, Suicidal, threat to staff... and all critical care pts) @ -No Disposition Clinical Impression: Fall, Scalp laceration Disposition: HOME SELF-CARE Condition: Stable Instructions (If sedation given, give patient instructions): Head Injury (ED) Additional Instructions: Sutures removed in 7 days. Please return to the Emergency Department if symptoms worsen or any other concerns. Is patient prescribed a controlled substance at d/c from ED?: No Referrals: Gavin Watkins Jr, [Primary Care Provider] - 1-2 days Time of Disposition: 00:46
[2024-05-23] MEDS: LIDOCAINE/EPINEPHR/TETRACAINE 5 ML BOTTLE TOPICAL ONE (20:02)
--- NOTE | 2024-05-23 20:06 | CT ---
EXAMINATION TYPE: CT brain ariella wo con DATE OF EXAM: 05/23/2024 7:47 PM COMPARISON: None. CLINICAL INDICATION: Female, 79 years old with history of fall, fell and hit head on parking block TECHNIQUE: CT of the brain is performed utilizing 3 mm thick sections through the posterior fossa and 3 mm thick sections through the remaining calvarium. Study is performed within 24 hours of arrival to the hospital. Contrast used: mL of , (none if empty) CT DLP: 1364 mGycm, Automated exposure control for dose reduction was used. FINDINGS: No abnormal hyperdensity is present to suggest an acute intracranial hemorrhage. No mass lesion is evident. There may be a lacunar infarct in the left basal ganglia. This is of indeterminate age There is mild periventricular white matter hypodensity, likely on the basis of chronic white matter ischemic diehl es. Ventricles and sulci are appropriate for the patient age. No acute fractures are evident. Some soft tissue swelling is over the right temporal region. Small am ount of subcutaneous air is present. Greater wings of the sphenoid are intact. Zygomatic arches are i ntact Paranasal sinuses and mastoid air cells within the [id number] are clear. IMPRESSIONS: 1. No acute intracranial process. Follow-up MRI can be performed as clinically indicated. 2. Soft tissue swelling left temporal region. No underlying fracture evident. Small amount of subcuta neous air is present. 3. Chronic appearing periventricular white matter ischemic-type changes. 4. Small lacunar infarct of indeterminate age within the anterior left basal ganglia CT cervical spine. COMPARISON: None TECHNIQUE: CT of the cervical spine is performed in the axial plane at 2 mm thick sections. Reconstr ucted images in the coronal, and sagittal plane are reviewed on the computer. FINDINGS: No acute fractures are evident. Kyphosis is present. Multilevel mild disc narrowing is present Vertebral body heights are preserved. Some endplate spurring is present at C5 with mild to moderate anterior thecal sac compression. Mild e ndplate spurring is present C5-6 No neural foraminal stenosis is evident. IMPRESSION: 1. Multilevel mild degenerative disc changes. 2. Some endplate spurring notably C5-6 with moderate anterior thecal sac compression [facility], , 05/23/2024 8:03 PM
[2024-05-24 00:54] VITALS: BP 169/72; PULSE 81; RESP 16
== END 2024-05-24 01:14 | disposition home or self-care (01) ==
LOC: EC 18:53
DX: S01.01XA Laceration without foreign body of scalp, initial encounter (principal); W01.0XXA Fall on same level from slipping, tripping and stumbling without subsequent striking against object, initial encounter
CPT/HCPCS: 12001; 70450; 72125; 99284

== ENCOUNTER → 2024-05-25 | Day surgery (SDC) | payer MEDICARE, OTHER ==
[~2024-05-25] MED LIST changes: -HYDROmorphone 0.5 MG/0.5 ML SYRINGE IVP PRN; -LACTATED RINGERS 1,000 ML IV SCH; +LIDOCAINE 1% INJ 10MG/ML (20 ML MDV) ONE; +PROPOFOL 10 MG/ML 20 ML VIAL IV ONE
[2024-05-25 06:55] VITALS: PULSE 60; TEMP 98.3
[2024-05-25] MEDS: IV FLUID CONTINUATION 1,000 ML IV ONE (07:11)
[2024-05-25] MEDS: LACTATED RINGERS 1,000 ML IV SCH (07:13)
[2024-05-25 07:17] LABS: HGB 10.1 gm/dL (11.4-16.0); MCH 31.3 pg (25.0-35.0); MCHC 32.5 g/dL (31.0-37.0); MCV 96.5 fL (80.0-100.0); Mean Platelet Volume 6.7; Platelet Count 307 k/uL (150-450); RBC 3.21 m/uL (3.80-5.40); RDW 13.1 % (11.5-15.5); WBC 7.7 k/uL (3.8-10.6)
[2024-05-25 07:23] LABS: Glucose,Whole Blood 102 mg/dL (70-110)
--- NOTE | 2024-05-25 07:53 | P.PCN ---
Date of Procedure: 05/25/24 Procedure(s) Performed: BRIEF HISTORY: Patient is a 79-year-old pleasant white female scheduled for an elective colonoscopy as a part of follow-up of large ascending colon polyp that was noted on a colonoscopy in February 2023. She was noted to have a 3 cm ascending colon polyp that was partially removed and she had a repeat colonoscopy in April 2023 and complete polypectomy was accomplished. She also had multiple other colon polyps. She is current for a surveillance colonoscopy in 1 year. PROCEDURE PERFORMED: Colonoscopy with snare polypectomy. PREOPERATIVE DIAGNOSIS: History of colon polyps. IV sedation per Anesthesia. PROCEDURE: After informed consent was obtained, the patient, was brought into the endoscopy unit. IV sedation was administered by Anesthesia under continuous monitoring. Digital rectal examination was normal. Initially the Olympus CF-160 flexible video colonoscope was then inserted in the rectum, gradually advanced into the cecum without any difficulty. Careful examination was performed as the scope was gradually being withdrawn. Ileocecal valve and the appendiceal orifice were visualized and appeared normal. Prep was excellent. Mucosa of the cecum, normal. Descending colon there was a 7 mm residual polyp identified that was removed by snare polypectomy and complete polypectomy accomplished. In the transverse colon there was a 5 mm polyp that was removed by snare polypectomy. Rest of the ascending colon, transverse colon, descending colon, sigmoid colon, and rectum appeared normal. Scattered sigmoid diverticulosis seen. Retroflexion was performed in the rectum and no lesions were seen. The patient tolerated the procedure well. IMPRESSION: 7 mm residual ascending colon polyp status post snare polypectomy and complete polypectomy accomplished 5 mm transverse colon polyp status post polypectomy Scattered sigmoid diverticulosis RECOMMENDATIONS: Findings of this examination were discussed with the patient as well as her family. She was advised to follow-up with the biopsy results. Recommend repeat colonoscopy in 3 years based on her overall medical condition.
[2024-05-25 08:12] VITALS: BP 138/79; RESP 16
== END ==
LOC: ORWHC2ENDO 06:05
PROVIDERS: ATTEND Internal Medicine Gastroenterology
DX: Z09 Encounter for follow-up examination after completed treatment for conditions other than malignant neoplasm (principal); D12.2 Benign neoplasm of ascending colon; D12.3 Benign neoplasm of transverse colon; K57.30 Diverticulosis of large intestine without perforation or abscess without bleeding; I10 Essential (primary) hypertension; E78.5 Hyperlipidemia, unspecified; E11.9 Type 2 diabetes mellitus without complications; N28.9 Disorder of kidney and ureter, unspecified; F31.9 Bipolar disorder, unspecified; M19.90 Unspecified osteoarthritis, unspecified site; Z79.85 Long-term (current) use of injectable non-insulin antidiabetic drugs; Z79.84 Long term (current) use of oral hypoglycemic drugs; Z79.899 Other long term (current) drug therapy; Z86.0100 Personal history of colon polyps, unspecified
CPT/HCPCS: 88305; 85027; 45385; J2003; J2704

== ENCOUNTER 2024-05-26 12:35 | Emergency (ER) | payer MEDICARE, OTHER ==
--- NOTE | 2024-05-26 13:55 | ED ---
General Adult HPI - General Chief complaint: Dizziness Stated complaint: Post-op dizziness Time Seen by Provider: 05/26/24 13:25 Source: patient (And her friend), RN notes reviewed Mode of arrival: wheelchair Limitations: no limitations - History of Present Illness Initial comments: Patient is a 79-year-old female presenting to the emergency department with concern for lightheadedness. Patient normally does have lightheadedness when she gets up in the morning. Symptoms today are similar however more prolonged and somewhat worse. Patient did have colonoscopy yesterday, unremarkable otherwise. Patient also had a fall with head injury 3 days ago. Patient has held her blood thinner since that time. No confusion. No isolated area of weakness. Patient denies spinning type sensation. - Related Data Home Medications Medication Instructions Recorded Confirmed lamoTRIgine 150 mg PO BID@0800,1600 05/09/15 05/26/24 metFORMIN HCL [Glucophage] 1,000 mg PO BID@0800,1600 05/09/15 05/26/24 FLUoxetine HCL [PROzac] 20 mg PO DAILY 02/22/23 05/26/24 OLANZapine [ZyPREXA] 5 mg PO QAM 02/22/23 05/26/24 Semaglutide [Ozempic] 2 mg SQ KRISHNA 02/22/23 05/26/24 Latanoprost [Latanoprost 0.005%] 1 drop BOTH EYES HS 03/01/23 05/26/24 Aspirin [Adult Low Dose Aspirin EC] 81 mg PO DAILY 05/06/23 05/26/24 amLODIPine [Norvasc] 5 mg PO QAM 05/23/24 05/26/24 Atorvastatin [Lipitor] 40 mg PO HS 05/26/24 05/26/24 Multivit/Iron Sulf/Folic Acid 1 tab PO DAILY 05/26/24 05/26/24 [Multivitamin with Iron] Primidone [Mysoline] 50 mg PO HS 05/26/24 05/26/24 Previous Rx's Medication Instructions Recorded Meclizine [Antivert] 25 mg PO TID PRN #12 tab 05/26/24 Allergies Allergy/AdvReac Type Severity Reaction Status Date / Time No Known Allergies Allergy Verified 05/26/24 16:17 Review of Systems ROS Statement: Those systems with pertinent positive or pertinent negative responses have been documented in the HPI. ROS Other: All systems not noted in ROS Statement are negative. Constitutional: Denies: fever Eyes: Denies: eye pain ENT: Denies: ear pain Respiratory: Denies: dyspnea Neurological: Reports: as per HPI. 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, GIB requiring multiple blood transfusions, rt shoulder pain History of Any Multi-Drug Resistant Organisms: None Reported Past Surgical History: Cholecystectomy, Hernia Repair, Tonsillectomy Additional Past Surgical History / Comment(s): hernia repair X 3 (mesh rejection) left shoulder cortisone injection, colonoscopy Past Anesthesia/Blood Transfusion Reactions: No Reported Reaction Additional Past Anesthesia/Blood Transfusion Reaction / Comment(s): has had blood transfusions no issues Past Psychological History: Bipolar, Depression Smoking Status: Never smoker - Past Family History Mother Family Medical History: Diabetes Mellitus Additional Family Medical History / Comment(s): macular degeneration- went blind General Exam Limitations: no limitations General appearance: alert, in no apparent distress Head exam: Present: other (Laceration, ecchymosis left infraorbital) Eye exam: Present: normal appearance, PERRL, EOMI. Absent: nystagmus ENT exam: Present: normal oropharynx Neck exam: Present: normal inspection. Absent: tenderness Respiratory exam: Present: normal lung sounds bilaterally Cardiovascular Exam: Present: regular rate, normal rhythm GI/Abdominal exam: Present: soft. Absent: tenderness Extremities exam: Present: tenderness (Mild tenderness left shoulder near the AC joint) Neurological exam: Present: alert, oriented X3, CN II-XII intact Expanded Neurological exam: Present: protecting the airway Speech: Present: fluid speech Cranial nerves: EOM's Intact: Normal Motor strength exam: RUE: 5, LUE: 5, RLE: 3 (Patient reports is normal for her), LLE: 3 (Patient reports that is normal for her) Eye Response: (4) open spontaneously Motor Response: (6) obeys commands Verbal Response: (5) oriented Psychiatric exam: Present: normal affect, normal mood Skin exam: Present: normal color Course Vital Signs 05/26/24 05/26/24 05/26/24 12:40 16:02 17:17 Temperature 97.6 F Pulse Rate 70 57 L Pulse Rate [ 64 Right Sitting Maintenance Aide ] Pulse Rate [ 94 Right Standing Maintenance Aide ] Pulse Rate [ 61 Right Supine Maintenance Aide ] Respiratory 18 16 Rate Blood Pressure 111/73 126/55 Blood Pressure 153/67 [Right Arm Sitting] Blood Pressure 133/67 [Right Arm Standing] Blood Pressure 144/69 [Right Arm Supine] O2 Sat by Pulse 100 100 Oximetry 05/26/24 18:20 Temperature Pulse Rate 53 L Pulse Rate [ Right Sitting Maintenance Aide ] Pulse Rate [ Right Standing Maintenance Aide ] Pulse Rate [ Right Supine Maintenance Aide ] Respiratory 12 Rate Blood Pressure 134/56 Blood Pressure [Right Arm Sitting] Blood Pressure [Right Arm Standing] Blood Pressure [Right Arm Supine] O2 Sat by Pulse 99 Oximetry EKG Findings - EKG Results: EKG: interpreted by JENNIFER, sinus rhythm, normal axis, normal QRS, normal ST/T EKG shows: bradycardia Medical Decision Making - Medical Decision Making MDM was pt. sent in by a medical professional or institution (, PA, MILIEU COORDINATOR, urgent care, hospital, or halfway...) When possible be specific @ -No Did you speak to anyone other than the patient for history (EMS, parent, family, police, friend...)? What history was obtained from this source @ -Patient has a friend present who helps provide history Did you review nursing and triage notes (agree or disagree)? Why? @ -I reviewed and agree with nursing and triage notes Were old charts reviewed (outside hosp., previous admission, EMS record, old EKG, old radiological studies, urgent care reports/EKG's, halfway records)? Report findings @ -Previous admission and imaging reviewed Differential Diagnosis (chest pain, altered mental status, abdominal pain women, abdominal pain men, vaginal bleeding, weakness, fever, dyspnea, syncope, headache, dizziness, GI bleed, back pain, seizure, CVA, palpatations, mental health, musculoskeletal)? @ -Differential Dizziness: Benign paroxysmal positional Vertigo, Meniere's disease, otitis media, acoustic neuroma, vertebrobasilar insufficiency, cerebellar stroke, encephalitis, hypovolemic, arrhythmia, coronary artery syndrome, anemia, this is not meant to be an all-inclusive list EKG interpreted by me (3pts min.). @ -As above X-rays interpreted by me (1pt min.). @ -X-ray left hip, left shoulder and chest without acute CT interpreted by me (1pt min.). @ -CT scan of the brain without an acute intracranial abnormality U/S interpreted by me (1pt. min.). @ -None done What testing was considered but not performed or refused? (CT, X-rays, U/S, labs)? Why? @ -None What meds were considered but not given or refused? Why? @ -None Did you discuss the management of the patient with other professionals (professionals i.e. DrEsme, PA, MILIEU COORDINATOR, lab, RT, psych nurse, social worker psychiatric, video production assistant, teacher, community service officer, director case)? Give summary @ -No Was smoking cessation discussed for >3mins.? @ -No Was critical care preformed (if so, how long)? @ -No Were there social determinants of health that impacted care today? How? (Homelessness, low income, unemployed, alcoholism, drug addiction, transportation, low edu. Level, literacy, decrease access to med. care, usp, rehab)? @ -No Was there de-escalation of care discussed even if they declined (Discuss DNR or withdrawal of care, Hospice)? DNR status @ -No What co-morbidities impacted this encounter? (DM, HTN, Smoking, COPD, CAD, Cancer, CVA, ARF, Chemo, Hep., AIDS, mental health diagnosis, sleep apnea, morbid obesity)? @ -None Was patient admitted / discharged? Hospital course, mention meds given and route, prescriptions, significant lab abnormalities, going to OR and other pertinent info. @ -Patient presents with lightheadedness. Patient has orthostatics. Following fluid bolus and Antivert patient symptoms have significantly improved. Patient is able to get up and ambulate using her cane. Patient and friend are both comfortable with discharge home Undiagnosed new problem with uncertain prognosis? @ -No Drug Therapy requiring intensive monitoring for toxicity (Heparin, Nitro, Insuli n, Cardizem)? @ -No Were any procedures done? @ -No Diagnosis/symptom? @ -Orthostatic hypotension Acute, or Chronic, or Acute on Chronic? @ -Acute Uncomplicated (without systemic symptoms) or Complicated (systemic symptoms)? @ -Default Side effects of treatment? @ -No Exacerbation, Progression, or Severe Exacerbation? @ -No Poses a threat to life or bodily function? How? (Chest pain, [place], [place], pneumonia, PE, COPD, DKA, ARF, appy, cholecystitis, CVA, Diverticulitis, Homicidal, Suicidal, threat to staff... and all critical care pts) @ -No - Lab Data Result diagrams: 05/26/24 15:47 05/26/24 15:47 Lab Results 05/26/24 05/26/24 05/26/24 Range/Units 15:47 15:47 15:47 WBC 11.4 H (3.8-10.6) k/uL RBC 3.61 L (3.80-5.40) m/uL Hgb 11.0 L (11.4-16.0) gm/dL Hct 34.9 (34.0-46.0) % MCV 96.8 (80.0-100.0) fL MCH 30.4 (25.0-35.0) pg MCHC 31.4 (31.0-37.0) g/dL RDW 12.9 (11.5-15.5) % Plt Count 368 (150-450) k/uL MPV 7.2 Neutrophils % 73 % Lymphocytes % 20 % Monocytes % 5 % Eosinophils % 0 % Basophils % 0 % Neutrophils # 8.3 H (1.3-7.7) k/uL Lymphocytes # 2.2 (1.0-4.8) k/uL Monocytes # 0.5 (0-1.0) k/uL Eosinophils # 0.0 (0-0.7) k/uL Basophils # 0.0 (0-0.2) k/uL PT 10.5 (10.0-12.5) sec INR 0.9 (<1.2) APTT 22.8 (22.0-30.0) sec Sodium 140 (137-145) mmol/L Potassium 3.8 (3.5-5.1) mmol/L Chloride 107 (98-107) mmol/L Carbon Dioxide 23 (22-30) mmol/L Anion Gap 10 mmol/L BUN 15 (7-17) mg/dL Creatinine 0.69 (0.52-1.04) mg/dL Est GFR (CKD-EPI)AfAm >90 (>60 ml/min/1.73 sqM) Est GFR (CKD-EPI)NonAf 83 (>60 ml/min/1.73 sqM) Glucose 85 (74-99) mg/dL POC Glucose (mg/dL) (70-110) mg/dL POC Glu Language Tutor ID Lactic Ac Sepsis Rflx Plasma Lactic Acid Shaggy (0.7-2.0) mmol/L Calcium 9.5 (8.4-10.2) mg/dL Total Bilirubin 1.0 (0.2-1.3) mg/dL AST 33 (14-36) U/L ALT 22 (4-34) U/L Alkaline Phosphatase 52 (38-126) U/L Total Protein 6.2 L (6.3-8.2) g/dL Albumin 3.8 (3.5-5.0) g/dL 05/26/24 05/26/24 05/26/24 Range/Units 15:47 16:47 18:59 WBC (3.8-10.6) k/uL RBC (3.80-5.40) m/uL Hgb (11.4-16.0) gm/dL Hct (34.0-46.0) % MCV (80.0-100.0) fL MCH (25.0-35.0) pg MCHC (31.0-37.0) g/dL RDW (11.5-15.5) % Plt Count (150-450) k/uL MPV Neutrophils % % Lymphocytes % % Monocytes % % Eosinophils % % Basophils % % Neutrophils # (1.3-7.7) k/uL Lymphocytes # (1.0-4.8) k/uL Monocytes # (0-1.0) k/uL Eosinophils # (0-0.7) k/uL Basophils # (0-0.2) k/uL PT (10.0-12.5) sec INR (<1.2) APTT (22.0-30.0) sec Sodium (137-145) mmol/L Potassium (3.5-5.1) mmol/L Chloride (98-107) mmol/L Carbon Dioxide (22-30) mmol/L Anion Gap mmol/L BUN (7-17) mg/dL Creatinine (0.52-1.04) mg/dL Est GFR (CKD-EPI)AfAm (>60 ml/min/1.73 sqM) Est GFR (CKD-EPI)NonAf (>60 ml/min/1.73 sqM) Glucose (74-99) mg/dL POC Glucose (mg/dL) 85 (70-110) mg/dL POC Glu Language Tutor ID Collin Aleg[employer] Lactic Ac Sepsis Rflx Y Plasma Lactic Acid Shaggy 4.1 H* (0.7-2.0) mmol/L Calcium (8.4-10.2) mg/dL Total Bilirubin (0.2-1.3) mg/dL AST (14-36) U/L ALT (4-34) U/L Alkaline Phosphatase (38-126) U/L Total Protein (6.3-8.2) g/dL Albumin (3.5-5.0) g/dL 05/26/24 Range/Units 19:45 WBC (3.8-10.6) k/uL RBC (3.80-5.40) m/uL Hgb (11.4-16.0) gm/dL Hct (34.0-46.0) % MCV (80.0-100.0) fL MCH (25.0-35.0) pg MCHC (31.0-37.0) g/dL RDW (11.5-15.5) % Plt Count (150-450) k/uL MPV Neutrophils % % Lymphocytes % % Monocytes % % Eosinophils % % Basophils % % Neutrophils # (1.3-7.7) k/uL Lymphocytes # (1.0-4.8) k/uL Monocytes # (0-1.0) k/uL Eosinophils # (0-0.7) k/uL Basophils # (0-0.2) k/uL PT (10.0-12.5) sec INR (<1.2) APTT (22.0-30.0) sec Sodium (137-145) mmol/L Potassium (3.5-5.1) mmol/L Chloride (98-107) mmol/L Carbon Dioxide (22-30) mmol/L Anion Gap mmol/L BUN (7-17) mg/dL Creatinine (0.52-1.04) mg/dL Est GFR (CKD-EPI)AfAm (>60 ml/min/1.73 sqM) Est GFR (CKD-EPI)NonAf (>60 ml/min/1.73 sqM) Glucose (74-99) mg/dL POC Glucose (mg/dL) (70-110) mg/dL POC Glu Language Tutor ID Lactic Ac Sepsis Rflx Plasma Lactic Acid Shaggy 1.6 (0.7-2.0) mmol/L Calcium (8.4-10.2) mg/dL Total Bilirubin (0.2-1.3) mg/dL AST (14-36) U/L ALT (4-34) U/L Alkaline Phosphatase (38-126) U/L Total Protein (6.3-8.2) g/dL Albumin (3.5-5.0) g/dL Disposition Clinical Impression: Orthostatic hypotension Disposition: HOME SELF-CARE Condition: Stable Instructions (If sedation given, give patient instructions): Dizziness (ED) Additional Instructions: [id number] Antivert as needed. Please do follow-up with your primary care physician in the next couple days for recheck. Return for increased dizziness, weakness, falls or off balance, worsening symptoms or any other concerns. Prescriptions: Meclizine [Antivert] 25 mg PO TID PRN #12 tab PRN Reason: dizziness Is patient prescribed a controlled substance at d/c from ED?: No Referrals: Gavin Watkins Jr, DO [Primary Care Provider] - 1-2 days Time of Disposition: 20:32
--- NOTE | 2024-05-26 14:56 | XR ---
EXAMINATION TYPE: XR chest 2V DATE OF EXAM: 05/26/2024 2:47 PM COMPARISON: 03/02/2023 CLINICAL INDICATION: Female, 79 years old with history of Weakness, TECHNIQUE: XR chest 2V view(s) obtained. FINDINGS: The heart size is normal. The pulmonary vasculature is normal. The lungs are clear. Postsurgical changes in the epigastric region appear stable IMPRESSION: 1. No acute pulmonary process. [facility], , 05/26/2024 2:53 PM
--- NOTE | 2024-05-26 14:59 | XR ---
EXAMINATION TYPE: XR Hip LT and AP Pelvis DATE OF EXAM: 05/26/2024 2:47 PM COMPARISON: None. CLINICAL INDICATION: Female, 79 years old with history of fall, TECHNIQUE: 2 view(s) obtained. FINDINGS: Femoral head articulates with the acetabulum. No acute fracture or dislocation. Right femoral head articulates with the acetabulum. Sacroiliac joints and symphysis pubis are normal. IMPRESSION: 1. No acute osseous abnormality left hip [facility], , 05/26/2024 2:57 PM
--- NOTE | 2024-05-26 15:02 | XR ---
EXAMINATION TYPE: XR shoulder complete LT DATE OF EXAM: 05/26/2024 2:47 PM COMPARISON: None. CLINICAL INDICATION: Female, 79 years old with history of fall, TECHNIQUE: XR shoulder complete LT 3 view(s) obtained. FINDINGS: The humeral head articulates with the glenoid. The acromio-clavicular junction is mild hypertrophy. No acute fractures or dislocations are evident. A follow up study can be performed 7-10 days from acute trauma for continued pain. MRI can be perfor med if soft tissue evaluation would be of benefit. IMPRESSION: 1. No acute osseous shoulder abnormality. [facility], , 05/26/2024 2:59 PM
[2024-05-26] MEDS: MECLIZINE 12.5 MG TAB PO STA (15:26)
[2024-05-26] MEDS: SODIUM CHLORIDE 0.9% 500 ML 500 ML IV STA ×2 (15:45→18:16)
[2024-05-26 16:07] LABS: Basophils % (A) 0 %; Eosinophils % (A) 0 %; HCT 34.9 % (34.0-46.0); Lymphocytes # (A) 2.2 k/uL (1.0-4.8); Lymphocytes % (A) 20 %; MCH 30.4 pg (25.0-35.0); MCHC 31.4 g/dL (31.0-37.0); MCV 96.8 fL (80.0-100.0); Mean Platelet Volume 7.2; Monocytes # (A) 0.5 k/uL (0-1.0); Monocytes % (A) 5 %; Neutrophils # (A) 8.3 k/uL (1.3-7.7); Neutrophils % (A) 73 %; Platelet Count 368 k/uL (150-450); RBC 3.61 m/uL (3.80-5.40); RDW 12.9 % (11.5-15.5); WBC 11.4 k/uL (3.8-10.6)
[2024-05-26 16:16] LABS: INR 0.9 (<1.2); Partial Thromboplastin Time 22.8 sec (22.0-30.0); Prothrombin Time 10.5 sec (10.0-12.5)
[2024-05-26 16:33] LABS: AST 33 U/L (14-36); African American GFR (CKD) >90 (>60 ml/min/1.73 sqM); Albumin 3.8 g/dL (3.5-5.0); Alkaline Phosphatase 52 U/L (38-126); Anion Gap 10 mmol/L; Blood Urea Nitrogen 15 mg/dL (7-17); Calcium 9.5 mg/dL (8.4-10.2); Carbon Dioxide 23 mmol/L (22-30); Chloride 107 mmol/L (98-107); Glucose 85 mg/dL (74-99); Non-African American GFR(CKD) 83 (>60 ml/min/1.73 sqM); Potassium 3.8 mmol/L (3.5-5.1); Sodium 140 mmol/L (137-145); Total Protein 6.2 g/dL (6.3-8.2)
[2024-05-26 16:46] LABS: ALT 22 U/L (4-34)
[2024-05-26] MEDS ORDERED: MECLIZINE 12.5 MG TAB PO STA (17:47)
[2024-05-26] MEDS: METOCLOPRAMIDE 5 MG/ML 2 ML VIAL IVP STA (18:16)
[2024-05-26] MEDS: MECLIZINE 25 MG TAB PO STA (18:16)
--- NOTE | 2024-05-26 18:19 | CT ---
EXAMINATION TYPE: CT brain wo con DATE OF EXAM: 05/26/2024 6:11 PM COMPARISON: None. CLINICAL INDICATION: Female, 79 years old with history of hi, dizzy, SPENCE, dizziness. TECHNIQUE: CT of the brain is performed utilizing 3 mm thick sections through the posterior fossa and 3 mm thick sections through the remaining calvarium. Study is performed within 24 hours of arrival to the hospital. Contrast used: mL of , (none if empty) CT DLP: 1184.4 mGycm, Automated exposure control for dose reduction was used. FINDINGS: No abnormal hyperdensity is present to suggest an acute intracranial hemorrhage. No mass lesion is evident. No acute infarcts are evident. Periventricular white matter hypodensity is present, likely on the bas is of chronic white matter ischemic change. Ventricles and sulci are appropriate for the patient age. There is some soft tissue swelling over the left temporal region with small subcutaneous hematoma mayo suring 0.8 x 2.6 cm. No underlying fracture is evident hyperostosis frontalis internus is present, no rmal variant. Paranasal sinuses and mastoid air cells within the [id number] are clear. IMPRESSION: 1. No acute intracranial process. Follow up MRI can be performed as clinically indicated. 2. Mild chronic appearing periventricular white matter ischemic changes [facility], , 05/26/2024 6:17 PM
[2024-05-26 19:01] LABS: Glucose,Whole Blood 85 mg/dL (70-110)
[2024-05-26 21:00] VITALS: BP 111/48; PULSE 65; RESP 18; TEMP 97.9
== END 2024-05-26 20:55 | disposition home or self-care (01) ==
LOC: EC 12:35
DX: I95.1 Orthostatic hypotension (principal)
CPT/HCPCS: 36415; 93005; 80053; 83605; 85025; 85610; 85730; 73030; 73502; 71046; 70450; 99285; 96374; J2765

== ENCOUNTER → 2024-10-03 | Outpatient (CLI) | payer MEDICARE, OTHER ==
[2024-10-03 10:58] LABS: African American GFR (CKD) >90 (>60 ml/min/1.73 sqM); Blood Urea Nitrogen 19 mg/dL (7-17); Non-African American GFR(CKD) 81 (>60 ml/min/1.73 sqM)
--- NOTE | 2024-10-03 14:08 | CT ---
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 Adrenal gland protocol. Oral contrast used: with Oral Contrast (none if empty) CT DLP: 2906 mGycm, Automated exposure control for dose reduction was used. FINDINGS: At least moderate coronary artery calcification is redemonstrated. No significant abnormality is appr eciated. LIVER/GB: Small calcification in the liver again seen. Cholecystectomy clips are redemonstrated. PANCREAS: No significant abnormality is seen. SPLEEN: No significant abnormality is seen. ADRENALS: No significant abnormality is seen. KIDNEYS: From the upper pole of the right kidney there is persistent exophytic oval low dense mass mi micking right adrenal mass measuring approximately 2.9 x 2.3 cm consistent with simple benign-appeari ng exophytic thin-walled cyst. No hydronephrosis seen bilaterally. Some cortical thinning seen bilate rally. No definitive nephrolithiasis. BOWEL: Oral contrast only reaches left-sided small bowel loops. No abnormal small or large bowel dila tation. Multiple surgical clips in epigastric region and left upper quadrant are redemonstrated exten ding towards the splenic hilum. LYMPH NODES: No greater than 1cm abdominal lymph nodes are appreciated. OSSEOUS STRUCTURES: Multilevel spurring in the thoracolumbar spine with bridging osteophytes in the t horacic spine is redemonstrated. OTHER: No significant additional abnormality is seen. IMPRESSION: No suspicious adrenal masses bilaterally. [facility], , 10/03/2024 2:06 PM
== END | disposition home or self-care (01) ==
LOC: RADCTMAIN 09:45
PROVIDERS: ATTEND Urology
DX: D35.00 Benign neoplasm of unspecified adrenal gland (principal)
CPT/HCPCS: 82565; 84520; 36415; 74170; Q9967

== ENCOUNTER → 2024-12-19 | Outpatient (CLI) | payer MEDICARE, OTHER ==
--- NOTE | 2024-12-19 10:16 | XR ---
EXAMINATION TYPE: XR sacrum coccyx DATE OF EXAM: 12/19/2024 10:10 AM INDICATION: Patient age:Female; 79 years old; Reason for study: M53.3 Sacrococcygeal.; [facility]. pain COMPARISON: CT abdomen and pelvis 09/08/2023, KUB radiograph 09/22/2023 TECHNIQUE: The sacrum/coccyx was examined in 3 projections. FINDINGS: There is no evidence of fracture or dislocation. Degenerative changes of the bilateral SI j oints and visualized lower lumbar spine. There is no soft tissue abnormality. Lower abdominal wall me sh anchors. Surgical clips within the right pelvis. Suture material within the pelvis. IMPRESSION: No acute osseous pathology. [facility], , 12/19/2024 10:14 AM
--- NOTE | 2024-12-19 10:27 | XR ---
EXAMINATION TYPE: XR lumbosacral spine min 4V DATE OF EXAM: 12/19/2024 10:17 AM INDICATION: Patient age:Female; 79 years old; Reason for study: M53.3SACROCOCCYGEAL DISORDERS, NOT ELSEWHERE CLASS; [facility]. pain COMPARISON: Sacrum/coccyx radiograph of the same date, site and pelvis 09/08/2023 TECHNIQUE: Frontal, lateral , bilateral oblique and coned in L5-S1 lateral views of the spine. FINDINGS: There are 5 lumbar type vertebral bodies identified. No evidence of any acute osseous patho logy. No evidence of loss of vertebral body height is seen. There is normal alignment of the lumbar vertebral bodies. Multilevel disc space narrowing with endplate sclerosis. Multilevel bridging osteop hytes of the left aspect of the lumbar spine. Multilevel facet arthropathy lower lumbar spine. Multip le mesh anchors identified. Surgical clips in the upper abdomen. IMPRESSION: 1. No acute process. 2. Mild to moderate multilevel degenerative disc disease. [facility], , 12/19/2024 10:24 AM
== END | disposition home or self-care (01) ==
LOC: RADXRMAIN 09:30
PROVIDERS: ATTEND Family Medicine
DX: M53.3 Sacrococcygeal disorders, not elsewhere classified (principal)
CPT/HCPCS: 72110; 72220